=== PATIENT | female | born 1930 | race Caucasian/White ===

== ENCOUNTER 2017-01-22 11:46 | Inpatient (IN) | payer OTHER, MEDICARE ==
[~2017-01-22] VITALS: Ht 162.6 cm; Wt 52.8 kg
[~2017-01-22 11:46] MED LIST: ASPIRIN EC81 M1 PO; CALCIUM 600-VI1 EACH PO; CARDIZEM CD360 MG PO; COUMADIN 2.5 M2.5 MG PO; COUMADIN 5 MG TA5 MG PO; COUMADIN3 M1 PO; DIGOX0.125 MG PO; FUROSEMIDE20 MG PO; LASIX20 M1 PO; LASIX40 MG PO; LOPRESSOR100 MG PO; LOPRESSOR50 M1 PO; LOVASTATIN40 M1 PO; METOPROLOL SUC100 M1 PO; MULTIPLE VITAM1 EAC2 PO; NORVASC 5MG TAB5 MG PO; PREDNISONE10 MG PO; PRILOSEC 20MG C20 MG PO; PROAIR HFA0.09 MG/Ac INH; SYMBICORT 160/41 PUF INH; VITAMIN D31000 UNI2 PO
--- NOTE | 2017-01-22 12:07 | ED INFLUENZA/URI COMPLAINT ---
History of Present Illness General Chief Complaint: Upper Respiratory Sx/Fever Stated Complaint: URI/? FLU Source: patient, family, old records Exam Limitations: no limitations Vital Signs & Intake/Output Vital Signs & Intake/Output Vital Signs Date Time Temp Pulse Resp B/P Pulse O2 O2 Flow FiO2 Ox Delivery Rate 01/23 1725 92 Nasal 2.0L Cannula 01/23 1600 Nasal 2.0L Cannula 01/23 1545 98.6 75 20 128/62 91 Nasal 2.0L Cannula 01/23 1501 87 140/56 01/23 1212 76 118/64 01/23 1211 76 118/64 01/23 0845 95 Nasal 2.0L Cannula 01/23 0840 Nasal 2.0L Cannula 01/23 0839 98.6 60 20 110/56 94 Nasal 2.0L Cannula 01/23 0800 95 Nasal 2.0L Cannula 01/23 0624 76 18 120/62 01/23 0249 96 Nasal 2.0L Cannula 01/23 0000 96 Nasal 2.0L Cannula 01/22 2353 98.4 60 20 116/50 96 Nasal Cannula 01/220 84 140/80 01/22 2120 84 140/80 01/22 2034 99 Nasal 2.0L Cannula 01/22 2029 98.8 100 20 148/70 99 Nasal 2.0L Cannula ED Intake and Output 01/23 0000 01/22 1200 Intake Total 120 Output Total 900 Balance -780 Intake, Oral 120 Output, Urine 900 Patient 118 lb Weight Allergies Coded Allergies: levofloxacin (Severe, TONGUE SWELLING 01/13/16) Penicillins (UNKNOWN 01/13/16) Reconcile Medications Albuterol Sulfate (Proair Hfa) 90 MCG HFA.AER.AD 2 PUF INH Q4-6 PRN PRN SOB ( Reported) Allopurinol 100 MG TABLET 1 TAB PO DAILY GOUT (Reported) Aspirin (Ecotrin*) 81 MG TABLET.DR 1 TAB PO DAILY HEART HEALTH (Reported) Budesonide/Formoterol Fumarate (Symbicort 160-4.5 Mcg Inhaler) 160 MCG-4.5 MCG/ ACTUATION HFA.AER.AD 2 PUF INH BID COPD (Reported) Calcium Carbonate/Vitamin D3 (Calcium 600-Vit D3 800 Tab) 600 MG-800 TABLET 1 TAB PO BID SUPPLEMENT (Reported) Digoxin 125 MCG TABLET 1 TAB PO DAILY AFIB (Reported) Diltiazem HCl 120 MG TABLET 1 TAB PO TID HEART (Reported) Furosemide 40 MG TABLET 1 TAB PO DAILY WATER PILL (Reported) Lovastatin 40 MG TABLET 1 TAB PO DAILY CHOLESTEROL (Reported) with food Metoprolol Tartrate (Lopressor) 50 MG TABLET 1 TAB PO BID Heart health ( Reported) Multivitamin (Multiple Vitamins) 1 EACH TABLET 1 TAB PO DAILY SUPPLEMENT ( Reported) Potassium Chloride 10 MEQ TAB.ER.PRT 1 TAB PO DAILY SUPPLEMENT (Reported) Warfarin Sodium 3 MG TABLET 1 TAB PO 1700 BLOOD THINNER (Reported) Triage Note: PT C/O DIFFICULTY BREATHING X 4 DAYS. PT C/O PRODUCTIVE COUGH. PT C/O CP ON AND OFF TODAY. DR HICKS IS HER DRLanette 02 SATS 72% ON RA Triage Nurses Notes Reviewed? yes Onset: Abrupt Duration: week(s): (1), constant, getting worse Timing: recent history Severity: moderate, severe Severity Numbers: 9 Prior Episodes/Possible Cause: occassional episodes Modifying Factors: Worsens With: movement, rest. 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 Patient denies any chest pain today contrary to triage note. She reports a history of intermittent chest pain dating back for the past 1 year however none today. She is followed by it account manager Dr. Hicks who she states has been fluctuating her Lasix dose. She is currently on 40 mg once a day. She was going to the infusion center however stopped and she is not home O2 dependent. The patient states that last night she was unable to sleep because she could not sit back due to her difficulty breathing. No palpitations dizziness lightheadedness. The patient denies fever chills, she denies any change in her chronic leg swelling and is not worse than normal no difficulty with urination (PORSCHE LAW) Past History Travel History Traveled to [place] past 21 day No Medical History Any Pertinent Medical History? 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 Other Medical Hx: Arterial blockage and abdomen, patient unsure specifics R SIDE BREAST MASS WITH RESCECTION History of MRSA: No History of VRE: No History of CDIFF: No Surgical History Surgical History: hysterectomy, LUNG MASS WITH LOBECTOMY R SIDE pacemaker Psychosocial History Who do you live with Spouse Services at Home Home Health Aide What is your primary language Polish Tobacco Use: Quit >30 days ago ETOH Use: denies use Illicit Drug Use: denies illicit drug use Family History Family History, If Any: SISTER MOTHER Relation not specified for: *No pertinent family history FH: atrial fibrillation FH: hypertension Hx Contributory? No (PORSCHE LAW) Review of Systems Review of Systems Constitutional: Reports: see HPI. All Other Systems: Reviewed and Negative Comments Review of systems: See HPI, All other systems negative. Constitutional, no chills no fever, no malaise HEENT: No visual changes no sore throat no congestion, no ear pain Cardiovascular: No chest pain , no palpitation , orthopnea ankle swelling Skin, no jaundice no rashes, no change in skin Respiratory: dyspnea cough no sputum no hemoptysis GI: No nausea no vomiting, no diarrhea, : No dysuria Muscle skeletal: No joint pain, no back pain, no neck pain, Neurologic: No numbness no headache Psych: No stress Heme/endocrine: No bruising no bleeding Immunology: No lymphadenopathy (PORSCHE LAW) Physical Exam Physical Exam General Appearance: alert, cachetic Ears, Nose, Throat: normal ENT inspection, moist mucous membrane, hearing grossly normal Comments: HEENT: Normal EENT exam; PERRL, EOMI, no nystagmus. HEAD is atraumatic. moist mucous membranes. Neck: Supple, no lymphadenopathy, normal range of motion without pain or tenderness Back: Nontender, no CVA tenderness. Full range of motion Cardiovascular: Regular rate and rhythms no murmurs rubs or gallops Respiratory: Chest nontender.There were no bony deformities, no asymmetry. Moderate respiratory distress. Patient speaking in 3-4 word sentences, wheezing bilaterally rhonchorous to the right base Abdomen: Soft, nontender nondistended, no appreciable organomegaly. Normal bowel sounds. No rebound/guarding, No ascites. Extremity:1+ B/L LE edema, full range of motion of extremities, normal and equal pulses bilaterally, 5 out of 5 strength noted to bilateral upper and lower extremities Neuro: Alert oriented x3, motor sensory normalThere were no obvious focal neurologic abnormalities. Skin: No appreciable rash on exposed skin, skin is warm and dry. Psych: Mood and affect is normal, memory and judgment is normal. Core Measures Severe Sepsis Present: No Septic Shock Present: No (BREANN FLOWER,PORSCHE) Progress Differential Diagnosis: chf ACUTE mi PNEUMONIA BRONCHITIS n ABNORMALITY TO THE INJURY ( INFLUENZA) Plan of Care: Orders Procedure Date/time Status PROTHROMBIN TIME 01/24 600 Active BASIC ELECTROLYTES PLUS BUN&CR 01/24 600 Active THROAT CULTURE W/QUICK STREP 01/23 1447 Active RT: Evaluation 01/24 844 Active MAGNESIUM 01/23 600 Complete THERAPIST ORDERS 01/23 UNK Complete PT Evaluate & Treat 01/23 UNK Active Therapeutic Activities 01/23 UNK Complete PT EVAL LOW COMPLEX 20 MIN 01/23 UNK Complete Gait Training 01/23 UNK Complete Discontinue Telemetry/Monitor 01/23 UNK Active MISSING MEDICATION FORM 01/23 UNK Active Vital Signs 01/22 2034 Complete Teach/Educate 01/22 2034 Active Pain Treatment and Response 01/22 2034 Active Nutritional Intake, Monitor 01/22 2034 Active Isolation 01/22 2034 Active Intake & Output 01/22 2034 Complete Patient Care Conference 01/22 2034 Active Activity/Ambulation 01/22 2034 Complete Current Medications Sig/Elle Start time Last Medication Dose Stop Time Status Admin Ramelteon 8 MG QPM 01/23 2200 AC (Rozerem) Benzocaine/Menthol 1 DONNA Q2P PRN 01/23 1500 AC (Chloraseptic Lozenges) Acetaminophen 325 MG Q6P PRN 01/23 0745 AC (Tylenol) Albuterol Sulfate 2 PUF Q4-6 PRN PRN 01/22 1630 AC (Ventolin) Laboratory Tests 01/23/17 0628: Anion Gap 11, Estimated GFR 39 L, BUN/Creatinine Ratio 17.7, Magnesium 2.0, PT 39.4 H, INR 3.80 H, CBC w Diff NO MAN DIFF REQ, RBC 3.85 L, MCV 95.3, MCH 31.3 H, RDW 15.9 H, MPV 7.2 L, Gran % 90.5 H, Lymphocytes % 5.4 L, Monocytes % 4.1, Eosinophils % 0, Basophils % 0 L, Absolute Granulocytes 5.1, Absolute Lymphocytes 0.3 L, Absolute Monocytes 0.2, Absolute Eosinophils 0, Absolute Basophils 0, PUBS MCHC 32.8 L 01/23/17 0035: Troponin I 0.02 Labs ordered old records are patient medicated with DuoNeb Solu-Medrol Lasix IV OXYGEN saturations increased to 94-95% on 2 L On repeat evaluation patient reports symptoms have improved with breathing treatment Lasix discussed with her and her son at length all of her lab results x-ray findings discussed with him my concern given her oxygen saturation initially 72%. The patient was titrated off the oxygen which time her oxygen saturation was noted to be 82-83% at which time she was in agreement for admission, case was discussed with hospitalist Dr. HERNANDEZ WELL HER TUBE PUSHER DR HICKS WILL ADMIT- agrees with plan Case discussed with Dr. BYRNE (BREANN FLOWER,PORSCHE) Diagnostic Imaging: Viewed by Me: Radiology Read. Discussed w/RAD: Radiology Read. Radiology Impression: PATIENT: YESY DUBOIS PRESENT AGE : 86 PATIENT ACCOUNT NO: [id number] : [birth year] LOCATION: [facility] ORDERING PHYSICIAN: PORSCHE FLOWER SERVICE DATE: 01/22/17 EXAM TYPE: RAD - XRY- PORTABLE CHEST XRAY EXAMINATION: XR PORTABLE CHEST CLINICAL INFORMATION: Hypoxic , dyspnea. Assess for pneumonia. COMPARISON: Chest x-ray 12/30/2016. TECHNIQUE: Portable AP view of the chest was obtained. FINDINGS: The lung dyer are hyperexpanded bilaterally, similar compared to prior imaging. There has been interval increase in opacity at the right base with likely increase in the right pleural effusion. Underlying consolidation can't be excluded. The cardiac silhouette is normal in size. The aortic arch is calcified and unfolded. The central pulmonary vasculature is normal. There are no acute osseous findings; the postoperative changes in the right upper chest posteriorly are not well demonstrated likely due to position of the patient (kyphotic). Dual lead pacemaker from the left chest appears unchanged. IMPRESSION: 1. There has been interval increase in opacification at the right base, which may be consistent with increasing pleural effusion. An area of consolidation cannot be excluded. 2. Recommend upright frontal and lateral views of the chest for further assessment. DICTATED BY: JOSE EDUARDO GUADARRAMA MD DATE/TIME DICTATED:01/22/171300 SLAG WORKER:MATA DATE/TIME TRANSCRIBED:01/22/171300 CONFIDENTIAL, DO NOT COPY WITHOUT APPROPRIATE AUTHORIZATION. <Electronically signed in Other Vendor System> SIGNED BY: JOSE EDUARDO GUADARRAMA MD 01/22/17 1311 Initial ED EKG: AFIB AT 70, PVCS, NO ACUTE ST SEG CHANGES Prior EKG: unchanged (02/2016) Rhythm Strip: atrial fibrillation (PORSCHE LAW) Departure Departure Time of Disposition: 1338 Disposition: HOME OR SELF CARE Condition: Stable Clinical Impression Primary Impression: CHF (congestive heart failure) Secondary Impressions: Hypoxia, Pleural effusion Referrals: VAHID SILVERIO MD (PCP/Family) Departure Forms: Customer Survey General Discharge Information Admission Note Documentation of Exam: Documentation of any treatments & extenuating circumstances including Concerns Regarding Discharge (functional status, medication knowledge or non-compliance, living conditions, etc.) that warrant an admission rather than observation: IV DIURESIS, CARDIOLOGY EVAL, TREND LABS, PT HYPOXIC ON ROOM AIR, MAY REQUIRE HOME O2, PREMATURE DISCHARGE WOULD BE MEDICALLY HARMFUL (PORSCHE LAW) PA/HALL CLERK Co-Sign Statement Statement: ED Attending supervision documentation- X I saw and evaluated the patient. I have also reviewed all the pertinent lab results and diagnostic results. I agree with the findings and the plan of care as documented in the PA's/HALL CLERK's documentation. [] I have reviewed the ED Record and agree with the PA's/HALL CLERK's documentation. [] Additions or exceptions (if any) to the PAs/HALL CLERK's note and plan are summarized below: [] (CATY WATERS,EMILY)
[2017-01-22] MEDS ORDERED: DILTIAZEM HCL120 M3 PO (12:27)
[2017-01-22] MEDS ORDERED: POTASSIUM CHLO10 ME5 PO (12:28)
[2017-01-22] MEDS ORDERED: DIGOXIN125 MCG PO (12:28)
[2017-01-22] MEDS ORDERED: WARFARIN SODIUM3 M1 PO (12:29)
[2017-01-22] MEDS ORDERED: ALLOPURINOL100 M1 PO (12:30)
[2017-01-22] MEDS ORDERED: FUROSEMIDE40 M1 PO (12:30)
[2017-01-22] MEDS ORDERED: PROAIR HFA8.5 GM INH (12:35)
[2017-01-22] MEDS ORDERED: SYMBICORT 16010.2 GM INH (12:36)
[2017-01-22 12:51] LABS: ABSOLUTE BASOPHIL COUNT 0 /CUMM (0.0-0.2); ABSOLUTE EOSINOPHIL COUNT 0.1 /CUMM (0.0-0.7); ABSOLUTE GRANULOCYTE CT 8.2 /CUMM (1.4-6.5); ABSOLUTE LYMPH COUNT 0.4 /CUMM (1.2-3.4); ABSOLUTE MONOCYTE COUNT 0.7 /CUMM (0.10-0.60); BASOPHIL % 0.3 % (0.0-2.0); EOSINOPHIL % 0.8 % (0-5); HEMATOCRIT 37.4 % (37-47); MEAN CORPUSCULAR HGB 31.3 PG (27.0-31.0); MEAN CORPUSCULAR HGB CONC 32.9 G/DL (33.0-37.0); MEAN CORPUSCULAR VOLUME 95.2 FL (81.0-99.0); MEAN PLATELET VOLUME 6.9 FL (7.4-10.4); PLATELET COUNT 251 /CUMM (130-400); RBC DISTRIBUTION WIDTH 16.3 % (11.5-14.5); RED BLOOD CELL CT 3.93 /CUMM (4.20-5.40); WHITE BLOOD CELL COUNT 9.5 /CUMM (4.8-10.8)
[2017-01-22 13:05] LABS: GRANULOCYTE % 86.9 % (42.2-75.2)
[2017-01-22 13:07] LABS: PT 30.5 SEC (9.4-12.5)
--- NOTE | 2017-01-22 13:11 | RADIOLOGY REPORT ---
EXAMINATION: XR PORTABLE CHEST CLINICAL INFORMATION: Hypoxic, dyspnea. Assess for pneumonia. COMPARISON: Chest x-ray 12/30/2016. TECHNIQUE: Portable AP view of the chest was obtained. FINDINGS: The lung dyer are hyperexpanded bilaterally, similar compared to prior imaging. There has been interval increase in opacity at the right base with likely increase in the right pleural effusion. Underlying consolidation can't be excluded. The cardiac silhouette is normal in size. The aortic arch is calcified and unfolded. The central pulmonary vasculature is normal. There are no acute osseous findings; the postoperative changes in the right upper chest posteriorly are not well demonstrated likely due to position of the patient (kyphotic). Dual lead pacemaker from the left chest appears unchanged. IMPRESSION: 1. There has been interval increase in opacification at the right base, which may be consistent with increasing pleural effusion. An area of consolidation cannot be excluded. 2. Recommend upright frontal and lateral views of the chest for further assessment.
--- NOTE | 2017-01-22 14:01 | History & Physical ---
VILMA SORIANO MD 01/22/17 1401: General Information and HPI MD Statement: I have seen and personally examined YESY PRO and documented this H&P. The patient is a 86 year old F who presented with a patient stated chief complaint of shortness of breath. Source of Information: patient, family Exam Limitations: no limitations History of Present Illness: Ms. 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 Patient provided an extended history and reports her heart failure has been well controlled for the last year and she was even able to decrease frequency of her CHF clinic visits, however starting about 1 week ago she has had progressive dyspnea which is limiting her ambulation and ADLs. Associated symptoms include cough productive of clear-yellow sputum, malaise, 40 -pound unintentional weight loss over the last 1 year, mild lower extremity edema, intermittent dull pain present in the region inframammary fold that radiates to the back, recent initiation of Proair to improve her respiratory symptoms. Patient also endorses difficulty sleeping, though she denies paroxysmal nocturnal dyspnea and orthopnea. Patient denies fever, chills, chest pain, abdominal pain, nausea, vomiting, dysuria, constipation or gait dysfunction. Social history is negative for alcohol or illicit drug use but is significant for >40 year history of tobacco abuse. She does not use an assist device to ambulate, does not use oxygen at home, and lives at her house with her . She sees Dr. Dick as her developmental behavioral physician and Dr. Ponce as her cardiothoracic surgeon. Allergies/Medications Allergies: Coded Allergies: levofloxacin (Severe, TONGUE SWELLING 01/13/16) Penicillins (UNKNOWN 01/13/16) Home Med list Albuterol Sulfate (Proair Hfa) 90 MCG HFA.AER.AD 2 PUF INH Q4-6 PRN PRN SOB ( Reported) Allopurinol 100 MG TABLET 1 TAB PO DAILY GOUT (Reported) Aspirin (Ecotrin*) 81 MG TABLET.DR 1 TAB PO DAILY HEART HEALTH (Reported) Budesonide/Formoterol Fumarate (Symbicort 160-4.5 Mcg Inhaler) 160 MCG-4.5 MCG/ ACTUATION HFA.AER.AD 2 PUF INH BID COPD (Reported) Calcium Carbonate/Vitamin D3 (Calcium 600-Vit D3 800 Tab) 600 MG-800 TABLET 1 TAB PO BID SUPPLEMENT (Reported) Digoxin 125 MCG TABLET 1 TAB PO DAILY AFIB (Reported) Diltiazem HCl 120 MG TABLET 1 TAB PO TID HEART (Reported) Furosemide 40 MG TABLET 1 TAB PO DAILY WATER PILL (Reported) Lovastatin 40 MG TABLET 1 TAB PO DAILY CHOLESTEROL (Reported) with food Metoprolol Tartrate (Lopressor) 50 MG TABLET 1 TAB PO BID Heart health ( Reported) Multivitamin (Multiple Vitamins) 1 EACH TABLET 1 TAB PO DAILY SUPPLEMENT ( Reported) Potassium Chloride 10 MEQ TAB.ER.PRT 1 TAB PO DAILY SUPPLEMENT (Reported) Warfarin Sodium 3 MG TABLET 1 TAB PO 1700 BLOOD THINNER (Reported) Compliance With Home Meds: GOOD Past History Travel History Traveled to [place] past 21 day No Medical History Neurological: NONE EENT: NONE Cardiovascular: AFIB, CHF Respiratory: COPD Gastrointestinal: ?STOMACH ISSUE, [place] Hepatic: NONE Renal: NONE Musculoskeletal: NONE Psychiatric: NONE Endocrine: NONE Blood Disorders: NONE Cancer(s): bladder cancer, breast cancer, lung cancer HAND WELT BUTTER/Reproductive: BLADDER TUMOR Other Medical Hx: Arterial blockage and abdomen, patient unsure specifics R SIDE BREAST MASS WITH RESCECTION History of MRSA: No History of VRE: No History of CDIFF: No Surgical History Surgical History: hysterectomy, LUNG MASS WITH LOBECTOMY R SIDE pacemaker Past Family/Social History Family History Relations & Conditions if any SISTER MOTHER Relation not specified for: *No pertinent family history FH: atrial fibrillation FH: hypertension Psychosocial History Where do you live? Home Who Do You Live With? spouse Services at Home: Home Health Aide Primary Language: Korean Smoking Status: Former Smoker ETOH Use: denies use Illicit Drug Use: denies illicit drug use Living Will? yes Functional Ability ADLs Independent: dressing, eating, toileting, bathing. Ambulation: independent IADLs Independent: shopping, housework, finances, food prep. Employment History Employment Retired Review of Systems Review of Systems Constitutional: Reports: malaise, unexplained weight loss. Denies: chills, fever, weakness. EENTM: Denies: blurred vision, visual changes, hearing changes, nasal congestion, throat pain. Cardiovascular: Reports: peripheral edema. Denies: chest pain, palpitations, syncope. Respiratory: Reports: cough, short of breath, sputum production, wheezing (Intermittent). GI: Denies: abdominal pain, nausea, changes in stool, vomiting. Genitourinary: Denies: dysuria. Musculoskeletal: Denies: back pain, joint pain. Skin: Denies: change in skin color, rash. Neurological/Psychological: Denies: ataxia, confusion, headache, numbness, tremors. Hematologic/Endocrine: Denies: bruising, bleeding. Immunologic/Allergic: Denies: splenectomy. Exam & Diagnostic Data Last 24 Hrs of Vital Signs/I&O Vital Signs Date Time Temp Pulse Resp B/P Pulse O2 O2 Flow FiO2 Ox Delivery Rate 01/22 1334 97.0 60 26 161/70 83 Room Air 01/22 1240 97.0 70 20 179/69 20 01/22 1234 93 Nasal 4.0L Cannula 01/22 1207 97.8 67 24 175/93 72 Room Air Intake & Output 01/22 1600 01/22 0800 01/22 0000 Intake Total Output Total Balance Patient 118 lb Weight Physical Exam General Appearance Alert, Oriented X3, Cooperative, No Acute Distress Skin RLE chronic skin changes HEENT Atraumatic, PERRLA, EOMI, Mucous Membr. moist/pink Neck Supple, +2 Carotid Pulse wo Bruit, +JVD Lymphatic Cervical nl Cardiovascular Irregular Lungs Decreased air entry bilaterally without over wheezing or crackles. Patient uses 2-3 words and becomes short of breath. Abdomen Normal Bowel Sounds, Soft, No Tenderness, + Incisional abdominal hernia below umbilicus, reducible. Neurological Normal Speech, Strength at 5/5 X4 Ext, Normal Tone Extremities No Clubbing, No Cyanosis, 1-2+ bilateraly lower extremity edema Vascular Pulses Symmetrical Last 24 Hrs of Labs/Nikita: Laboratory Tests 01/22/17 1342: Urine Color YEL, Urine Clarity CLEAR, Urine pH 7.0, Ur Specific [place] 1.020, Urine Protein 100 H, Urine Ketones NEG, Urine Nitrite NEG, Urine Bilirubin NEG, Urine Urobilinogen 0.2, Ur Leukocyte Esterase NEG, Ur Microscopic SEDIMENT EXAMINED, Urine RBC RARE, Urine WBC RARE, Ur Epithelial Cells FEW, Urine Hemoglobin NEG, Urine Glucose NEG 01/22/17 1242: Anion Gap 12, Estimated GFR 42 L, BUN/Creatinine Ratio 15.8, Glucose 131 H, Calcium 9.5, Total Bilirubin 1.1, AST 31, ALT 37, Alkaline Phosphatase 82, Troponin I 0.01, Cho-P-Yufjboxpqax Pept 4580 H, Total Protein 7.7, Albumin 4.5, Globulin 3.2, Albumin/Globulin Ratio 1.4, PT 30.5 H, INR 2.94 H, CBC w Diff NO MAN DIFF REQ, RBC 3.93 L, MCV 95.2, MCH 31.3 H, RDW 16.3 H, MPV 6.9 L, Gran % 86.9 H, Lymphocytes % 4.2 L, Monocytes % 7.8, Eosinophils % 0.8, Basophils % 0.3, Absolute Granulocytes 8.2 H, Absolute Lymphocytes 0.4 L, Absolute Monocytes 0.7 H, Absolute Eosinophils 0.1, Absolute Basophils 0, PUBS MCHC 32.9 L Microbiology 01/22 124 NASOPHARYN: Influenza Virus A & B Rapid Smear - COMP 01/22 1245 BLOOD: Blood Culture - RECD 01/22 1242 BLOOD: Blood Culture - RECD Diagnostic Data EKG Results Ventricular paced rhythm, HR 72 bpm, no acute ST changes, similar from prior. CXR Results IMPRESSION: 1. There has been interval increase in opacification at the right base, which may be consistent with increasing pleural effusion. An area of consolidation cannot be excluded. 2. Recommend upright frontal and lateral views of the chest for further assessment. Assessment/Plan Assessment: Ms. 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 In the ED: Vital signs show T 97.0, HR 60, RR 26, BP 161/70 and O2 saturation of 72% on RA. Labs were significant for normal WBC of 9.5, stable H&H, Plt 251, Chem signfiicant for Na 135, Cl 91, HCO3 32, BUN/cre 19/1.2 (her baseline), Glu 131, trop 0.01, proBNP 4580 and INR 2.94. Dig level was WNL and UA showed no signs of infection. CXR showed interval increase in opacification at the right base, which may be consistent with increasing pleural effusion, however an area of consolidation cannot be excluded. EKG showed ventricular paced rhythm with HR 72 bpm. Patient is admitted to the telemetry floor and below is the management: 1. Acute hypoxic respiratory failure likely secondary to acute on chronic diastolic heart failure * Likel HFpEF exacerbation, however we will also rule out ACS and PE * Continuous tele monitoring for arrhythmias * Rule out ACS with troponin/EKG x 3 (first negative) * Cardio consuly with Dr. Dick appreciated, follow up recommendations * Continue 2L O2 via NC for now, titrate down as tolerated * We will continue 40 mg IV lasix daily * Repeat CXR PA/LAT tomorrowin to monitor for improvement of right pleural effusion and to better characterize right basal consolidation * Strict Is/Os/Daily weights * Echocardiogram pending, f/u results * D-Dimer negative and wells score low, no further need to puruse PE workup 2. Chronic COPD not on home O2 * Continue oxygen via nasal cannula for now * No evidence of wheezing or COPD exacerbation at this point * Continue Proair daily * TR nebs 3. Atrial fibrillation s/p PPM, HTN, HLD * Continue daily INR checks and warfarin dosed daily * Continue aspirin * Metoprolol 50 mg PO BID, cardizem 120 mg PO Q8 and digoxin 0.125 mg PO daily 4. Chronic renal dysfunction * Baseline cre 1.1-1.2, patient currently at baseline * Caution with overdiuresis * Monitor BEP daily 5. Gout * Continue allopurinol daily DNR/DNI CHF diet DVTP: Warfarin As Ranked By This Provider Problem List: 1. CHF (congestive heart failure) 2. Atrial fibrillation 3. Pleural effusion 4. Acute hypoxemic respiratory failure Core Measures/Miscellaneous Acute Coronary Syndrome ACS Diagnosis: No Cerebrovascular Accident CVA/TIA Diagnosis: No Congestive Heart Failure CHF Diagnosis: Yes Date of most recent Echo: 11/13/15 Last Known EF %: 65 Venous Thromboembolism VTE Risk Factors: Acute medical illness, Age > 40, CHF or Resp failure [facility] prophylaxis d/t: No contraindications No VTE Pharm Prophylaxis d/t: No contraindications VTE Diagnosis: No VTE Type: NONE VTE Confirmed by (Test): NONE Severe Sepsis Severe Sepsis Present: No Septic Shock Septic Shock Present: No Miscellaneous Documentation Attending Case Discussed With: Dr. Padilla Primary Care Physician: VAHID SILVERIO MD Patient sees these Specialists Dr. Dick - Research Associate Molecular Biology Level of Patient Care: Telemetry TYLER MASON 01/22/17 1420: Resident Review Statement Resident Statement: examined this patient, discussed with computer science intern, agreed with computer science intern, reviewed images Other Findings: This is an 86-year-old lady with past medical history significant for COPD not on home oxygen, tachybradycardia syndrome s/p pacemaker (11/17/2015), hypertension, dyslipidemia, diverticulitis, lung cancer status post right upper lobe resection, history of atrial fibrillation on warfarin, urothelial carcinoma s/p resection status post resection, breast mass status post resection, abdominal aortic aneurysm who presents to the hospital with worsening of dyspnea for the past 4 days. Please see above for more details. Vital signs on admission: Temperature 97.8, pulse rate 67, respiratory rate 24, blood pressure 175/93, oxygen saturation 72% on room air which improved to 93% with nasal cannula oxygen. Pertinent physical exam at the time of admission: NAD, AAO 3 HEENT: Moist mucous membrane. PERRLA, EOMI. Neck:JVD noted, no carotid bruit, no lymphadenopathy. CV: RRR, no murmur. Lungs: CTABL. Abdomen: Hernia noted, Soft,nondistended, nontender. Extremities : Bilateral lower extremity edema noted(per patient, this is improved compared to her baseline). Pulses are normal and symmetrical. Normal reflexes. Neurology: Benign and nonfocal. Pertinent lab data on admission: CBC unremarkable. Potassium 4.4, creatinine 1.2 (baseline 0.9 in April 2017), GFR 42(Baseline), proBNP 4580 (4210 in February 2016). UA positive for proteinuria (100). INR 2.94, d-dimer 597 (NL D-dimer based on her age <880). Chest x-ray on admission:interval increase in opacification at the right base, which may be consistent with increasing pleural effusion. An area of consolidation cannot be excluded. Last echo done 11/05/2015: Normal ejection fraction, mild concentric LVH, moderate MR, mild TR, mild pulmonary hypertension (RV systolic pressure 43). Problem list/plan: #Dyspnea: Acute hypoxic respiratory failure. Most likely secondary to acute on chronic heart failure. PE ruled out with d-dimer. * satellite project site monitor * Vital signs per protocol * Oxygen supplementation as needed * Rule out ACS with troponins and EKG * Echocardiogram * Cardiology consult * We'll start the patient on furosemide 40 mg IV daily * PA lateral chest x-ray tomorrow #Abnl CXR: * ? area of pleural effusion vs consolidation. * No clinical signs of pneumonia * Will check PA/LAT CXR #COPD not on home oxygen: * No clinical evidence of COPD exacerbation * Received IV steroids in the ED, no need for further steroid therapy at this point * TRC/nebs * Continue with METAL FABRICATING INSPECTOR Pro-air #Tachybradycardia syndrome s/p pacemaker, history of atrial fibrillation on warfarin, hypertension, dyslipidemia: * C/W METAL FABRICATING INSPECTOR dose of digoxin, metorprolol, diltiazem * on 3 mg warfarin as outpatient. * Check INR and dose warfarin accordingly. #CKD: * GFR/Cr close to baseline; UA + for Pruria * Monitor daily kidney fx while on IV diuretics * Avoid nephrotoxins #H/O Gout: * C/W METAL FABRICATING INSPECTOR dose of allupurinol #DVT PPX: * Pt on Warfarin w/therapeutic INR #Code status: * DNI/DNR #Pain MX: Pt pain free on admission; if develops pain, would reevaluate and order pain meds accordingly. LOVE PADILLA MD 01/23/17 1107: Attending MD Review Statement Attending Statement Attending MD Statement: examined this patient, discuss w/resident/PA/PANMAN, agreed w/resident/PA/PANMAN, reviewed EMR data (avail) Attending Assessment/Plan: 86F PMH COPD not on home oxygen, tachybradycardia syndrome s/p pacemaker (2015), hypertension, dyslipidemia, diverticulitis, lung cancer status post right upper lobe resection, history of atrial fibrillation on warfarin, urothelial carcinoma s/p resection status post resection, breast mass status post resection , abdominal aortic aneurysm admitted with acute hypoxemic respiratory failure, dyspnea on exertion, and mild LE edema in the setting of acute on chronic HFpEF. Plan - Continue on telemetry - Continue IV Lasix - I/O, daily weights - Continue home medications - Follow cardiology recommendations - DVT PPx
--- NOTE | 2017-01-22 14:54 | Admission Certification ---
Admission Certification Certification Statement - As attending physician, I certify that at the time of - admission, based on clinical presentation, severity of - symptoms, need for further diagnostic testing and - therapeutic interventions, and risk of adverse outcomes - without in-hospital treatment, in my clinical assessment, - this patient requires an acute hospital stay for a minimum - of two nights or longer. I have also considered psychsocial - factors such as support system, advanced age, financial - issues, cognitive issues, and failed out-patient treatments, - past re-admission history, safety of patient, and lack of - compliance as applicable. Specific rationale supporting this admission is: Acute on chronic CHF
--- NOTE | 2017-01-22 20:15 | Cons- Cardiology ---
General Information and HPI Consulting Request Date of Consult: 01/22/17 Requested By: LOVE PADILLA MD Reason for Consult: Shortness of breath. History of Present Illness: Mrs. 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, AAA, paroxysmal atrial fibrillation with tachycardia/bradycardia syndrome, ultimately requiring permanent pacemaker implantation (VVI) so that the rapid ventricular response rates could be adequately controlled, previous troponin I elevation secondary to demand ischemia, left ventricular hypertrophy and presumed diastolic dysfunction, moderate mitral regurgitation, mild pulmonary hypertension, mild tricuspid regurgitation and recurrent admissions for acute exacerbations of her COPD and diastolic heart failure who again presents with progressive shortness of breath, wheezing, cough productive of whitish sputum, weakness, decreased by mouth intake, etc. She also mentioned, in passing, and she has been experiencing discomfort in her lower rib/upper abdominal region. Allergies/Medications Allergies: Coded Allergies: levofloxacin (Severe, TONGUE SWELLING 01/13/16) Penicillins (UNKNOWN 01/13/16) Home Med List: Albuterol Sulfate (Proair Hfa) 90 MCG HFA.AER.AD 2 PUF INH Q4-6 PRN PRN SOB ( Reported) Allopurinol 100 MG TABLET 1 TAB PO DAILY GOUT (Reported) Aspirin (Ecotrin*) 81 MG TABLET.DR 1 TAB PO DAILY HEART HEALTH (Reported) Budesonide/Formoterol Fumarate (Symbicort 160-4.5 Mcg Inhaler) 160 MCG-4.5 MCG/ ACTUATION HFA.AER.AD 2 PUF INH BID COPD (Reported) Calcium Carbonate/Vitamin D3 (Calcium 600-Vit D3 800 Tab) 600 MG-800 TABLET 1 TAB PO BID SUPPLEMENT (Reported) Digoxin 125 MCG TABLET 1 TAB PO DAILY AFIB (Reported) Diltiazem HCl 120 MG TABLET 1 TAB PO TID HEART (Reported) Furosemide 40 MG TABLET 1 TAB PO DAILY WATER PILL (Reported) Lovastatin 40 MG TABLET 1 TAB PO DAILY CHOLESTEROL (Reported) with food Metoprolol Tartrate (Lopressor) 50 MG TABLET 1 TAB PO BID Heart health ( Reported) Multivitamin (Multiple Vitamins) 1 EACH TABLET 1 TAB PO DAILY SUPPLEMENT ( Reported) Potassium Chloride 10 MEQ TAB.ER.PRT 1 TAB PO DAILY SUPPLEMENT (Reported) Warfarin Sodium 3 MG TABLET 1 TAB PO 1700 BLOOD THINNER (Reported) Current Medications: Current Medications Sig/Elle Start time Last Medication Dose Route Stop Time Status Admin Albuterol Sulfate 2 PUF Q4-6 PRN PRN 01/22 1630 AC INH Albuterol Sulfate 3 ML ONCE ONE 01/22 1215 DC 01/22 INH 01/22 1216 1230 Allopurinol 100 MG DAILY 01/22 1515 AC 01/22 PO 1646 Aspirin Buffered 81 MG DAILY 01/23 1000 AC PO Atorvastatin Calcium 10 MG 1700 01/22 1700 AC 01/22 PO 1647 Digoxin 0.125 MG DAILY 01/23 1000 AC PO Digoxin 0.125 MG DAILY 01/22 1515 DC PO Diltiazem HCl 120 MG Q8 01/22 2200 AC PO Furosemide 40 MG DAILY 01/23 1000 AC IV Furosemide 40 MG ONCE ONE 01/22 1345 DC 01/22 IV PUSH 01/22 1346 1345 Furosemide 0 .STK-MED ONE 01/22 1345 DC IV Ipratropium [place] 2.5 ML ONCE ONE 01/22 1215 DC /08 INH 01/22 1216 1230 Methylprednisolone 0 .STK-MED ONE 01/22 1227 DC .ROUTE Methylprednisolone 125 MG ONCE ONE 01/22 1215 DC 01/22 IV 01/22 1216 1227 Metoprolol Tartrate 50 MG BID 01/22 2200 AC PO Potassium Chloride 10 MEQ DAILY 01/23 1000 AC PO Warfarin Sodium 3 MG COUMADIN 1700 ONE 01/22 1700 DC / PO 01/22 1701 1647 Review of Systems Review of Systems: A 14 point systemic review was obtained and was noncontributory, other than as above. Past History Travel History Traveled to [place] past 21 day No Medical History Neurological: NONE EENT: NONE Cardiovascular: AFIB, CHF, hypertension, hyperlipidemia, sick sinus syndrome s/p ppm Respiratory: COPD, pulmonary nodules, lung carcinoma status post resection Gastrointestinal: ?STOMACH ISSUE, [place] Hepatic: NONE Renal: NONE Musculoskeletal: NONE Psychiatric: NONE Endocrine: NONE Blood Disorders: NONE Cancer(s): bladder cancer, breast cancer, lung cancer [employer]/Reproductive: BLADDER TUMOR Other Medical Hx: Arterial blockage and abdomen, patient unsure specifics R SIDE BREAST MASS WITH RESCECTION Surgical History Surgical History: hysterectomy, LUNG MASS WITH LOBECTOMY R SIDE pacemaker Family History Relations & Conditions If Any: SISTER MOTHER Relation not specified for: *No pertinent family history FH: atrial fibrillation FH: hypertension Psychosocial History Where Do You Live? Home Who Do You Live With? spouse Services at Home: Home Health Aide Primary Language: Polish Smoking Status: Former Smoker ETOH Use: denies use Illicit Drug Use: denies illicit drug use Living Will? yes Functional Ability ADLs Independent: dressing, eating, toileting, bathing. Ambulation: independent IADLs Independent: shopping, housework, finances, food prep. Employment History Employment: Retired Exam & Diagnostic Data Vital Signs and I&O Vital Signs Date Time Temp Pulse Resp B/P Pulse O2 O2 Flow FiO2 Ox Delivery Rate 01/22 1934 97.4 78 20 144/67 98 Nasal 4.0L Cannula 01/22 1806 96.8 80 18 140/63 100 Nasal 2.0L Cannula 01/22 1525 61 01/22 1445 98.0 65 18 168/70 94 Nasal 2.0L Cannula 01/22 1334 97.0 60 26 161/70 83 Room Air 01/22 1240 97.0 70 20 179/69 20 01/22 1234 93 Nasal 4.0L Cannula 01/22 1207 97.8 67 24 175/93 72 Room Air Intake & Output 01/22 1600 01/22 0800 01/22 0000 01/21 1600 01/21 0800 01/21 0000 Intake Total Output Total 450 Balance -450 Output, Urine 450 Patient 118 lb Weight Physical Exam: Chronically ill-appearing, elderly female in mild respiratory distress with nasal oxygen in place. Vital signs: See above. HEENT: Normocephalic, atraumatic, EOMI, moist mucous membranes. Neck: No JVD, no bruits. Lungs: Decreased breath sounds occasional expiratory wheezing and rhonchi. Heart: S1, S2 with a soft (grade 1/6) systolic murmur. No gallop or rub appreciated. PMI fifth ICS at [facility]. Abdomen: Soft, nontender, positive bowel sounds. Extremities: Trace bilateral lower extremity edema. Labs/Nikita Results: Laboratory Tests 01/22 01/22 1830 1342 Chemistry Troponin I (< 0.11 ng/ml) 0.02 Urines Urine Color (YEL,AMB,STR) YEL Urine Clarity (CLEAR) CLEAR Urine pH (5.0 - 8.0) 7.0 Ur Specific [place] (1.001 - 1.035) 1.020 Urine Protein (NEG,<30 MG/DL) 100 H Urine Ketones (NEG) NEG Urine Nitrite (NEG) NEG Urine Bilirubin (NEG) NEG Urine Urobilinogen (0.1 - 1.0 EU/dl) 0.2 Ur Leukocyte Esterase (NEG) NEG Ur Microscopic SEDIMENT EXAMINED Urine RBC (0 - 5 /HPF) RARE Urine WBC (0 - 2 /HPF) RARE Ur Epithelial Cells (NONE,FEW) FEW Urine Hemoglobin (NEG) NEG Urine Glucose (N MG/DL) NEG 01/22 1242 Chemistry Sodium (137 - 145 mmol/L) 135 L Potassium (3.5 - 5.1 mmol/L) 4.4 Chloride (98 - 107 mmol/L) 91 L Carbon Dioxide (22 - 30 mmol/L) 32 H Anion Gap (5 - 16) 12 BUN (7 - 17 mg/dL) 19 H Creatinine (0.5 - 1.0 mg/dL) 1.2 H Estimated GFR (>60 ml/min) 42 L BUN/Creatinine Ratio (7 - 25 %) 15.8 Glucose (65 - 99 mg/dL) 131 H Calcium (8.4 - 10.2 mg/dL) 9.5 Total Bilirubin (0.2 - 1.3 mg/dL) 1.1 AST (14 - 36 U/L) 31 ALT (9 - 52 U/L) 37 Alkaline Phosphatase (<127 U/L) 82 Troponin I (< 0.11 ng/ml) 0.01 Rtq-O-Ixlecwgradb Pept (<125 pg/mL) 4580 H Total Protein (6.3 - 8.2 g/dL) 7.7 Albumin (3.5 - 5.0 g/dL) 4.5 Globulin (1.9 - 4.2 gm/dL) 3.2 Albumin/Globulin Ratio (1.1 - 2.2 %) 1.4 TSH &T3 &Free T4 Intrp (0.270 - 4.20 uIU/mL) 3.430 Coagulation PT (9.4 - 12.5 SEC) 30.5 H INR (0.90 - 1.19) 2.94 H D-Dimer (70 - 232 ng/ml) 597 H Hematology CBC w Diff NO MAN DIFF REQ WBC (4.8 - 10.8 /CUMM) 9.5 RBC (4.20 - 5.40 /CUMM) 3.93 L Hgb (12.0 - 16.0 G/DL) 12.3 Hct (37 - 47 %) 37.4 MCV (81.0 - 99.0 FL) 95.2 MCH (27.0 - 31.0 PG) 31.3 H RDW (11.5 - 14.5 %) 16.3 H Plt Count (130 - 400 /CUMM) 251 MPV (7.4 - 10.4 FL) 6.9 L Gran % (42.2 - 75.2 %) 86.9 H Lymphocytes % (20.5 - 51.1 %) 4.2 L Monocytes % (1.7 - 9.3 %) 7.8 Eosinophils % (0 - 5 %) 0.8 Basophils % (0.0 - 2.0 %) 0.3 Absolute Granulocytes (1.4 - 6.5 /CUMM) 8.2 H Absolute Lymphocytes (1.2 - 3.4 /CUMM) 0.4 L Absolute Monocytes (0.10 - 0.60 /CUMM) 0.7 H Absolute Eosinophils (0.0 - 0.7 /CUMM) 0.1 Absolute Basophils (0.0 - 0.2 /CUMM) 0 PUBS MCHC (33.0 - 37.0 G/DL) 32.9 L Toxicology Digoxin (0.8 - 2.0 ng/mL) 1.8 Diagnostic Data EKG Results (01/22/2017) properly functioning electronic pacemaker with underlying atrial fibrillation, low frontal lead voltage, ST-T wave abnormalities in diffuse leads consistent with ischemia. More ST-T wave abnormalities when compared to previous tracing performed earlier on 01/22/2017. CXR Results (01/22/2017): 1. There has been interval increase in opacification at the right base, which may be consistent with increasing pleural effusion. An area of consolidation cannot be excluded. 2. Recommend upright frontal and lateral views of the chest for further assessment. Other Results Echocardiogram (11/13/2015): Normal size left ventricle. Mild concentric left ventricular hypertrophy. Normal left ventricular ejection fraction visually estimated at > 65%. Normal right ventricular size and function. Mild to moderate right atrial dilatation. Moderate left atrial dilatation. Mild mitral stenosis. Moderate mitral regurgitation. No aortic valve stenosis or regurgitation. Mild tricuspid regurgitation. Mild pulmonary hypertension. No pulmonic regurgitation. Abdominal aortic aneurysm (3.78 X 3.42 cm). Dilated IVC. Assessment/Plan Assessment/Plan Mrs. 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 with her CXR revealing an interval increase in opacification at the right base, c/w a probable increasing pleural effusion, although an area of consolidation cannot be excluded. In the ED she was placed on oxygen with significant improvement in her O2 saturation, has already received IV furosemide 40 mg 1 (in addition to the by mouth furosemide 40 mg she takes on a daily basis), TRC/nebulizer treatment, steroids, etc. Recommendations: * Telemetry admission, follow-up troponins, follow-up electrocardiograms. * Strict inputs/outputs, daily weights, etc. * Repeat CXR in a.m. following a good diuresis. * Follow-up BUN/creatinine, potassium, and magnesium closely. * Check trough digoxin level. * Echocardiogram to reassess her left ventricular systolic function, degree of LVH, valvular abnormalities, pulmonary hypertension, etc. * Consider abdominal ultrasound vs CT abdomen/pelvis for her abdominal discomfort and known history of AAA. * DVT prophylaxis being addressed by anticoagulation (warfarin) for her chronic atrial fibrillation. Further recommendations will follow, Thank you. Consult Acknowledgment - Thank you for your consult request.
[2017-01-22 20:29] VITALS: BP 148/70
--- NOTE | 2017-01-22 20:46 | ECHOCARDIOGRAM REPORT ---
YESY DUBOIS Age: 86 : 1930 Gender: F Exam Date: 01/22/2017 16:20 Exam Location: ER Ht (in): 64 Wt (lb): 118 BSA: 1.55 BP: 168 / 70 Ordering Physician: ANDRESSA MASON, Referring Physician: Oziel Dick MD Technologist: Racquel Billy BRIA Room Number: [id number] Indications: SHORTNESS OF BREATH Rhythm: Atrial fibrillation; paced Technical Quality: Technically difficult study FINDINGS Left Ventricle Normal size left ventricle. Mild concentric left ventricular hypertrophy. No obvious regional wall motion abnormalities. Normal left ventricular ejection fraction visually estimated at >65%. Right Ventricle Normal right ventricular size and function. Catheter/pacemaker wire in the right ventricular cavity. Right Atrium Moderate right atrial dilatation. Catheter/pacemaker wire in the right atrial cavity. Left Atrium Moderate left atrial dilatation. Mitral Valve Mild mitral annular calcification. Mild subvalvular mitral calcification. Mitral valve thickened. Mild mitral stenosis. Moderate mitral regurgitation. Aortic Valve Diffuse mild thickening of the aortic valve cusps with mildly reduced excursion. No hemodynamically significant aortic stenosis. Trace aortic regurgitation. Tricuspid Valve Structurally normal tricuspid valve. Mild to moderate tricuspid regurgitation. Mild to moderate pulmonary hypertension. Right ventricular systolic pressure estimated to be elevated at 49 mmHg. Pulmonic Valve Pulmonic valve not well visualized, grossly normal. Mild pulmonic regurgitation. Pericardium No pericardial effusion. Great Vessels Normal size aortic root. Dilated inferior vena cava. CONCLUSIONS Normal size left ventricle. Mild concentric left ventricular hypertrophy. No obvious regional wall motion abnormalities. Normal left ventricular ejection fraction visually estimated at > 65%. Normal right ventricular size and function. Catheter/pacemaker wire in the right ventricular cavity. Moderate right atrial dilatation. Catheter/pacemaker wire in the right atrial cavity. Moderate left atrial dilatation. Mild mitral stenosis. Moderate mitral regurgitation. Trace aortic regurgitation. Mild to moderate tricuspid regurgitation. Mild to moderate pulmonary hypertension. Mild pulmonic regurgitation. Dilated inferior vena cava. Oziel Dick M.D. (Electronically Signed) Final Date: 22 January 2017 20:45 MEASUREMENTS (Male / Female) Normal Values 2D ECHO LV Diastolic Diameter PLAX 3.9 cm 4.2 - 5.9 / 3.9 - 5.3 cm LV Systolic Diameter PLAX 2.2 cm 2.1 - 4.0 cm LV Fractional Shortening PLAX 43.6 % 25 - 46 % LV Ejection Fraction 2D Teich 75.4 % IVS Diastolic Thickness 1.2 cm LVPW Diastolic Thickness 1.1 cm LV Relative Wall Thickness 0.6 RV Internal Dim ED PLAX 3.1 cm 1.9 - 3.8 cm LVOT Diameter 1.7 cm Aortic Root Diameter 2.7 cm LA Systolic Diameter LX 4.5 cm 3.0 - 4.0 / 2.7 - 3.8 cm LA Volume 62.0 cm 18 - 58 / 22 - 52 cm Ascending Aorta Diameter 2.5 cm DOPPLER AV Peak Velocity 167.0 cm/s AV Peak Gradient 11.2 mmHg AV Mean Velocity 109.0 cm/s AV Mean Gradient 6.0 mmHg AV Velocity Time Integral 33.2 cm LVOT Peak Velocity 105.0 cm/s LVOT Peak Gradient 4.4 mmHg LVOT Mean Velocity 75.1 cm/s LVOT Mean Gradient 3.0 mmHg LVOT Velocity Time Integral 22.8 cm LVOT Stroke Volume 51.8 cm AV Area Cont Eq vti 1.6 cm AV Area Cont Eq pk 1.4 cm MV Peak Velocity 186.0 cm/s MV Peak Gradient 13.8 mmHg MV Mean Velocity 81.4 cm/s MV Mean Gradient 4.0 mmHg Mitral E Point Velocity 134.0 cm/s MV PHT Velocity 197.0 cm/s MV Deceleration Smith 771.0 cm/s MV Pressure Half Time 76.7 ms MV Area PHT 2.9 cm MV Deceleration Time 120.0 ms TR Peak Velocity 332.0 cm/s TR Peak Gradient 44.1 mmHg Right Atrial Pressure 5.0 mmHg Pulmonary Artery Systolic Pressu 49.1 mmHg Right Ventricular Systolic Press 49.1 mmHg PV Peak Velocity 96.9 cm/s PV Peak Gradient 3.8 mmHg PV Mean Velocity 57.6 cm/s PV Mean Gradient 2.0 mmHg PV Velocity Time Integral 15.6 cm LV E' Lateral Velocity 12.4 cm/s Mitral E to LV E' Lateral Ratio 10.8 LV E' Septal Velocity 8.0 cm/s Mitral E to LV E' Septal Ratio 16.8
[2017-01-22 23:53] VITALS: BP 116/50
--- NOTE | 2017-01-23 06:53 | PN- Housestaff ---
See Addendum Subjective Follow-up For: Acute hypoxic respiratory failure Acute on chronic diastolic heart failure COPD Chronic renal dysfunction Atrial fibrillation Tele-Events Since Last Visit: Single/dual pacing Subjective: Patient seen and examined at bedside this AM. She is laying comfortably in bed but remains dyspneic on conversation and reports being tired after a short conversation with us. She denies dizziness, chest pain or palpitations but again she notes shortness of breath with cough. Patient is requesting physical therapy to work with her. She also endorses poor sleep which has been present for several weeks; melatonin has not helped this but she is willing to try rozerem. Review of Systems Constitutional: Reports: malaise, unexplained weight loss. Denies: chills, diaphoresis, fever. EENTM: Denies: visual changes, hearing changes, nasal congestion. Cardiovascular: Denies: chest pain, palpitations, syncope. Respiratory: Reports: cough, short of breath, sputum production (Occasional). Denies: hemoptysis, orthopnea, stridor, wheezing. Gastrointestinal: Reports: see HPI. Denies: abdominal pain, nausea, vomiting. Genitourinary: Denies: dysuria. Musculoskeletal: Denies: neck pain. Skin: Denies: lesions, rash. Neurological/Psychological: Denies: confusion, headache, tremors. Hematologic/Endocrine: Denies: bleeding. Objective Last 24 Hrs of Vital Signs/I&O Vital Signs Date Time Temp Pulse Resp B/P Pulse O2 O2 Flow FiO2 Ox Delivery Rate 01/23 0624 76 18 120/62 01/23 0249 96 Nasal 2.0L Cannula 01/23 0000 96 Nasal 2.0L Cannula 01/22 2353 98.4 60 20 116/50 96 Nasal Cannula 01/22 2120 84 140/80 01/220 84 140/80 01/224 99 Nasal 2.0L Cannula 01/22 2029 98.8 100 20 148/70 99 Nasal 2.0L Cannula 01/22 1934 97.4 78 20 144/67 98 Nasal 4.0L Cannula 01/22 1806 96.8 80 18 140/63 100 Nasal 2.0L Cannula 01/22 1525 61 08 1445 98.0 65 18 168/70 94 Nasal 2.0L Cannula 01/22 1334 97.0 60 26 161/70 83 Room Air 01/22 1240 97.0 70 20 179/69 20 01/22 1234 93 Nasal 4.0L Cannula 01/22 1207 97.8 67 24 175/93 72 Room Air Intake & Output 01/23 0800 01/23 0000 01/22 1600 Intake Total 480 120 Output Total 450 450 Balance 480 -330 -450 Intake, Oral 480 120 Output, Urine 450 450 Patient 112 lb 118 lb 118 lb Weight Physical Exam General Appearance: Alert, Oriented X3, Cooperative, No Acute Distress Other Physical Findings: Skin RLE chronic skin changes HEENT Atraumatic, PERRLA, EOMI, Mucous Membr. moist/pink Neck Supple, +2 Carotid Pulse wo Bruit, +JVD Lymphatic Cervical nl Cardiovascular Irregular Lungs Decreased air entry bilaterally without over wheezing or crackles. Patient uses 3-4 words and becomes short of breath. Abdomen Normal Bowel Sounds, Soft, No Tenderness, + Incisional abdominal hernia below umbilicus, reducible. Neurological Normal Speech, Strength at 5/5 X4 Ext, Normal Tone Extremities No Clubbing, No Cyanosis, 1-2+ bilateraly lower extremity edema Vascular Pulses Symmetrical Current Medications: Current Medications Sig/Elle Start time Last Medication Dose Route Stop Time Status Admin Acetaminophen 325 MG ONCE ONE 01/23 0130 DC 01/23 PO 01/23 0131 0141 Albuterol Sulfate 3 ML ONCE ONE 01/23 0245 DC 01/23 INH 01/23 0246 0237 Albuterol Sulfate 2 PUF Q4-6 PRN PRN 01/22 1630 AC INH Albuterol Sulfate 3 ML ONCE ONE 01/22 1215 DC 01/22 INH 01/22 1216 1230 Allopurinol 100 MG DAILY 01/22 1515 AC 01/22 PO 1646 Aspirin Buffered 81 MG DAILY 01/23 1000 AC PO Atorvastatin Calcium 10 MG 1700 01/22 1700 AC 01/22 PO 1647 Digoxin 0.125 MG DAILY 01/23 1000 AC PO Digoxin 0.125 MG DAILY 01/22 1515 DC PO Diltiazem HCl 120 MG Q8 01/22 2200 AC 01/23 PO 0624 Furosemide 40 MG DAILY 01/23 1000 AC IV Furosemide 40 MG ONCE ONE 01/22 1345 DC 01/22 IV PUSH 01/22 1346 1345 Furosemide 0 .STK-MED ONE 01/22 1345 DC IV Ipratropium [place] 2.5 ML ONCE ONE 01/22 1215 DC 01/22 INH 01/22 1216 1230 Methylprednisolone 0 .STK-MED ONE 01/22 1227 DC .ROUTE Methylprednisolone 125 MG ONCE ONE 01/22 1215 DC 01/22 IV 01/22 1216 1227 Metoprolol Tartrate 50 MG BID 01/220 AC 01/22 PO 2120 Potassium Chloride 10 MEQ DAILY 01/23 1000 AC PO Ramelteon 8 MG QPM 01/23 220 UNVr PO Warfarin Sodium 3 MG COUMADIN 1700 ONE 01/22 1700 DC 01/22 PO 01/22 1701 1647 Last 24 Hrs of Lab/Nikita Results Last 24 Hrs of Labs/Mics: Laboratory Tests 01/23/17 0628: Sodium Pending, Potassium Pending, Chloride Pending, Carbon Dioxide Pending, Anion Gap Pending, BUN Pending, Creatinine Pending, BUN/Creatinine Ratio Pending , Magnesium Pending, PT Pending, INR Pending, CBC w Diff Pending, WBC Pending, RBC Pending, Hgb Pending, Hct Pending, MCV Pending, MCH Pending, RDW Pending, Plt Count Pending, MPV Pending, PUBS MCHC Pending 01/23/17 0035: Troponin I 0.02 01/22/17 1830: Troponin I 0.02 01/22/17 1342: Urine Color YEL, Urine Clarity CLEAR, Urine pH 7.0, Ur Specific [place] 1.020, Urine Protein 100 H, Urine Ketones NEG, Urine Nitrite NEG, Urine Bilirubin NEG, Urine Urobilinogen 0.2, Ur Leukocyte Esterase NEG, Ur Microscopic SEDIMENT EXAMINED, Urine RBC RARE, Urine WBC RARE, Ur Epithelial Cells FEW, Urine Hemoglobin NEG, Urine Glucose NEG 01/22/17 1242: Anion Gap 12, Estimated GFR 42 L, BUN/Creatinine Ratio 15.8, Glucose 131 H, Calcium 9.5, Total Bilirubin 1.1, AST 31, ALT 37, Alkaline Phosphatase 82, Troponin I 0.01, Rnf-B-Osqgabalgrs Pept 4580 H, Total Protein 7.7, Albumin 4.5, Globulin 3.2, Albumin/Globulin Ratio 1.4, TSH &T3 &Free T4 Intrp 3.430, PT 30.5 H, INR 2.94 H, D-Dimer 597 H, CBC w Diff NO MAN DIFF REQ, RBC 3.93 L, MCV 95.2, MCH 31.3 H, RDW 16.3 H, MPV 6.9 L, Gran % 86.9 H, Lymphocytes % 4.2 L , Monocytes % 7.8, Eosinophils % 0.8, Basophils % 0.3, Absolute Granulocytes 8.2 H, Absolute Lymphocytes 0.4 L, Absolute Monocytes 0.7 H, Absolute Eosinophils 0.1, Absolute Basophils 0, PUBS MCHC 32.9 L, Digoxin 1.8 Microbiology 01/22 1245 NASOPHARYN: Influenza Virus A & B Rapid Smear - COMP 01/22 1245 BLOOD: Blood Culture - RECD 01/22 1242 BLOOD: Blood Culture - RECD Orders ECHO Findings: CONCLUSIONS Normal size left ventricle. Mild concentric left ventricular hypertrophy. No obvious regional wall motion abnormalities. Normal left ventricular ejection fraction visually estimated at > 65%. Normal right ventricular size and function. Catheter/pacemaker wire in the right ventricular cavity. Moderate right atrial dilatation. Catheter/pacemaker wire in the right atrial cavity. Moderate left atrial dilatation. Mild mitral stenosis. Moderate mitral regurgitation. Trace aortic regurgitation. Mild to moderate tricuspid regurgitation. Mild to moderate pulmonary hypertension. Mild pulmonic regurgitation. Dilated inferior vena cava. Radiology Findings: IMPRESSION: 1. There has been interval increase in opacification at the right base, which may be consistent with increasing pleural effusion. An area of consolidation cannot be excluded. 2. Recommend upright frontal and lateral views of the chest for further assessment. Assessment/Plan Assessment: Ms. 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 In the ED: Vital signs show T 97.0, HR 60, RR 26, BP 161/70 and O2 saturation of 72% on RA. Labs were significant for normal WBC of 9.5, stable H&H, Plt 251, Chem signfiicant for Na 135, Cl 91, HCO3 32, BUN/cre 19/1.2 (her baseline), Glu 131, trop 0.01, proBNP 4580 and INR 2.94. Dig level was WNL and UA showed no signs of infection. CXR showed interval increase in opacification at the right base, which may be consistent with increasing pleural effusion, however an area of consolidation cannot be excluded. EKG showed ventricular paced rhythm with HR 72 bpm. Patient is admitted to the telemetry floor and below is the management: 1. Acute hypoxic respiratory failure likely secondary to acute on chronic diastolic heart failure * Likely HFpEF exacerbation (ACS and PE ruled out with negative trop/EKG x 3 and negative DDimer with low Wells score) * Continuous tele monitoring for arrhythmias * Cardio consult with Dr. Dick appreciated, follow up recommendations * Continue 2L O2 via NC for now, titrate down as tolerated * We will continue 40 mg IV lasix daily * Repeat CXR PA/LAT today to monitor for improvement of right pleural effusion and to better characterize right basal consolidation * Strict Is/Os/Daily weights * Echocardiogram shwoed mild concentric LVH, EF>65%, moderate MR/TR/Pulmonary HTN * OOBTC, PT eval today 2. Chronic COPD not on home O2 * Continue oxygen via nasal cannula for now * No evidence of wheezing or COPD exacerbation at this point * Continue Proair daily * TRC nebs 3. Atrial fibrillation s/p PPM, HTN, HLD * Continue daily INR checks and with dosing of warfarin * Continue aspirin * Metoprolol 50 mg PO BID, cardizem 120 mg PO Q8 and digoxin 0.125 mg PO daily 4. Chronic renal dysfunction * Baseline cre 1.1-1.2, patient currently at baseline * Caution with overdiuresis * Monitor BEP daily 5. Gout * Continue allopurinol daily 6. Hx of AAA, current abdominal pain * Will order abdominal US for today to monitor AAA DNR/DNI CHF diet DVTP: Warfarin Problem List: 1. Pleural effusion 2. Atrial fibrillation 3. Leg edema 4. Dyspnea 5. Acute respiratory failure with hypoxia 6. CHF exacerbation 7. Pulmonary HTN 8. Control of atrial fibrillation with pacemaker Pain Ratin Pain Location: n/a Pain Goal: Remain pain free Pain Plan: Tylenol for mild pain. Tomorrow's Labs & Rationales: BEP (Monitor renal function and electrolytes in setting of aggressive diuresis), INR (to dose coumadin)
[2017-01-23 08:10] LABS: ABSOLUTE BASOPHIL COUNT 0 /CUMM (0.0-0.2); ABSOLUTE EOSINOPHIL COUNT 0 /CUMM (0.0-0.7); ABSOLUTE GRANULOCYTE CT 5.1 /CUMM (1.4-6.5); ABSOLUTE LYMPH COUNT 0.3 /CUMM (1.2-3.4); ABSOLUTE MONOCYTE COUNT 0.2 /CUMM (0.10-0.60); BASOPHIL % 0 % (0.0-2.0); EOSINOPHIL % 0 % (0-5); HEMATOCRIT 36.7 % (37-47); MEAN CORPUSCULAR HGB 31.3 PG (27.0-31.0); MEAN CORPUSCULAR HGB CONC 32.8 G/DL (33.0-37.0); MEAN CORPUSCULAR VOLUME 95.3 FL (81.0-99.0); MEAN PLATELET VOLUME 7.2 FL (7.4-10.4); PLATELET COUNT 244 /CUMM (130-400); RBC DISTRIBUTION WIDTH 15.9 % (11.5-14.5); RED BLOOD CELL CT 3.85 /CUMM (4.20-5.40); WHITE BLOOD CELL COUNT 5.6 /CUMM (4.8-10.8)
[2017-01-23 08:33] LABS: PT 39.4 SEC (9.4-12.5)
[2017-01-23 08:39] VITALS: BP 110/56
[2017-01-23 09:14] LABS: GRANULOCYTE % 90.5 % (42.2-75.2)
--- NOTE | 2017-01-23 10:40 | RADIOLOGY REPORT ---
EXAMINATION: XR CHEST CLINICAL INFORMATION: Dyspnea. Presumptive diagnosis of pulmonary edema. Pleural effusion. Question area of consolidation a portable chest x-ray. COMPARISON: Prior chest x-rays, most recent of which is dated 01/22/2017. TECHNIQUE: 2 views of the chest were obtained. FINDINGS: Right atrial and right ventricular pacer leads in place. Cardiomediastinal silhouette borderline enlarged. Calcification and tortuosity of the aorta is stable. Lungs bilaterally hyperinflated with diffuse thickening of the central airways and coarsening of the lung markings, consistent with obstructive lung disease. Small bilateral pleural effusions seen, not significantly changed compared to prior exams. No focal consolidation or pneumothorax is present. Diffuse osteopenia with dorsal kyphosis, dextroscoliosis, and multilevel mild degenerative changes in the spine again noted. IMPRESSION: 1. Small bilateral pleural effusions, unchanged from recent prior studies dating back to 12/30/2015 and smaller compared to 03/05/2016. 2. COPD. 3. No focal pneumonia.
--- NOTE | 2017-01-23 11:58 | ULTRASOUND REPORT ---
EXAMINATION: US RETROPERITONEAL LIMITED (AORTA) CLINICAL INFORMATION: Abdominal pain. Prior history of aneurysm. Post incisional hernia. Status post hysterectomy. Presumptive diagnosis of abdominal aortic aneurysm. COMPARISON: PET/CT scan dated 04/09/2016. TECHNIQUE: Grayscale, color Doppler and spectral Doppler evaluation of the abdominal aorta. FINDINGS: As seen on the PET CT scan, there is a mid abdominal aortic aneurysm, extending over a length of approximately 10 cm with maximal AP diameter of 3.5 cm. Moderate atherosclerotic calcifications of the aorta are noted. As seen previously, there is a focal constriction within the mid aneurysm sac, producing a hourglass appearance. No periaortic collection. The measurements of the aorta in maximum AP and transverse dimensions respectively are as follows: Proximal: 1.4 x 1.4 cm. Mid: 3.5 x 5.0 cm. Distal: 1.3 x 1.5 cm. The measurements of the common iliac arteries in maximum AP dimension are as follows: Right Common Iliac Artery: 0.7 cm. Left Common Iliac Artery: 0.6 cm. IMPRESSION: Fusiform mid abdominal aortic aneurysm is seen with a hourglass contour, unchanged in size and appearance compared to 04/09/2016. Moderate atherosclerotic calcifications are seen.
[2017-01-23 15:45] VITALS: BP 128/62
--- NOTE | 2017-01-23 18:39 | PN- Cardiology ---
Subjective Subjective: No complaints. Feels a little better today, however did again desaturate. Remains on oxygen. Properly functioning pacemaker with adequate control of the ventricular response rates to her underlying atrial fibrillation. Objective Vital Signs and I&Os Vital Signs Date Time Temp Pulse Resp B/P Pulse O2 O2 Flow FiO2 Ox Delivery Rate 01/23 1725 92 Nasal 2.0L Cannula 01/23 1600 Nasal 2.0L Cannula 01/23 1545 98.6 75 20 128/62 91 Nasal 2.0L Cannula 01/23 1501 87 140/56 01/23 1212 76 118/64 01/23 1211 76 118/64 01/23 0845 95 Nasal 2.0L Cannula 01/23 0840 Nasal 2.0L Cannula 01/23 0839 98.6 60 20 110/56 94 Nasal 2.0L Cannula 01/23 0800 95 Nasal 2.0L Cannula 01/23 0624 76 18 120/62 01/23 0249 96 Nasal 2.0L Cannula 01/23 0000 96 Nasal 2.0L Cannula 01/22 2353 98.4 60 20 116/50 96 Nasal Cannula 01/220 84 140/80 01/220 84 140/80 01/22 2034 99 Nasal 2.0L Cannula 01/22 2029 98.8 100 20 148/70 99 Nasal 2.0L Cannula 01/22 1934 97.4 78 20 144/67 98 Nasal 4.0L Cannula Intake & Output 01/23 1600 01/23 0800 01/23 0000 01/22 1600 01/22 0800 01/22 0000 Intake Total 620 480 120 Output Total 550 600 450 450 Balance 70 -120 -330 -450 Intake, IV 20 Intake, Oral 600 480 120 Output, Urine 550 600 450 450 Patient 112 lb 118 lb 118 lb Weight Physical Exam: Chronically ill-appearing, elderly female in mild respiratory distress with nasal oxygen in place. Vital signs: See above. HEENT: Normocephalic, atraumatic, EOMI, moist mucous membranes. Neck: No JVD, no bruits. Lungs: Decreased breath sounds occasional expiratory wheezing and rhonchi. Heart: S1, S2 with a soft (grade 1/6) systolic murmur. No gallop or rub appreciated. PMI fifth ICS at [facility]. Abdomen: Soft, nontender, positive bowel sounds. Extremities: Trace bilateral lower extremity edema. Current Medications: Current Medications Sig/Elle Start time Last Medication Dose Route Stop Time Status Admin Acetaminophen 325 MG Q6P PRN 01/23 0745 AC PO Acetaminophen 325 MG ONCE ONE 01/23 0130 DC 01/23 PO 01/23 0131 0141 Albuterol Sulfate 3 ML BID 01/23 1000 AC 01/23 INH 0843 Albuterol Sulfate 3 ML ONCE ONE 01/23 0245 DC 01/23 INH 01/23 0246 0237 Albuterol Sulfate 2 PUF Q4-6 PRN PRN 01/22 1630 AC INH Allopurinol 100 MG DAILY 01/22 1515 AC 01/23 PO 1212 Aspirin Buffered 81 MG DAILY 01/23 1000 AC 01/23 PO 1209 Atorvastatin Calcium 10 MG 1700 01/22 1700 AC 01/23 PO 1720 Benzocaine/Menthol 1 DONNA Q2P PRN 01/23 1500 AC PO Digoxin 0.125 MG DAILY 01/23 1000 AC 01/23 PO 1211 Digoxin 0.125 MG DAILY 01/22 1515 DC PO Diltiazem HCl 120 MG Q8 01/22 2200 AC 01/23 PO 1501 Furosemide 40 MG DAILY 01/23 1000 AC 01/23 IV 1206 Ipratropium [place] 2.5 ML BID 01/23 1000 AC 01/23 INH 0842 Metoprolol Tartrate 50 MG BID 01/22 2200 AC 01/23 PO 1212 Patient Medication 1 ED .STK-MED ONE 01/23 1349 DC Teaching ED 01/23 1350 Potassium Chloride 10 MEQ DAILY 01/23 1000 AC 01/23 PO 1212 Ramelteon 8 MG QPM 01/23 2200 AC PO Results Last 48 Hrs of Labs/Mics: Laboratory Tests 01/23/17 0628: Anion Gap 11, Estimated GFR 39 L, BUN/Creatinine Ratio 17.7, Magnesium 2.0, PT 39.4 H, INR 3.80 H, CBC w Diff NO MAN DIFF REQ, RBC 3.85 L, MCV 95.3, MCH 31.3 H, RDW 15.9 H, MPV 7.2 L, Gran % 90.5 H, Lymphocytes % 5.4 L, Monocytes % 4.1, Eosinophils % 0, Basophils % 0 L, Absolute Granulocytes 5.1, Absolute Lymphocytes 0.3 L, Absolute Monocytes 0.2, Absolute Eosinophils 0, Absolute Basophils 0, PUBS MCHC 32.8 L 01/23/17 0035: Troponin I 0.02 01/22/17 1830: Troponin I 0.02 01/22/17 1342: Urine Color YEL, Urine Clarity CLEAR, Urine pH 7.0, Ur Specific [place] 1.020, Urine Protein 100 H, Urine Ketones NEG, Urine Nitrite NEG, Urine Bilirubin NEG, Urine Urobilinogen 0.2, Ur Leukocyte Esterase NEG, Ur Microscopic SEDIMENT EXAMINED, Urine RBC RARE, Urine WBC RARE, Ur Epithelial Cells FEW, Urine Hemoglobin NEG, Urine Glucose NEG 01/22/17 1242: Anion Gap 12, Estimated GFR 42 L, BUN/Creatinine Ratio 15.8, Glucose 131 H, Calcium 9.5, Total Bilirubin 1.1, AST 31, ALT 37, Alkaline Phosphatase 82, Troponin I 0.01, Fye-B-Lomsztzradd Pept 4580 H, Total Protein 7.7, Albumin 4.5, Globulin 3.2, Albumin/Globulin Ratio 1.4, TSH &T3 &Free T4 Intrp 3.430, PT 30.5 H, INR 2.94 H, D-Dimer 597 H, CBC w Diff NO MAN DIFF REQ, RBC 3.93 L, MCV 95.2, MCH 31.3 H, RDW 16.3 H, MPV 6.9 L, Gran % 86.9 H, Lymphocytes % 4.2 L , Monocytes % 7.8, Eosinophils % 0.8, Basophils % 0.3, Absolute Granulocytes 8.2 H, Absolute Lymphocytes 0.4 L, Absolute Monocytes 0.7 H, Absolute Eosinophils 0.1, Absolute Basophils 0, PUBS MCHC 32.9 L, Digoxin 1.8 Microbiology 01/22 1245 NASOPHARYN: Influenza Virus A & B Rapid Smear - COMP Recent Imaging Studies: Abdominal ultrasound (01/23/2017): * Fusiform mid abdominal aortic aneurysm is seen with a hourglass contour, unchanged in size and appearance compared to 04/09/2016. * Moderate atherosclerotic calcifications are seen. CXR (01/23/2017): * Small bilateral pleural effusions, unchanged from recent prior studies dating back to 12/30/2015 and smaller compared to 03/05/2016. * COPD. * No focal pneumonia. Echocardiogram (01/22/2017): * Normal size left ventricle. * Mild concentric left ventricular hypertrophy. * No obvious regional wall motion abnormalities. * Normal left ventricular ejection fraction visually estimated at >65%. * Normal right ventricular size and function. Catheter/pacemaker wire in the right ventricular cavity. * Moderate right atrial dilatation. Catheter/pacemaker wire in the right atrial cavity. * Moderate left atrial dilatation. * Mild mitral stenosis. * Moderate mitral regurgitation. * Trace aortic regurgitation. * Mild to moderate tricuspid regurgitation. * Mild to moderate pulmonary hypertension. * Mild pulmonic regurgitation. * Dilated inferior vena cava. Assessment/Plan Assessment/Plan Mrs. 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 with her CXR revealing an interval increase in opacification at the right base, c/w a probable increasing pleural effusion, although an area of consolidation cannot be excluded. In the ED she was placed on oxygen with significant improvement in her O2 saturation, and received IV furosemide 40 mg 1 (in addition to the by mouth furosemide 40 mg she takes on a daily basis), TRC/nebulizer treatment, steroids, etc. She feels a little better today, but not appreciably so. She has had a relatively modest diuresis and also a bump in her BUN/creatinine, and bicarbonate. Would therefore cut back on her diuresis. Her rhythm has been paced with underlying atrial fibrillation and controlled ventricular response rates. Recommendations: * Discontinue telemetry. * Continue strict inputs/outputs, daily weights, etc. * Continue to follow-up BUN/creatinine, potassium, and magnesium closely. * Consider cutting back on her outpatient digoxin dosage given her relatively high trough digoxin level. * Echocardiogram to reassess her left ventricular systolic function, degree of LVH, valvular abnormalities, pulmonary hypertension, etc. * Consider abdominal ultrasound vs CT abdomen/pelvis for her abdominal discomfort and known history of AAA. * DVT prophylaxis being addressed by anticoagulation (warfarin) for her chronic atrial fibrillation. Further recommendations will follow, Thank you. Continue telemetry? No
[2017-01-23 23:44] VITALS: BP 124/68
--- NOTE | 2017-01-23 23:55 | Event Note ---
Event Note Event Note: 01/23/17 11:30PM: Patient was noticed to have increased respiratory distress by nursing staff. Patient reports persistent shortness of breath that has been slowly progressing this this afternoon. She states that she feels about the same as when she came in. She admits to being uncomfortable, and that she just wants to sleep. Vital Signs - Temp 98.1, HR 68, RR 22, 124/68, O2 90% on 2.0L via nasal cannula Physical Exam -General: frail/thin elderly woman in moderate respiratory distress -Neck: Supple, no JVD -HEENT: NCAT, PERRLA, EOMI, anicteric sclera, moist mucous membranes -CVS/Chest: S1, S2 w/o m/g/r; irregular rhythm, pacemaker in place -Resp: Diffuse wheezing, rhonchi and right lower lobe crackles, use of accessory respiratory muscles, severe kyphosis -GI: Soft, nontender, nondistended, bowel sounds present -Neuro: Awake and alert, tired appearing with a soft frail voice, CN II - XII grossly intact -Ext: normal pulses, no cyanosis/clubbing/edema Given patients clinical condition suggestive of an acute congestive heart failure treated with intravenous lasix it is possible patient is having worsening respiratory distress secondary to increased fluid retention, however her physical examination does not suggest any evidence of fluid overload. Records reviewed demonstrate that patient was having respiratory difficulty earlier today, however chest x-ray did no demonstrate any acute cardiopulmonary disease other than small pleural effusions. Clinically it appears patient is current experiencing a COPD exacerbation. Solumedrol 125mg IV was given and a stat PA/lateral chest x-ray is to be obtained. Discussed with resident and nocturist. 01/24/17 1:50AM: Patient was seen to be unresponsive by nursing staff. Patient was assessed and she was unsponsive to verbal stimuli or sternal rub. Stat ABG was obtained that demonstrated pH 7.01, PaCo2 165, PaO2 84, Sat 90%, HCO3 42, Temp 100.7. Patient was placed on BiPAP by respiratory therapy. Portable xray, CBC, BEP, Mg, Troponin, Lactic Acid, Blood/Urine Cultures were ordered. EKG demosntrated Atrial fibrillation with ST segment depression in V3 - V6 that was unchanged from preivous EKG dated 01/22/17. Lasix were discontinued and Ceftriaxone/ Azithromycin and Solumdrol 40mg IV Q8H was started and jean baptiste catheter was placed. Patient was transfered to the ICU for closer monitoring. Plaster Foreman Dr. Morris was made aware, she assessed the patient and agreed with the management plan. 01/24/17 2:30AM: Patients was called at the number listed in the chart, however the call was not answer and a voicemail box was not set up. Her son was contacted at the phone number listed on the chart and a voicemail requesting call back was left. ICU attending Dr. White was contacted and whom agreed with the management plan. 01/24/17 3:00AM: Chest x-ray retured to demonstrate mild central prominence. Patient was reassessed and she is now minimally responsive to verbal and tactile stimuli.
[2017-01-24 02:39] LABS: ABSOLUTE BASOPHIL COUNT 0 /CUMM (0.0-0.2); ABSOLUTE EOSINOPHIL COUNT 0 /CUMM (0.0-0.7); ABSOLUTE GRANULOCYTE CT 17.4 /CUMM (1.4-6.5); ABSOLUTE MONOCYTE COUNT 1.1 /CUMM (0.10-0.60); BASOPHIL % 0 % (0.0-2.0); EOSINOPHIL % 0 % (0-5); GRANULOCYTE % 89.4 % (42.2-75.2); HEMATOCRIT 38.8 % (37-47); MEAN CORPUSCULAR HGB 31.2 PG (27.0-31.0); MEAN CORPUSCULAR HGB CONC 32.1 G/DL (33.0-37.0); MEAN CORPUSCULAR VOLUME 97.2 FL (81.0-99.0); MEAN PLATELET VOLUME 6.9 FL (7.4-10.4); PLATELET COUNT 343 /CUMM (130-400); RBC DISTRIBUTION WIDTH 16.7 % (11.5-14.5); RED BLOOD CELL CT 3.99 /CUMM (4.20-5.40)
[2017-01-24 02:57] LABS: WHITE BLOOD CELL COUNT 19.4 /CUMM (4.8-10.8)
--- NOTE | 2017-01-24 03:01 | RADIOLOGY REPORT ---
EXAMINATION: XR PORTABLE CHEST CLINICAL INFORMATION: Shortness of breath, dyspnea, crackles, wheezing COMPARISON: 01/23/2017 TECHNIQUE: Portable AP view of the chest was obtained. FINDINGS: Left-sided pacemaker lead tips overlie the right atrium and right ventricle. Lung volumes are symmetric. The left costophrenic angle is not fully included on this exam; persistent small right pleural effusion is suspected. There is mild central interstitial prominence bilaterally without new consolidation. No definite pneumothorax. Cardiac size is at the upper limits of normal. Calcification is present at the aortic arch. No acute osseous findings are seen. IMPRESSION: Mild prominence of the central vasculature, may reflect developing congestion. Suspect persistent small pleural effusions.
[2017-01-24 04:00] VITALS: BP 98/60
[2017-01-24 05:39] LABS: PT 52.5 SEC (9.4-12.5)
--- NOTE | 2017-01-24 07:11 | Cons- CRCU ---
WILFRIDO WATERS,YAMINI 01/24/17 0710: General Information and HPI Consulting Request Date of Consult: 01/24/17 Requested By: Dr Marlee Graves Reason for Consult: Acute hypoxic hypercarbic resp failure Source of Information: old records Exam Limitations: unable to give history, clinical condition History of Present Illness: Ms. 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 Patient provided an extended history and reports her heart failure has been well controlled for the last year and she was even able to decrease frequency of her CHF clinic visits, however starting about 1 week ago she has had progressive dyspnea which is limiting her ambulation and ADLs. Associated symptoms include cough productive of clear-yellow sputum, malaise, 40 -pound unintentional weight loss over the last 1 year, mild lower extremity edema, intermittent dull pain present in the region inframammary fold that radiates to the back, recent initiation of Proair to improve her respiratory symptoms. Patient also endorses difficulty sleeping, though she denies paroxysmal nocturnal dyspnea and orthopnea. Patient denies fever, chills, chest pain, abdominal pain, nausea, vomiting, dysuria, constipation or gait dysfunction. Social history is negative for alcohol or illicit drug use but is significant for >40 year history of tobacco abuse. She does not use an assist device to ambulate, does not use oxygen at home, and lives at her house with her . She sees Dr. Dick as her engineering operator and Dr. Ponce as her cardiothoracic surgeon. 01/24/17: Last night, (while in the hospital), she was unresponsive to pain and was bradypneic and in resp failure with hypercarbia and was put on BiPAP, and transfered to ICU with the request for CRCU consult. History could not be obtained at the moment. Allergies/Medications Allergies: Coded Allergies: levofloxacin (Severe, TONGUE SWELLING 01/13/16) Penicillins (UNKNOWN 01/13/16) Home Med List: Albuterol Sulfate (Proair Hfa) 90 MCG HFA.AER.AD 2 PUF INH Q4-6 PRN PRN SOB ( Reported) Allopurinol 100 MG TABLET 1 TAB PO DAILY GOUT (Reported) Aspirin (Ecotrin*) 81 MG TABLET.DR 1 TAB PO DAILY HEART HEALTH (Reported) Budesonide/Formoterol Fumarate (Symbicort 160-4.5 Mcg Inhaler) 160 MCG-4.5 MCG/ ACTUATION HFA.AER.AD 2 PUF INH BID COPD (Reported) Calcium Carbonate/Vitamin D3 (Calcium 600-Vit D3 800 Tab) 600 MG-800 TABLET 1 TAB PO BID SUPPLEMENT (Reported) Digoxin 125 MCG TABLET 1 TAB PO DAILY AFIB (Reported) Diltiazem HCl 120 MG TABLET 1 TAB PO TID HEART (Reported) Furosemide 40 MG TABLET 1 TAB PO DAILY WATER PILL (Reported) Lovastatin 40 MG TABLET 1 TAB PO DAILY CHOLESTEROL (Reported) with food Metoprolol Tartrate (Lopressor) 50 MG TABLET 1 TAB PO BID Heart health ( Reported) Multivitamin (Multiple Vitamins) 1 EACH TABLET 1 TAB PO DAILY SUPPLEMENT ( Reported) Potassium Chloride 10 MEQ TAB.ER.PRT 1 TAB PO DAILY SUPPLEMENT (Reported) Warfarin Sodium 3 MG TABLET 1 TAB PO 1700 BLOOD THINNER (Reported) Review of Systems Review of Systems Constitutional: Reports: no symptoms. EENTM: Reports: no symptoms. Cardiovascular: Reports: no symptoms. Respiratory: Reports: see HPI. GI: Reports: no symptoms. Genitourinary: Reports: no symptoms. Musculoskeletal: Reports: no symptoms. Skin: Reports: no symptoms. Neurological/Psychological: Reports: no symptoms. Hematologic/Endocrine: Reports: no symptoms. 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 Home Who Do You Live With? spouse Services at Home: Home Health Aide Primary Language: Kazakh Smoking Status: Former Smoker ETOH Use: denies use Illicit Drug Use: denies illicit drug use Living Will? yes Functional Ability ADLs Independent: dressing, eating, toileting, bathing. Ambulation: independent IADLs Independent: shopping, housework, finances, food prep. Employment History Employment: Retired Exam & Diagnostic Data Last 24 Hrs of Vital Signs/I&O Vital Signs Date Time Temp Pulse Resp B/P Pulse O2 O2 Flow FiO2 Ox Delivery Rate 01/24 1556 80 97 01/24 1417 83 126/56 01/24 1416 83 126/56 01/24 1330 88 95 01/24 1200 98.9 84 20 120/60 98 BIPAP 45% 01/24 1200 98 BIPAP 45% 01/24 1058 98 BIPAP 45% 01/24 1010 71 98 01/24 0918 77 96 01/24 0800 98 BIPAP 50% 01/24 0800 98.0 68 28 126/54 98 BIPAP 50% 01/24 0553 99.9 66 28 108/57 01/24 0531 68 97 01/24 0400 92 BIPAP 50% 01/24 0400 99.9 76 28 98/60 92 BIPAP 50% 01/24 0252 106 99 01/24 0209 84 95 01/24 0000 93 Nasal 4.0L Cannula 01/23 2344 98.1 68 22 124/68 90 Nasal Cannula 01/23 2226 76 128/64 01/23 2225 76 128/64 01/23 1725 92 Nasal 2.0L Cannula Intake & Output 01/24 1600 01/24 0800 01/24 0000 Intake Total 350 277 240 Output Total 250 131 750 Balance 100 146 -510 Intake, IV 110 277 Intake, Oral 240 240 Number 0 0 Bowel Movements Output, Urine 250 131 750 Patient 53.637 kg Weight Physical Exam General Appearance: alert, awake, anxious, thin, using BiPAP Other Physical Findings: -General: thin elderly woman in moderate respiratory distress -Neck: Supple, no JVD -HEENT: NCAT, PERRLA, EOMI, anicteric sclera, dry mucous membranes -CVS/Chest: S1, S2 w/o m/g/r; irregular rhythm, pacemaker in place -Resp: Diffuse wheezing, rhonchi and right lower lobe dry crackles, use of accessory respiratory muscles, severe kyphosis -GI: Soft, nontender, nondistended, bowel sounds present -Neuro: Awake and alert, tired appearing with a soft frail voice, CN II - XII grossly intact -Ext: normal pulses, no cyanosis/clubbing/edema Last 48 Hrs of Labs/Nikita: Laboratory Tests 01/24/17 1150: pH 7.33 L, pCO2 71 *H, pO2 129 H, HCO3 36 H, ABG O2 Sat (Measured) 99.0, P-50 (Temp Corrected) N, Carboxyhemoglobin 0.8 L, O2 Concentration % 45%, Respiration Rate 20, O2 Delivery Method BIPAP, Vent Mode ST, Expiratory Pressure 6, Inspiratory Pressure 18, Phlebotomy Draw Site RIGHT RADIAL 01/24/17 0600: Sodium Cancelled, Potassium Cancelled, Chloride Cancelled, Carbon Dioxide Cancelled, Anion Gap Cancelled, BUN Cancelled, Creatinine Cancelled, BUN/ Creatinine Ratio Cancelled 01/24/17 0504: Lactic Acid Cancelled 01/24/17 0455: pH 7.24 *L, pCO2 88 *H, pO2 79 L, HCO3 37 H, ABG O2 Sat (Measured) 94.0 L, P- 50 (Temp Corrected) Y, Carboxyhemoglobin 0.1 L, O2 Concentration % 50%, Temperature 99.9, Respiration Rate 28, O2 Delivery Method BIPAP-FFM, Vent Mode ST, Expiratory Pressure 6, Inspiratory Pressure 22, Phlebotomy Draw Site RIGHT RADIAL 01/24/17 0450: PT 52.5 *H, INR 5.08 *H 01/24/17 0215: Anion Gap 11, Estimated GFR 33 L, BUN/Creatinine Ratio 21.3, Lactic Acid 1.3, Phosphorus 6.7 H, Magnesium 2.1, Total Bilirubin 0.7, Direct Bilirubin 0.5 H, AST 38 H, ALT 37, Alkaline Phosphatase 73, Troponin I 0.04, Total Protein 7.8, Albumin 4.4, CBC w Diff MAN DIFF ORDERED, RBC 3.99 L, MCV 97.2, MCH 31.2 H, RDW 16.7 H, MPV 6.9 L, Gran % 89.4 H, Lymphocytes % 5.1 L, Monocytes % 5.5, Eosinophils % 0, Basophils % 0 L, Absolute Granulocytes 17.4 H, Segmented Neutrophils 82 H, Absolute Lymphocytes 1.0 L, Lymphocytes 6 L, Monocytes 12 H, Absolute Monocytes 1.1 H, Absolute Eosinophils 0, Absolute Basophils 0, Platelet Estimate ADEQUATE, Polychromasia 1+, Hypochromic-Microcytic 1+, Poikilocytosis 1+, Basophilic Stippling 1+, Ovalocytes 1+, Elliptocytes FEW, PUBS MCHC 32.1 L, Fld Total RBCs Counted 100 01/24/17 0150: pH 7.03 *L, pCO2 165 *H, pO2 84, HCO3 42 H, ABG O2 Sat (Measured) 90.0 L, P-50 (Temp Corrected) Y, Carboxyhemoglobin 0.2 L, O2 Concentration % 4 LPM, Temperature 100.7 H, O2 Delivery Method N/C, Phlebotomy Draw Site RIGHT RADIAL 01/23/17 0628: Anion Gap 11, Estimated GFR 39 L, BUN/Creatinine Ratio 17.7, Magnesium 2.0, PT 39.4 H, INR 3.80 H, CBC w Diff NO MAN DIFF REQ, RBC 3.85 L, MCV 95.3, MCH 31.3 H, RDW 15.9 H, MPV 7.2 L, Gran % 90.5 H, Lymphocytes % 5.4 L, Monocytes % 4.1, Eosinophils % 0, Basophils % 0 L, Absolute Granulocytes 5.1, Absolute Lymphocytes 0.3 L, Absolute Monocytes 0.2, Absolute Eosinophils 0, Absolute Basophils 0, PUBS MCHC 32.8 L 01/23/17 0035: Troponin I 0.02 01/22/17 1830: Troponin I 0.02 Diagnostic Data CXR Results IMPRESSION: Mild prominence of the central vasculature, may reflect developing congestion. Suspect persistent small pleural effusions. 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 Issues being managed in the ICU: Respiratory #Acute hypoxic hypercarbic respiratory failure -Secondary to acute exacerbation of COPD -Continue BiPAP as needed, otherwise oxygen delivery by nasal cannula to maintain SPO2 more than 88% -ABG his slightly better but still shows respiratory acidosis with hypercarbia 71 -IV Solu-Medrol 40 mg every 8 hours -Azithromycin 500 mg IV for total 5 days as an anti-inflammatory -Continue TRC/nebs Circulatory -Already better on congestive heart failure -We'll continue her previous medications -Atrial fibrillation, rate under control 70-80s Infectious disease -Doesn't look like she has an infectious cause, but we will follow-up the culture reports -She is on azithromycin as an anti-inflammatory, helpful for acute exacerbation of COPD Hematologic -Supratherapeutic INR 5.08 -Hold Coumadin, repeat INR in the morning Metabolic -We'll repeat electrolytes as needed Alimentary -Nothing by mouth and she is on BiPAP, CHF diet when she can (after she passes a brief/bedside 3oz clear liquid swallow screen exam) Neurologic -No issues DVT prophylaxis: Coumadin, not today as she is supratherapeutic today Diet: CHF diet when she passes swallow screening CODE STATUS: DNR/DNI Consult Acknowledgment - Thank you for your consult request. ALCON MELENDEZ MD 01/24/17 0918: Assessment/Plan Other Findings/Comments: Alcon Almeida M.D. have examined this patient, reviewed available EMR data, personally reviewed images, discussed with resident/PA/CLEANING MATRON, discussed management plan with housestaff and nursing staff, discussed managment plan all of healthcare providers, discussed management plan with patient and/or family, agreed with resident/PA/CLEANING MATRON. The past history and parts of the chart have been autopopulated. Impression 86 year old woman - hypercarbic respiratory failure - a.fib/coumadin, supratherapeutic INR - tachybardy syndrome - pacemaker - hx lung ca Plan - bipap settings adjusted to pts comfort - abg in 1 hr - monitor respiratory symptoms - maintain spo2 >88% - hold coumadin - f/u cardiology - iv solumedrol 40mg iv q8 - zithromax 5 days - trc/nebs - dvt prophylaxis at all times TTS 45 min Consult Acknowledgment - Thank you for your consult request.
[2017-01-24 08:00] VITALS: BP 126/54
[2017-01-24 12:00] VITALS: BP 120/60
[2017-01-24 16:00] VITALS: BP 122/60
--- NOTE | 2017-01-24 18:19 | PN- Cardiology ---
Subjective Subjective: Events that occurred early this morning were reviewed. Patient transferred to the ICU for acute on chronic hypercapnic respiratory failure. Her monitor reveals a properly functioning electronic pacemaker with underlying atrial fibrillation. Objective Vital Signs and I&Os Vital Signs Date Time Temp Pulse Resp B/P Pulse O2 O2 Flow FiO2 Ox Delivery Rate 01/24 1600 93 BIPAP 45% 01/24 1600 98.9 72 20 122/60 93 BIPAP 45% 01/24 1556 80 97 03/ 1417 83 126/56 03/10 1416 83 126/56 03/10 1330 88 95 01/24 1200 98.9 84 20 120/60 98 BIPAP 45% 01/24 1200 98 BIPAP 45% 01/24 1058 98 BIPAP 45% 01/24 1010 71 98 / 0918 77 96 / 0800 98 BIPAP 50% 01/24 0800 98.0 68 28 126/54 98 BIPAP 50% 01/24 0553 99.9 66 28 108/57 / 0531 68 97 01/24 0400 92 BIPAP 50% 01/24 0400 99.9 76 28 98/60 92 BIPAP 50% 01/24 0252 106 99 /10 0209 84 95 03/ 0000 93 Nasal 4.0L Cannula 01/23 2344 98.1 68 22 124/68 90 Nasal Cannula 01/23 2226 76 128/64 01/23 2225 76 128/64 Intake & Output 01/24 1600 /10 0800 / 0000 01/23 1600 01/23 0800 01/23 0000 Intake Total 350 277 240 620 480 120 Output Total 250 131 750 550 600 450 Balance 100 146 -510 70 -120 -330 Intake, IV 110 277 20 Intake, Oral 240 240 600 480 120 Number 0 0 Bowel Movements Output, Urine 250 131 750 550 600 450 Patient 118 lb 112 lb 118 lb Weight Physical Exam: Chronically ill-appearing, elderly female in mild respiratory distress with BiPAP in place. Vital signs: See above. HEENT: Normocephalic, atraumatic, EOMI, moist mucous membranes. Neck: No JVD, no bruits. Lungs: Decreased breath sounds occasional expiratory wheezing and rhonchi. Heart: S1, S2 with a soft (grade 1/6) systolic murmur. No gallop or rub appreciated. PMI fifth ICS at MCL. Abdomen: Soft, nontender, positive bowel sounds. Extremities: Trace bilateral lower extremity edema. Current Medications: Current Medications Sig/Elle Start time Last Medication Dose Route Stop Time Status Admin Acetaminophen 325 MG Q6P PRN 01/23 0745 AC PO Albuterol Sulfate 3 ML BID 01/23 1000 AC 01/24 INH 1057 Albuterol Sulfate 2 PUF Q4-6 PRN PRN 01/22 1630 AC INH Allopurinol 100 MG DAILY 01/22 1515 AC 01/23 PO 1212 Aspirin Buffered 81 MG DAILY 01/23 1000 AC 01/24 PO 1417 Atorvastatin Calcium 10 MG 1700 01/22 1700 AC 01/24 PO 1602 Azithromycin 500 MG DAILY 01/25 1000 AC Dextrose/Water 250 ML IV 01/28 1059 Azithromycin 500 MG ONCE ONE 01/24 0230 DC 01/24 Dextrose/Water 250 ML IV 01/24 0329 0318 Benzocaine/Menthol 1 DONNA Q2P PRN 01/23 1500 AC 01/24 PO 1427 Ceftriaxone Sodium 1,000 MG ONCE ONE 01/24 0230 DC 01/24 IV 01/24 0231 0309 Dextrose/Sodium 1,000 ML Q13H 01/24 1245 DC 01/24 Chloride IV 1255 Digoxin 0.125 MG DAILY 01/23 1000 AC 01/24 PO 1417 Diltiazem HCl 120 MG Q8 01/22 2200 AC 01/24 PO 1416 Furosemide 40 MG DAILY 01/23 1000 DC 01/23 IV 1206 Ipratropium [place] 2.5 ML BID 01/23 1000 AC 01/24 INH 1057 Methylprednisolone 40 MG Q8 01/24 2200 DC IV Methylprednisolone 40 MG Q8 01/24 0600 AC 01/24 IV 1602 Methylprednisolone 125 MG ONCE ONE 01/24 0030 DC 01/24 IV 01/24 0031 0033 Methylprednisolone 40 MG ONCE ONE 01/24 0015 CAN IV 01/24 0016 Metoprolol Tartrate 50 MG BID 01/22 2200 AC 01/23 PO 2226 Nystatin 5 ML 4 TIMES/DAY 01/24 1424 AC 01/24 PO 1500 Patient Medication 1 UNIT 1000 01/25 1000 AC Teaching ED 01/25 1001 Phenol 2 SPRAY Q2P PRN 01/24 1415 AC EXT Potassium Chloride 10 MEQ DAILY 01/23 1000 AC 01/24 PO 1417 Ramelteon 8 MG QPM 01/23 2200 AC 01/23 PO 2226 Results Last 48 Hrs of Labs/Mics: Laboratory Tests 01/24/17 1150: pH 7.33 L, pCO2 71 *H, pO2 129 H, HCO3 36 H, ABG O2 Sat (Measured) 99.0, P-50 (Temp Corrected) N, Carboxyhemoglobin 0.8 L, O2 Concentration % 45%, Respiration Rate 20, O2 Delivery Method BIPAP, Vent Mode ST, Expiratory Pressure 6, Inspiratory Pressure 18, Phlebotomy Draw Site RIGHT RADIAL 01/24/17 0600: Sodium Cancelled, Potassium Cancelled, Chloride Cancelled, Carbon Dioxide Cancelled, Anion Gap Cancelled, BUN Cancelled, Creatinine Cancelled, BUN/ Creatinine Ratio Cancelled 01/24/17 0504: Lactic Acid Cancelled 01/24/17 0455: pH 7.24 *L, pCO2 88 *H, pO2 79 L, HCO3 37 H, ABG O2 Sat (Measured) 94.0 L, P- 50 (Temp Corrected) Y, Carboxyhemoglobin 0.1 L, O2 Concentration % 50%, Temperature 99.9, Respiration Rate 28, O2 Delivery Method BIPAP-FFM, Vent Mode ST, Expiratory Pressure 6, Inspiratory Pressure 22, Phlebotomy Draw Site RIGHT RADIAL 01/24/17 0450: PT 52.5 *H, INR 5.08 *H 01/24/17 0215: Anion Gap 11, Estimated GFR 33 L, BUN/Creatinine Ratio 21.3, Lactic Acid 1.3, Phosphorus 6.7 H, Magnesium 2.1, Total Bilirubin 0.7, Direct Bilirubin 0.5 H, AST 38 H, ALT 37, Alkaline Phosphatase 73, Troponin I 0.04, Total Protein 7.8, Albumin 4.4, CBC w Diff MAN DIFF ORDERED, RBC 3.99 L, MCV 97.2, MCH 31.2 H, RDW 16.7 H, MPV 6.9 L, Gran % 89.4 H, Lymphocytes % 5.1 L, Monocytes % 5.5, Eosinophils % 0, Basophils % 0 L, Absolute Granulocytes 17.4 H, Segmented Neutrophils 82 H, Absolute Lymphocytes 1.0 L, Lymphocytes 6 L, Monocytes 12 H, Absolute Monocytes 1.1 H, Absolute Eosinophils 0, Absolute Basophils 0, Platelet Estimate ADEQUATE, Polychromasia 1+, Hypochromic-Microcytic 1+, Poikilocytosis 1+, Basophilic Stippling 1+, Ovalocytes 1+, Elliptocytes FEW, PUBS MCHC 32.1 L, Fld Total RBCs Counted 100 01/24/17 0150: pH 7.03 *L, pCO2 165 *H, pO2 84, HCO3 42 H, ABG O2 Sat (Measured) 90.0 L, P-50 (Temp Corrected) Y, Carboxyhemoglobin 0.2 L, O2 Concentration % 4 LPM, Temperature 100.7 H, O2 Delivery Method N/C, Phlebotomy Draw Site RIGHT RADIAL 01/23/17 0628: Anion Gap 11, Estimated GFR 39 L, BUN/Creatinine Ratio 17.7, Magnesium 2.0, PT 39.4 H, INR 3.80 H, CBC w Diff NO MAN DIFF REQ, RBC 3.85 L, MCV 95.3, MCH 31.3 H, RDW 15.9 H, MPV 7.2 L, Gran % 90.5 H, Lymphocytes % 5.4 L, Monocytes % 4.1, Eosinophils % 0, Basophils % 0 L, Absolute Granulocytes 5.1, Absolute Lymphocytes 0.3 L, Absolute Monocytes 0.2, Absolute Eosinophils 0, Absolute Basophils 0, PUBS MCHC 32.8 L 01/23/17 0035: Troponin I 0.02 01/22/17 1830: Troponin I 0.02 Recent Imaging Studies: CXR (01/24/2017): * Mild prominence of the central vasculature, may reflect developing congestion. * Suspect persistent small pleural effusions. Assessment/Plan Assessment/Plan Mrs. 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 with her CXR revealing an interval increase in opacification at the right base, c/w a probable increasing pleural effusion, although an area of consolidation cannot be excluded. In the ED she was placed on oxygen with significant improvement in her O2 saturation, and received IV furosemide 40 mg 1 (in addition to the by mouth furosemide 40 mg she takes on a daily basis), TRC/nebulizer treatment, steroids, etc. She appeared to be somewhat improved yesterday afternoon, however, she developed acute on chronic hypercapnic respiratory failure and was transferred to the ICU and is now on BiPAP. She had a diuresis of over a liter with a bump in her BUN/creatinine, and bicarbonate. Her diuretics are presently on hold. Fluid follow-up a basic metabolic panel this evening. Her rhythm has been paced with underlying atrial fibrillation and controlled ventricular response rates. Recommendations: * Continue ICU admission. * Continue strict inputs/outputs, daily weights, etc. * Continue to follow-up BUN/creatinine, potassium, and magnesium closely. * Continue to follow-up on pulmonary/ICU recommendations. * DVT prophylaxis being addressed by anticoagulation (warfarin) for her chronic atrial fibrillation. Warfarin is on hold with supratherapeutic INR 5.08. Follow-up INR in a.m. * Note increased WBC and follow-up CBC in a.m. * Follow-up CXR in a.m. Continue telemetry? Yes
[2017-01-24 23:00] VITALS: BP 116/60
[2017-01-25 04:51] LABS: ABSOLUTE BASOPHIL COUNT 0 /CUMM (0.0-0.2); ABSOLUTE EOSINOPHIL COUNT 0 /CUMM (0.0-0.7); ABSOLUTE GRANULOCYTE CT 8.9 /CUMM (1.4-6.5); ABSOLUTE LYMPH COUNT 0.3 /CUMM (1.2-3.4); ABSOLUTE MONOCYTE COUNT 0.3 /CUMM (0.10-0.60); BASOPHIL % 0 % (0.0-2.0); EOSINOPHIL % 0 % (0-5); GRANULOCYTE % 93.7 % (42.2-75.2); MEAN CORPUSCULAR HGB 31.5 PG (27.0-31.0); MEAN CORPUSCULAR HGB CONC 32.7 G/DL (33.0-37.0); MEAN CORPUSCULAR VOLUME 96.5 FL (81.0-99.0); PLATELET COUNT 180 /CUMM (130-400); RBC DISTRIBUTION WIDTH 16.6 % (11.5-14.5); RED BLOOD CELL CT 3.25 /CUMM (4.20-5.40)
[2017-01-25 04:57] LABS: HEMATOCRIT 31.3 % (37-47)
[2017-01-25 05:06] LABS: PT 65.1 SEC (9.4-12.5)
[2017-01-25 05:12] LABS: WHITE BLOOD CELL COUNT 9.5 /CUMM (4.8-10.8)
[2017-01-25 07:00] VITALS: BP 107/52
--- NOTE | 2017-01-25 08:15 | PN- Resident CRCU ---
Subjective HPI/CRCU Issues: Patient denies for acute hypercarbic respiratory failure I followed up and examined the patient today. She was lying comfortably in the bed, on nasal cannula at 4 L/m, able to speak in full sentences although with a low voice, is not in any distress. Vitals have been stable overnight, no overnight issues. 24 Hour Events: She had required BiPAP ventilation on and off. Objective Vital Signs & I&O Last 8 Hrs of Vitals and I&O: Vital Signs Date Time Temp Pulse Resp B/P Pulse O2 O2 Flow FiO2 Ox Delivery Rate 01/25 1755 70 20 125/65 01/25 1630 59 96 01/25 1600 97 BIPAP 35% 01/25 1600 97.6 70 18 129/65 99 BIPAP 35% 01/25 1535 67 122/63 01/25 1340 73 98 01/25 1200 97 Nasal 3.0L Cannula 01/25 0935 71 128/55 01/25 0858 99 Nasal 4.0L Cannula 01/25 0800 99 Nasal 4.0L Cannula 01/25 0759 63 99 01/25 0700 98.5 60 18 107/52 94 BIPAP 30% 01/25 0540 64 96 01/25 0535 63 98 01/25 0513 98.5 71 19 118/59 01/25 0400 99 BIPAP 40% 01/25 0400 96 CPAP 5.0L 01/25 0337 98.3 01/25 0323 64 98 01/25 0040 62 95 01/25 0000 96 BIPAP 40% 01/24 2300 98.9 60 20 116/60 96 BIPAP 40% 01/24 2152 78 100 01/24 2126 77 131/51 01/24 2126 77 131/51 01/25 2000 100 Nasal 5.0L Cannula 01/24 183 99 Nasal 5.0L Cannula 01/24 1837 70 99 Intake & Output 01/25 1600 01/25 0800 01/25 0000 Intake Total 520 250 465 Output Total 275 245 300 Balance 245 5 165 Intake, IV 280 415 Intake, Oral 240 250 50 Number 0 0 Bowel Movements Output, Urine 275 245 300 Patient 56.699 kg 54.431 kg Weight Exam General Appearance: alert, awake, comfortable, thin Other Physical Findings: -General: thin elderly woman in no respiratory distress today, better than yesterday -Neck: Supple -HEENT: NCAT, PERRLA, EOMI, anicteric sclera, moist mucous membranes -CVS/Chest: S1, S2 w/o m/g/r; irregular rhythm, pacemaker in place -Resp: No wheezing, rhonchi and right lower lobe dry crackles, kyphosis present -GI: Soft, nontender, nondistended, bowel sounds present -Neuro: Awake and alert, tired appearing with a soft frail voice, CN II - XII grossly intact -Ext: normal pulses, no cyanosis/clubbing/edema [place]rows Site: urethral Date In: 01/24/17 Still Needed? Yes Nutrition Nutrition: P.O. diet Current Medications: Current Medications Sig/Elle Start time Last Medication Dose Route Stop Time Status Admin Acetaminophen 650 MG Q6P PRN 01/25 0930 AC 01/25 PO 0934 Acetaminophen 325 MG Q6P PRN 01/23 0745 DC 01/25 PO 0216 Albuterol Sulfate 3 ML BID 01/23 1000 AC 01/25 INH 0856 Albuterol Sulfate 2 PUF Q4-6 PRN PRN 01/22 1630 AC INH Allopurinol 100 MG 1700 01/25 1700 AC 01/25 PO 1756 Allopurinol 100 MG DAILY 01/22 1515 DC 01/23 PO 1212 Aspirin Buffered 81 MG DAILY 01/23 1000 AC 01/25 PO 0937 Atorvastatin Calcium 10 MG 1700 01/22 1700 AC 01/25 PO 1756 Azithromycin 500 MG DAILY 01/25 1000 AC 01/25 Dextrose/Water 250 ML IV 01/28 1059 0939 Benzocaine/Menthol 1 DONNA Q2P PRN 01/23 1500 AC 01/24 PO 1427 Digoxin 0.125 MG 1700 01/25 1700 AC 01/25 PO 1755 Digoxin 0.125 MG DAILY 01/23 1000 DC 01/24 PO 1417 Diltiazem HCl 120 MG Q8 01/22 2200 AC 01/25 PO 1535 Guaifenesin 600 MG Q12 01/24 2200 AC 01/25 PO 0935 Guaifenesin 10 ML Q4P PRN 01/24 2015 AC 01/24 PO 2137 Ipratropium [place] 2.5 ML BID 01/23 1000 AC 01/25 INH 0856 Methylprednisolone 40 MG Q8 01/24 0600 AC 01/25 IV 1535 Metoprolol Tartrate 50 MG BID 01/22 2200 AC 01/25 PO 0935 Nystatin 5 ML 4 TIMES/DAY 01/24 1424 AC 01/25 PO 1756 Patient Medication 1 UNIT 1000 01/25 1000 DC 01/25 Teaching ED 01/25 1001 0938 Phenol 2 SPRAY Q2P PRN 01/24 1415 AC 01/25 EXT 0933 Potassium Chloride 10 MEQ DAILY 01/23 1000 AC 01/25 PO 0937 Ramelteon 8 MG QPM 01/23 2200 AC 01/24 PO 2124 CXR Findings: IMPRESSION: 1. Suspect mild interstitial pulmonary edema, superimposed upon underlying chronic obstructive lung disease. Findings are similar to the previous exam from 01/24/2017. 2. Postoperative changes in the right hemithorax status post right upper lobectomy. 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 Issues being managed in the ICU: Respiratory #Acute hypoxic hypercarbic respiratory failure -Secondary to acute exacerbation of COPD -Continue BiPAP only as needed, otherwise oxygen delivery by nasal cannula to maintain SPO2 more than 88% -ABG slightly better but still shows respiratory acidosis with hypercarbia 77 -Continue IV Solu-Medrol 40 mg every 8 hours -Azithromycin 500 mg IV for total 5 days as an anti-inflammatory, today second dose received -Continue TRC/nebs Circulatory -Already better on congestive heart failure -We'll continue her previous medications -Atrial fibrillation, rate under control 70-80s Infectious disease -Doesn't look like she has an infectious cause, but we will follow-up the culture reports -She is on azithromycin as an anti-inflammatory, helpful for acute exacerbation of COPD Hematologic -Supratherapeutic INR 6.31 -Hold Coumadin, repeat INR in the morning Metabolic -We'll repeat electrolytes as needed Alimentary -Nothing by mouth while she is on BiPAP, CHF diet when she can (after she passes a brief/bedside 3oz clear liquid swallow screen exam) Neurologic -No issues DVT prophylaxis: Coumadin, not today as she is supratherapeutic today Diet: CHF diet when she can CODE STATUS: DNR/DNI Problem List: 1. COPD exacerbation 2. CHF exacerbation Pain Ratin Tomorrow's Labs & Rationales: ICU lab bundle, CBC, INR Plan DVT/Prophylaxis: mechanical, pharmacological
--- NOTE | 2017-01-25 10:00 | PN- CRCU ---
Subjective HPI/Critical Care Issues: The patient is awake and alert. She is currently off BiPAP. She feels fatigued but overall improved. She is less short of breath. The patient's ABG has significantly improved, noting her pH was 7.35, PCO2 67, PO2 117, and bicarbonate 36 on BiPAP. Cultures are negative to date. Objective Current Medications: Current Medications Sig/Elle Start time Last Medication Dose Route Stop Time Status Admin Acetaminophen 650 MG Q6P PRN 01/25 0930 AC 01/25 PO 0934 Acetaminophen 325 MG Q6P PRN 01/23 0745 DC 01/25 PO 0216 Albuterol Sulfate 3 ML BID 01/23 1000 AC 01/25 INH 0856 Albuterol Sulfate 2 PUF Q4-6 PRN PRN 01/22 1630 AC INH Allopurinol 100 MG DAILY 01/22 1515 AC 01/23 PO 1212 Aspirin Buffered 81 MG DAILY 01/23 1000 AC 01/25 PO 0937 Atorvastatin Calcium 10 MG 1700 01/22 1700 AC 01/24 PO 1602 Azithromycin 500 MG DAILY 01/25 1000 AC 01/25 Dextrose/Water 250 ML IV 01/28 1059 0939 Benzocaine/Menthol 1 DONNA Q2P PRN 01/23 1500 AC 01/24 PO 1427 Dextrose/Sodium 1,000 ML Q13H 01/24 1245 DC 01/24 Chloride IV 1255 Digoxin 0.125 MG 1700 01/25 1700 AC PO Digoxin 0.125 MG DAILY 01/23 1000 DC 01/24 PO 1417 Diltiazem HCl 120 MG Q8 01/22 2200 AC 01/25 PO 0513 Guaifenesin 600 MG Q12 01/24 2200 AC 01/25 PO 0935 Guaifenesin 10 ML Q4P PRN 01/24 2015 AC 01/24 PO 2137 Ipratropium [place] 2.5 ML BID 01/23 1000 AC 01/25 INH 0856 Methylprednisolone 40 MG Q8 01/24 0600 AC 01/25 IV 0513 Metoprolol Tartrate 50 MG BID 01/22 2200 AC 01/25 PO 0935 Nystatin 5 ML 4 TIMES/DAY 01/24 1424 AC 01/25 PO 0936 Patient Medication 1 UNIT 1000 01/25 1000 AC 01/25 Teaching ED 01/25 1001 0938 Phenol 2 SPRAY Q2P PRN 01/24 1415 AC 01/25 EXT 0933 Potassium Chloride 10 MEQ DAILY 01/23 1000 AC 01/25 PO 0937 Ramelteon 8 MG QPM 01/23 2200 AC 01/24 PO 2124 Vital Signs & I&O Last 24 Hrs of Vitals and I&O: Vital Signs Date Time Temp Pulse Resp B/P Pulse O2 O2 Flow FiO2 Ox Delivery Rate 01/25 0935 71 128/55 01/25 0858 99 Nasal 4.0L Cannula 01/25 0759 63 99 01/25 0700 98.5 60 18 107/52 94 BIPAP 30% 01/25 0540 64 96 01/25 0535 63 98 01/25 0513 98.5 71 19 118/59 01/25 0400 99 BIPAP 40% 01/25 0400 96 CPAP 5.0L 01/25 0337 98.3 01/25 0323 64 98 01/25 0040 62 95 01/25 0000 96 BIPAP 40% 01/24 2300 98.9 60 20 116/60 96 BIPAP 40% 01/24 2152 78 100 01/24 2126 77 131/51 01/24 2126 77 131/51 01/24 2000 100 Nasal 5.0L Cannula 01/24 1837 99 Nasal 5.0L Cannula 01/24 1837 70 99 01/24 1600 93 BIPAP 45% 01/24 1600 98.9 72 20 122/60 93 BIPAP 45% 01/24 1556 80 97 01/24 1417 83 126/56 01/24 1416 83 126/56 01/24 1330 88 95 01/24 1200 98.9 84 20 120/60 98 BIPAP 45% 01/24 1200 98 BIPAP 45% 01/24 1058 98 BIPAP 45% 01/24 1010 71 98 Intake & Output 01/25 1600 01/25 0800 01/25 0000 Intake Total 250 465 Output Total 245 300 Balance 5 165 Intake, IV 415 Intake, Oral 250 50 Number 0 Bowel Movements Output, Urine 245 300 Patient 120 lb Weight Exam General Appearance: elderly, frail and thin Head: atraumatic, normal appearance, active bleeding Neck: supple Respiratory: patient uses accessory muscles for respiration, breath sounds are severely diminished bilaterally, no asymmetry Cardiovascular: regular rate/rhythm Abdomen: normal bowel sounds, soft, non-tender Extremities: no edema Skin: warm/dry Results Last 24 Hrs of Lab Results: Laboratory Tests 01/25/17 0455: pH 7.35, pCO2 67 *H, pO2 117 H, HCO3 36 H, ABG O2 Sat (Measured) 97.0, P-50 ( Temp Corrected) Y, Carboxyhemoglobin 0.3 L, O2 Concentration % 40%, Temperature 98.5, Respiration Rate 20, O2 Delivery Method VISION-FFM, Vent Mode ST, Expiratory Pressure 6, Inspiratory Pressure 18, Phlebotomy Draw Site RIGHT RADIAL 01/25/17 0400: Anion Gap 8, Estimated GFR 39 L, Glucose 124 H, Calcium 8.5, Phosphorus 3.6, Magnesium 2.1, Total Bilirubin 0.5, AST 35, ALT 46, Albumin 3.4 L, PT 65.1 *H, INR 6.31 *H, CBC w Diff NO MAN DIFF REQ, RBC 3.25 L, MCV 96.5, MCH 31.5 H, RDW 16.6 H, MPV 7.0 L, Gran % 93.7 H, Lymphocytes % 3.2 L, Monocytes % 3.1, Eosinophils % 0, Basophils % 0 L, Absolute Granulocytes 8.9 H, Absolute Lymphocytes 0.3 L, Absolute Monocytes 0.3, Absolute Eosinophils 0, Absolute Basophils 0, PUBS MCHC 32.7 L 01/24/17 1150: pH 7.33 L, pCO2 71 *H, pO2 129 H, HCO3 36 H, ABG O2 Sat (Measured) 99.0, P-50 (Temp Corrected) N, Carboxyhemoglobin 0.8 L, O2 Concentration % 45%, Respiration Rate 20, O2 Delivery Method BIPAP, Vent Mode ST, Expiratory Pressure 6, Inspiratory Pressure 18, Phlebotomy Draw Site RIGHT RADIAL Impression/Plan Impression/Plan Impression/Plan: 1. Acute hypoxemic and hypercarbic respiratory failure secondary to acute exacerbation of COPD. 2. Diastolic congestive heart failure. 3. Atrial fibrillation and tachybradycardia syndrome status post pacemaker placement. 4. Supratherapeutic INR secondary to Coumadin. 4. Right upper lobectomy in 2008 for non-small cell lung cancer. 5. History of bladder cancer. Recommendations: * Continue to give breaks off of Bipap as tolerated. * Would however contine nocturnal Bipap. * Check ABG off BiPAP. * Maintain oxygen saturations greater than 80%. * Continue to hold Coumadin. * Monitor for bleeding in the setting of a supratherapeutic INR. * Continue IV Solu-Medrol 40 mg every 8 hours. * Complete 5 days of Zithromax. * Continue nebs/TRC. * Patient INR is elevated, no need for subcutaneous heparin. * Continue to monitor in the critical care unit. TTS 45 min
--- NOTE | 2017-01-25 10:27 | RADIOLOGY REPORT ---
EXAMINATION: XR PORTABLE CHEST CLINICAL INFORMATION: Patient is still on respiratory failure requiring BiPAP ventilation. Has history of CHF and COPD. COMPARISON: Several prior chest x-rays, most recent of which is dated 01/24/2017. TECHNIQUE: Portable AP erect view of the chest was obtained. FINDINGS: Right atrial and right ventricular pacer leads are in place. The cardiomediastinal silhouette is within normal limits in size. Calcification of the aortic arch is seen. There is slight elevation of the right hemidiaphragm with indistinctness of the CP angle and slight distortion of the right hilum, consistent with history of right upper lobectomy. Hyperlucency of the lungs is seen, consistent with history of COPD. Compared to baseline studies from 2012, increased reticular opacities are present in a perihilar distribution, extending into the left upper lobe and right lower lobe. Central vascular congestion is seen. Findings may be related to mild interstitial edema superimposed upon obstructive lung disease. Osteopenia is present. Moderate S-shaped thoracolumbar scoliosis is seen. IMPRESSION: 1. Suspect mild interstitial pulmonary edema, superimposed upon underlying chronic obstructive lung disease. Findings are similar to the previous exam from 01/24/2017. 2. Postoperative changes in the right hemithorax status post right upper lobectomy.
--- NOTE | 2017-01-25 15:35 | PN- Cardiology ---
Subjective Subjective: Patient's shortness of breath improving. Has some fatigue. Denies chest pain or palpitations. Objective Vital Signs and I&Os Vital Signs Date Time Temp Pulse Resp B/P Pulse O2 O2 Flow FiO2 Ox Delivery Rate 01/25 1340 73 98 01/25 1200 97 Nasal 3.0L Cannula 01/25 0935 71 128/55 01/25 0858 99 Nasal 4.0L Cannula 01/25 0800 99 Nasal 4.0L Cannula 01/25 0759 63 99 01/25 0700 98.5 60 18 107/52 94 BIPAP 30% 01/25 0540 64 96 01/25 0535 63 98 01/25 0513 98.5 71 19 118/59 01/25 0400 99 BIPAP 40% 01/25 0400 96 CPAP 5.0L 01/25 0337 98.3 01/25 0323 64 98 01/25 0040 62 95 01/25 0000 96 BIPAP 40% 01/24 2300 98.9 60 20 116/60 96 BIPAP 40% 01/24 2152 78 100 01/24 2126 77 131/51 01/246 77 131/51 01/24 2000 100 Nasal 5.0L Cannula 01/24 1837 99 Nasal 5.0L Cannula 01/24 1837 70 99 01/24 1600 93 BIPAP 45% 01/24 1600 98.9 72 20 122/60 93 BIPAP 45% 01/24 1556 80 97 Intake & Output 01/25 1600 01/25 0800 01/25 0000 01/24 1600 01/24 0800 01/24 0000 Intake Total 250 465 350 277 240 Output Total 245 300 250 131 750 Balance 5 165 100 146 -510 Intake, IV 415 110 277 Intake, Oral 250 50 240 240 Number 0 0 0 Bowel Movements Output, Urine 245 300 250 131 750 Patient 120 lb 120 lb 118 lb Weight Physical Exam: General: no apparent distress. On nasal cannula. Eyes: No obvious scleral icterus. HEENT: No jugular venous distention or abnormal jugular venous pulsations. Cardiovascular: Normal intensity S1/S2. Irregular. Respiratory: Decreased air entry bilaterally Abdomen: no guarding or rebound tenderness. Musculoskeletal: No clubbing or cyanosis noted, trace lower extremity edema Skin: Warm Neurologic: No gross focal deficits noted. Current Medications: Current Medications Sig/Elle Start time Last Medication Dose Route Stop Time Status Admin Acetaminophen 650 MG Q6P PRN 01/25 0930 AC 01/25 PO 0934 Acetaminophen 325 MG Q6P PRN 01/23 0745 DC 01/25 PO 0216 Albuterol Sulfate 3 ML BID 01/23 1000 AC 01/25 INH 0856 Albuterol Sulfate 2 PUF Q4-6 PRN PRN 01/22 1630 AC INH Allopurinol 100 MG 1700 01/25 1700 AC PO Allopurinol 100 MG DAILY 01/22 1515 DC 01/23 PO 1212 Aspirin Buffered 81 MG DAILY 01/23 1000 AC 01/25 PO 0937 Atorvastatin Calcium 10 MG 1700 01/22 1700 AC 01/24 PO 1602 Azithromycin 500 MG DAILY 01/25 1000 AC 01/25 Dextrose/Water 250 ML IV 01/28 1059 0939 Benzocaine/Menthol 1 DONNA Q2P PRN 01/23 1500 AC 01/24 PO 1427 Digoxin 0.125 MG 1700 01/25 1700 AC PO Digoxin 0.125 MG DAILY 01/23 1000 DC 01/24 PO 1417 Diltiazem HCl 120 MG Q8 01/22 2200 AC 01/25 PO 0513 Guaifenesin 600 MG Q12 01/24 2200 AC 01/25 PO 0935 Guaifenesin 10 ML Q4P PRN 01/24 2015 AC 01/24 PO 2137 Ipratropium [place] 2.5 ML BID 01/23 1000 AC 01/25 INH 0856 Methylprednisolone 40 MG Q8 01/24 0600 AC 01/25 IV 0513 Metoprolol Tartrate 50 MG BID 01/22 2200 AC 01/25 PO 0935 Nystatin 5 ML 4 TIMES/DAY 01/24 1424 AC 01/25 PO 0936 Patient Medication 1 UNIT 1000 01/25 1000 DC 01/25 Teaching ED 01/25 1001 0938 Phenol 2 SPRAY Q2P PRN 01/24 1415 AC 01/25 EXT 0933 Potassium Chloride 10 MEQ DAILY 01/23 1000 AC 01/25 PO 0937 Ramelteon 8 MG QPM 01/23 2200 AC 01/24 PO 2124 Results Last 48 Hrs of Labs/Mics: Laboratory Tests 01/25/17 1325: pH 7.29 *L, pCO2 77 *H, pO2 99, HCO3 37 H, ABG O2 Sat (Measured) 97.0, P-50 ( Temp Corrected) NO, Carboxyhemoglobin 0.2 L, O2 Concentration % 3L, Temperature 98.5, O2 Delivery Method NC, Phlebotomy Draw Site RIGHT RADIAL 01/25/17 0455: pH 7.35, pCO2 67 *H, pO2 117 H, HCO3 36 H, ABG O2 Sat (Measured) 97.0, P-50 ( Temp Corrected) Y, Carboxyhemoglobin 0.3 L, O2 Concentration % 40%, Temperature 98.5, Respiration Rate 20, O2 Delivery Method VISION-FFM, Vent Mode ST, Expiratory Pressure 6, Inspiratory Pressure 18, Phlebotomy Draw Site RIGHT RADIAL 01/25/17 0400: Anion Gap 8, Estimated GFR 39 L, Glucose 124 H, Calcium 8.5, Phosphorus 3.6, Magnesium 2.1, Total Bilirubin 0.5, AST 35, ALT 46, Albumin 3.4 L, PT 65.1 *H, INR 6.31 *H, CBC w Diff NO MAN DIFF REQ, RBC 3.25 L, MCV 96.5, MCH 31.5 H, RDW 16.6 H, MPV 7.0 L, Gran % 93.7 H, Lymphocytes % 3.2 L, Monocytes % 3.1, Eosinophils % 0, Basophils % 0 L, Absolute Granulocytes 8.9 H, Absolute Lymphocytes 0.3 L, Absolute Monocytes 0.3, Absolute Eosinophils 0, Absolute Basophils 0, PUBS MCHC 32.7 L 01/24/17 1150: pH 7.33 L, pCO2 71 *H, pO2 129 H, HCO3 36 H, ABG O2 Sat (Measured) 99.0, P-50 (Temp Corrected) N, Carboxyhemoglobin 0.8 L, O2 Concentration % 45%, Respiration Rate 20, O2 Delivery Method BIPAP, Vent Mode ST, Expiratory Pressure 6, Inspiratory Pressure 18, Phlebotomy Draw Site RIGHT RADIAL 01/24/17 0600: Sodium Cancelled, Potassium Cancelled, Chloride Cancelled, Carbon Dioxide Cancelled, Anion Gap Cancelled, BUN Cancelled, Creatinine Cancelled, BUN/ Creatinine Ratio Cancelled 01/24/17 0504: Lactic Acid Cancelled 01/24/17 0455: pH 7.24 *L, pCO2 88 *H, pO2 79 L, HCO3 37 H, ABG O2 Sat (Measured) 94.0 L, P- 50 (Temp Corrected) Y, Carboxyhemoglobin 0.1 L, O2 Concentration % 50%, Temperature 99.9, Respiration Rate 28, O2 Delivery Method BIPAP-FFM, Vent Mode ST, Expiratory Pressure 6, Inspiratory Pressure 22, Phlebotomy Draw Site RIGHT RADIAL 01/24/17 0450: PT 52.5 *H, INR 5.08 *H 01/24/17 0215: Anion Gap 11, Estimated GFR 33 L, BUN/Creatinine Ratio 21.3, Lactic Acid 1.3, Phosphorus 6.7 H, Magnesium 2.1, Total Bilirubin 0.7, Direct Bilirubin 0.5 H, AST 38 H, ALT 37, Alkaline Phosphatase 73, Troponin I 0.04, Total Protein 7.8, Albumin 4.4, CBC w Diff MAN DIFF ORDERED, RBC 3.99 L, MCV 97.2, MCH 31.2 H, RDW 16.7 H, MPV 6.9 L, Gran % 89.4 H, Lymphocytes % 5.1 L, Monocytes % 5.5, Eosinophils % 0, Basophils % 0 L, Absolute Granulocytes 17.4 H, Segmented Neutrophils 82 H, Absolute Lymphocytes 1.0 L, Lymphocytes 6 L, Monocytes 12 H, Absolute Monocytes 1.1 H, Absolute Eosinophils 0, Absolute Basophils 0, Platelet Estimate ADEQUATE, Polychromasia 1+, Hypochromic-Microcytic 1+, Poikilocytosis 1+, Basophilic Stippling 1+, Ovalocytes 1+, Elliptocytes FEW, PUBS MCHC 32.1 L, Fld Total RBCs Counted 100 01/24/17 0150: pH 7.03 *L, pCO2 165 *H, pO2 84, HCO3 42 H, ABG O2 Sat (Measured) 90.0 L, P-50 (Temp Corrected) Y, Carboxyhemoglobin 0.2 L, O2 Concentration % 4 LPM, Temperature 100.7 H, O2 Delivery Method N/C, Phlebotomy Draw Site RIGHT RADIAL Microbiology 01/25 320 UPPER RESP: Surveillance Culture - COMP 01/25 320 GI: Surveillance Culture - COMP Recent Imaging Studies: Telemetry tracings were personally reviewed show atrial fibrillation with intermittent ventricular pacing CXR 1. Suspect mild interstitial pulmonary edema, superimposed upon underlying chronic obstructive lung disease. Findings are similar to the previous exam from 01/24/2017. 2. Postoperative changes in the right hemithorax status post right upper lobectomy. Assessment/Plan Assessment/Plan 1. COPD exacerbation/respiratory insufficiency 2. Diastolic congestive heart failure 3. Atrial fibrillation on anticoagulation with that currently supratherapeutic INR 4. History of tachybradycardia syndrome with PPM in situ 5. History of lung cancer with prior lobectomy 6. Mild mitral stenosis 7. History of abdominal aortic aneurysm 8. Renal insufficiency Patient is currently comfortable on nasal cannula. Currently remains on hold due to supratherapeutic INR. Continue holding diuretics for now. Can likely plan to resume oral Lasix tomorrow. Continue the current AV ben blockers. She remains on IV steroids. Rasta Mccain MD [facility] Continue telemetry? Yes
[2017-01-25 16:00] VITALS: BP 129/65
[2017-01-25 23:00] VITALS: BP 132/59
[2017-01-26 06:29] LABS: ABSOLUTE BASOPHIL COUNT 0 /CUMM (0.0-0.2); ABSOLUTE EOSINOPHIL COUNT 0 /CUMM (0.0-0.7); ABSOLUTE GRANULOCYTE CT 8.9 /CUMM (1.4-6.5); ABSOLUTE LYMPH COUNT 0.4 /CUMM (1.2-3.4); ABSOLUTE MONOCYTE COUNT 0.3 /CUMM (0.10-0.60); BASOPHIL % 0 % (0.0-2.0); EOSINOPHIL % 0 % (0-5); MEAN CORPUSCULAR HGB CONC 32.4 G/DL (33.0-37.0); MEAN CORPUSCULAR VOLUME 95.5 FL (81.0-99.0); MEAN PLATELET VOLUME 7.2 FL (7.4-10.4); PLATELET COUNT 193 /CUMM (130-400); RBC DISTRIBUTION WIDTH 16.1 % (11.5-14.5); RED BLOOD CELL CT 3.35 /CUMM (4.20-5.40)
[2017-01-26 06:37] LABS: PT 59.2 SEC (9.4-12.5)
[2017-01-26 07:00] VITALS: BP 126/51
[2017-01-26 07:03] LABS: WHITE BLOOD CELL COUNT 9.7 /CUMM (4.8-10.8)
--- NOTE | 2017-01-26 08:16 | PN- Resident CRCU ---
Subjective HPI/CRCU Issues: No acute events overnight. Patient was seen and examined this morning. She continues to have shortness of breath. She reports that she had a hard time sleeping last night due to discomfort from the BiPAP mask. She denies chest pain or palpitations. She remains on 2-3 L NC. Objective Vital Signs & I&O Last 8 Hrs of Vitals and I&O: Vital Signs Date Time Temp Pulse Resp B/P Pulse O2 O2 Flow FiO2 Ox Delivery Rate 01/26 1741 65 110/60 01/26 1600 95 Nasal 3.0L Cannula 01/26 1600 68.0 68 18 110/56 100 Nasal 3.0L Cannula 01/26 1410 97 Nasal 2.0L Cannula 01/26 1404 75 120/80 01/26 1029 95 Nasal 2.0L Cannula 01/26 0946 69 114/55 01/26 0800 97 Nasal 3.0L Cannula 01/26 0700 60 18 126/51 96 Nasal 3.0L Cannula 01/26 0653 97.4 64 16 138/49 01/26 0444 97.7 01/26 0400 95 BIPAP 35% 01/26 0321 60 94 01/26 0306 97.3 01/26 0037 60 94 01/26 0000 96 BIPAP 35% 01/25 2300 97.6 74 20 132/59 97 BIPAP 35% 01/25 2243 71 96 01/25 2102 98.3 76 20 141/58 01/25 2102 98.3 76 16 141/58 01/25 2005 94 BIPAP 35% 01/25 2000 97 BIPAP 35% 01/25 1919 61 96 Intake & Output 01/26 1600 Intake Total 400 Output Total 350 Balance 50 Intake, IV 280 Intake, Oral 120 Output, Stool 0 Output, Urine 350 Exam General Appearance: alert, awake, cachetic Head: atraumatic, normal appearance Neck: supple Respiratory: decreased breath sounds, accessory muscle use Cardiovascular: irregularly irregular, normal S1 and S2 Gastrointestinal: soft, non-tender, positive bowel sounds Extremities: no edema Skin: warm/dry Current Medications: Current Medications Sig/Elle Start time Last Medication Dose Route Stop Time Status Admin Acetaminophen 650 MG .STK-MED ONE 01/26 0840 DC PO 01/26 0841 Acetaminophen 650 MG .STK-MED ONE 01/26 0202 DC PO 01/26 0203 Acetaminophen 650 MG .STK-MED ONE 01/26 0159 DC DC 01/26 0200 Acetaminophen 650 MG Q6P PRN 01/25 0930 AC 01/26 PO 0946 Albuterol Sulfate 3 ML BID 01/23 1000 AC 01/26 INH 1407 Albuterol Sulfate 2 PUF Q4-6 PRN PRN 01/22 1630 AC INH Allopurinol 100 MG 1700 01/25 1700 AC 01/26 PO 1741 Aspirin Buffered 81 MG DAILY 01/23 1000 DC 01/26 PO 0945 Atorvastatin Calcium 10 MG 1700 01/22 1700 AC 01/26 PO 1741 Azithromycin 500 MG DAILY 01/25 1000 AC 01/26 Dextrose/Water 250 ML IV 01/28 1059 0946 Benzocaine/Menthol 1 DONNA Q2P PRN 01/23 1500 AC 01/24 PO 1427 Digoxin 0.125 MG 1700 01/25 1700 AC 01/26 PO 1741 Diltiazem HCl 120 MG Q8 01/22 2200 AC 01/26 PO 1404 Guaifenesin 600 MG Q12 01/24 2200 AC 01/26 PO 0945 Guaifenesin 10 ML Q4P PRN 01/24 2015 AC 01/24 PO 2137 Ipratropium [place] 2.5 ML BID 01/23 1000 AC 01/26 INH 1407 Methylprednisolone 40 MG Q8 01/24 0600 AC 01/26 IV 1404 Metoprolol Tartrate 50 MG BID 01/22 2200 AC 01/26 PO 0946 Nystatin 5 ML 4 TIMES/DAY 01/24 1424 AC 01/26 PO 1741 Phenol 2 SPRAY Q2P PRN 01/24 1415 AC 01/26 EXT 1742 Potassium Chloride 10 MEQ DAILY 01/23 1000 AC 01/26 PO 0945 Ramelteon 8 MG QPM 01/23 2200 AC 01/25 PO 2101 Results Results: Laboratory Tests 01/26 0410 Chemistry Sodium (137 - 145 mmol/L) 132 L Potassium (3.5 - 5.1 mmol/L) 4.6 Chloride (98 - 107 mmol/L) 87 L Carbon Dioxide (22 - 30 mmol/L) 37 H Anion Gap (5 - 16) 7 BUN (7 - 17 mg/dL) 45 H Creatinine (0.5 - 1.0 mg/dL) 1.2 H Estimated GFR (>60 ml/min) 42 L Glucose (65 - 99 mg/dL) 133 H Calcium (8.4 - 10.2 mg/dL) 8.8 Phosphorus (2.5 - 4.5 mg/dL) 2.7 Magnesium (1.6 - 2.3 mg/dL) 2.2 Total Bilirubin (0.2 - 1.3 mg/dL) 0.5 AST (14 - 36 U/L) 32 ALT (9 - 52 U/L) 46 Albumin (3.5 - 5.0 g/dL) 3.4 L Coagulation PT (9.4 - 12.5 SEC) 59.2 *H INR (0.90 - 1.19) 5.74 *H Hematology CBC w Diff NO MAN DIFF REQ WBC (4.8 - 10.8 /CUMM) 9.7 RBC (4.20 - 5.40 /CUMM) 3.35 L Hgb (12.0 - 16.0 G/DL) 10.4 L Hct (37 - 47 %) 32.0 L MCV (81.0 - 99.0 FL) 95.5 MCH (27.0 - 31.0 PG) 31.0 RDW (11.5 - 14.5 %) 16.1 H Plt Count (130 - 400 /CUMM) 193 MPV (7.4 - 10.4 FL) 7.2 L Gran % (42.2 - 75.2 %) 92.0 H Lymphocytes % (20.5 - 51.1 %) 4.4 L Monocytes % (1.7 - 9.3 %) 3.6 Eosinophils % (0 - 5 %) 0 Basophils % (0.0 - 2.0 %) 0 L Absolute Granulocytes (1.4 - 6.5 /CUMM) 8.9 H Absolute Lymphocytes (1.2 - 3.4 /CUMM) 0.4 L Absolute Monocytes (0.10 - 0.60 /CUMM) 0.3 Absolute Eosinophils (0.0 - 0.7 /CUMM) 0 Absolute Basophils (0.0 - 0.2 /CUMM) 0 PUBS MCHC (33.0 - 37.0 G/DL) 32.4 L UCx (01/24/17): NGTD BCx (01/24/17): NGTD x2 CXR Findings: 1. Findings consistent with obstructive lung disease with stable postoperative changes in the right hemithorax. 2. Trace right-sided pleural effusion and associated subsegmental atelectasis in right lung base. 3. No pulmonary edema or focal pneumonia. 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 Problem List: 1. Acute respiratory failure with hypoxia and hypercapnia 2. Tachy-elton syndrome 3. Diastolic CHF, acute on chronic 4. Acute on chronic diastolic (congestive) heart failure 5. Supratherapeutic INR 6. [id number] kidney injury Pain Ratin Tomorrow's Labs & Rationales: CBC to monitor H/H in the setting of supratherapeutic INR BMP to monitor kidney function and lytes in the setting of PAULA on CKD Plan Respiratory: #Acute hypoxemic and hypercapnic respiratory failure: Secondary to COPD exacerbation. Still dyspneic. Oxygen requirement stable at 2-3 L. * Continue Solumedrol 40 mg IV Q8H. * TRC and nebs. * Provide supplemental oxygen as needed to keep SpO2 > 88%. * Continue nocturnal BiPAP. * Continue Mucinex 600 mg PO BID and Robitussin PO Q4H PRN for cough. * Continue 5-day course of azithromycin (01/24-01/28). * Downgrade to telemetry. Infectious Diseases: Afebrile and without leukocytosis. No signs or symptoms of infection. UCx and BCx negative. Cardiovascular: #Acute on chronic diastolic CHF: Remains euvolemic. CXR today with no pulmonary edema. * Cardiology following. Appreciate their recs. * Hold off on Lasix today given slight elevation in creatinine. * Monitor I/Os. Hematology: #Supratherapeutic INR: INR has slightly decreased to 5.74 today but remains elevated. H/H grossly stable. * Continue to hold warfarin. * Continue to monitor INR. * Monitor for bleeding. * Hold aspirin in the setting of supratherapeutic INR. #Tachy-elton syndrome with atrial fibrillation: S/p PPM placement. Heart rate well-controlled. * Continue digoxin 0.125 mg PO daily, metoprolol 50 mg PO BID and diltiazem 120 mg PO Q8H. Metabolic: #PAULA on CKD: Cr has been gradually improving, almost back to baseline at 1.2 today. * Continue to monitor lytes and kidney function. Alimentary: CHF Diet Neurological: No issues. DVT/Prophylaxis: mechanical, pharmacological Code Status: Do Not Resucitate/Intubat
--- NOTE | 2017-01-26 11:00 | PN- CRCU ---
Subjective HPI/Critical Care Issues: The patient is awake but appears slightly confused. She continues to have shortness of breath. She has had difficulty sleeping overnight. She feels worse when wearing BiPAP, and states the mask is uncomfortable. Her oxygen requirement is stable noting that her saturations are in in the mid 90s on 2 L nasal cannula. She remains afebrile. Objective Current Medications: Current Medications Sig/Elle Start time Last Medication Dose Route Stop Time Status Admin Acetaminophen 650 MG .STK-MED ONE 01/26 0202 DC PO 01/26 0203 Acetaminophen 650 MG .STK-MED ONE 01/26 0159 DC CO 01/26 0200 Acetaminophen 650 MG Q6P PRN 01/25 0930 AC 01/26 PO 0946 Albuterol Sulfate 3 ML BID 01/23 1000 AC 01/26 INH 1026 Albuterol Sulfate 2 PUF Q4-6 PRN PRN 01/22 1630 AC INH Allopurinol 100 MG 1700 01/25 1700 AC 01/25 PO 1756 Aspirin Buffered 81 MG DAILY 01/23 1000 AC 01/26 PO 0945 Atorvastatin Calcium 10 MG 1700 01/22 1700 AC 01/25 PO 1756 Azithromycin 500 MG DAILY 01/25 1000 AC 01/26 Dextrose/Water 250 ML IV 01/28 1059 0946 Benzocaine/Menthol 1 DONNA Q2P PRN 01/23 1500 AC 01/24 PO 1427 Digoxin 0.125 MG 1700 01/25 1700 AC 01/25 PO 1755 Diltiazem HCl 120 MG Q8 01/22 2200 AC 01/26 PO 0653 Guaifenesin 600 MG Q12 01/24 2200 AC 01/26 PO 0945 Guaifenesin 10 ML Q4P PRN 01/24 2015 AC 01/24 PO 2137 Ipratropium [place] 2.5 ML BID 01/23 1000 AC 01/26 INH 1026 Methylprednisolone 40 MG Q8 01/24 0600 AC 01/26 IV 0653 Metoprolol Tartrate 50 MG BID 01/220 AC 01/26 PO 0946 Nystatin 5 ML 4 TIMES/DAY 01/24 1424 AC 01/26 PO 0946 Phenol 2 SPRAY Q2P PRN 01/24 1415 AC 01/26 EXT 0946 Potassium Chloride 10 MEQ DAILY 01/23 1000 AC 01/26 PO 0945 Ramelteon 8 MG QPM 01/23 2200 AC 01/25 PO 2101 Vital Signs & I&O Last 24 Hrs of Vitals and I&O: Vital Signs Date Time Temp Pulse Resp B/P Pulse O2 O2 Flow FiO2 Ox Delivery Rate 01/26 1029 95 Nasal 2.0L Cannula 01/26 0946 69 114/55 01/26 0700 60 18 126/51 96 Nasal 3.0L Cannula 01/26 0653 97.4 64 16 138/49 01/26 0444 97.7 01/26 0400 95 BIPAP 35% 01/26 0321 60 94 01/26 0306 97.3 01/26 0037 60 94 01/26 0000 96 BIPAP 35% 01/25 2300 97.6 74 20 132/59 97 BIPAP 35% 01/25 2243 71 96 01/25 2102 98.3 76 20 141/58 01/25 2102 98.3 76 16 141/58 01/25 2005 94 BIPAP 35% 01/25 2000 97 BIPAP 35% 01/25 1919 61 96 01/25 1755 70 20 125/65 01/25 1630 59 96 01/25 1600 97 BIPAP 35% 01/25 1600 97.6 70 18 129/65 99 BIPAP 35% 01/25 1535 67 122/63 01/25 1340 73 98 01/25 1200 97 Nasal 3.0L Cannula Intake & Output 01/26 1600 01/26 0800 01/26 0000 Intake Total 400 420 Output Total 290 230 Balance 110 190 Intake, Oral 400 420 Output, Urine 290 230 Patient 121 lb Weight Exam General Appearance: elderly, frail and thin Head: atraumatic, normal appearance, active bleeding Neck: supple Respiratory: patient uses accessory muscles for respiration, breath sounds are severely diminished bilaterally, no asymmetry Cardiovascular: regular rate/rhythm Abdomen: normal bowel sounds, soft, non-tender Extremities: no edema Skin: warm/dry Results Last 24 Hrs of Lab Results: Laboratory Tests 01/26/17 0410: Anion Gap 7, Estimated GFR 42 L, Glucose 133 H, Calcium 8.8, Phosphorus 2.7, Magnesium 2.2, Total Bilirubin 0.5, AST 32, ALT 46, Albumin 3.4 L, PT 59.2 *H, INR 5.74 *H, CBC w Diff NO MAN DIFF REQ, RBC 3.35 L, MCV 95.5, MCH 31.0, RDW 16.1 H, MPV 7.2 L, Gran % 92.0 H, Lymphocytes % 4.4 L, Monocytes % 3.6, Eosinophils % 0, Basophils % 0 L, Absolute Granulocytes 8.9 H, Absolute Lymphocytes 0.4 L, Absolute Monocytes 0.3, Absolute Eosinophils 0, Absolute Basophils 0, PUBS MCHC 32.4 L 01/25/17 1325: pH 7.29 *L, pCO2 77 *H, pO2 99, HCO3 37 H, ABG O2 Sat (Measured) 97.0, P-50 ( Temp Corrected) NO, Carboxyhemoglobin 0.2 L, O2 Concentration % 3L, Temperature 98.5, O2 Delivery Method NC, Phlebotomy Draw Site RIGHT RADIAL Last 24 Hrs of Micro Results: Cultures are negative to date. Impression/Plan Impression/Plan Impression/Plan: 1. Acute hypoxemic and hypercarbic respiratory failure secondary to acute exacerbation of COPD. 2. Diastolic congestive heart failure. 3. Atrial fibrillation and tachybrady syndrome status post pacemaker placement. 4. Supratherapeutic INR secondary to Coumadin, trending down, no evidence of bleeding. 4. Right upper lobectomy in 2007 for non-small cell lung cancer. 5. History of bladder cancer. Recommendations: * Continue to give breaks off of Bipap as tolerated. * Contine nocturnal Bipap. * Maintain oxygen saturations greater than 80%. * Continue to hold Coumadin. * Monitor for bleeding in the setting of a supratherapeutic INR. * Continue IV Solu-Medrol 40 mg every 8 hours. * Complete 5 days of Zithromax. * Continue nebs/TRC. * DVT prophylaxis - INR is supratherapeutic. TTS 40 min
[2017-01-26 16:00] VITALS: BP 110/56
--- NOTE | 2017-01-26 16:30 | RADIOLOGY REPORT ---
EXAMINATION: XR PORTABLE CHEST CLINICAL INFORMATION: Acute hypoxemic and hypercapnic respiratory failure. Evaluate for interval changes. COPD exacerbation and diastolic CHF. COMPARISON: Multiple prior chest x-rays, most recent of which is dated 01/25/2017. TECHNIQUE: Portable AP semierect view of the chest was obtained. FINDINGS: Right atrial and right ventricular pacer leads are in place. The cardiomediastinal silhouette is within normal limits in size. Calcification and tortuosity of the aorta is again seen. Lungs are hyperinflated, consistent with patient's history of COPD with coarsening of bronchovascular lung markings and prominence of the bilateral raj again seen. Postsurgical changes are again noted in the right hilum from prior right upper lobectomy. On current exam, no definite superimposed pulmonary edema is seen. There is a trace right-sided pleural effusion and associated subsegmental atelectasis in the CP angle. No pneumothorax. S-shaped thoracolumbar scoliosis and diffuse osteopenia again noted. IMPRESSION: 1. Findings consistent with obstructive lung disease with stable postoperative changes in the right hemithorax. 2. Trace right-sided pleural effusion and associated subsegmental atelectasis in right lung base. 3. No pulmonary edema or focal pneumonia.
--- NOTE | 2017-01-26 18:29 | PN- Cardiology ---
Subjective Subjective: Patient sitting up in her chair with legs elevated this evening. Still with dyspnea which she feels is mild currently. No chest pain or palpitations. Objective Vital Signs and I&Os Vital Signs Date Time Temp Pulse Resp B/P Pulse O2 O2 Flow FiO2 Ox Delivery Rate 01/26 1741 65 110/60 01/26 1600 95 Nasal 3.0L Cannula 01/26 1600 68.0 68 18 110/56 100 Nasal 3.0L Cannula 01/26 1410 97 Nasal 2.0L Cannula 01/26 1404 75 120/80 01/26 1029 95 Nasal 2.0L Cannula 01/26 0946 69 114/55 01/26 0800 97 Nasal 3.0L Cannula 01/26 0700 60 18 126/51 96 Nasal 3.0L Cannula 01/26 0653 97.4 64 16 138/49 01/26 0444 97.7 01/26 0400 95 BIPAP 35% 01/26 0321 60 94 01/26 0306 97.3 01/26 0037 60 94 01/26 0000 96 BIPAP 35% 01/25 2300 97.6 74 20 132/59 97 BIPAP 35% 01/25 2243 71 96 01/25 210 98.3 76 20 141/58 01/25 2102 98.3 76 16 141/58 01/25 2005 94 BIPAP 35% 01/26 2000 97 BIPAP 35% 01/25 1919 61 96 Intake & Output 01/26 1600 01/26 0800 01/26 0000 01/25 1600 01/25 0800 01/25 0000 Intake Total 400 400 420 520 250 465 Output Total 350 290 230 275 245 300 Balance 50 110 190 245 5 165 Intake, IV 280 280 415 Intake, Oral 120 400 420 240 250 50 Number 0 0 Bowel Movements Output, Stool 0 Output, Urine 350 290 230 275 245 300 Patient 121 lb 125 lb 120 lb Weight Physical Exam: General: no apparent distress. On nasal cannula. Eyes: No obvious scleral icterus. HEENT: No jugular venous distention or abnormal jugular venous pulsations. Cardiovascular: Normal intensity S1/S2. Irregular. Respiratory: Bilateral wheezes with decreased air entry Abdomen: no guarding or rebound tenderness. Musculoskeletal: No clubbing or cyanosis noted, no edema Skin: Warm Neurologic: No gross focal deficits noted. Current Medications: Current Medications Sig/Elle Start time Last Medication Dose Route Stop Time Status Admin Acetaminophen 650 MG .STK-MED ONE 01/26 0840 DC PO 01/26 0841 Acetaminophen 650 MG .STK-MED ONE 01/26 0202 DC PO 01/26 0203 Acetaminophen 650 MG .STK-MED ONE 01/26 0159 DC SD 01/26 0200 Acetaminophen 650 MG Q6P PRN 01/25 0930 AC 01/26 PO 0946 Albuterol Sulfate 3 ML BID 01/23 1000 AC 01/26 INH 1407 Albuterol Sulfate 2 PUF Q4-6 PRN PRN 01/22 1630 AC INH Allopurinol 100 MG 1700 01/25 1700 AC 01/26 PO 1741 Aspirin Buffered 81 MG DAILY 01/23 1000 AC 01/26 PO 0945 Atorvastatin Calcium 10 MG 1700 01/22 1700 AC 01/26 PO 1741 Azithromycin 500 MG DAILY 01/25 1000 AC 01/26 Dextrose/Water 250 ML IV 01/28 1059 0946 Benzocaine/Menthol 1 DONNA Q2P PRN 01/23 1500 AC 01/24 PO 1427 Digoxin 0.125 MG 1700 01/25 1700 AC 01/26 PO 1741 Diltiazem HCl 120 MG Q8 01/22 2200 AC 01/26 PO 1404 Guaifenesin 600 MG Q12 01/24 2200 AC 01/26 PO 0945 Guaifenesin 10 ML Q4P PRN 01/24 2015 AC 01/24 PO 2137 Ipratropium [place] 2.5 ML BID 01/23 1000 AC 01/26 INH 1407 Methylprednisolone 40 MG Q8 01/24 0600 AC 01/26 IV 1404 Metoprolol Tartrate 50 MG BID 01/22 2200 AC 01/26 PO 0946 Nystatin 5 ML 4 TIMES/DAY 01/24 1424 AC 01/26 PO 1741 Phenol 2 SPRAY Q2P PRN 01/24 1415 AC 01/26 EXT 1742 Potassium Chloride 10 MEQ DAILY 01/23 1000 AC 01/26 PO 0945 Ramelteon 8 MG QPM 01/23 2200 AC 01/25 PO 2101 Results Last 48 Hrs of Labs/Mics: Laboratory Tests 01/26/17 0410: Anion Gap 7, Estimated GFR 42 L, Glucose 133 H, Calcium 8.8, Phosphorus 2.7, Magnesium 2.2, Total Bilirubin 0.5, AST 32, ALT 46, Albumin 3.4 L, PT 59.2 *H, INR 5.74 *H, CBC w Diff NO MAN DIFF REQ, RBC 3.35 L, MCV 95.5, MCH 31.0, RDW 16.1 H, MPV 7.2 L, Gran % 92.0 H, Lymphocytes % 4.4 L, Monocytes % 3.6, Eosinophils % 0, Basophils % 0 L, Absolute Granulocytes 8.9 H, Absolute Lymphocytes 0.4 L, Absolute Monocytes 0.3, Absolute Eosinophils 0, Absolute Basophils 0, PUBS MCHC 32.4 L 01/25/17 1325: pH 7.29 *L, pCO2 77 *H, pO2 99, HCO3 37 H, ABG O2 Sat (Measured) 97.0, P-50 ( Temp Corrected) NO, Carboxyhemoglobin 0.2 L, O2 Concentration % 3L, Temperature 98.5, O2 Delivery Method NC, Phlebotomy Draw Site RIGHT RADIAL 01/25/17 0455: pH 7.35, pCO2 67 *H, pO2 117 H, HCO3 36 H, ABG O2 Sat (Measured) 97.0, P-50 ( Temp Corrected) Y, Carboxyhemoglobin 0.3 L, O2 Concentration % 40%, Temperature 98.5, Respiration Rate 20, O2 Delivery Method VISION-FFM, Vent Mode ST, Expiratory Pressure 6, Inspiratory Pressure 18, Phlebotomy Draw Site RIGHT RADIAL 01/25/17 0400: Anion Gap 8, Estimated GFR 39 L, Glucose 124 H, Calcium 8.5, Phosphorus 3.6, Magnesium 2.1, Total Bilirubin 0.5, AST 35, ALT 46, Albumin 3.4 L, PT 65.1 *H, INR 6.31 *H, CBC w Diff NO MAN DIFF REQ, RBC 3.25 L, MCV 96.5, MCH 31.5 H, RDW 16.6 H, MPV 7.0 L, Gran % 93.7 H, Lymphocytes % 3.2 L, Monocytes % 3.1, Eosinophils % 0, Basophils % 0 L, Absolute Granulocytes 8.9 H, Absolute Lymphocytes 0.3 L, Absolute Monocytes 0.3, Absolute Eosinophils 0, Absolute Basophils 0, PUBS MCHC 32.7 L Recent Imaging Studies: Telemetry tracings were personally reviewed and show atrial fibrillation with intermittent ventricular pacing CXR: 1. Findings consistent with obstructive lung disease with stable postoperative changes in the right hemithorax. 2. Trace right-sided pleural effusion and associated subsegmental atelectasis in right lung base. 3. No pulmonary edema or focal pneumonia. Assessment/Plan Assessment/Plan 1. COPD exacerbation/respiratory insufficiency 2. Diastolic congestive heart failure 3. Atrial fibrillation on anticoagulation with currently supratherapeutic INR 4. History of tachybradycardia syndrome with PPM in situ 5. History of lung cancer with prior lobectomy 6. Mild mitral stenosis 7. History of abdominal aortic aneurysm 8. Renal insufficiency Patient appears comfortable on nasal cannula this evening. Hemoglobin remains grossly stable despite elevated INR, continue holding Coumadin. Creatinine appears close to baseline but as she remains euvolemic would hold off on Lasix today and reassess volume status tomorrow. She remains on IV steroids. Would hold her aspirin in the setting of supratherapeutic INR. Heart rate remains well controlled. Rasta Mccain MD [facility] Continue telemetry? Yes
[2017-01-27] VITALS: BP 120/70
[2017-01-27 04:36] LABS: ABSOLUTE BASOPHIL COUNT 0 /CUMM (0.0-0.2); ABSOLUTE EOSINOPHIL COUNT 0 /CUMM (0.0-0.7); ABSOLUTE LYMPH COUNT 0.4 /CUMM (1.2-3.4); ABSOLUTE MONOCYTE COUNT 0.2 /CUMM (0.10-0.60); BASOPHIL % 0 % (0.0-2.0); EOSINOPHIL % 0 % (0-5); GRANULOCYTE % 93.4 % (42.2-75.2); HEMATOCRIT 33.3 % (37-47); MEAN CORPUSCULAR HGB 30.7 PG (27.0-31.0); MEAN CORPUSCULAR HGB CONC 32.2 G/DL (33.0-37.0); MEAN CORPUSCULAR VOLUME 95.4 FL (81.0-99.0); MEAN PLATELET VOLUME 7.1 FL (7.4-10.4); PLATELET COUNT 191 /CUMM (130-400); RBC DISTRIBUTION WIDTH 16.3 % (11.5-14.5); RED BLOOD CELL CT 3.48 /CUMM (4.20-5.40); WHITE BLOOD CELL COUNT 8.5 /CUMM (4.8-10.8)
[2017-01-27 04:47] LABS: PT 44.6 SEC (9.4-12.5)
--- NOTE | 2017-01-27 07:32 | PN- Housestaff ---
Subjective Follow-up For: COPD exacerbation, improving CHF exacerbation, resolved Complaints: no complaints Subjective: Patient in ICU as a telemetry floor hold, for acute on chronic hypercarbic respiratory failure. I followed up and examined the patient today. She is resting comfortably in her bed, reclining, taking oxygen via nasal cannula at 2 L/m, which is her baseline. Her appetite is still poor, but does not have any complaints. She required BiPAP for 3 hours, and later on by choice, overnight. Review of Systems Constitutional: Reports: no symptoms. EENTM: Reports: no symptoms. Cardiovascular: Reports: no symptoms, see HPI. Respiratory: Reports: no symptoms, see HPI. Gastrointestinal: Reports: no symptoms. Genitourinary: Reports: no symptoms. Musculoskeletal: Reports: no symptoms. Skin: Reports: no symptoms. Neurological/Psychological: Reports: no symptoms. Hematologic/Endocrine: Reports: no symptoms. Objective Last 24 Hrs of Vital Signs/I&O Vital Signs Date Time Temp Pulse Resp B/P Pulse O2 O2 Flow FiO2 Ox Delivery Rate 01/27 1034 69 102/60 01/27 0848 94 Nasal 2.0L Cannula 01/27 0800 93 Nasal 2.0L Cannula 01/27 0800 97.1 64 18 102/50 96 Nasal 2.0L Cannula 01/27 0528 68 20 120/70 01/27 0421 64 97 01/27 0000 98 BIPAP 30% 01/27 0000 97.6 60 20 120/70 95 BIPAP 30% 01/26 2234 69 98 01/26 2211 97.1 75 18 130/50 01/26 2210 73 18 130/50 01/26 2019 93 Nasal 2.0L Cannula 01/26 2000 99 Nasal 2.0L Cannula 01/26 1741 65 110/60 01/26 1600 95 Nasal 3.0L Cannula 01/26 1600 68.0 68 18 110/56 100 Nasal 3.0L Cannula 01/26 1410 97 Nasal 2.0L Cannula 01/26 1404 75 120/80 Intake & Output 01/27 1600 01/27 0800 01/27 0000 Intake Total 100 200 Output Total 400 700 Balance -300 -500 Intake, Oral 100 200 Output, Urine 400 700 Patient 55.338 kg Weight Physical Exam General Appearance: Alert, Oriented X3, Cooperative, No Acute Distress, Taking O2 via NC at 2L/min Other Physical Findings: -General: thin elderly woman in no respiratory distress today, better than yesterday -Neck: Supple -HEENT: NCAT, PERRLA, EOMI, anicteric sclera, moist mucous membranes -CVS/Chest: S1, S2 w/o m/g/r; irregular rhythm, pacemaker in place -Resp: B/l wheezing, and b/l bibasilar dry crackles, kyphosis present -GI: Soft, nontender, nondistended, bowel sounds present -Neuro: Awake and alert, tired appearing with a soft frail voice, CN II - XII grossly intact -Ext: normal pulses, no cyanosis/clubbing/edema Current Medications: Current Medications Sig/Elle Start time Last Medication Dose Route Stop Time Status Admin Acetaminophen 650 MG Q6P PRN 01/25 0930 AC 01/26 PO 0946 Albuterol Sulfate 3 ML BID 01/23 1000 AC 01/27 INH 0848 Albuterol Sulfate 2 PUF Q4-6 PRN PRN 01/22 1630 AC INH Allopurinol 100 MG 1700 01/25 1700 AC 01/26 PO 1741 Aspirin Buffered 81 MG DAILY 01/23 1000 DC 01/26 PO 0945 Atorvastatin Calcium 10 MG 1700 01/22 1700 AC 01/26 PO 1741 Azithromycin 500 MG DAILY 01/25 1000 AC 01/27 Dextrose/Water 250 ML IV 01/28 1059 1042 Benzocaine/Menthol 1 DONNA Q2P PRN 01/23 1500 AC 01/24 PO 1427 Digoxin 0.125 MG 1700 01/25 1700 AC 01/26 PO 1741 Diltiazem HCl 120 MG .STK-MED ONE 01/26 1259 DC PO 01/26 1300 Diltiazem HCl 120 MG Q8 01/22 2200 AC 01/27 PO 0528 Guaifenesin 600 MG Q12 01/24 2200 AC 01/27 PO 1034 Guaifenesin 10 ML Q4P PRN 01/24 2015 AC 01/24 PO 2137 Ipratropium [place] 2.5 ML BID 01/23 1000 AC 01/27 INH 0847 Methylprednisolone 40 MG Q12 01/27 1000 AC 01/27 IV 1034 Methylprednisolone 40 MG Q8 01/24 0600 DC 01/27 IV 0527 Metoprolol Tartrate 50 MG BID 03/08 2200 AC 01/27 PO 1034 Nystatin 5 ML 4 TIMES/DAY 01/24 1424 AC 01/27 PO 1033 Phenol 2 SPRAY Q2P PRN 01/24 1415 AC 01/26 EXT 1742 Potassium Chloride 10 MEQ DAILY 01/23 1000 AC 01/27 PO 1034 Ramelteon 8 MG QPM 01/23 2200 AC 01/26 PO 2211 Last 24 Hrs of Lab/Nikita Results Last 24 Hrs of Labs/Mics: Laboratory Tests 01/27/17 1015: pH 7.42, pCO2 52 H, pO2 78 L, HCO3 34 H, ABG O2 Sat (Measured) 96.0, P-50 ( Temp Corrected) N, Carboxyhemoglobin 0.2 L, O2 Concentration % 2LPM, O2 Delivery Method NC, Phlebotomy Draw Site RIGHT RADIAL 01/27/17 0400: Anion Gap 6, Estimated GFR 47 L, BUN/Creatinine Ratio 35.5 H, PT 44.6 *H, INR 4.31 *H, CBC w Diff MAN DIFF ORDERED, RBC 3.48 L, MCV 95.4, MCH 30.7, RDW 16.3 H, MPV 7.1 L, Gran % 93.4 H, Lymphocytes % 4.3 L, Monocytes % 2.3, Eosinophils % 0, Basophils % 0 L, Absolute Granulocytes 8.0 H, Absolute Lymphocytes 0.4 L, Absolute Monocytes 0.2, Absolute Eosinophils 0, Absolute Basophils 0, Platelet Estimate ADEQUATE, Poikilocytosis 1+, Ovalocytes 1+, PUBS MCHC 32.2 L Lines/Diet/Fluids Catheters/Tubes: jean baptiste, placed on 01/24/17 Jean Baptiste Still Needed? 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 She was transferred to the ICU on 01/25/2017 early-morning because see was found unresponsive even to sternal rub, and in acute hypercarbic respiratory failure. She was then managed in the ICU, received oxygen therapy with BiPAP, and rest of the medications same as white in telemetry unit. Her condition is much better compared to what she was brought in the ICU, and was downgraded to telemetry service yesterday on 11/02. Currently, she is being managed in the ICU as telemetry for patient for the following issues: Respiratory #Acute hypoxic hypercarbic respiratory failure -Secondary to acute exacerbation of COPD -Continue BiPAP only as needed, otherwise oxygen delivery by nasal cannula to maintain SPO2 more than 88% -ABG shows pH of 7.42, hypercarbia of 52, hypoxia 78, bicarbonate 34 and oxygen saturation 96% -Change IV Solu-Medrol 40 mg to every 12 hours -Azithromycin 500 mg IV for total 5 days as an anti-inflammatory, today fourth dose received. 01/28/17 will be the fifth dose, then stop. -Continue TRC/nebs -Patient can be transferred to the telemetry floor for continuous oxygen monitoring, but does not necessarily require intensive care level right now. Her repeat ABG shows that she can be tried without nocturnal BiPAP tonight. Put her on BiPAP if however necessary. Circulatory #Congestive heart failure -getting better -We'll continue her previous medications, except lasix today -We will reconsider to restart Lasix tomorrow, as her creatinine is better already 1.1 #Atrial fibrillation, rate under control 70-80s -Continue digoxin, metoprolol, diltiazem Infectious disease -Doesn't look like she has an infectious cause, but we will follow-up the culture reports -She is on azithromycin as an anti-inflammatory, helpful for acute exacerbation of COPD Hematologic -Supratherapeutic INR 4.31 -Hold Coumadin, repeat INR in the morning Metabolic -We'll repeat electrolytes as needed Alimentary -CHF diet -Has very poor appetite, dietary is already on board -Getting additional aches, ice cream with every meals, but she has not been finishing completely -?might need marinol, if no contraindications Neurologic -No issues DVT prophylaxis: Coumadin, not today as she is supratherapeutic today Diet: CHF diet when she can CODE STATUS: DNR/DNI Problem List: 1. COPD exacerbation 2. CHF exacerbation 3. Control of atrial fibrillation with pacemaker 4. [id number] kidney injury Pain Ratin Pain Location: - Pain Goal: Pain 4 or less Pain Plan: prn Tomorrow's Labs & Rationales: CBC, BEP, Magnesium to follow on infective cause, and electrolyte repletion
[2017-01-27 08:00] VITALS: BP 102/50
--- NOTE | 2017-01-27 10:06 | PN- Pulmonary ---
Subjective HPI/Critical Care Issues: pt seen and examined bipap intermittently doing much better some wheezing no n/v/d/c Objective Current Medications: Current Medications Sig/Elle Start time Last Medication Dose Route Stop Time Status Admin Acetaminophen 650 MG Q6P PRN 01/25 0930 AC 01/26 PO 0946 Albuterol Sulfate 3 ML BID 01/23 1000 AC 01/27 INH 0848 Albuterol Sulfate 2 PUF Q4-6 PRN PRN 01/22 1630 AC INH Allopurinol 100 MG 1700 01/25 1700 AC 01/26 PO 1741 Aspirin Buffered 81 MG DAILY 01/23 1000 DC 01/26 PO 0945 Atorvastatin Calcium 10 MG 1700 01/22 1700 AC 01/26 PO 1741 Azithromycin 500 MG DAILY 01/25 1000 AC 01/26 Dextrose/Water 250 ML IV 01/28 1059 0946 Benzocaine/Menthol 1 DONNA Q2P PRN 01/23 1500 AC 01/24 PO 1427 Digoxin 0.125 MG 1700 01/25 1700 AC 01/26 PO 1741 Diltiazem HCl 120 MG .STK-MED ONE 01/26 1259 DC PO 01/26 1300 Diltiazem HCl 120 MG Q8 01/22 2200 AC 01/27 PO 0528 Guaifenesin 600 MG Q12 01/24 2200 AC 01/26 PO 2211 Guaifenesin 10 ML Q4P PRN 01/24 2015 AC 01/24 PO 2137 Ipratropium [place] 2.5 ML BID 01/23 1000 AC 01/27 INH 0847 Methylprednisolone 40 MG Q12 01/27 1000 AC IV Methylprednisolone 40 MG Q8 01/24 0600 DC 01/27 IV 0527 Metoprolol Tartrate 50 MG BID 01/22 2200 AC 01/26 PO 2211 Nystatin 5 ML 4 TIMES/DAY 01/24 1424 AC 01/26 PO 2211 Phenol 2 SPRAY Q2P PRN 01/24 1415 AC 01/26 EXT 1742 Potassium Chloride 10 MEQ DAILY 01/23 1000 AC 01/26 PO 0945 Ramelteon 8 MG QPM 01/23 2200 AC 01/26 PO 2211 Vital Signs & I&O Last 24 Hrs of Vitals and I&O: Vital Signs Date Time Temp Pulse Resp B/P Pulse O2 O2 Flow FiO2 Ox Delivery Rate 01/27 0848 94 Nasal 2.0L Cannula 01/27 0528 68 20 120/70 01/27 0421 64 97 01/27 0000 98 BIPAP 30% 01/27 0000 97.6 60 20 120/70 95 BIPAP 30% 01/26 2234 69 98 01/26 2211 97.1 75 18 130/50 01/26 2210 73 18 130/50 01/26 2019 93 Nasal 2.0L Cannula 01/27 2000 99 Nasal 2.0L Cannula 01/26 1741 65 110/60 01/26 1600 95 Nasal 3.0L Cannula 01/26 1600 68.0 68 18 110/56 100 Nasal 3.0L Cannula 01/26 1410 97 Nasal 2.0L Cannula 01/26 1404 75 120/80 01/26 1029 95 Nasal 2.0L Cannula Intake & Output 01/27 1600 01/27 0800 01/27 0000 Intake Total 100 200 Output Total 400 700 Balance -300 -500 Intake, Oral 100 200 Output, Urine 400 700 Patient 122 lb Weight Exam Other Physical Findings: gen awake and alert heent ncat cvs s1, s2 lungs rare rhonchi and wheezing abd soft bs+ ext without edema Results Last 24 Hrs of Lab Results: Laboratory Tests 01/27/17 0400: Anion Gap 6, Estimated GFR 47 L, BUN/Creatinine Ratio 35.5 H, PT 44.6 *H, INR 4.31 *H, CBC w Diff MAN DIFF ORDERED, RBC 3.48 L, MCV 95.4, MCH 30.7, RDW 16.3 H, MPV 7.1 L, Gran % 93.4 H, Lymphocytes % 4.3 L, Monocytes % 2.3, Eosinophils % 0, Basophils % 0 L, Absolute Granulocytes 8.0 H, Absolute Lymphocytes 0.4 L, Absolute Monocytes 0.2, Absolute Eosinophils 0, Absolute Basophils 0, Platelet Estimate ADEQUATE, Poikilocytosis 1+, Ovalocytes 1+, PUBS MCHC 32.2 L Impression/Plan Impression/Plan Impression/Plan: Impression 86 year old woman - hypercarbic respiratory failure - a.fib/coumadin, supratherapeutic INR - tachybardy syndrome - pacemaker - hx lung ca Plan - check abg - maintain spo2 >88% - f/u cardiology - iv solumedrol 40mg iv q12 - trc/nebs - dvt prophylaxis at all times tele hold
--- NOTE | 2017-01-27 17:27 | Transfer of Care Summary ---
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 She was transferred to the ICU on 01/25/2017 early-morning because see was found unresponsive even to sternal rub, and in acute hypercarbic respiratory failure. Rapid response was called, and she was then managed in the ICU, received oxygen therapy with BiPAP, and rest of the medications same as white in telemetry unit. Her condition is much better compared to what she was brought in the ICU, and was downgraded to telemetry service yesterday on 01/26/17. Currently, she is being managed in the ICU as telemetry for patient for the following issues: Respiratory #Acute hypoxic hypercarbic respiratory failure -Secondary to acute exacerbation of COPD -Continue BiPAP only as needed, otherwise oxygen delivery by nasal cannula to maintain SPO2 more than 88% -ABG done today shows pH of 7.42, hypercarbia of 52, hypoxia 78, bicarbonate 34 and oxygen saturation 96% -Change IV Solu-Medrol 40 mg to every 12 hours -Azithromycin 500 mg IV for total 5 days as an anti-inflammatory, today fourth dose received. 01/28/17 will be the fifth dose, then stop. -Continue TRC/nebs -Patient can be transferred to the telemetry floor for continuous oxygen monitoring, but does not necessarily require intensive care level right now. Her repeat ABG shows that she can be tried without nocturnal BiPAP tonight. Please put her on BiPAP if however necessary. Circulatory #Congestive heart failure -getting better -We'll continue her previous medications, except lasix today -We will reconsider to restart Lasix tomorrow, as her creatinine is better already 1.1 #Atrial fibrillation, rate under control 70-80s, has functional PPM -Continue digoxin, metoprolol, diltiazem Infectious disease -Doesn't look like she has an infectious cause, but we will follow-up the culture reports -She is on azithromycin as an anti-inflammatory, helpful for acute exacerbation of COPD Hematologic -Supratherapeutic INR 4.31 -Hold Coumadin, repeat INR in the morning, dose coumadin accordingly Metabolic -We'll repeat electrolytes as needed Alimentary -CHF diet -Has very poor appetite, dietary is already on board -Getting additional aches, ice cream with every meals, but she has not been finishing completely -?might need marinol, if no contraindications Neurologic -No issues DVT prophylaxis: Coumadin, not today as she is supratherapeutic today Diet: CHF diet when she can CODE STATUS: DNR/DNI Complications: Acute on chronic hypercarbic respiratory failure, secondary to acute exacerbation of COPD Significant Procedures: ADMISSION CXR: IMPRESSION: 1. There has been interval increase in opacification at the right base, which may be consistent with increasing pleural effusion. An area of consolidation cannot be excluded. 2. Recommend upright frontal and lateral views of the chest for further assessment. DICTATED BY: JOSE EDUARDO GUADARRAMA MD DATE/TIME DICTATED:01/22/171300 CLOTH COVERED HELMET PULLER:MATA DATE/TIME TRANSCRIBED:01/22/171300 LATEST CXR: IMPRESSION: 1. Findings consistent with obstructive lung disease with stable postoperative changes in the right hemithorax. 2. Trace right-sided pleural effusion and associated subsegmental atelectasis in right lung base. 3. No pulmonary edema or focal pneumonia. DICTATED BY: SAMINA HINSON MD DATE/TIME DICTATED:01/26/171622 CLOTH COVERED HELMET PULLER:ROMERO DATE/TIME TRANSCRIBED:01/26/171622 ECHOCARDIOGRAM: CONCLUSIONS Normal size left ventricle. Mild concentric left ventricular hypertrophy. No obvious regional wall motion abnormalities. Normal left ventricular ejection fraction visually estimated at > 65%. Normal right ventricular size and function. Catheter/pacemaker wire in the right ventricular cavity. Moderate right atrial dilatation. Catheter/pacemaker wire in the right atrial cavity. Moderate left atrial dilatation. Mild mitral stenosis. Moderate mitral regurgitation. Trace aortic regurgitation. Mild to moderate tricuspid regurgitation. Mild to moderate pulmonary hypertension. Mild pulmonic regurgitation. Dilated inferior vena cava. Oziel Dick M.D. (Electronically Signed) Final Date: 22 January 2017 20:45 AORTA USG: IMPRESSION: Fusiform mid abdominal aortic aneurysm is seen with a hourglass contour, unchanged in size and appearance compared to 04/09/2016. Moderate atherosclerotic calcifications are seen. DICTATED BY: SRAVAN WATERS,SAMINA Ramsey DATE/TIME DICTATED:01/23/171146 CLOTH COVERED HELMET PULLER:MATA DATE/TIME TRANSCRIBED:01/23/171146 Pertinent Lab Results: ADMISSION LABS: Laboratory Tests 01/22/17 1342: Urine Color YEL, Urine Clarity CLEAR, Urine pH 7.0, Ur Specific [place] 1.020, Urine Protein 100 H, Urine Ketones NEG, Urine Nitrite NEG, Urine Bilirubin NEG, Urine Urobilinogen 0.2, Ur Leukocyte Esterase NEG, Ur Microscopic SEDIMENT EXAMINED, Urine RBC RARE, Urine WBC RARE, Ur Epithelial Cells FEW, Urine Hemoglobin NEG, Urine Glucose NEG 01/22/17 1242: Anion Gap 12, Estimated GFR 42 L, BUN/Creatinine Ratio 15.8, Glucose 131 H, Calcium 9.5, Total Bilirubin 1.1, AST 31, ALT 37, Alkaline Phosphatase 82, Troponin I 0.01, Wrf-S-Dusdtxuptfd Pept 4580 H, Total Protein 7.7, Albumin 4.5, Globulin 3.2, Albumin/Globulin Ratio 1.4, PT 30.5 H, INR 2.94 H, CBC w Diff NO MAN DIFF REQ, RBC 3.93 L, MCV 95.2, MCH 31.3 H, RDW 16.3 H, MPV 6.9 L, Gran % 86.9 H, Lymphocytes % 4.2 L, Monocytes % 7.8, Eosinophils % 0.8, Basophils % 0.3, Absolute Granulocytes 8.2 H, Absolute Lymphocytes 0.4 L, Absolute Monocytes 0.7 H, Absolute Eosinophils 0.1, Absolute Basophils 0, PUBS MCHC 32.9 L Microbiology 01/22 124 NASOPHARYN: Influenza Virus A & B Rapid Smear - COMP 01/22 1245 BLOOD: Blood Culture - RECD 01/22 1242 BLOOD: Blood Culture - RECD Diagnostic Data EKG Results Ventricular paced rhythm, HR 72 bpm, no acute ST changes, similar from prior. LABS ON THE DAY OF TRANSFER TO ICU: 01/24/17 1150: pH 7.33 L, pCO2 71 *H, pO2 129 H, HCO3 36 H, ABG O2 Sat (Measured) 99.0, P-50 (Temp Corrected) N, Carboxyhemoglobin 0.8 L, O2 Concentration % 45%, Respiration Rate 20, O2 Delivery Method BIPAP, Vent Mode ST, Expiratory Pressure 6, Inspiratory Pressure 18, Phlebotomy Draw Site RIGHT RADIAL 01/24/17 0600: Sodium Cancelled, Potassium Cancelled, Chloride Cancelled, Carbon Dioxide Cancelled, Anion Gap Cancelled, BUN Cancelled, Creatinine Cancelled, BUN/ Creatinine Ratio Cancelled 01/24/17 0504: Lactic Acid Cancelled 01/24/17 0455: pH 7.24 *L, pCO2 88 *H, pO2 79 L, HCO3 37 H, ABG O2 Sat (Measured) 94.0 L, P- 50 (Temp Corrected) Y, Carboxyhemoglobin 0.1 L, O2 Concentration % 50%, Temperature 99.9, Respiration Rate 28, O2 Delivery Method BIPAP-FFM, Vent Mode ST, Expiratory Pressure 6, Inspiratory Pressure 22, Phlebotomy Draw Site RIGHT RADIAL 01/24/17 0450: PT 52.5 *H, INR 5.08 *H 01/24/17 0215: Anion Gap 11, Estimated GFR 33 L, BUN/Creatinine Ratio 21.3, Lactic Acid 1.3, Phosphorus 6.7 H, Magnesium 2.1, Total Bilirubin 0.7, Direct Bilirubin 0.5 H, AST 38 H, ALT 37, Alkaline Phosphatase 73, Troponin I 0.04, Total Protein 7.8, Albumin 4.4, CBC w Diff MAN DIFF ORDERED, RBC 3.99 L, MCV 97.2, MCH 31.2 H, RDW 16.7 H, MPV 6.9 L, Gran % 89.4 H, Lymphocytes % 5.1 L, Monocytes % 5.5, Eosinophils % 0, Basophils % 0 L, Absolute Granulocytes 17.4 H, Segmented Neutrophils 82 H, Absolute Lymphocytes 1.0 L, Lymphocytes 6 L, Monocytes 12 H, Absolute Monocytes 1.1 H, Absolute Eosinophils 0, Absolute Basophils 0, Platelet Estimate ADEQUATE, Polychromasia 1+, Hypochromic-Microcytic 1+, Poikilocytosis 1+, Basophilic Stippling 1+, Ovalocytes 1+, Elliptocytes FEW, PUBS MCHC 32.1 L, Fld Total RBCs Counted 100 01/24/17 0150: pH 7.03 *L, pCO2 165 *H, pO2 84, HCO3 42 H, ABG O2 Sat (Measured) 90.0 L, P-50 (Temp Corrected) Y, Carboxyhemoglobin 0.2 L, O2 Concentration % 4 LPM, Temperature 100.7 H, O2 Delivery Method N/C, Phlebotomy Draw Site RIGHT RADIAL 01/23/17 0628: Anion Gap 11, Estimated GFR 39 L, BUN/Creatinine Ratio 17.7, Magnesium 2.0, PT 39.4 H, INR 3.80 H, CBC w Diff NO MAN DIFF REQ, RBC 3.85 L, MCV 95.3, MCH 31.3 H, RDW 15.9 H, MPV 7.2 L, Gran % 90.5 H, Lymphocytes % 5.4 L, Monocytes % 4.1, Eosinophils % 0, Basophils % 0 L, Absolute Granulocytes 5.1, Absolute Lymphocytes 0.3 L, Absolute Monocytes 0.2, Absolute Eosinophils 0, Absolute Basophils 0, PUBS MCHC 32.8 L 01/23/17 0035: Troponin I 0.02 01/22/17 1830: Troponin I 0.02 LATEST LABS: Laboratory Tests 01/27 01/27 1015 0400 Blood Gas pH (7.35 - 7.45 PH) 7.42 pCO2 (35 - 45 TORR) 52 H pO2 (80 - 100 TORR) 78 L HCO3 (21 - 28 MEQ/L) 34 H ABG O2 Sat (Measured) (>96.0 %) 96.0 P-50 (Temp Corrected) N Carboxyhemoglobin (1.5 - 5.0 %) 0.2 L O2 Concentration % 2LPM O2 Delivery Method NC Chemistry Sodium (137 - 145 mmol/L) 135 L Potassium (3.5 - 5.1 mmol/L) 4.8 Chloride (98 - 107 mmol/L) 90 L Carbon Dioxide (22 - 30 mmol/L) 38 H Anion Gap (5 - 16) 6 BUN (7 - 17 mg/dL) 39 H Creatinine (0.5 - 1.0 mg/dL) 1.1 H Estimated GFR (>60 ml/min) 47 L BUN/Creatinine Ratio (7 - 25 %) 35.5 H Coagulation PT (9.4 - 12.5 SEC) 44.6 *H INR (0.90 - 1.19) 4.31 *H Hematology CBC w Diff MAN DIFF ORDERED WBC (4.8 - 10.8 /CUMM) 8.5 RBC (4.20 - 5.40 /CUMM) 3.48 L Hgb (12.0 - 16.0 G/DL) 10.7 L Hct (37 - 47 %) 33.3 L MCV (81.0 - 99.0 FL) 95.4 MCH (27.0 - 31.0 PG) 30.7 RDW (11.5 - 14.5 %) 16.3 H Plt Count (130 - 400 /CUMM) 191 MPV (7.4 - 10.4 FL) 7.1 L Gran % (42.2 - 75.2 %) 93.4 H Lymphocytes % (20.5 - 51.1 %) 4.3 L Monocytes % (1.7 - 9.3 %) 2.3 Eosinophils % (0 - 5 %) 0 Basophils % (0.0 - 2.0 %) 0 L Absolute Granulocytes (1.4 - 6.5 /CUMM) 8.0 H Absolute Lymphocytes (1.2 - 3.4 /CUMM) 0.4 L Absolute Monocytes (0.10 - 0.60 /CUMM) 0.2 Absolute Eosinophils (0.0 - 0.7 /CUMM) 0 Absolute Basophils (0.0 - 0.2 /CUMM) 0 Platelet Estimate (ADEQUATE) ADEQUATE Poikilocytosis 1+ Ovalocytes 1+ PUBS MCHC (33.0 - 37.0 G/DL) 32.2 L Miscellaneous Phlebotomy Draw Site RIGHT RADIAL Assessment/Plan: As mentioned above.
--- NOTE | 2017-01-27 18:24 | PN- Cardiology ---
Subjective Subjective: No specific complaints. Admits to chronic dyspnea, but thinks it may be a little less pronounced than previously. Had been on BiPAP earlier now on 2L nasal O2. Objective Vital Signs and I&Os Vital Signs Date Time Temp Pulse Resp B/P Pulse O2 O2 Flow FiO2 Ox Delivery Rate 01/27 1407 72 100/60 01/27 1034 69 102/60 01/27 0848 94 Nasal 2.0L Cannula 01/27 08 93 Nasal 2.0L Cannula 01/27 0800 97.1 64 18 102/50 96 Nasal 2.0L Cannula 01/27 0528 68 20 120/70 01/27 0421 64 97 01/27 0000 98 BIPAP 30% 01/27 0000 97.6 60 20 120/70 95 BIPAP 30% 01/26 2234 69 98 01/26 2211 97.1 75 18 130/50 01/26 2210 73 18 130/50 01/26 2019 93 Nasal 2.0L Cannula 01/27 2000 99 Nasal 2.0L Cannula Intake & Output 01/27 1600 01/27 0800 01/27 0000 01/26 1600 01/26 0800 01/26 0000 Intake Total 520 100 200 400 400 420 Output Total 500 400 700 350 290 230 Balance 20 -300 -500 50 110 190 Intake, IV 280 280 Intake, Oral 240 100 200 120 400 420 Output, Stool 0 0 Output, Urine 500 400 700 350 290 230 Patient 122 lb 121 lb Weight Physical Exam: Chronically ill appearing elderly female in no acute distress with nasal oxygen in place. Vital signs: See above. Lungs: Decreased breath sounds bilaterally with wheezing and rhonchi. Heart: S1, S2 with grade 1/6 systolic murmur. Extremities: No edema. Current Medications: Current Medications Sig/Elle Start time Last Medication Dose Route Stop Time Status Admin Acetaminophen 650 MG Q6P PRN 01/25 0930 AC 01/26 PO 0946 Albuterol Sulfate 3 ML BID 01/23 1000 AC 01/27 INH 0848 Albuterol Sulfate 2 PUF Q4-6 PRN PRN 01/22 1630 AC INH Allopurinol 100 MG 01/25 1700 AC 01/26 PO 1741 Aspirin Buffered 81 MG DAILY 01/23 1000 DC 01/26 PO 0945 Atorvastatin Calcium 10 MG 01/22 1700 AC 01/26 PO 1741 Azithromycin 500 MG DAILY 01/25 1000 AC 01/27 Dextrose/Water 250 ML IV 01/28 1059 1042 Benzocaine/Menthol 1 DONNA Q2P PRN 01/23 1500 AC 01/24 PO 1427 Digoxin 0.125 MG 1700 01/25 1700 AC 01/26 PO 1741 Diltiazem HCl 120 MG Q8 01/22 2200 AC 01/27 PO 1407 Guaifenesin 600 MG Q12 01/24 2200 AC 01/27 PO 1034 Guaifenesin 10 ML Q4P PRN 01/24 2015 AC 01/24 PO 2137 Ipratropium [place] 2.5 ML BID 01/23 1000 AC 01/27 INH 0847 Methylprednisolone 40 MG Q12 01/27 1000 AC 01/27 IV 1034 Methylprednisolone 40 MG Q8 01/24 0600 DC 01/27 IV 0527 Metoprolol Tartrate 50 MG BID 01/22 2200 AC 01/27 PO 1034 Nystatin 5 ML 4 TIMES/DAY 01/24 1424 AC 01/27 PO 1407 Phenol 2 SPRAY Q2P PRN 01/24 1415 AC 01/26 EXT 1742 Potassium Chloride 10 MEQ DAILY 01/23 1000 AC 01/27 PO 1034 Ramelteon 8 MG QPM 01/23 2200 AC 01/26 PO 2211 Results Last 48 Hrs of Labs/Mics: Laboratory Tests 01/27/17 1015: pH 7.42, pCO2 52 H, pO2 78 L, HCO3 34 H, ABG O2 Sat (Measured) 96.0, P-50 ( Temp Corrected) N, Carboxyhemoglobin 0.2 L, O2 Concentration % 2LPM, O2 Delivery Method NC, Phlebotomy Draw Site RIGHT RADIAL 01/27/17 0400: Anion Gap 6, Estimated GFR 47 L, BUN/Creatinine Ratio 35.5 H, PT 44.6 *H, INR 4.31 *H, CBC w Diff MAN DIFF ORDERED, RBC 3.48 L, MCV 95.4, MCH 30.7, RDW 16.3 H, MPV 7.1 L, Gran % 93.4 H, Lymphocytes % 4.3 L, Monocytes % 2.3, Eosinophils % 0, Basophils % 0 L, Absolute Granulocytes 8.0 H, Absolute Lymphocytes 0.4 L, Absolute Monocytes 0.2, Absolute Eosinophils 0, Absolute Basophils 0, Platelet Estimate ADEQUATE, Poikilocytosis 1+, Ovalocytes 1+, PUBS MCHC 32.2 L 01/26/17 0410: Anion Gap 7, Estimated GFR 42 L, Glucose 133 H, Calcium 8.8, Phosphorus 2.7, Magnesium 2.2, Total Bilirubin 0.5, AST 32, ALT 46, Albumin 3.4 L, PT 59.2 *H, INR 5.74 *H, CBC w Diff NO MAN DIFF REQ, RBC 3.35 L, MCV 95.5, MCH 31.0, RDW 16.1 H, MPV 7.2 L, Gran % 92.0 H, Lymphocytes % 4.4 L, Monocytes % 3.6, Eosinophils % 0, Basophils % 0 L, Absolute Granulocytes 8.9 H, Absolute Lymphocytes 0.4 L, Absolute Monocytes 0.3, Absolute Eosinophils 0, Absolute Basophils 0, PUBS MCHC 32.4 L Assessment/Plan Assessment/Plan Mrs. 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 with her CXR revealing an interval increase in opacification at the right base, c/w a probable increasing pleural effusion, although an area of consolidation cannot be excluded. In the ED she was placed on oxygen with significant improvement in her O2 saturation, and received IV furosemide 40 mg 1 (in addition to the by mouth furosemide 40 mg she takes on a daily basis), TRC/nebulizer treatment, steroids, etc. While on telemetry she developed acute on chronic hypercapnic respiratory failure and was transferred to the ICU and is now improved after TRC/BiPAP. Yesterday (01/27/2017), she had improved to the point where she was transferred out of the ICU to telemetry (Rm 178) and remains on 2 L nasal oxygen. She remains off diuretics and her BUN/creatinine have continued to improve, despite the fact she has been a negative fluid balance. Continue to hold diuretics for the short-term. The ventricular response to her atrial fibrillation is also controlled on the following: Digoxin 0.125 mg daily, metoprolol 50 mg twice daily, and diltiazem 120 mg every 8 hours. Follow-up digoxin trough level today (01/28/2017) and the high therapeutic range at 1.8 ng/ml. Note that INR continues to trend downward and today (01/28/2017) was 3.09.. Continue to hold warfarin anticoagulation. Follow-up INR. Recommendations: * Can discontinue telemetry. * Continue strict inputs/outputs and daily weights. * Continue to hold diuretics for the short-term. * Continue present cardiac regimen for rate control. * INR still supratherapeutic and therefore continue to hold warfarin and follow- up INR. * Follow-up on pulmonary recommendations. * DVT prophylaxis being addressed by anticoagulation (warfarin) for her chronic atrial fibrillation. Warfarin is on hold with mildly supratherapeutic. Follow- up INR in a.m. Continue telemetry? Yes
[2017-01-27 19:05] VITALS: BP 122/50
[2017-01-27 23:45] VITALS: BP 118/60
--- NOTE | 2017-01-28 05:53 | PN- Pulmonary ---
Subjective HPI/Critical Care Issues: pt seen and examined off bipap restless overall, but comfortable dyspnea at baseline no new events no cp no n/v/d/c Objective Current Medications: Current Medications Sig/Elle Start time Last Medication Dose Route Stop Time Status Admin Acetaminophen 650 MG Q6P PRN 01/25 0930 AC 01/26 PO 0946 Albuterol Sulfate 3 ML BID 01/23 1000 AC 01/27 INH 2034 Albuterol Sulfate 2 PUF Q4-6 PRN PRN 01/22 1630 AC INH Allopurinol 100 MG 1700 01/25 1700 AC 01/27 PO 1910 Atorvastatin Calcium 10 MG 1700 01/22 1700 AC 01/27 PO 1910 Azithromycin 500 MG DAILY 01/25 1000 AC 01/27 Dextrose/Water 250 ML IV 01/28 1059 1042 Benzocaine/Menthol 1 DONNA Q2P PRN 01/23 1500 AC 01/24 PO 1427 Digoxin 0.125 MG 1700 01/25 1700 AC 01/27 PO 1913 Diltiazem HCl 120 MG Q8 01/22 2200 AC 01/27 PO 2135 Docusate Sodium 100 MG DAILY 01/27 2148 AC 01/27 PO 2158 Guaifenesin 600 MG Q12 01/24 2200 AC 01/27 PO 2136 Guaifenesin 10 ML Q4P PRN 01/24 2015 AC 01/27 PO 2158 Ipratropium [place] 2.5 ML BID 01/23 1000 AC 01/27 INH 2034 Methylprednisolone 40 MG Q12 01/27 1000 AC 01/27 IV 2136 Methylprednisolone 40 MG Q8 01/24 0600 DC 01/27 IV 0527 Metoprolol Tartrate 50 MG BID 01/22 2200 AC 01/27 PO 2136 Nystatin 5 ML 4 TIMES/DAY 01/24 1424 AC 01/27 PO 2136 Phenol 2 SPRAY Q2P PRN 01/24 1415 AC 01/26 EXT 1742 Polyethylene Glycol 17 GM DAILY 01/27 214 AC 01/27 PO 2158 Potassium Chloride 10 MEQ DAILY 01/23 1000 AC 01/27 PO 1034 Ramelteon 8 MG QPM 01/23 2200 AC 01/27 PO 2135 Senna/Docusate Sodium 2 TAB DAILY 01/27 214 AC 01/27 PO 2158 Vital Signs & I&O Last 24 Hrs of Vitals and I&O: Vital Signs Date Time Temp Pulse Resp B/P Pulse O2 O2 Flow FiO2 Ox Delivery Rate 01/28 0026 60 91 01/28 0000 92 Nasal 2.0L Cannula 01/27 2345 98.9 70 18 118/60 92 Nasal 2.0L Cannula 01/27 2136 79 132/50 01/27 2135 84 132/50 01/27 2038 96 Nasal 2.0L Cannula 01/27 1913 64 120/54 01/27 1905 98.4 61 20 122/50 91 Nasal 2.0L Cannula 01/27 1600 92 Nasal 2.0L Cannula 01/27 1407 72 100/60 01/27 1034 69 102/60 01/27 0848 94 Nasal 2.0L Cannula 01/27 0800 93 Nasal 2.0L Cannula 01/27 0800 97.1 64 18 102/50 96 Nasal 2.0L Cannula Intake & Output 01/28 0800 01/28 0000 01/27 1600 Intake Total 370 520 Output Total 500 500 Balance -130 20 Intake, IV 20 280 Intake, Oral 350 240 Number 0 Bowel Movements Output, Stool 0 Output, Urine 500 500 Exam Other Physical Findings: gen awake and alert heent ncat cvs s1, s2 lungs rare rhonchi, improved wheezing abd soft bs+ ext without edema Results Last 24 Hrs of Lab Results: Laboratory Tests 01/27/17 1015: pH 7.42, pCO2 52 H, pO2 78 L, HCO3 34 H, ABG O2 Sat (Measured) 96.0, P-50 ( Temp Corrected) N, Carboxyhemoglobin 0.2 L, O2 Concentration % 2LPM, O2 Delivery Method NC, Phlebotomy Draw Site RIGHT RADIAL Impression/Plan Impression/Plan Impression/Plan: Impression 86 year old woman - hypercarbic respiratory failure - a.fib/coumadin, on coumadin - tachybardy syndrome - pacemaker - hx lung ca Plan - monitor off bipap (pt preference) - f/u cardiology recommendations - INR elevated, monitoring off coumadin - maintain spo2 >88% - f/u cardiology - dc iv solumedrol, begin prednisone taper 40mg po x 2 days, 30x2, 20x2, 10x2 then stop - trc/nebs - dvt prophylaxis at all times
--- NOTE | 2017-01-28 07:20 | PN- Housestaff ---
RONAK WATERS,YAJAIRA 01/28/17 0719: Subjective Follow-up For: Acute hypoxemic, hypercarbic respiratory failure Complaints: unable to sleep Tele-Events Since Last Visit: Atrial Defibrillation with heart rate of 64-81. No any overnight events Subjective: Patient is seen and examined at the bedside. She was complaining of not able to sleep overnight. Denies of any headache, dizziness, palpitation. Respiratory distress, wheezing, cough Review of Systems Constitutional: Reports: weakness. EENTM: Denies: no symptoms. Cardiovascular: Denies: chest pain, edema, orthopena, palpitations, peripheral edema, syncope. Respiratory: Reports: cough, short of breath. Denies: sputum production, wheezing. Gastrointestinal: Denies: abdominal pain, constipation, diarrhea. Genitourinary: Denies: dysuria, frequency. Musculoskeletal: Reports: back pain. Skin: Denies: no symptoms. Neurological/Psychological: Denies: no symptoms. Objective Last 24 Hrs of Vital Signs/I&O Vital Signs Date Time Temp Pulse Resp B/P Pulse O2 O2 Flow FiO2 Ox Delivery Rate 01/28 1435 85 140/58 01/28 0915 65 142/76 01/28 0800 96 Nasal 2.0L Cannula 01/28 0748 97.9 60 18 142/76 96 Nasal 2.0L Cannula 01/28 0626 84 120/70 01/28 0026 60 91 01/28 0000 92 Nasal 2.0L Cannula 01/27 2345 98.9 70 18 118/60 92 Nasal 2.0L Cannula 01/27 2136 79 132/50 01/27 2135 84 132/50 01/27 2038 96 Nasal 2.0L Cannula 01/27 1913 64 120/54 01/27 1905 98.4 61 20 122/50 91 Nasal 2.0L Cannula 01/27 1600 92 Nasal 2.0L Cannula Intake & Output 01/28 1600 01/28 0800 01/28 0000 Intake Total 830 200 370 Output Total 425 450 500 Balance 405 -250 -130 Intake, IV 250 20 Intake, Oral 580 200 350 Number 0 Bowel Movements Output, Urine 425 450 500 Patient 52.787 kg Weight Physical Exam General Appearance: Alert, Oriented X3, Cooperative, No Acute Distress Skin: No Rashes, No Breakdown HEENT: Atraumatic, PERRLA, EOMI Cardiovascular: irregular with murmur Lungs: bilateral decreased air entry, wheezing, bilateral basal crackles Abdomen: Soft, No Tenderness Neurological: Normal Speech Extremities: No Clubbing, No Cyanosis, No Edema Vascular: Normal Pulses, Pulses Symmetrical Current Medications: Current Medications Sig/Elle Start time Last Medication Dose Route Stop Time Status Admin Acetaminophen 650 MG Q6P PRN 01/25 0930 AC 01/26 PO 0946 Albuterol Sulfate 3 ML BID 01/23 1000 AC 01/28 INH 1021 Albuterol Sulfate 2 PUF Q4-6 PRN PRN 01/22 1630 AC INH Allopurinol 100 MG 1700 01/25 1700 AC 01/27 PO 1910 Atorvastatin Calcium 10 MG 1700 01/22 1700 AC 01/27 PO 1910 Azithromycin 500 MG DAILY 01/25 1000 DC 01/28 Dextrose/Water 250 ML IV 01/28 1059 0916 Benzocaine/Menthol 1 DONNA Q2P PRN 01/23 1500 AC 01/24 PO 1427 Digoxin 0.125 MG 1700 01/25 1700 AC 01/27 PO 1913 Diltiazem HCl 120 MG Q8 01/22 2200 AC 01/28 PO 1435 Docusate Sodium 100 MG DAILY 01/27 2148 AC 01/28 PO 0915 Guaifenesin 600 MG Q12 01/24 2200 AC 01/28 PO 0916 Guaifenesin 10 ML Q4P PRN 01/24 2015 AC 01/27 PO 2158 Ipratropium [place] 2.5 ML BID 01/23 1000 AC 01/28 INH 1021 Methylprednisolone 40 MG Q12 01/27 1000 DC 01/28 IV 0916 Metoprolol Tartrate 50 MG BID 01/22 2200 AC 01/28 PO 0915 Nystatin 5 ML 4 TIMES/DAY 01/24 1424 DC 01/28 PO 1436 Phenol 2 SPRAY Q2P PRN 01/24 1415 AC 01/26 EXT 1742 Polyethylene Glycol 17 GM DAILY 01/27 2148 AC 01/28 PO 0916 Potassium Chloride 10 MEQ DAILY 01/23 1000 AC 01/28 PO 0915 Prednisone 10 MG DAILY 02/03 1000 AC PO 02/04 1001 Prednisone 20 MG DAILY 02/01 1000 AC PO 02/02 1001 Prednisone 30 MG DAILY 01/30 1000 AC PO 01/31 1001 Prednisone 40 MG DAILY 01/28 1500 AC PO 03/15 1001 Prednisone 40 MG DAILY 01/28 1415 CAN PO 02/05 1414 Ramelteon 8 MG QPM 01/23 2200 AC 01/27 PO 2135 Senna/Docusate Sodium 2 TAB DAILY 01/27 2148 AC 01/28 PO 0916 Warfarin Sodium 1 MG COUMADIN 1700 ONE 01/28 1700 CAN PO 01/28 1701 Last 24 Hrs of Lab/Nikita Results Last 24 Hrs of Labs/Mics: Laboratory Tests 01/28/17 0721: Digoxin Cancelled 01/28/17 0721: Anion Gap 6, Estimated GFR 59 L, BUN/Creatinine Ratio 38.9 H, Magnesium 2.1, PT 32.1 H, INR 3.09 H, CBC w Diff NO MAN DIFF REQ, RBC 3.39 L, MCV 95.8, MCH 31.1 H, RDW 16.1 H, MPV 7.2 L, Gran % 93.8 H, Lymphocytes % 4.1 L, Monocytes % 2.1, Eosinophils % 0, Basophils % 0 L, Absolute Granulocytes 8.3 H , Absolute Lymphocytes 0.4 L, Absolute Monocytes 0.2, Absolute Eosinophils 0, Absolute Basophils 0, PUBS MCHC 32.5 L, Digoxin 1.8 Assessment/Plan Assessment: 86-year-old female with past medical history of COPD, requiring but not taking home oxygen, diastolic heart failure and mild pulmonary hypertension with ejection fraction more than 65% (10/2015), hypertension, hyperlipidemia, aortic aneurysm, atrial fibrillation 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 She was transferred to the ICU on 01/25/2017 because see was found unresponsive even to sternal rub, and in acute hypercarbic respiratory failure. She was then managed in the ICU, received oxygen therapy with BiPAP, she responded to it and was downgraded to telemetry service on 01/26/17. Vital signs -temperature 97.9, pulse 60, respiratory rate 18, blood pressure 142 /76, SPO2 96% on 2 liters nasal cannula. Intake/output-990/1400 Plan - Acute hypoxemic/hypercarbic respiratory failure probably secondary to COPD acute exacerbation We'll keep patient off BiPAP and as needed Oxygen inhalation to keep SPO2 more than 92% We will stop Solu-Medrol IV and start her on tapering doses of prednisone We'll stop azithromycin Continue TRC/nebs CHF - We'll continue Lasix as needed Atrial fibrillation, rate under control 70-80s We will continue digoxin, metoprolol, diltiazem We will withhold warfarin daily INR within therapeutic range of 2 - 2.5 Diet - heart healthy diet with fluid restriction DVT prophylaxis-ALP S CODE STATUS -DNR/DNI Problem List: 1. Acute on chronic diastolic (congestive) heart failure 2. Hvrhg-of-mviqxfh kidney injury 3. Tachy-elton syndrome 4. Acute respiratory failure with hypoxia and hypercapnia 5. Control of atrial fibrillation with pacemaker Pain Ratin Pain Location: none Pain Goal: Remain pain free Pain Plan: mild Tomorrow's Labs & Rationales: PT/INR DVT/Prophylaxis: mechanical, pharmacological LOVE PADILLA MD 01/29/17 1128: Attending MD Review Statement Attending Statement Attending MD Statement: examined this patient, discuss w/resident/PA/ENDODONTICS DENTIST, agreed w/resident/PA/ENDODONTICS DENTIST, reviewed EMR data (avail)
[2017-01-28 07:48] VITALS: BP 142/76
[2017-01-28 08:17] LABS: ABSOLUTE BASOPHIL COUNT 0 /CUMM (0.0-0.2); ABSOLUTE EOSINOPHIL COUNT 0 /CUMM (0.0-0.7); ABSOLUTE GRANULOCYTE CT 8.3 /CUMM (1.4-6.5); ABSOLUTE LYMPH COUNT 0.4 /CUMM (1.2-3.4); ABSOLUTE MONOCYTE COUNT 0.2 /CUMM (0.10-0.60); BASOPHIL % 0 % (0.0-2.0); EOSINOPHIL % 0 % (0-5); GRANULOCYTE % 93.8 % (42.2-75.2); HEMATOCRIT 32.5 % (37-47); MEAN CORPUSCULAR HGB 31.1 PG (27.0-31.0); MEAN CORPUSCULAR HGB CONC 32.5 G/DL (33.0-37.0); MEAN CORPUSCULAR VOLUME 95.8 FL (81.0-99.0); MEAN PLATELET VOLUME 7.2 FL (7.4-10.4); PLATELET COUNT 199 /CUMM (130-400); RBC DISTRIBUTION WIDTH 16.1 % (11.5-14.5); RED BLOOD CELL CT 3.39 /CUMM (4.20-5.40)
[2017-01-28 08:23] LABS: PT 32.1 SEC (9.4-12.5)
[2017-01-28 09:30] LABS: WHITE BLOOD CELL COUNT 8.9 /CUMM (4.8-10.8)
--- NOTE | 2017-01-28 12:07 | PN- Cardiology ---
Subjective Subjective: States she feels "tired", but overall thinks her breathing has improved. Presently on nasal oxygen at 2 L. On telemetry rates have been from 60-80 bpm with paced rhythm at slower rate with underlying atrial fibrillation Objective Vital Signs and I&Os Vital Signs Date Time Temp Pulse Resp B/P Pulse O2 O2 Flow FiO2 Ox Delivery Rate 01/28 0915 65 142/76 01/28 0800 96 Nasal 2.0L Cannula 01/28 0748 97.9 60 18 142/76 96 Nasal 2.0L Cannula 01/28 0626 84 120/70 01/28 0026 60 91 01/28 0000 92 Nasal 2.0L Cannula 01/27 2345 98.9 70 18 118/60 92 Nasal 2.0L Cannula 01/27 2136 79 132/50 01/27 2135 84 132/50 01/27 2038 96 Nasal 2.0L Cannula 01/27 1913 64 120/54 01/27 1905 98.4 61 20 122/50 91 Nasal 2.0L Cannula 01/27 1600 92 Nasal 2.0L Cannula 01/27 1407 72 100/60 Intake & Output 01/28 1600 01/28 0800 01/28 0000 01/27 1600 01/27 0800 01/27 0000 Intake Total 200 370 520 100 200 Output Total 450 500 500 400 700 Balance -250 -130 20 -300 -500 Intake, IV 20 280 Intake, Oral 200 350 240 100 200 Number 0 Bowel Movements Output, Stool 0 Output, Urine 450 500 500 400 700 Patient 116 lb 122 lb Weight Physical Exam: Chronically ill-appearing elderly female in no acute distress with nasal oxygen in place. Vital signs: See above. Lungs: Decreased breath sounds bilaterally, occasional rhonchi. Heart: S1, S2 with grade 1/6 systolic murmur. Extremities: Trace edema. Assessment/Plan Assessment/Plan Mrs. 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 with her CXR revealing an interval increase in opacification at the right base, c/w a probable increasing pleural effusion, although an area of consolidation cannot be excluded. In the ED she was placed on oxygen with significant improvement in her O2 saturation, and received IV furosemide 40 mg 1 (in addition to the by mouth furosemide 40 mg she takes on a daily basis), TRC/nebulizer treatment, steroids, etc. She appeared to be somewhat improved yesterday afternoon, however, she developed acute on chronic hypercapnic respiratory failure and was transferred to the ICU and is now on BiPAP. She had a diuresis of over a liter with a bump in her BUN/creatinine, and bicarbonate. Her diuretics are presently on hold. Fluid follow-up a basic metabolic panel this evening. Her rhythm has been paced with underlying atrial fibrillation and controlled ventricular response rates. Recommendations: * Continue ICU admission. * Continue strict inputs/outputs, daily weights, etc. * Continue to follow-up BUN/creatinine, potassium, and magnesium closely. * Continue to follow-up on pulmonary/ICU recommendations. * DVT prophylaxis being addressed by anticoagulation (warfarin) for her chronic atrial fibrillation. Warfarin is on hold with supratherapeutic INR 5.08. Follow-up INR in a.m. * Note increased WBC and follow-up CBC in a.m. * Follow-up CXR in a.m. Continue telemetry? Yes
[2017-01-28 15:55] VITALS: BP 108/62
[2017-01-28 23:00] VITALS: BP 144/68
--- NOTE | 2017-01-29 08:29 | PN- Housestaff ---
RONAK WATERS,YAJAIRA 01/29/17 0829: Subjective Follow-up For: Acute hypoxemic, hypercarbic respiratory failure Complaints: feeling lousy, otherwise feeling better in terms of breathing Tele-Events Since Last Visit: Atrial fibrillation, paced beats, heart rate between 60-73, QRS complex 0.08 to 0.14 Subjective: Patient seen and examined at the bedside. He was feeling much comfortable than before. She is on 2 liters of oxygen and saturating 97%. We discussed with the nursing staff to taper it down, with target of SPO2 more than 92%. Review of Systems Constitutional: Reports: weakness. Denies: no symptoms, see HPI, chills, diaphoresis, fever, malaise, unexplained weight loss. EENTM: Denies: no symptoms. Cardiovascular: Denies: chest pain, edema, orthopena, palpitations, peripheral edema. Respiratory: Reports: cough, short of breath. Denies: hemoptysis, orthopnea, sputum production. Gastrointestinal: Denies: no symptoms. Genitourinary: Denies: no symptoms. Musculoskeletal: Denies: no symptoms. Skin: Denies: no symptoms. Neurological/Psychological: Denies: no symptoms. Objective Last 24 Hrs of Vital Signs/I&O Vital Signs Date Time Temp Pulse Resp B/P Pulse O2 O2 Flow FiO2 Ox Delivery Rate 01/29 1537 97.9 90 18 13201/29 1522 97.9 90 18 132/62 94 Nasal 1.0L Cannula 01/29 1517 Nasal 1.0L Cannula 01/29 1444 18 94 Nasal 1.0L Cannula 01/29 1442 90 132/01/29 1212 Nasal 1.0L Cannula 01/29 1126 18 92 Nasal 1.0L Cannula 01/29 0933 73 128/01/29 0930 18 94 Nasal 2.0L Cannula Physical Exam General Appearance: Alert, Oriented X3, Cooperative Skin: No Rashes, No Breakdown Cardiovascular: irregularly irregular Lungs: bilateral basilar crackles With occasional wheezing Abdomen: Soft, No Tenderness Neurological: Normal Speech Extremities: No Clubbing, No Cyanosis, No Edema Vascular: Normal Pulses, Pulses Symmetrical Assessment/Plan Assessment: 86-year-old female with past medical history of COPD, requiring but not taking home oxygen, diastolic heart failure and mild pulmonary hypertension with ejection fraction more than 65% (10/2015), hypertension, hyperlipidemia, aortic aneurysm, atrial fibrillation 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 She was transferred to the ICU on 01/25/2017 because see was found unresponsive even to sternal rub, and in acute hypercarbic respiratory failure. She was then managed in the ICU, received oxygen therapy with BiPAP, she responded to it and was downgraded to telemetry service on 01/26/17. Vital signs -temperature 97.9, pulse 90, respiratory rate 18, blood pressure 132 /62, SPO2 94% on other cannula 1 liter Intake/output-1680/1275 Plan - Discharge today Acute hypoxemic/hypercarbic respiratory failure probably secondary to COPD acute exacerbation * Patient will go to rehabilitation center with 1 liter of oxygen with endocrine * Advised to keep SPO2 more than 92% * We'll continue patient on tapering doses of prednisone * Advised to follow up with electoral officer with in a week of discharge * Continue TRC/nebs CHF - * We'll continue Lasix as needed Atrial fibrillation, rate under control 70-80s * We will continue digoxin, metoprolol, diltiazem * We will added warfarin 3mg. * we will check PT/INR daily. Diet - heart healthy diet with fluid restriction DVT prophylaxis-ALP S CODE STATUS -DNR/DNI Problem List: 1. Acute on chronic diastolic (congestive) heart failure 2. Control of atrial fibrillation with pacemaker 3. Amead-rj-hurnwsu kidney injury Pain Ratin Pain Location: none Pain Goal: Remain pain free Pain Plan: mild Tomorrow's Labs & Rationales: none DVT/Prophylaxis: mechanical, pharmacological LOVE PADILLA MD 01/29/17 1128: Attending MD Review Statement Attending Statement Attending MD Statement: examined this patient, discuss w/resident/PA/MAJOR LEAGUE BASEBALL PLAYER, agreed w/resident/PA/MAJOR LEAGUE BASEBALL PLAYER, reviewed EMR data (avail) Attending Assessment/Plan: Patient doing very well off of BiPAP. She reports weakness but that her breathing has improved. Will continue Prednisone taper, BiPAP PRN, continue nebulizer treatments and home medications, follow pulmonary recommendations, DVT PPx. Patient is stable for discharge to [facility] with outpatient follow up.
[2017-01-29 08:30] VITALS: BP 136/60
[2017-01-29 08:30] LABS: PT 26.6 SEC (9.4-12.5)
--- NOTE | 2017-01-29 09:35 | RADIOLOGY REPORT ---
EXAMINATION: XR PORTABLE CHEST CLINICAL INFORMATION: 78-year-old female with COPD exacerbation. CHF. History of right upper lobectomy. Hypoxemic and hypercapnic acute respiratory failure, 2/2. COMPARISON: X-rays from 12/30/2016 through 01/26/2017. Chest x-ray of 12/18/2015 showed a right upper lobe nodule. TECHNIQUE: Portable AP portable semierect view of the chest was obtained. FINDINGS: Decreased in volume of the right hemithorax is related to the previous surgery for removal of a right upper lobe nodule. Overall, there is some hyperexpansion and increased reticular opacities thought to be chronic. Trace pleural effusions are seen bilaterally. A new area of airspace disease is located in the left lower lobe representing atelectasis and/or pneumonia. The left pectoral pacemaker wires are unchanged in position. The heart is enlarged. Significant scoliosis is present. IMPRESSION: 1. Enlarged heart. Trace pleural effusions. 2. New airspace disease in the left lower lobe consistent with atelectasis and/or pneumonia. 3. COPD with chronic interstitial markings.
--- NOTE | 2017-01-29 13:24 | PN- Cardiology ---
Subjective Subjective: Continues to gradually improve. No specific complaints. On telemetry remains in atrial fibrillation with appropriate pacemaker function. Objective Vital Signs and I&Os Vital Signs Date Time Temp Pulse Resp B/P Pulse O2 O2 Flow FiO2 Ox Delivery Rate 01/29 1212 Nasal 1.0L Cannula 01/29 1126 18 92 Nasal 1.0L Cannula 01/29 0933 73 128/62 01/29 0930 18 94 Nasal 2.0L Cannula 01/29 0844 96 Nasal 2.0L Cannula 01/29 0830 97.3 69 24 136/60 93 Nasal 2.0L Cannula 01/29 0800 97 Nasal 2.5L Cannula 01/29 0545 78 122/64 01/29 0000 Nasal 2.0L Cannula 01/28 2300 97.1 78 22 144/68 97 Nasal 2.0L Cannula 01/28 2121 78 144/68 01/28 2120 78 144/62 01/28 2005 98 Nasal 2.0L Cannula 01/28 1712 64 108/62 01/28 1600 97 Nasal 2.0L Cannula 01/28 1555 98.3 90 20 108/62 97 Nasal 2.0L Cannula 01/28 1435 85 140/58 Intake & Output 01/29 1600 01/29 0800 01/29 0000 01/28 1600 01/28 0800 01/28 0000 Intake Total 100 650 830 200 370 Output Total 350 400 425 450 500 Balance -250 250 405 -250 -130 Intake, IV 0 0 250 20 Intake, Oral 100 650 580 200 350 Number 0 0 0 Bowel Movements Output, Urine 350 400 425 450 500 Patient 116 lb Weight Physical Exam: Chronically ill-appearing elderly female in no acute distress with nasal oxygen in place. Vital signs: See above. Lungs: Decreased breath sounds bilaterally, occasional rhonchi. Heart: S1, S2 with grade 1/6 systolic murmur. Extremities: Trace edema. Current Medications: Current Medications Sig/Elle Start time Last Medication Dose Route Stop Time Status Admin Acetaminophen 650 MG Q6P PRN 01/25 0930 AC 01/26 PO 0946 Albuterol Sulfate 3 ML BID 01/23 1000 AC 01/29 INH 0822 Albuterol Sulfate 2 PUF Q4-6 PRN PRN 01/22 1630 AC INH Allopurinol 100 MG 1700 01/25 1700 AC 01/28 PO 1712 Atorvastatin Calcium 10 MG 17001/22 1700 AC 01/28 PO 1712 Benzocaine/Menthol 1 DONNA Q2P PRN 01/23 1500 AC 01/24 PO 1427 Digoxin 0.125 MG 1700 01/25 1700 AC 01/28 PO 1712 Diltiazem HCl 120 MG Q8 01/22 2200 AC 01/29 PO 0545 Diphenhydramine HCl 25 MG ONCE ONE 01/29 0130 DC 01/29 PO 01/29 0131 0142 Docusate Sodium 100 MG DAILY 01/27 2148 AC 01/29 PO 0932 Guaifenesin 600 MG Q12 01/24 2200 AC 01/29 PO 0934 Guaifenesin 10 ML Q4P PRN 01/24 2015 AC 01/27 PO 2158 Ipratropium Reading 2.5 ML BID 01/23 1000 AC 01/29 INH 0822 Methylprednisolone 40 MG Q12 01/27 1000 DC 01/28 IV 0916 Metoprolol Tartrate 50 MG BID 01/22 2200 AC 01/29 PO 0933 Nystatin 5 ML 4 TIMES/DAY 01/24 1424 DC 01/28 PO 1436 Phenol 2 SPRAY Q2P PRN 01/24 1415 AC 01/26 EXT 1742 Polyethylene Glycol 17 GM DAILY 01/27 2148 AC 01/29 PO 0933 Potassium Chloride 10 MEQ DAILY 01/23 1000 AC 01/29 PO 0932 Prednisone 10 MG DAILY 02/03 1000 AC PO 02/04 1001 Prednisone 20 MG DAILY 02/01 1000 AC PO 02/02 1001 Prednisone 30 MG DAILY 01/30 1000 AC PO 01/31 1001 Prednisone 40 MG DAILY 01/28 1500 DC 01/29 PO 01/29 1001 0933 Prednisone 40 MG DAILY 01/28 1415 CAN PO 02/05 1414 Ramelteon 8 MG QPM 01/23 2200 AC 01/28 PO 2121 Senna/Docusate Sodium 2 TAB DAILY 01/27 2148 AC 01/29 PO 0932 Warfarin Sodium 3 MG COUMADIN 1700 ONE 01/29 1700 AC PO 01/29 1701 Warfarin Sodium 1 MG COUMADIN 1700 ONE 01/28 1700 CAN PO 01/28 1701 Results Last 48 Hrs of Labs/Mics: Laboratory Tests 01/29/17 0700: PT 26.6 H, INR 2.56 H 01/28/17 0721: Digoxin Cancelled 01/28/17 0721: Anion Gap 6, Estimated GFR 59 L, BUN/Creatinine Ratio 38.9 H, Magnesium 2.1, PT 32.1 H, INR 3.09 H, CBC w Diff NO MAN DIFF REQ, RBC 3.39 L, MCV 95.8, MCH 31.1 H, RDW 16.1 H, MPV 7.2 L, Gran % 93.8 H, Lymphocytes % 4.1 L, Monocytes % 2.1, Eosinophils % 0, Basophils % 0 L, Absolute Granulocytes 8.3 H , Absolute Lymphocytes 0.4 L, Absolute Monocytes 0.2, Absolute Eosinophils 0, Absolute Basophils 0, PUBS MCHC 32.5 L, Digoxin 1.8 Recent Imaging Studies: CXR (01/29/2017): 1. Enlarged heart. Trace pleural effusions. 2. New airspace disease in the left lower lobe consistent with atelectasis and/ or pneumonia. 3. COPD with chronic interstitial markings. Assessment/Plan Assessment/Plan Mrs. 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 with her CXR revealing an interval increase in opacification at the right base, c/w a probable increasing pleural effusion, although an area of consolidation cannot be excluded. In the ED she was placed on oxygen with significant improvement in her O2 saturation, and received IV furosemide 40 mg 1 (in addition to the by mouth furosemide 40 mg she takes on a daily basis), TRC/nebulizer treatment, steroids, etc. While on telemetry she developed acute on chronic hypercapnic respiratory failure and was transferred to the ICU and is now improved after TRC/BiPAP. Yesterday (01/28/2017), she had continued to feel improved on telemetry (Rm 178) and is now on 1 L nasal oxygen. She remains off diuretics and her BUN/creatinine have continued to improve. Will likely need to restart diuretic therapy when she is an outpatient. Schedule outpatient follow-up at [facility]. The ventricular response to her atrial fibrillation is also controlled on the following: Digoxin 0.125 mg daily, metoprolol 50 mg twice daily, and diltiazem 120 mg every 8 hours. Follow-up digoxin trough level yesterday (01/28/2017) in the high therapeutic range at 1.8 ng/ml. Continue to follow-up on an outpatient basis. Note that INR continues to trend downward and today (01/29/2017) was therapeutic at 2.56. Can Restart warfarin anticoagulation. Follow-up INR. Recommendations: * Discontinue telemetry. * Continue strict inputs/outputs and daily weights. * Continue to hold diuretics for the short-term. * Continue present cardiac regimen for rate control. * INR therapeutic and therefore restart warfarin and follow-up INR. * Follow-up on pulmonary recommendations. * DVT prophylaxis being addressed by anticoagulation (warfarin) for her chronic atrial fibrillation. Continue telemetry? Yes
--- NOTE | 2017-01-29 13:39 | Patient Discharge Instructions ---
Discharge Instructions General Discharge Information You were seen/treated for: acute respiratory failure Special Instructions: Please follow up with your PCP with in a week of discharge. Please follow up with your health information specialist with in a week of discharge. Please follow up with your calibration laboratory technician with in a week of discharge. Diet Continue normal diet: No Recommended Diet: Heart Healthy Activity Full Activity/No Limits: No (as tolerated) Acute Coronary Syndrome Inclusion Criteria At DC or during hospital stay patient has or had the following: ACS DIAGNOSIS No Discharge Core Measures Meds if any: Prescribed or Continued at Discharge Meds if any: NOT Prescribed or Continued at Discharge Congestive Heart Failure Inclusion Criteria At DC or during hospital stay patient has or had the following: CHF DIAGNOSIS Yes Discharge Core Measures Meds if any: Prescribed or Continued at Discharge Meds if any: NOT Prescribed or Continued at Discharge Cerebrovascular accident Inclusion Criteria At DC or during hospital stay patient has or had the following: CVA/TIA Diagnosis No Discharge Core Measures Meds if any: Prescribed or Continued at Discharge Meds if any: NOT Prescribed or Continued at Discharge Venous thromboembolism Inclusion Criteria VTE Diagnosis No VTE Type NONE VTE Confirmed by (Test) NONE Discharge Core Measures - Per Current guidelines, there needs to be overlap - treatment for the first 5 days of Warfarin therapy. - If discharged on Warfarin prior to 5 days of - overlap therapy, the patient will need to be - assessed for post discharge needs including - *Post discharge parental anticoagulation - *Warfarin and/or parental anticoagulation education - *Follow up date to check INR post discharge At least 5 days overlap therapy as Inpatient No Meds if any: Prescribed or Continued at Discharge Note: Overlap Therapy is Warfarin and Anticoagulant Meds if any: NOT Prescribed or Continued at Discharge
--- NOTE | 2017-01-29 13:39 | Discharge Summary ---
Visit Information Visit Dates Admission Date: 01/22/17 Discharge Date: 01/29/17 Hospital Course Course Attending Physician: Dr. 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 She was transferred to the ICU on 01/25/2017 early-morning because see was found unresponsive even to sternal rub, and in acute hypercarbic respiratory failure. Rapid response was called, and she was then managed in the ICU, received oxygen therapy with BiPAP, and rest of the medications same as white in telemetry unit. Her condition is much better compared to what she was brought in the ICU, and was downgraded to telemetry service yesterday on 01/26/17. She was managed in the ICU as telemetry for patient for the following issues: Respiratory #Acute hypoxic hypercarbic respiratory failure * Secondary to acute exacerbation of COPD * BiPAP was used as needed, otherwise oxygen delivery by nasal cannula to maintain SPO2 more than 88% * ABG done showed pH of 7.42, hypercarbia of 52, hypoxia 78, bicarbonate 34 and oxygen saturation 96% * She was placed on IV Solu-Medrol which has been transitioned to PO prednisone - see [facility] for d/c taper. * completed Azithromycin 500 mg IV for total 5 days as an anti-inflammatory * Continue TRC/nebs Circulatory #Congestive heart failure * Resolved * Continue her previous medications including lasix, metoprolol and diltiazem * CHF diet #Atrial fibrillation * Rate under control 70-80s, has functional PPM * Continue digoxin, metoprolol, diltiazem Hematologic * Had a supratherapeutic INR on admission 4.31 * Coumadin was held and repeat INR was w/in therapeutic range * Continue warfarin at the current dose with INR check at rehab/outpt and dose to be adjusted if needed DVT prophylaxis: Coumadin Diet: CHF diet CODE STATUS: DNR/DNI Allergies: Coded Allergies: levofloxacin (Severe, TONGUE SWELLING 01/13/16) Penicillins (UNKNOWN 01/13/16) Significant Procedures: ADMISSION CXR: IMPRESSION: 1. There has been interval increase in opacification at the right base, which may be consistent with increasing pleural effusion. An area of consolidation cannot be excluded. 2. Recommend upright frontal and lateral views of the chest for further assessment. DICTATED BY: JOSE EDUARDO GUADARRAMA MD DATE/TIME DICTATED:01/22/171300 LABOR CUSTODIAN:ROMERO DATE/TIME TRANSCRIBED:01/22/171300 LATEST CXR: IMPRESSION: 1. Enlarged heart. Trace pleural effusions. 2. New airspace disease in the left lower lobe consistent with atelectasis and/ or pneumonia. 3. COPD with chronic interstitial markings. DICTATED BY: KEHINDE CASTRO MD DATE/TIME DICTATED:01/29/17848 LABOR CUSTODIAN:ROMERO DATE/TIME TRANSCRIBED:01/29/17848 ECHOCARDIOGRAM: CONCLUSIONS Normal size left ventricle. Mild concentric left ventricular hypertrophy. No obvious regional wall motion abnormalities. Normal left ventricular ejection fraction visually estimated at > 65%. Normal right ventricular size and function. Catheter/pacemaker wire in the right ventricular cavity. Moderate right atrial dilatation. Catheter/pacemaker wire in the right atrial cavity. Moderate left atrial dilatation. Mild mitral stenosis. Moderate mitral regurgitation. Trace aortic regurgitation. Mild to moderate tricuspid regurgitation. Mild to moderate pulmonary hypertension. Mild pulmonic regurgitation. Dilated inferior vena cava. Beverley Dick M.D. (Electronically Signed) Final Date: 22 January 2017 20:45 AORTA USG: IMPRESSION: Fusiform mid abdominal aortic aneurysm is seen with a hourglass contour, unchanged in size and appearance compared to 04/09/2016. Moderate atherosclerotic calcifications are seen. DICTATED BY: SAMINA HINSON MD DATE/TIME DICTATED:01/23/171146 LABOR CUSTODIAN:MATA DATE/TIME TRANSCRIBED:01/23/171146 Disposition Summary Disposition Principal Diagnosis: CHF exacerbation COPD with respiratory failure Atrial fibrillation Additional Diagnosis: none Discharge Disposition: SNF Discharge Instructions General Discharge Information Code Status: Do Not Resucitate/Intubat Patient's Diet: CHF diet Patient's Activity: As tolerated Follow-Up Instructions/Appts: Please follow up with your PCP with in a week of discharge. Please follow up with your biscuitware brusher with in a week of discharge. Please follow up with your senior cognos developer with in a week of discharge. Medications at Discharge Discharge Medications: Continue taking these medications: Lovastatin (Lovastatin) 40 MG TABLET 1 Tablet ORAL DAILY Instructions: with food Aspirin (Ecotrin*) 81 MG TABLET.DR 1 Tablet ORAL DAILY Calcium Carbonate/Vitamin D3 (Calcium 600-Vit D3 800 Tab) 600 MG-800 TABLET 1 Tablet ORAL TWICE DAILY Multivitamin (Multiple Vitamins) 1 EACH TABLET 1 Tablet ORAL DAILY Metoprolol Tartrate (Lopressor) 50 MG TABLET 1 Tablet ORAL TWICE DAILY Days = 30 Comments: Last Taken: 03/08/16 Time: 900 Diltiazem HCl (Diltiazem HCl) 120 MG TABLET 1 Tablet ORAL THREE TIMES DAILY Qty = 255 Digoxin (Digoxin) 125 MCG TABLET 1 Tablet ORAL DAILY Potassium Chloride (Potassium Chloride) 10 MEQ TAB.ER.PRT 1 Tablet ORAL DAILY Qty = 90 Warfarin Sodium (Warfarin Sodium) 3 MG TABLET 1 Tablet ORAL 5 PM Qty = 90 Furosemide (Furosemide) 40 MG TABLET 1 Tablet ORAL DAILY Allopurinol (Allopurinol) 100 MG TABLET 1 Tablet ORAL DAILY Qty = 30 Albuterol Sulfate (Proair Hfa) 90 MCG HFA.AER.AD 2 Puff Inhale through mouth EVERY 4-6 HOURS NEEDED as needed for SOB Budesonide/Formoterol Fumarate (Symbicort 160-4.5 Mcg Inhaler) 160 MCG-4.5 MCG/ ACTUATION HFA.AER.AD 2 Puff Inhale through mouth TWICE DAILY Start taking the following new medications: Prednisone (Prednisone) 10 MG TABLET 1 Tablet ORAL See Instructions Qty = 10 No Refills Instructions: 40MG OD PO 01/30/2017 30MG 0D PO 01/31/2017 - 02/01/2017 20MG OD PO 02/02/2017 - 02/03/2017 10MG OD PO 02/04/2017 - 02/05/2017 THEN STOP Copies To: KURT WATERS,BEVERLEY Morton; JEAN CLAUDE WATERS,VAHID; NORA WATERS,VIKAS
--- NOTE | 2017-01-29 13:41 | PN- Pulmonary ---
Subjective HPI/Critical Care Issues: pt seen and examined doing well off bipap lethargic open minded for rehab no n/v/d/c Objective Current Medications: Current Medications Sig/Elle Start time Last Medication Dose Route Stop Time Status Admin Acetaminophen 650 MG Q6P PRN 01/25 0930 AC 01/26 PO 0946 Albuterol Sulfate 3 ML BID 01/23 1000 AC 01/29 INH 0822 Albuterol Sulfate 2 PUF Q4-6 PRN PRN 01/22 1630 AC INH Allopurinol 100 MG 1700 01/25 1700 AC 01/28 PO 1712 Atorvastatin Calcium 10 MG 1700 01/22 1700 AC 01/28 PO 1712 Benzocaine/Menthol 1 DONNA Q2P PRN 01/23 1500 AC 01/24 PO 1427 Digoxin 0.125 MG 1700 01/25 1700 AC 01/28 PO 1712 Diltiazem HCl 120 MG Q8 01/22 2200 AC 01/29 PO 0545 Diphenhydramine HCl 25 MG ONCE ONE 01/29 0130 DC 01/29 PO 01/29 0131 0142 Docusate Sodium 100 MG DAILY 01/27 2148 AC 01/29 PO 0932 Guaifenesin 600 MG Q12 01/24 2200 AC 01/29 PO 0934 Guaifenesin 10 ML Q4P PRN 01/24 2015 AC 01/27 PO 2158 Ipratropium [place] 2.5 ML BID 01/23 1000 AC 01/29 INH 0822 Methylprednisolone 40 MG Q12 01/27 1000 DC 01/28 IV 0916 Metoprolol Tartrate 50 MG BID 01/22 2200 AC 01/29 PO 0933 Nystatin 5 ML 4 TIMES/DAY 01/24 1424 DC 01/28 PO 1436 Phenol 2 SPRAY Q2P PRN 01/24 1415 AC 01/26 EXT 1742 Polyethylene Glycol 17 GM DAILY 01/27 2148 AC 01/29 PO 0933 Potassium Chloride 10 MEQ DAILY 01/23 1000 AC 01/29 PO 0932 Prednisone 10 MG DAILY 02/03 1000 AC PO 02/04 1001 Prednisone 20 MG DAILY 02/01 1000 AC PO 02/02 1001 Prednisone 30 MG DAILY 01/30 1000 AC PO 01/31 1001 Prednisone 40 MG DAILY 01/28 1500 DC 01/29 PO 01/29 1001 0933 Prednisone 40 MG DAILY 01/28 1415 CAN PO 02/05 1414 Ramelteon 8 MG QPM 01/23 2200 AC 01/28 PO 2121 Senna/Docusate Sodium 2 TAB DAILY 01/27 2148 AC 01/29 PO 0932 Warfarin Sodium 3 MG COUMADIN 1700 ONE 01/29 1700 AC PO 01/29 1701 Warfarin Sodium 1 MG COUMADIN 1700 ONE 01/28 1700 CAN PO 01/28 1701 Vital Signs & I&O Last 24 Hrs of Vitals and I&O: Vital Signs Date Time Temp Pulse Resp B/P Pulse O2 O2 Flow FiO2 Ox Delivery Rate 01/29 1212 Nasal 1.0L Cannula 01/29 1126 18 92 Nasal 1.0L Cannula 01/29 0933 73 128/62 01/29 0930 18 94 Nasal 2.0L Cannula 01/29 0844 96 Nasal 2.0L Cannula 01/29 0830 97.3 69 24 136/60 93 Nasal 2.0L Cannula 01/29 0800 97 Nasal 2.5L Cannula 01/29 0545 78 122/64 01/29 0000 Nasal 2.0L Cannula 01/28 2300 97.1 78 22 144/68 97 Nasal 2.0L Cannula 01/28 2121 78 144/68 01/28 2120 78 144/62 01/28 2005 98 Nasal 2.0L Cannula 01/28 1712 64 108/62 01/28 1600 97 Nasal 2.0L Cannula 01/28 1555 98.3 90 20 108/62 97 Nasal 2.0L Cannula 01/28 1435 85 140/58 Intake & Output 01/29 1600 01/29 0800 01/29 0000 Intake Total 100 650 Output Total 350 400 Balance -250 250 Intake, IV 0 0 Intake, Oral 100 650 Number 0 0 Bowel Movements Output, Urine 350 400 Exam Other Physical Findings: gen awake and alert heent ncat cvs s1, s2 lungs rare rhonchi, improved wheezing abd soft bs+ ext without edema Results Last 24 Hrs of Lab Results: Laboratory Tests 01/29/17 0700: PT 26.6 H, INR 2.56 H Impression/Plan Impression/Plan Impression/Plan: Impression 86 year old woman - hypercarbic respiratory failure - a.fib/coumadin, on coumadin - tachybardy syndrome - pacemaker - hx lung ca Plan - f/u cardiology recommendations - maintain spo2 >88% - f/u cardiology - prednisone taper 40mg po x 2 days, 30x2, 20x2, 10x2 then stop - trc/nebs - dvt prophylaxis at all times okay for dc from pulmonary perspective to rehab
[2017-01-29] MEDS ORDERED: PREDNISONE10 M2 PO (13:48)
[2017-01-29 15:22] VITALS: BP 132/62
[2017-01-29 15:37] VITALS: BP 132/62
== END 2017-01-29 17:31 | DRG 291 ==
LOC: ENRESERVDT → ENRESERVTM → ERH 11:46 → ERHI 13:37 → 1NO 13:37 → CRI 01-24 02:55 → 1NO 01-27 18:05
PROVIDERS: Dermatology; Internal Medicine; Internal Medicine Interventional Cardiology; Physician Assistant Medical; Student in an Organized Health Care Education/Training Program; ADMIT Internal Medicine
DX: I13.0 Hypertensive heart and chronic kidney disease with heart failure and stage 1 through stage 4 chronic kidney disease, or unspecified chronic kidney disease (principal); I50.33 Acute on chronic diastolic (congestive) heart failure; J96.01 Acute respiratory failure with hypoxia; J96.02 Acute respiratory failure with hypercapnia; J44.1 Chronic obstructive pulmonary disease with (acute) exacerbation; I27.2 Other secondary pulmonary hypertension; I48.91 Unspecified atrial fibrillation; Z79.01 Long term (current) use of anticoagulants; N18.9 Chronic kidney disease, unspecified; E78.5 Hyperlipidemia, unspecified; I71.9 Aortic aneurysm of unspecified site, without rupture; Z85.118 Personal history of other malignant neoplasm of bronchus and lung; Z85.51 Personal history of malignant neoplasm of bladder; Z87.891 Personal history of nicotine dependence; M10.9 Gout, unspecified; Z95.0 Presence of cardiac pacemaker
CPT/HCPCS: 1NP; 1NSP; CCU; 36415; 76770; 81001; 82436; 87040; 87086; 87804; 87804-59; 93005; 93010; 93306; 96374; 96375; 97116-GO; 97161-GP; 97164-GP; 97530-GO; J0456; J0696; J1940; J2920; J2930; J3490; J7042; J7060; J7512

== ENCOUNTER 2017-04-06 17:26 | Inpatient (IN) | payer OTHER, MEDICARE ==
[~2017-04-06] VITALS: Ht 160 cm; Wt 50.6 kg
[~2017-04-06 17:26] MED LIST changes: +ALLOPURINOL100 M1 PO; +DIGOXIN125 MCG PO; +DILTIAZEM HCL120 M3 PO; +FUROSEMIDE40 M1 PO; +POTASSIUM CHLO10 ME5 PO; +PREDNISONE10 M2 PO; +PROAIR HFA8.5 GM INH; +SYMBICORT 16010.2 GM INH; +WARFARIN SODIUM3 M1 PO
--- NOTE | 2017-04-06 17:44 | NUR ---
PT TO ED FOR C/C OF INCREASED WEAKNESS AND SOB. PT NOT NORMALLY ON OXYGEN BUT HAS BEEN USING HER 'S OXYGEN (2L) AND ARRIVES WITH AN O2 SAT OF 88-89 EVEN AFTER TITRATING UP TO 3-4 L NC. PT DOES HAVE CHF AND COPD. PT'S LEGS SWOLLEN AND PT LOOKS TO HAVE INCREASED WORK OF BREATHING. PT ON LASIX BUT HAS NOT BEEN VOIDING USUAL. PT TAKEN TO ROOM 7.
--- NOTE | 2017-04-06 18:05 | NUR ---
PT BLOOD SENT TO THE LAB BLUE,SST,LAV
--- NOTE | 2017-04-06 18:10 | NUR ---
JAE FLOWER TO BEDSIDE TO EVAL
--- NOTE | 2017-04-06 18:13 | NUR ---
PT BLOOD SENT TO THE LAB SST,BLUE,LAV
[2017-04-06 18:31] LABS: ABSOLUTE BASOPHIL COUNT 0 /CUMM (0.0-0.2); ABSOLUTE EOSINOPHIL COUNT 0 /CUMM (0.0-0.7); ABSOLUTE GRANULOCYTE CT 9.6 /CUMM (1.4-6.5); ABSOLUTE LYMPH COUNT 0.4 /CUMM (1.2-3.4); ABSOLUTE MONOCYTE COUNT 0.7 /CUMM (0.10-0.60); BASOPHIL % 0.1 % (0.0-2.0); EOSINOPHIL % 0 % (0-5); GRANULOCYTE % 89.5 % (42.2-75.2); MEAN CORPUSCULAR HGB 31.3 PG (27.0-31.0); MEAN CORPUSCULAR HGB CONC 32.4 G/DL (33.0-37.0); MEAN CORPUSCULAR VOLUME 96.6 FL (81.0-99.0); MEAN PLATELET VOLUME 7.1 FL (7.4-10.4); PLATELET COUNT 359 /CUMM (130-400); RBC DISTRIBUTION WIDTH 16.5 % (11.5-14.5); RED BLOOD CELL CT 3.72 /CUMM (4.20-5.40)
--- NOTE | 2017-04-06 18:34 | NUR ---
MARKELL AT BEDSIDE FOR TX, PT CURRENTLY REFUSING BIPAP. PT AGREED TO NEB TX, CHECKING AN ABG AND THEN RE EVALUATING IF BIPAP WOULD BE OK WITH HER
[2017-04-06 18:46] LABS: WHITE BLOOD CELL COUNT 10.8 /CUMM (4.8-10.8)
[2017-04-06 18:54] LABS: PT 46.5 SEC (9.4-12.5)
--- NOTE | 2017-04-06 18:54 | NUR ---
MARKELL RT AT BEDSIDE TO PLACE PT ON BIPAP, PT AGREEABLE.
--- NOTE | 2017-04-06 19:03 | ED DYSPNEA/ASTHMA COMPLAINT ---
History of Present Illness General Chief Complaint: Dyspnea (COPD, CHF, Other) Stated Complaint: SOB, WEAKNESS Source: patient, family, old records Exam Limitations: no limitations Vital Signs & Intake/Output Vital Signs & Intake/Output Vital Signs Date Time Temp Pulse Resp B/P B/P Pulse O2 O2 Flow FiO2 Mean Ox Delivery Rate 04/07 1845 94 Nasal 3.0L Cannula 04/07 1605 98.4 72 22 108/54 94 Nasal 3.0L Cannula 04/07 1600 94 Nasal 3.0L Cannula 04/07 1403 68 118/50 04/07 1400 98.3 68 22 118/50 95 Nasal 3.0L Cannula 04/07 1037 Nasal 3.0L Cannula 04/07 0930 64 146/60 04/07 0850 98.2 68 22 160/70 99 BIPAP 40% 04/07 0833 95 Nasal 3.0L Cannula 04/07 0800 BIPAP 40% 04/07 0621 69 128/64 04/07 0550 65 96 04/07 0007 60 98 04/06 2330 96 BIPAP 40% 04/06 2253 97.6 61 22 136/64 86 Venti Mask 10L 04/06 2224 59 92 04/06 2211 96.8 60 28 141/71 91 BIPAP 40% ED Intake and Output 04/07 0000 04/06 1200 Intake Total Output Total 65 Balance -65 Output, Urine 65 Patient 110 lb Weight Weight Reported by Patient Measurement Method Allergies Coded Allergies: levofloxacin (Severe, TONGUE SWELLING 01/13/16) Penicillins (UNKNOWN 01/13/16) Triage Note: PT TO ED FOR C/C OF INCREASED WEAKNESS AND SOB. PT NOT NORMALLY ON OXYGEN BUT HAS BEEN USING HER 'S OXYGEN (2L) AND ARRIVES WITH AN O2 SAT OF 88-89 EVEN AFTER TITRATING UP TO 3-4 L NC. PT DOES HAVE CHF AND COPD. PT'S LEGS SWOLLEN AND PT LOOKS TO HAVE INCREASED WORK OF BREATHING. Triage Nurses Notes Reviewed? yes Onset: Abrupt Duration: day(s): (10), constant, continues in ED Timing: recent history Severity: moderate, severe HPI: 86-year-old female comes into emergency room with complaints of increased shortness of breath since been going on for the past 10 days. Patient's passed recently in the had the today. She has a history of congestive heart failure as well as a history of COPD. She denies any fever or cough or congestion. No body aches or chills. Symptoms are getting progressively worse. Daughter reports increased swelling to legs bilaterally. She normally goes to the CHF clinic. (JAE PERSON) Reconcile Medications Albuterol Sulfate (Proair Hfa) 90 MCG HFA.AER.AD 2 PUF INH Q4-6 PRN PRN SOB ( Reported) GIVEN 01/29/17 @ 0822 Allopurinol 100 MG TABLET 1 TAB PO DAILY GOUT (Reported) Aspirin (Ecotrin*) 81 MG TABLET.DR 1 TAB PO DAILY HEART HEALTH (Reported) Budesonide/Formoterol Fumarate (Symbicort 160-4.5 Mcg Inhaler) 160 MCG-4.5 MCG/ ACTUATION HFA.AER.AD 2 PUF INH BID COPD (Reported) Digoxin 125 MCG TABLET 1 TAB PO DAILY AFIB (Reported) Diltiazem HCl 120 MG TABLET 1 TAB PO TID HEART (Reported) Furosemide 40 MG TABLET 1 TAB PO DAILY WATER PILL (Reported) Lovastatin 40 MG TABLET 1 TAB PO DAILY CHOLESTEROL (Reported) with food Metoprolol Tartrate (Lopressor) 50 MG TABLET 1 TAB PO BID Heart health ( Reported) Potassium Chloride 10 MEQ TAB.ER.PRT 1 TAB PO DAILY SUPPLEMENT (Reported) Tramadol HCl 50 MG TABLET 1 TAB PO BID PRN PAIN (Reported) Warfarin Sodium (Coumadin) 2.5 MG TABLET 1 TAB PO DAILY BLOOD THINNER ( Reported) (DEJAN WATERS,COLTEN Taylor) Past History Travel History Traveled to [place] past 21 day No Medical History Any Pertinent Medical History? see below for history Neurological: NONE EENT: NONE Cardiovascular: AFIB, CHF, hypertension, hyperlipidemia, sick sinus syndrome s/p ppm Respiratory: COPD, pulmonary nodules lung carcinoma status post resection Gastrointestinal: ?STOMACH ISSUE, [place] Hepatic: NONE Renal: NONE Musculoskeletal: NONE Psychiatric: NONE Endocrine: NONE Blood Disorders: NONE Cancer(s): bladder cancer, breast cancer, lung cancer RISK ENGINEER/Reproductive: BLADDER TUMOR Other Medical Hx: Arterial blockage and abdomen, patient unsure specifics R SIDE BREAST MASS WITH RESCECTION History of MRSA: No History of VRE: No History of CDIFF: No Influenza Vaccine: 07/18/16 Surgical History Surgical History: hysterectomy, LUNG MASS WITH LOBECTOMY R SIDE pacemaker Psychosocial History Who do you live with Spouse Services at Home Home Health Aide What is your primary language Uzbek Tobacco Use: Quit >30 days ago Daily Tobacco Use Amount/Type: => 5 Cigarettes daily ETOH Use: denies use Illicit Drug Use: denies illicit drug use Family History Family History, If Any: SISTER MOTHER Relation not specified for: *No pertinent family history FH: atrial fibrillation FH: hypertension Hx Contributory? No (JAE PERSON) Review of Systems Review of Systems Constitutional: Reports: no symptoms. EENTM: Reports: no symptoms. Respiratory: Reports: see HPI. Cardiovascular: Reports: see HPI. GI: Reports: no symptoms. Genitourinary: Reports: no symptoms. Musculoskeletal: Reports: no symptoms. Skin: Reports: no symptoms. Neurological/Psychological: Reports: no symptoms. Hematologic/Endocrine: Reports: no symptoms. Immunologic/Allergic: Reports: no symptoms. All Other Systems: Reviewed and Negative (JAE PERSON) Physical Exam Physical Exam General Appearance: alert, moderate distress, thin Head: atraumatic Eyes: Bilateral: normal appearance. Ears, Nose, Throat: normal ENT inspection, hearing grossly normal Neck: normal inspection Respiratory: respiratory distress (moderate) Cardiovascular: irregular Gastrointestinal: soft, non-tender Extremities: pedal edema (2+) Neurologic/Psych: awake, alert, oriented x 3 Skin: intact Core Measures ACS in differential dx? No Severe Sepsis Present: No Septic Shock Present: No (JAE PERSON) Progress Differential Diagnosis: asthma, AMI, bronchitis, costochondritis, CHF, COPD, musculoskeletal pain, pericarditis, pulmonary embolism, pneumonia, pneumothorax, rib fracture, unstable angina Plan of Care: Orders Procedure Date/time Status DIGOXIN 04/08 06 Active CBC WITHOUT DIFFERENTIAL 04/08 06 Active BASIC ELECTROLYTES PLUS BUN&CR 04/08 06 Active Heart Healthy Diet 04/07 B Active Skin/Pressure Ulcer Assess (Sk 04/07 1323 Active Wound Care/Dressing 04/07 1322 Active Burrows, Insertion/Removal/Asses 04/07 1055 Active Change service to 04/07 1004 Active RT: Evaluation 04/07 0813 Active LOWER RESPIRATORY CULTURE 04/07 0800 Active PHOSPHORUS 04/07 0630 Complete MAGNESIUM 04/07 0630 Complete TROPONIN LEVEL 04/07 06 Complete PROTHROMBIN TIME 04/07 06 Complete DIGOXIN 04/07 06 Complete CBC WITHOUT DIFFERENTIAL 04/07 0600 Complete BASIC ELECTROLYTES PLUS BUN&CR 04/07 0600 Complete TROPONIN LEVEL 04/07 0000 Complete BASIC ELECTROLYTES PLUS BUN&CR 04/07 0000 Complete EKG 04/07 0000 Active TRC EVALUATION (GEN) 04/07 UNK Complete THERAPIST ORDERS 04/07 UNK Complete PT Evaluate & Treat 04/07 UNK Active PT EVAL LOW COMPLEX 20 MIN 04/07 UNK Complete Lab Add-on Test 04/07 UNK Active Nursing Misc 04/07 UNK Active EKG 04/07 UNK Active ECHOCARDIOGRAM 04/07 UNK Active Vital Signs 04/06 225 Active Teach/Educate 04/06 2251 Active Pain Treatment and Response 04/06 2251 Active Nutritional Intake, Monitor 04/06 2251 Active Isolation 04/06 2251 Active Intake & Output 04/06 2251 Active Patient Care Conference 04/06 2251 Active Activity/Ambulation 04/06 2251 Active PROTHROMBIN TIME 04/06 224 Complete Lab Add-on Test 04/06 2237 Active Pathway - chart 04/06 2236 Active Patient Data 04/06 2236 Active Code Status 04/06 2236 Active Add-on Test (ER Only) 04/06 2156 Active URINALYSIS 04/06 2155 Complete Saline Lock 04/06 2119 Active Misc Message 04/06 2119 Active ED Holding Orders 04/06 2119 Active Admit to inpatient 04/06 2119 Active Vital Signs 04/06 2119 Active Code Status 04/06 2119 Complete BIPAP 04/06 2110 Complete Patient Data 04/06 2032 Active BIPAP 04/06 2030 Complete ARTERIAL BLOOD GAS (GEN) 04/06 2030 Complete Add-on Test (ER Only) 04/06 2027 Active Add-on Test (ER Only) 04/06 2016 Active BIPAP 04/06 1945 Complete Intake & Output 04/06 1912 Complete BIPAP 04/06 1900 Complete THYROID STIMULATING HORMONE 04/06 1811 Complete PHOSPHORUS 04/06 1811 Complete MAGNESIUM 04/06 1811 Complete FREE T4 04/06 1811 Complete DIGOXIN 04/06 1811 Complete OXYGEN SETUP CHG 04/06 UNK Complete OXYGEN 04/06 UNK Complete OXYGEN TRANSPORT 04/06 UNK Complete CONTIN. POS. AIRWAY PRESS. CHG 04/06 UNK Complete PULSE OXIMETRY (GEN) 04/06 UNK Complete Saline Lock 04/06 UNK Active Pathway - chart 04/06 UNK Active House Staff 04/06 UNK Active ACS Core Measures 04/06 UNK Active Weight 04/06 UNK Active VTE Mechanical Prophylaxis 04/06 UNK Active Telemetry/Plaster Molder 04/06 UNK Active Intake & Output 04/06 UNK Active Burrows, Insertion/Removal/Asses 04/06 UNK Complete PHYSICIAN CONSULT 04/06 UNK Active Current Medications Sig/Elle Start time Last Medication Dose Stop Time Status Admin Azithromycin 500 MG 04/07 AC (Zithromax) Sodium Chloride 250 ML (Normal Saline 0.9%) Ceftriaxone Sodium 1,000 MG 04/07 AC (Rocephin) Atorvastatin Calcium 10 MG 1700 04/07 1700 AC 04/07 (Lipitor) 1614 Albuterol Sulfate 3 ML BID 04/07 1000 AC 04/07 (Proventil) 1845 Allopurinol 100 MG DAILY 04/07 1000 AC 04/07 (Zyloprim) 1022 Aspirin Buffered 81 MG DAILY 04/07 1000 AC 04/07 (Ecotrin) 1021 Prednisone 40 MG DAILY 04/07 1000 AC 04/07 1021 Diltiazem HCl 120 MG Q8 04/07 0600 AC 04/07 (Cardizem) 1403 Sodium Chloride 1,000 ML Q20H 04/07 0115 AC 04/07 (Normal Saline 0.9%) 04/07 2114 0203 Acetaminophen 650 MG Q6P PRN 04/06 221 AC (Tylenol) Oxycodone/ 1 TAB Q6P PRN 04/06 2215 AC Acetaminophen (Percocet) Laboratory Tests 04/07/17 0630: Anion Gap 14, Estimated GFR 24 L, BUN/Creatinine Ratio 22.5, Phosphorus 5.6 H, Magnesium 2.1, Troponin I 0.05, PT 41.3 H, INR 3.99 H, CBC w Diff MAN DIFF ORDERED, RBC 3.29 L, MCV 96.2, MCH 31.6 H, RDW 16.0 H, MPV 7.4, Gran % 92.9 H, Lymphocytes % 6.2 L, Monocytes % 0.7 L, Eosinophils % 0.1, Basophils % 0.1, Absolute Granulocytes 4.7, Absolute Lymphocytes 0.3 L, Absolute Monocytes 0 L, Absolute Eosinophils 0, Absolute Basophils 0, Platelet Estimate VERIFIED BY SMEAR, Polychromasia 1+, Poikilocytosis 1+, Basophilic Stippling 1+, Anisocytosis 1+, Ovalocytes 1+, Stomatocytes 1+, PUBS MCHC 32.8 L, Digoxin 2.2 H 04/07/17 0515: Urinalysis LIGHT H, Urine Color YEL, Urine Clarity CLEAR, Urine pH 6.0, Ur Specific Dewitt 1.015, Urine Protein TRACE H, Urine Ketones NEG, Urine Nitrite NEG, Urine Bilirubin NEG, Urine Urobilinogen 0.2, Ur Leukocyte Esterase NEG, Ur Microscopic SEDIMENT EXAMINED, Urine RBC 3-5, Urine WBC 1-3 H, Ur Epithelial Cells RARE, Urine Bacteria FEW H, Hyaline Casts 1-3 H, Urine Hemoglobin MOD H , Urine Glucose NEG 04/07/17 0015: Anion Gap 16, Estimated GFR 22 L, BUN/Creatinine Ratio 22.4, Troponin I 0.05, PT 48.0 *H, INR 4.64 *H 04/06/172054: pH 7.38, pCO2 47 H, pO2 52 L, HCO3 28, ABG O2 Sat (Measured) 87.0 L, P-50 ( Temp Corrected) Y, Carboxyhemoglobin 1.1 L, O2 Concentration % 35%, Temperature 96.0 L, Respiration Rate 28, O2 Delivery Method BIPAP, Vent Mode ST, Expiratory Pressure 6, Inspiratory Pressure 14, Phlebotomy Draw Site LEFT BRACHIAL Microbiology 04/07 0800 LOWER RESP: Respiratory Culture - COLB 04/07 0800 LOWER RESP: Gram Stain - COLB 04/06 2027 BLOOD: Blood Culture - RES 04/06 2027 BLOOD: Blood Culture - RES Diagnostic Imaging: Viewed by Me: Radiology Read. Discussed w/RAD: Radiology Read. Radiology Impression: EXAM TYPE: RAD - XRY-PORTABLE CHEST XRAY EXAMINATION: CHEST 1 VIEW CLINICAL INFORMATION: Shortness of breath. COMPARISON: 01/29/2017. TECHNIQUE: An AP view of the chest is provided. FINDINGS: The cardiac silhouette is enlarged, but stable. Pacer leads are in unchanged position. There is a retrocardiac infiltrate along with airspace disease within the right lung extending to the right lower lung zone. There is a small right pleural effusion. There is a small left pleural effusion. The osseous structures are stable. IMPRESSION: Stable cardiomegaly. Multifocal airspace disease concerning for pneumonia. Small pleural effusions. DICTATED BY: LUDWIN CRAIG MD DATE/TIME DICTATED:04/06/171946 CRIME VICTIM SPECIALIST:MATA DATE/TIME TRANSCRIBED:1946 Initial ED EKG: rate (60), pacemaker rhythm (JAE PERSON) Departure Departure Disposition: STILL A PATIENT Condition: Stable Clinical Impression Primary Impression: Pneumonia Secondary Impressions: COPD (chronic obstructive pulmonary disease), Respiratory failure Referrals: VAHID SILVERIO MD (PCP/Family) Departure Forms: Customer Survey General Discharge Information Admission Note Spoke With: ALYCE FINNEGAN MD Documentation of Exam: Documentation of any treatments & extenuating circumstances including Concerns Regarding Discharge (functional status, medication knowledge or non-compliance, living conditions, etc.) that warrant an admission rather than observation: Patient will require supplemental oxygen. BiPAP. IV steroids. IV antibiotics. Pulmonary consult. Serial labs. High risk. Patient is a DNR/DNI. (JAE PERSON) PA/SENIOR VALIDATION ENGINEER Co-Sign Statement Statement: ED Attending supervision documentation- [X] I saw and evaluated the patient. I have also reviewed all the pertinent lab results and diagnostic results. I agree with the findings and the plan of care as documented in the PA's/SENIOR VALIDATION ENGINEER's documentation. [X] I have reviewed the ED Record and agree with the PA's/SENIOR VALIDATION ENGINEER's documentation. [] Additions or exceptions (if any) to the PAs/SENIOR VALIDATION ENGINEER's note and plan are summarized below: [Patient isn't hypercarbic respiratory failure. Patient is DNR/DNI. Patient does not want the BiPAP. I have had a long discussion with the patient and she is willing to try the BiPAP. Patient given IV steroids, IV antibiotics, IV diuresis.] (DEJAN WATERS,COLTEN Taylor) Critical Care Note Critical Care Note Critical Care Time: non-applicable (JAE PERSON)
--- NOTE | 2017-04-06 19:19 | NUR ---
ASSUMED CARE OF PT PER RN FERNANDO, PT RESTING IN RM ON BIPAP, BEDSIDE XRAY. WILL CONTINUE TO MONITOR
[2017-04-06] MEDS ORDERED: COUMADIN2.5 M1 PO (19:26)
[2017-04-06] MEDS ORDERED: TRAMADOL HCL50 M1 PO (19:28)
--- NOTE | 2017-04-06 19:50 | NUR ---
RT MARKELL CALLED BY THIS RN FOR PTS O2 SAT 88%, PTS 02 SAT ON BIPAP CHANGED FROM 35% TO 40% BY RT MARKELL. CHING Cardozo AT BEDSIDE FOR POC
--- NOTE | 2017-04-06 19:52 | RADIOLOGY REPORT ---
EXAMINATION: CHEST 1 VIEW CLINICAL INFORMATION: Shortness of breath. COMPARISON: 01/29/2017. TECHNIQUE: An AP view of the chest is provided. FINDINGS: The cardiac silhouette is enlarged, but stable. Pacer leads are in unchanged position. There is a retrocardiac infiltrate along with airspace disease within the right lung extending to the right lower lung zone. There is a small right pleural effusion. There is a small left pleural effusion. The osseous structures are stable. IMPRESSION: Stable cardiomegaly. Multifocal airspace disease concerning for pneumonia. Small pleural effusions.
--- NOTE | 2017-04-06 20:21 | NUR ---
RAFAEL SWANSON IN FOR BLOOD CULTURES, THIS RN TRIED TWICE AND WAS UNABLE TO COMPLETED BLOOD CULTURES.
--- NOTE | 2017-04-06 20:34 | NUR ---
BLOOD CULTURES COMPLETED BY THIS RN AND RAFAEL SWANSON.
--- NOTE | 2017-04-06 20:46 | NUR ---
PT MEDICATED WITH 1G ROCEPHIN IV PER EMAR.
--- NOTE | 2017-04-06 21:00 | NUR ---
PT MEDICATED WITH 500MG ZITHRO INFUSING AT 250ML/HR. RT MARKELL IN RM FOR PTS SECOND ABG. PTS BIPAP RESP SET TO 35%02, EPAP 6, 1PAP 14 AND RATE 28.
--- NOTE | 2017-04-06 21:07 | History & Physical ---
AGUSTIN WATERS,[facility] 04/06/17 1900: General Information and HPI MD Statement: I have seen and personally examined YESY DUBOIS and documented this H&P. The patient is a 86 year old F who presented with a patient stated chief complaint of [shortness of breath]. Source of Information: patient, family, daughter is at bedside and provided most of the history Exam Limitations: physical impairment, on bipap and appears lethargic History of Present Illness: Patient is a 86 year-old lady with PMH of Afib on coumadin, COPD not on home O2, CHF, HTN, HLD, tachybrady syndrome s/p pacemaker, 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 Per her daughter at bedside the patient has been experiencing increased lower extremity edema and work of breathing since about 10 days ago. Patient very recently has lost her (on Friday04/04/17), and today was his . Patient has been under stress, grieving, not eating and drinking well and therefore not having much urine. Denies any coughing or sputum production, denies fever or chills, denies chest pain or palpitation or dizziness. Denies sick contacts. Per her daughter she has recently been taking more of moroccan food. Of note, patient has baseline COPD and does not normally take O2 (former heavy smoker), she also has CHF and follows up with Dr. Guillen. She is also going to the wellness clinic twice weekly and was given an extra dose of IV lasix 60 mg on Friday this week due to increased SOB and leg edema. She has been using her 's home O2 for symptom relief. Patient also developed anterior right mid- rivas skin ulcer since about the time of the increase in swelling and is seeing Dr. Silverio, PCP, for that. Allergies/Medications Allergies: Coded Allergies: levofloxacin (Severe, TONGUE SWELLING 01/13/16) Penicillins (UNKNOWN 01/13/16) Home Med list Albuterol Sulfate (Proair Hfa) 90 MCG HFA.AER.AD 2 PUF INH Q4-6 PRN PRN SOB ( Reported) GIVEN 01/29/17 @ 0822 Allopurinol 100 MG TABLET 1 TAB PO DAILY GOUT (Reported) Aspirin (Ecotrin*) 81 MG TABLET.DR 1 TAB PO DAILY HEART HEALTH (Reported) Budesonide/Formoterol Fumarate (Symbicort 160-4.5 Mcg Inhaler) 160 MCG-4.5 MCG/ ACTUATION HFA.AER.AD 2 PUF INH BID COPD (Reported) Digoxin 125 MCG TABLET 1 TAB PO DAILY AFIB (Reported) Diltiazem HCl 120 MG TABLET 1 TAB PO TID HEART (Reported) Furosemide 40 MG TABLET 1 TAB PO DAILY WATER PILL (Reported) Lovastatin 40 MG TABLET 1 TAB PO DAILY CHOLESTEROL (Reported) with food Metoprolol Tartrate (Lopressor) 50 MG TABLET 1 TAB PO BID Heart health ( Reported) Potassium Chloride 10 MEQ TAB.ER.PRT 1 TAB PO DAILY SUPPLEMENT (Reported) Tramadol HCl 50 MG TABLET 1 TAB PO BID PRN PAIN (Reported) Warfarin Sodium (Coumadin) 2.5 MG TABLET 1 TAB PO DAILY BLOOD THINNER ( Reported) Compliance With Home Meds: GOOD Past History Travel History Traveled to [place] past 21 day No Medical History Neurological: NONE EENT: NONE Cardiovascular: AFIB, CHF, hypertension, hyperlipidemia, sick sinus syndrome s/p ppm Respiratory: COPD, pulmonary nodules lung carcinoma status post resection Hepatic: NONE Renal: NONE Musculoskeletal: NONE Psychiatric: NONE Endocrine: NONE Blood Disorders: NONE Cancer(s): bladder cancer, breast cancer, lung cancer 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 spouse Services at Home: Home Health Aide Primary Language: Mongolian ETOH Use: denies use Illicit Drug Use: denies illicit drug use Living Will? yes Functional Ability ADLs Independent: dressing, eating, toileting, bathing. Ambulation: independent IADLs Independent: shopping, housework, finances, food prep. Review of Systems Review of Systems Constitutional: Reports: malaise, weakness. Denies: chills, fever. EENTM: Reports: blurred vision (macular degeneration). Cardiovascular: Reports: edema, peripheral edema. Denies: chest pain, palpitations, syncope. Respiratory: Reports: short of breath. Denies: cough, hemoptysis, sputum production. GI: Denies: abdominal pain, changes in stool. Genitourinary: Denies: no symptoms (decreased amount of urine). Musculoskeletal: Reports: see HPI. Skin: Reports: lesions (right anterior rivas). Neurological/Psychological: Reports: anxiety. Denies: numbness, weakness. Hematologic/Endocrine: Reports: no symptoms. Immunologic/Allergic: Reports: no symptoms. Exam & Diagnostic Data Last 24 Hrs of Vital Signs/I&O Vital Signs Date Time Temp Pulse Resp B/P B/P Pulse O2 O2 Flow FiO2 Mean Ox Delivery Rate 04/07 0007 60 98 04/06 2330 96 BIPAP 40% 04/06 2253 97.6 61 22 136/64 86 Venti Mask 10L 04/06 2224 59 92 04/06 2211 96.8 60 28 141/71 91 BIPAP 40% 04/06 1912 60 92 04/06 1905 93 BIPAP 35% 04/06 1845 96.0 59 24 155/70 92 Aerosol 8L Mask 04/06 1835 92 Nasal 4.0L Cannula 04/06 1806 99 Nasal 4.0L Cannula 04/06 1746 24 88 Nasal 2.0L Cannula Intake & Output 04/07 0800 04/07 0000 04/06 1600 Intake Total Output Total 65 Balance -65 Output, Urine 65 Patient 49.895 kg Weight Weight Reported by Patient Measurement Method Physical Exam General Appearance Alert, Oriented X3, Cooperative, Mild Distress Skin 2x4 cm stage 1 skin ulcer on the anterior mid-rivas on the right side. 4x6 cm bruising on the right lower and lateral chest wall., there is a subcutaneous pacemaker device placed at the left upper chest, skin on top is non-tender and non-erythematous Skin Temp/Moisture Exam: Warm/Dry Sepsis Skin Exam (color): Normal for Ethnicity HEENT Atraumatic, PERRLA, Mucous Membr. moist/pink Neck Supple Cardiovascular Normal S1, Normal S2, No Murmurs, irregular Lungs decreased breath sounds bilaterally with fine basilar crackles and end expiratory wheezing on the right lower lung Abdomen Soft, No Tenderness Neurological Normal Speech, Strength at 5/5 X4 Ext, Normal Tone, Cranial Nerves 3-12 NL Extremities Normal Pulses, 3+ pitting edema on both lower extremity from knee below Vascular Pulses Symmetrical Last 24 Hrs of Labs/Nikita: Laboratory Tests 04/07/17 0015: Anion Gap 16, Estimated GFR 22 L, BUN/Creatinine Ratio 22.4, Troponin I 0.05, PT 48.0 *H, INR 4.64 *H 04/06/172054: pH 7.38, pCO2 47 H, pO2 52 L, HCO3 28, ABG O2 Sat (Measured) 87.0 L, P-50 ( Temp Corrected) Y, Carboxyhemoglobin 1.1 L, O2 Concentration % 35%, Temperature 96.0 L, Respiration Rate 28, O2 Delivery Method BIPAP, Vent Mode ST, Expiratory Pressure 6, Inspiratory Pressure 14, Phlebotomy Draw Site LEFT BRACHIAL 04/06/17 1830: pH 7.30 *L, pCO2 57 H, pO2 62 L, HCO3 28, ABG O2 Sat (Measured) 90.0 L, P-50 (Temp Corrected) Y, Carboxyhemoglobin 0.8 L, O2 Concentration % 4L, Temperature 96.0 L, O2 Delivery Method NC, Phlebotomy Draw Site RIGHT RADIAL 04/06/17 1811: Anion Gap 15, Estimated GFR 21 L, BUN/Creatinine Ratio 19.1, Glucose 150 H, Calcium 9.4, Phosphorus 6.9 H, Magnesium 2.4 H, Total Bilirubin 1.2, AST 36, ALT 44, Alkaline Phosphatase 81, Troponin I 0.06, Wjb-Z-Knrejkdanet Pept 18021 H, Total Protein 7.8, Albumin 4.5, Globulin 3.3, Albumin/Globulin Ratio 1.4, TSH 6.020 H, Free T4 1.86, PT 46.5 *H, INR 4.49 *H, CBC w Diff MAN DIFF ORDERED, RBC 3.72 L, MCV 96.6, MCH 31.3 H, RDW 16.5 H, MPV 7.1 L, Gran % 89.5 H, Lymphocytes % 4.1 L, Monocytes % 6.3, Eosinophils % 0, Basophils % 0.1, Absolute Granulocytes 9.6 H, Segmented Neutrophils 80 H, Band Neutrophils 4, Absolute Lymphocytes 0.4 L, Lymphocytes 7 L, Monocytes 8, Absolute Monocytes 0.7 H, Absolute Eosinophils 0, Basophils 1, Absolute Basophils 0, Platelet Estimate ADEQUATE, Polychromasia 1+, Hypochromic-Microcytic 1+, Poikilocytosis 1 +, Anisocytosis 1+, Macrocytic Cells 1+, Ovalocytes 1+, PUBS MCHC 32.4 L, Digoxin 2.9 *H Microbiology 04/06 2027 BLOOD: Blood Culture - RECD 04/06 2027 BLOOD: Blood Culture - RECD 04/06 1915 URINE ROUT: Urine Culture - RECD Diagnostic Data EKG Results ventricular paced complexes, rate of 60, MS interval of 128, QTc of 484 ( increased from latest EK). CXR Results SERVICE DATE: 04/06/17 EXAM TYPE: RAD - XRY-PORTABLE CHEST XRAY EXAMINATION: CHEST 1 VIEW CLINICAL INFORMATION: Shortness of breath. COMPARISON: 01/29/2017. TECHNIQUE: An AP view of the chest is provided. FINDINGS: The cardiac silhouette is enlarged, but stable. Pacer leads are in unchanged position. There is a retrocardiac infiltrate along with airspace disease within the right lung extending to the right lower lung zone. There is a small right pleural effusion. There is a small left pleural effusion. The osseous structures are stable. IMPRESSION: Stable cardiomegaly. Multifocal airspace disease concerning for pneumonia. Small pleural effusions. DICTATED BY: LUDWIN CRAIG MD DATE/TIME DICTATED:04/06/171946 ANATOMY AND PHYSIOLOGY INSTRUCTOR:MATA DATE/TIME TRANSCRIBED:04/06/171946 Assessment/Plan Assessment: Patient is a 86 year-old lady with PMH of Afib on coumadin, COPD not on home O2, CHF, HTN, HLD, tachybrady syndrome s/p pacemaker, 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 Patient is admitted to telemetry with possible CHF exacerbation and pneumonia. Problem list and plan: 1. Acute hypoxic/hypercarbic respiratory failure 2. Possible CHF exacerbation 3. Possible pneumonia 4. PAULA on CKD 5. elevated digoxin level 6. hyperkalemia, hyper phosphatemia, hypermagnesemia 7. LE edema with right lower leg skin ulcer Acute hypoxic/hypercarbic respiratory failure Most likely due to CHF exacerbation and possible pneumonia. Also less likely: CPOD exacerbation. SO2 88-89% on arrival. ABG: chronic compensated respiratory acidosis. CXR: Multifocal airspace disease concerning for pneumonia. Small pleural effusions. Afebrile with no leukocytosis. LE edema, bibasilar crackles, elevated proBNP. Patient received IV [id number] mg one time. * continuous pulse oxymetry * O2 supplementation as needed * Lasix on hold as it can worsen Dig toxicity (in the setting of dehydration and kidney failure) * Ceftriaxone and Azithromycin * Prednisone taper * Sent blood culture and sputum culture, will follow * [facility] PAULA on CKD BUN/Cr: 42/2.2, etiologies: pre-renal due to dehydration secondary to poor oral intake, less likely renal (such as ATN) or post-renal (however the patient denies hesitancy/urgency and does not have history of kidney stone). * Will send urine analysis for casts, FeNa, urine Cr and urine osmolality * Started on IV normal saline at 75 cc/hour, if kidney function improves, confirms the presence of pre-renal azotemia * Repeat BEP in am * If creatinine does not improve consider nephro consult Elevated serum digoxin level of 2.9 -Last digoxin taken on 04/05/17 5 pm -most likely etiology of elevated Dig level: renal failure -Except for generalized weakness, patient has no other clinical findings of Digoxin toxicity including anorexia, nausea, vomiting, and abdominal pain, confusion, delirium. However dig toxicity can be asymptomatic, especially in the setting of chronic kidney disease can be insidious. In addition, arrhythmias caused by dig toxicity can not be rule out in this patient as she has a pacemaker. -Of note, EKG shows T wave inversion in lead II and V2, but negative for other findings of dig toxicity including decreased QT interval, scooped ST segments, ST depressions. * Held off on digoxin-antibody * Repeat EKG in am * Will repeat Digoxin level in am * Digoxin on hold Atrial fibrillation, HTN, HLD On Coumadin, rate controlled by Diltiazem. * Will continue PO diltiazem 120 mg Q8 * INR supratherapeutic, will repeat INR and dose coumadin to keep in therapeutic range of 2-3 * Continue aspirin and statin Hyperkalemia, hyperphosphatemia, hypermagnesemia Most likely due to chronic kidney failure; also digoxin toxicity can cause hyperkalemia. * Continue IV hydration * Repeat BEP in am Lower Extremity skin ulcer stage 1 skin ulcer covered with Xeroform and Kerlix * Consider wound consult in am Gout * held allopurinol due to PAULA Macular degeneration * continue Karlos 128 1 drop on both eyes every 6h Pain: tylenol for mild pain and percocet for severe pain Heart Healthy diet DNR/DNI As Ranked By This Provider Problem List: 1. Respiratory failure 2. COPD (chronic obstructive pulmonary disease) 3. Pneumonia 4. Jpzwa-jf-iwlttdc kidney injury 5. Acute on chronic diastolic (congestive) heart failure 6. Tachy-elton syndrome Core Measures/Miscellaneous Acute Coronary Syndrome ACS Diagnosis: No Cerebrovascular Accident CVA/TIA Diagnosis: No Congestive Heart Failure CHF Diagnosis: Yes Date of most recent Echo: 01/22/17 Last Known EF %: 65 Venous Thromboembolism VTE Risk Factors: Acute medical illness, Age > 40 No [facility] VTE prophylaxis d/t: VTE low risk, No contraindications No VTE Pharm Prophylaxis d/t: VTE low risk, No contraindications VTE Diagnosis: No VTE Type: NONE VTE Confirmed by (Test): NONE Severe Sepsis Severe Sepsis Present: No Septic Shock Septic Shock Present: No Miscellaneous Documentation Attending Case Discussed With: ALYCE FINNEGAN MD Primary Care Physician: VAHID SILVERIO MD Patient sees these Specialists Dr. Mayelin White, Dr. Ledbetter Level of Patient Care: Telemetry SEYMOUR LAINEZ 04/06/17 2114: Resident Review Statement Resident Statement: examined this patient, discussed with internal review and audit compliance, agreed with internal review and audit compliance Other Findings: This is a 86-year-old female with past medical history of atrial fibrillation on anticoagulation with Coumadin, COPD not on home oxygen, hypertension, hyperlipidemia, previous tachycardia bradycardia syndrome status post pacemaker, previous lung cancer status post right upper lobectomy in 2008 (non-small cell lung carcinoma), aortic aneurysm, recent vascular procedure (in ? 2016 for chronic bilateral lymphedema) was brought in by her daughter to the emergency department after having worsening shortness of breath since 2 days prior to admission. Apparently the patient was doing all right when 10 days prior to admission she had worsening lower extremity edema, her shortness of breath was gradually worsening him a she was feeling more weaker and lethargic, and the work of breathing really worsened since 2 days prior to admission and she was short of breath in all positions, was not getting out of bed much and had worsening lethargy and weakness.due ot worsening SOB, she tried using her 's oxygen thought she is not on home oxygen. She recently lost her who was admitted at [place] (was made hospice) on 04/04/2017, and they had his today. she denied any chest pain, palpitations, pnd,nausea, vomiting ,diarrhea, vision changes,trouble urinating ,cough,cold,sputum or sick contact. Vitals on Presentation : tmax 96.0, pulse 59 to 60 on presentation, RR : 18, B/ P - 155/70,88% on 2 L nasal cannula on arrival, 92% on 8 liters, then she was put on BIPAP and o2 sats improved to 93% PE : A/O x 3, moderate distress. HEENT :atraumatic, normocephalic, PEERLA CVS : irregularly irregular. RS : AEBE, mild basal crackles,very mild wheezing. PA : soft, nontender, BS + Extremities : BL LE : 2 to 3 + edema, ulceration on the right rivas with mild serous discharge. ABG , PH 7.30, pco2 57, po2 62, bicarb3 28 - respiratory acidosis with partial compensation,calculating compensation for respiratory acidosis, bicarbonate needs to be 31, therefore this seems to worsening acute respiratory acidosis with compensation as bicarb in blood [place] 31[place] [address] PT 46.5 , INR 4.49 Blood cx X 2 sent, urine Cx sent. Na - 134, potassium 5.3, bun/creatinine : 42/2.2 ( baseline 0.9 ot 1.3), glucose 150,magnesium- 2.4, phosphorus 6.9, ca - 9.4 INR supratherapeutic at 4.49. digoxin level elevated at 2.9 TSH mildly elevated at 6.020, free t4 1.86. CXR : stable cardiomegaly, no evidence of congestion, multifocal airspace disease concerning for pneumonia. Problem list alongwith assessment and plan. # 1 Acute hypoxic and hypercapnic respiratory failure, possible community- acquired pneumonia, worsening COPD versus CHF exacerbation. Repeat ABG improved from previous ABG improved, PCO2 level coming down, continue BiPAP overnight, taper oxygen as tolerated by keeping oxygen saturation greater than 92%. * Shortness of breath seems to be multifactorial with some element of CHF, with elevated proBNP, however no significant congestion on the chest x-ray, possible evidence of pneumonia, she has underlying COPD, and therefore both of them could be contributing to worsening shortness of breath with added recent stressors of recent 's on 04/04/17 and burial today,worsening eating pattern in last week with high salt food consumption (Slovenian food, sprinkling salt). * Continue to follow blood cultures and urine cultures. * Continue to follow sputum cultures. * CURB 65 score of 2, 3 % estimated 30 day mortality, inpatient Mx, Ct IV ax with Zithromax and and ceftriaxone. * Monitor vitals, continue monitor intake and output. Problem #2 Elevated digoxin levels * Denied any symptoms like nausea vomiting diarrhea or vision changes. * She took her usual dose of digoxin. * She does have renal insufficiency and worsening PAULA on CKD which could be the cause of elevated digoxin levels. * The patient has elevated proBNP, received Lasix, however clinically the patient does not seem to be in CHF neither does the chest x-ray show any evidence of congestion, therefore we will gently hydrate the patient at 50 mL per hour for 1 bag only, no need for Digibind at this point, plan discussed with Dr. Guillen. * We'll continue to monitor the potassium level as the patient was slightly hypercalcemic. * We'll hold digoxin for now. * patient meets 2/3 criteria with elevated potassium and end organ damage with kidney failure,third criteria arrythmia and ekg changes hard to discern with paced rhythm, EKG did show TWI in lead 2 and v2, no other changes noted. * repeat dig levels in am, if still high consider digibind, discussed with dr guillen,as per him holding off on digibind. * cardio consult in am #3 Hyperkalemia. * Possibly secondary to worsening PAULA on CKD. * TWI in lead 1,V2 nonspecific * Continue to monitor, continue IV hydration. * We will hold off on repeating now, check with a.m. labs #4 PAULA with CKD * Noted that the patient has elevated proBNP, there is a question of patient being in CHF, however with the worsening a digitalis toxicity we are considering gentle hydration. * Continue to monitor BUN and creatinine. * Continue to follow UA. * Patient reports that her urine output has also decreased recently, elevated phosphorus and potassium also possible 2/2 to PAULA. * If worsening PAULA, consider nephrology consult. #5 History of hypertension, hyperlipidemia. * Lipitor 10 mg daily for morning. * Continue aspirin 81 mg daily. #6 History of COPD. * Continue TRC nebulization. * Patient received one time of 125 mg IV Solu-Medrol. * Patient was not clinically wheezing. * However with her underlying COPD, we will continue Solu-Medrol 40 every 12. * Continue azithromycin for its anti-inflammatory effect. * Continue to keep the oxygen saturations around 92%. #7 History of atrial fibrillation. * Continue diltiazem 125 mg every 8. * His INR is supretherapeutic, therefore will hold the Coumadin for today. * Continue to monitor INR and dose Coumadin. #8 Gout * Ct allopurinol DNR/DNI NPO for now while on bipap. Mild, mod, severe PP DVTpx : supratherapeutic INR, coumadin SIVAN WATERS, [facility] 04/06/17 5980: Attending MD Review Statement Attending Statement Attending MD Statement: examined this patient, discuss w/resident/PA/VIDEO GAME PROGRAMMER, agreed w/resident/PA/VIDEO GAME PROGRAMMER, discussed with family Attending Assessment/Plan: 86 yo F with h/o chronic Afib on coumadin, tachybrady syndrome s/p PPM, diastolic heart failure, COPD, CKD stage 3B, HTN, RUL poorly differentiated adenocarcinoma s/p lobectomy (2008), noninvasive papillary urothelial cancer s/p TURBT (2013), is here with 10-day h/o worsening dyspnea, weakness, anorexia and lower extremity edema. She reports compliance with lasix and [facility] (Mon-Fri). Her lasix dose was recently increased from 40 BID to 60 BID. However, patient has not made much urine. Stress++ - who was admitted at [place] for over 2 weeks, then became hospice, his was today. She was previousely on home oxygen but was tapered off. Today, she tried using her 's oxygen to help relieve her dyspnea but her O2 sats were 88-89% on 2-3 L. Denies cough, phlegm, nausea, vomiting, abdominal pain or new vision changes. Vitals: afebrile, tachypneic, BP 136/64, sats 91% on Bipap FiO2 40%. Exam: elderly cachectic lady in moderate respiratory distress, lethargic, able to speak a few words, mucous membranes are dry. Chest bibasilar crackles+, reduced air entry, right basilar rhonchi, no appreciable wheeze. Extremities: b/l 2+ pitting edema with a healing ulcer to right leg anterior rivas. Labs: INR 4.49, K 5.3, bicarb 31, BUN 42, creat 2.2 (baseline 1.3 1.5), trop 0.06, proBNP 10433, digoxin level 2.9. CXR: stable cardiomegaly, multifocal airspace disease concerning for pneumonia, small pleural effusions. AB.30/57/62/28 --> 7.38/ 47/52/28. Echo (January 2017): EF > 65%. EKG: Paced. 1. Acute hypoxemic and acute on chronic hypercarbic respiratory failure in the setting of community acquired pneumonia offsetting COPD exacerbation. Given patient has LE edema and an elevated proBNP, IV lasix 60 mg was given in the ER for presumed acute on chronic CHF. On our evaluation, patient does not seem to be in florid CHF, CXR does not suggest pulmonary edema, she does have LE edema but dry mucous membranes. Tele admit, daily weights, strict I/O's, will monitor diuresis overnight, no further lasix. Continue Bipap, repeat ABG shows improvement. No need for repeat ABG unless clinical status changes. Serial EKG and troponin, echo, Cardio consult (Dr. Guillen). Panculture, IV ceftriaxone and azithro, IV solumedrol 125 mg given in ER, will do a rapid prednisone taper. Pulm consult in AM. 2. Acute on CKD stage 3B with elevated digoxin levels and hyperkalemia. Last dose of digoxin was on April 05 at 5 pm. EKG is paced.This was discussed with Dr. Guillen, who thinks the PAULA could be due to overdiuresis causing elevated dig levels, hence he suggested gentle hydration overnight. Hold digoxin, lasix, allopurinol. We will recheck renal functions, digoxin levels in AM. No indication for digibind. If renal functions do not improve, consider urinalysis, urine lytes, renal ultrasound and nephro consult. DVT ppx supratherapeutic INR on coumadin. Hold coumadin, recheck INR in AM. DNR/ I.
--- NOTE | 2017-04-06 21:15 | NUR ---
CRITICAL TEST RESULTS [id number] YESY DUBOIS F TESTS AND RESULTS: DIGOXIN LEVEL 2.9 Results received and read back by: ELENA NORWOOD Results received date and time: 04/06/172114 The following provider was notified of the results, and read the results back: HOUSE STAFF Notified date and time: 04/06/17 at 2111
--- NOTE | 2017-04-06 21:17 | NUR ---
HOUSE STAFF IN FOR EVAL
--- NOTE | 2017-04-06 22:02 | NUR ---
PT ASIGNED TO ROOM 180-1
--- NOTE | 2017-04-06 22:20 | Admission Certification ---
Admission Certification Certification Statement - As attending physician, I certify that at the time of - admission, based on clinical presentation, severity of - symptoms, need for further diagnostic testing and - therapeutic interventions, and risk of adverse outcomes - without in-hospital treatment, in my clinical assessment, - this patient requires an acute hospital stay for a minimum - of two nights or longer. I have also considered psychsocial - factors such as support system, advanced age, financial - issues, cognitive issues, and failed out-patient treatments, - past re-admission history, safety of patient, and lack of - compliance as applicable. Specific rationale supporting this admission is: Acute on chronic hypercarbic and acute hypoxemic respiratory failure, community acquired pneumonia, COPD exacerbation. Acute on CKD with elevated digoxin levels.
[2017-04-06 22:53] VITALS: BP 136/64
--- NOTE | 2017-04-07 07:29 | PN- Housestaff ---
See Addendum Subjective Follow-up For: 1. Acute hypoxic/hypercarbic respiratory failure 2. Possible CHF exacerbation 3. Possible pneumonia 4. PAULA on CKD 5. elevated digoxin level 6. hyperkalemia, hyper phosphatemia, hypermagnesemia 7. LE edema with right lower leg skin ulcer Tele-Events Since Last Visit: Normal sinus rhythm, some pacing around 12 AM, heart rate 60-68. No overnight events. Subjective: Afebrile, hemodynamically stable, saturating well on 3 L of oxygen. No overnight events reported. Patient denies any current active complaints. Review of Systems Constitutional: Reports: no symptoms. Objective Last 24 Hrs of Vital Signs/I&O Vital Signs Date Time Temp Pulse Resp B/P B/P Pulse O2 O2 Flow FiO2 Mean Ox Delivery Rate 04/07 1037 Nasal 3.0L Cannula 04/07 0930 64 146/60 04/07 0850 98.2 68 22 160/70 99 BIPAP 40% 04/07 0833 95 Nasal 3.0L Cannula 04/07 0800 BIPAP 40% 04/07 0621 69 128/64 04/07 0550 65 96 04/07 0007 60 98 04/06 2330 96 BIPAP 40% 04/06 2253 97.6 61 22 136/64 86 Venti Mask 10L 04/06 2224 59 92 04/06 2211 96.8 60 28 141/71 91 BIPAP 40% 04/06 1912 60 92 04/06 1905 93 BIPAP 35% 04/06 1845 96.0 59 24 155/70 92 Aerosol 8L Mask 04/06 1835 92 Nasal 4.0L Cannula 04/06 1806 99 Nasal 4.0L Cannula 04/06 1746 24 88 Nasal 2.0L Cannula Intake & Output 04/07 1600 04/07 0800 04/07 0000 Intake Total 200 Output Total 475 65 Balance -275 -65 Intake, Oral 200 Output, Urine 475 65 Patient 49.895 kg Weight Weight Reported by Patient Measurement Method Physical Exam General Appearance: Alert, Oriented X3, Cooperative, No Acute Distress HEENT: Atraumatic, PERRLA, EOMI, dry MM Neck: No JVD Cardiovascular: Normal S1, Normal S2, No Murmurs, irregular Lungs: diminished air entry , mild crackles over lung base b/l, scattered wheezing , bruising over the right lower chest anteriorly Abdomen: Normal Bowel Sounds, Soft, No Tenderness Neurological: Normal Speech Extremities: +2 LE edema, skin ulcer over the rivas on the right leg Current Medications: Current Medications Sig/Elle Start time Last Medication Dose Route Stop Time Status Admin Acetaminophen 650 MG Q6P PRN 04/06 2215 AC PO Albuterol Sulfate 3 ML BID 04/07 1000 AC 04/07 INH 0808 Albuterol Sulfate 3 ML ONCE ONE 04/06 1830 DC 04/06 INH 04/06 183 1835 Allopurinol 100 MG DAILY 04/07 1000 AC 04/07 PO 1022 Aspirin Buffered 81 MG DAILY 04/07 1000 AC 04/07 PO 1021 Atorvastatin Calcium 10 MG 1700 04/07 1700 AC PO Azithromycin 500 MG 2100 04/07 2100 AC Sodium Chloride 250 ML IV Azithromycin 500 MG ONCE ONE 04/06 2000 DC 04/06 Sodium Chloride 250 ML IV 04/06 Ceftriaxone Sodium 1,000 MG 04/07 AC IV Ceftriaxone Sodium 0 .STK-MED ONE 04/06 2029 DC .ROUTE Ceftriaxone Sodium 1,000 MG ONCE ONE 04/06 2000 DC 04/06 IV 04/06 2001 204 Diltiazem HCl 120 MG Q8 04/07 0600 AC 04/07 PO 0621 Furosemide 60 MG ONCE ONE 04/06 1830 DC 04/06 IV 04/06 183 1855 Furosemide 0 .STK-MED ONE 04/06 1826 DC IV Ipratropium [place] 2.5 ML ONCE ONE 04/06 1830 DC 04/06 INH 04/06 183 1835 Lorazepam 0.5 MG ONE ONE 04/06 2300 DC 04/06 PO 04/06 2301 2326 Methylprednisolone 125 MG ONCE ONE 04/06 1830 DC 04/06 IV 04/06 183 1834 Methylprednisolone 0 .STK-MED ONE 04/06 1824 DC .ROUTE Oxycodone/ 1 TAB Q6P PRN 04/06 2215 AC Acetaminophen PO Prednisone 40 MG DAILY 04/07 1000 AC 04/07 PO 1021 Sodium Chloride 1,000 ML Q20H 04/07 0115 AC 04/07 IV 04/07 2114 0203 Last 24 Hrs of Lab/Nikita Results Last 24 Hrs of Labs/Mics: Laboratory Tests 04/07/17 0630: Anion Gap 14, Estimated GFR 24 L, BUN/Creatinine Ratio 22.5, Phosphorus 5.6 H, Magnesium 2.1, Troponin I 0.05, PT 41.3 H, INR 3.99 H, CBC w Diff MAN DIFF ORDERED, RBC 3.29 L, MCV 96.2, MCH 31.6 H, RDW 16.0 H, MPV 7.4, Gran % 92.9 H, Lymphocytes % 6.2 L, Monocytes % 0.7 L, Eosinophils % 0.1, Basophils % 0.1, Absolute Granulocytes 4.7, Absolute Lymphocytes 0.3 L, Absolute Monocytes 0 L, Absolute Eosinophils 0, Absolute Basophils 0, Platelet Estimate VERIFIED BY SMEAR, Polychromasia 1+, Poikilocytosis 1+, Basophilic Stippling 1+, Anisocytosis 1+, Ovalocytes 1+, Stomatocytes 1+, PUBS MCHC 32.8 L, Digoxin 2.2 H 04/07/17 0515: Urinalysis LIGHT H, Urine Color YEL, Urine Clarity CLEAR, Urine pH 6.0, Ur Specific [place] 1.015, Urine Protein TRACE H, Urine Ketones NEG, Urine Nitrite NEG, Urine Bilirubin NEG, Urine Urobilinogen 0.2, Ur Leukocyte Esterase NEG, Ur Microscopic SEDIMENT EXAMINED, Urine RBC 3-5, Urine WBC 1-3 H, Ur Epithelial Cells RARE, Urine Bacteria FEW H, Hyaline Casts 1-3 H, Urine Hemoglobin MOD H , Urine Glucose NEG 04/07/17 0015: Anion Gap 16, Estimated GFR 22 L, BUN/Creatinine Ratio 22.4, Troponin I 0.05, PT 48.0 *H, INR 4.64 *H 04/06/172054: pH 7.38, pCO2 47 H, pO2 52 L, HCO3 28, ABG O2 Sat (Measured) 87.0 L, P-50 ( Temp Corrected) Y, Carboxyhemoglobin 1.1 L, O2 Concentration % 35%, Temperature 96.0 L, Respiration Rate 28, O2 Delivery Method BIPAP, Vent Mode ST, Expiratory Pressure 6, Inspiratory Pressure 14, Phlebotomy Draw Site LEFT BRACHIAL 04/06/171829: pH 7.30 *L, pCO2 57 H, pO2 62 L, HCO3 28, ABG O2 Sat (Measured) 90.0 L, P-50 (Temp Corrected) Y, Carboxyhemoglobin 0.8 L, O2 Concentration % 4L, Temperature 96.0 L, O2 Delivery Method NC, Phlebotomy Draw Site RIGHT RADIAL 04/06/17 1811: Anion Gap 15, Estimated GFR 21 L, BUN/Creatinine Ratio 19.1, Glucose 150 H, Calcium 9.4, Phosphorus 6.9 H, Magnesium 2.4 H, Total Bilirubin 1.2, AST 36, ALT 44, Alkaline Phosphatase 81, Troponin I 0.06, Dyl-L-Htxtjsccdbp Pept 71836 H, Total Protein 7.8, Albumin 4.5, Globulin 3.3, Albumin/Globulin Ratio 1.4, TSH 6.020 H, Free T4 1.86, PT 46.5 *H, INR 4.49 *H, CBC w Diff MAN DIFF ORDERED, RBC 3.72 L, MCV 96.6, MCH 31.3 H, RDW 16.5 H, MPV 7.1 L, Gran % 89.5 H, Lymphocytes % 4.1 L, Monocytes % 6.3, Eosinophils % 0, Basophils % 0.1, Absolute Granulocytes 9.6 H, Segmented Neutrophils 80 H, Band Neutrophils 4, Absolute Lymphocytes 0.4 L, Lymphocytes 7 L, Monocytes 8, Absolute Monocytes 0.7 H, Absolute Eosinophils 0, Basophils 1, Absolute Basophils 0, Platelet Estimate ADEQUATE, Polychromasia 1+, Hypochromic-Microcytic 1+, Poikilocytosis 1 +, Anisocytosis 1+, Macrocytic Cells 1+, Ovalocytes 1+, PUBS MCHC 32.4 L, Digoxin 2.9 *H Microbiology 04/07 0800 LOWER RESP: Respiratory Culture - COLB 04/07 0800 LOWER RESP: Gram Stain - COLB 04/06 2027 BLOOD: Blood Culture - RECD 04/06 2027 BLOOD: Blood Culture - RECD 04/06 1915 URINE ROUT: Urine Culture - RES Assessment/Plan Assessment: Patient is a 86 year-old lady with PMH of Afib on coumadin, COPD not on home O2, CHF, HTN, HLD, tachybrady syndrome s/p pacemaker, 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 Patient is admitted to telemetry with possible CHF exacerbation and pneumonia. Problem list and plan: 1. Acute hypoxic/hypercarbic respiratory failure 2. Possible CHF exacerbation 3. Possible pneumonia 4. PAULA on CKD 5. elevated digoxin level 6. hyperkalemia, hyper phosphatemia, hypermagnesemia 7. LE edema with right lower leg skin ulcer #Acute hypoxic/hypercarbic respiratory failure Most likely due to CHF exacerbation given LE edema, bibasilar crackles, elevated proBNP and Small pleural effusions on CXray . Also possible pneumonia given CXR: Multifocal airspace disease concerning for pneumonia, but she is afebrile with no leukocytosis. SO2 88-89% on arrival. ABG: chronic compensated respiratory acidosis. Patient recieved IV [id number] mg IV one time on ED. * continuous pulse oxymetry * O2 supplementation as needed * Lasix on hold as it can worsene Dig toxicity (volume depletion and kidney failure) * Continue Ceftriaxone and Azithromycin * Prednisone taper, she is now on 40 mg * Follow-up blood culture and sputum culture. * TRC/Nebs #PAULA on CKD BUN/Cr: 42/2.2, etiologies: pre-renal due to dehydration secondary to poor oral intake, less likely renal. Creatinine improved today to 2 * Continue IV normal saline at 50 cc/hour. * Repeat BEP in am #Elevated serum digoxin level of 2.9 Last digoxin taken on 04/05/17 5 pm. Most likely etiology of elevated Dig level: renal failure. Except for generalized weakness, patient has no other clinical findings of Digoxin toxicity. Arrhythmias caused by dig toxicity can not be rule out in this patient as she has a pacemaker. Digoxin level this a.m. is 2.2 down from 2.9 with normal level being less than 2 * Continue holding digoxin * Will repeat Digoxin level in am #Atrial fibrillation, HTN, HLD On Coumadin and Diltiazem. * Will continue PO diltiazem 120 mg Q8 * INR supratherapeutic, will repeat INR and dose coumadin to keep in therapeutic range of 2-3 * Continue aspirin and statin #Hyperkalemia, hyperphosphatemia, hypermagnesemia Most likely due to PAULA on top of CKD. This morning potassium is 4.4 magnesium is 2.1 and phosphorus is 5.6. * Continue IV hydration * Repeat BEP in am #Lower Extremity skin ulcer stage 1 skin ulcer covered with Xeroform and Kerlix * wound consult #Gout * held allopurinol due to PAULA #Macular degeneration * continue Karlos 128 1 drop on both eyes every 6h DVT prophylaxis with Coumadin(on hold because she supratherapeutic INR) Pain: tylenol for mild pain and percocet for severe pain Heart healthy diet DNR/DNI Problem List: 1. [id number] kidney injury 2. Respiratory failure 3. Pneumonia 4. Diastolic CHF, acute on chronic Pain Ratin Pain Location: NA Pain Goal: Remain pain free Pain Plan: See A&P Tomorrow's Labs & Rationales: See A&P
[2017-04-07 08:32] LABS: ABSOLUTE BASOPHIL COUNT 0 /CUMM (0.0-0.2); ABSOLUTE EOSINOPHIL COUNT 0 /CUMM (0.0-0.7); ABSOLUTE GRANULOCYTE CT 4.7 /CUMM (1.4-6.5); ABSOLUTE LYMPH COUNT 0.3 /CUMM (1.2-3.4); ABSOLUTE MONOCYTE COUNT 0 /CUMM (0.10-0.60); BASOPHIL % 0.1 % (0.0-2.0); EOSINOPHIL % 0.1 % (0-5); GRANULOCYTE % 92.9 % (42.2-75.2); HEMATOCRIT 31.6 % (37-47); MEAN CORPUSCULAR HGB 31.6 PG (27.0-31.0); MEAN CORPUSCULAR HGB CONC 32.8 G/DL (33.0-37.0); MEAN CORPUSCULAR VOLUME 96.2 FL (81.0-99.0); MEAN PLATELET VOLUME 7.4 FL (7.4-10.4); PLATELET COUNT 251 /CUMM (130-400); RED BLOOD CELL CT 3.29 /CUMM (4.20-5.40)
[2017-04-07 08:50] VITALS: BP 160/70
[2017-04-07 08:57] LABS: PT 41.3 SEC (9.4-12.5)
[2017-04-07 09:01] LABS: WHITE BLOOD CELL COUNT 5.1 /CUMM (4.8-10.8)
[2017-04-07 09:30] VITALS: BP 146/60
[2017-04-07 14:00] VITALS: BP 118/50
--- NOTE | 2017-04-07 15:10 | Cons- Cardiology ---
General Information and HPI Consulting Request Date of Consult: 04/07/17 Requested By: LUDWIN CHAND MD Reason for Consult: Worsening biventricular heart failure. History of Present Illness: Mrs. 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, AAA, paroxysmal atrial fibrillation with tachycardia/bradycardia syndrome, ultimately requiring permanent pacemaker implantation (VVI) so that the rapid ventricular response rates could be adequately controlled, previous troponin I elevation secondary to demand ischemia, left ventricular hypertrophy and presumed diastolic dysfunction, moderate mitral regurgitation, mild pulmonary hypertension, mild tricuspid regurgitation and recurrent admissions for acute exacerbations of her COPD and diastolic heart failure who again presents with progressive shortness of breath, weakness, decreased by mouth intake, and worsening bilateral lower extremity edema, despite being seen twice weekly at [facility] where she receives IV furosemide 60 mg 1 in addition to the by mouth furosemide 60 mg she receives twice daily. She denies any recent cough with or without sputum production, fever, chills, etc., as well as, chest discomfort, palpitations, etc. Her last echocardiogram was performed on 01/22/2017 and revealed: A normal size left ventricle with mild concentric left ventricular hypertrophy, no obvious regional wall motion abnormalities, and normal systolic function with an estimated ejection fraction of greater than 65%, normal right ventricular size and function, moderate atrial dilatation, pacemaker wire in right heart, and a mildly dilated inferior vena cava. The Doppler portion of the study revealed evidence of mild mitral stenosis, as well as, moderate mitral, trace aortic, [id number] tricuspid, and mild pulmonic regurgitation, and mild to moderate pulmonary hypertension. Allergies/Medications Allergies: Coded Allergies: levofloxacin (Severe, TONGUE SWELLING 01/13/16) Penicillins (UNKNOWN 01/13/16) Home Med List: Albuterol Sulfate (Proair Hfa) 90 MCG HFA.AER.AD 2 PUF INH Q4-6 PRN PRN SOB ( Reported) GIVEN 01/29/17 @ 0822 Allopurinol 100 MG TABLET 1 TAB PO DAILY GOUT (Reported) Aspirin (Ecotrin*) 81 MG TABLET.DR 1 TAB PO DAILY HEART HEALTH (Reported) Budesonide/Formoterol Fumarate (Symbicort 160-4.5 Mcg Inhaler) 160 MCG-4.5 MCG/ ACTUATION HFA.AER.AD 2 PUF INH BID COPD (Reported) Digoxin 125 MCG TABLET 1 TAB PO DAILY AFIB (Reported) Diltiazem HCl 120 MG TABLET 1 TAB PO TID HEART (Reported) Furosemide 40 MG TABLET 1 TAB PO DAILY WATER PILL (Reported) Lovastatin 40 MG TABLET 1 TAB PO DAILY CHOLESTEROL (Reported) with food Metoprolol Tartrate (Lopressor) 50 MG TABLET 1 TAB PO BID Heart health ( Reported) Potassium Chloride 10 MEQ TAB.ER.PRT 1 TAB PO DAILY SUPPLEMENT (Reported) Tramadol HCl 50 MG TABLET 1 TAB PO BID PRN PAIN (Reported) Warfarin Sodium (Coumadin) 2.5 MG TABLET 1 TAB PO DAILY BLOOD THINNER ( Reported) Past History Travel History Traveled to [place] past 21 day No Medical History Blood Transfusion Hx: No Neurological: NONE EENT: NONE Cardiovascular: AFIB, CHF, hypertension, hyperlipidemia, sick sinus syndrome s/p ppm Respiratory: COPD, pulmonary nodules lung carcinoma status post resection Hepatic: NONE Renal: NONE Musculoskeletal: NONE Psychiatric: NONE Endocrine: NONE Blood Disorders: NONE Cancer(s): bladder cancer, breast cancer, lung cancer 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 spouse Services at Home: Home Health Aide Primary Language: Com[place] Smoking Status: Former Smoker ETOH Use: denies use Illicit Drug Use: denies illicit drug use Living Will? yes Functional Ability ADLs Independent: dressing, eating, toileting, bathing. Ambulation: independent IADLs Independent: shopping, housework, finances, food prep. Exam & Diagnostic Data Vital Signs and I&O Vital Signs Date Time Temp Pulse Resp B/P B/P Pulse O2 O2 Flow FiO2 Mean Ox Delivery Rate 04/07 1403 68 118/50 04/07 1400 98.3 68 118/50 95 Nasal 3.0L Cannula 04/07 1037 Nasal 3.0L Cannula 04/07 0930 64 146/60 04/07 0850 98.2 160/70 99 BIPAP 40% 04/07 0833 95 Nasal 3.0L Cannula 04/07 0800 BIPAP 40% 04/07 0621 69 128/64 04/07 0550 65 96 04/07 0007 60 98 04/06 2330 96 BIPAP 40% 04/06 2253 97.6 61 22 136/64 86 Venti Mask 10L 04/06 2224 59 92 04/06 2211 96.8 60 28 141/71 91 BIPAP 40% 04/06 1912 60 92 04/06 1905 93 BIPAP 35% 04/06 1845 96.0 59 24 155/70 92 Aerosol 8L Mask 04/06 1835 92 Nasal 4.0L Cannula 04/06 1806 99 Nasal 4.0L Cannula 04/06 1746 24 88 Nasal 2.0L Cannula Intake & Output 04/07 1600 04/07 0800 04/07 0000 04/06 1600 04/06 0800 04/06 0000 Intake Total 880 200 Output Total 700 475 65 Balance 180 -275 -65 Intake, IV 400 Intake, Oral 480 200 Output, Urine 700 475 65 Patient 110 lb Weight Weight Reported by Patient Measurement Method Physical Exam: Chronically ill-appearing elderly female in no acute distress with nasal oxygen in place. Vital signs: See above. HEENT: Normocephalic, atraumatic, EOMI, sclerae dry mucous membranes. Neck: No JVD, no bruits. Lungs: Decreased breath sounds bilaterally, occasional rhonchi. Heart: S1, S2 with grade 1/6 systolic murmur. Abdomen: Soft, nontender, positive bowel sounds. Extremities: Trace edema. Labs/Nikita Results: Laboratory Tests 04/07 630 Chemistry Sodium (137 - 145 mmol/L) 135 L Potassium (3.5 - 5.1 mmol/L) 4.4 Chloride (98 - 107 mmol/L) 89 L Carbon Dioxide (22 - 30 mmol/L) 33 H Anion Gap (5 - 16) 14 BUN (7 - 17 mg/dL) 45 H Creatinine (0.5 - 1.0 mg/dL) 2.0 H Estimated GFR (>60 ml/min) 24 L BUN/Creatinine Ratio (7 - 25 %) 22.5 Phosphorus (2.5 - 4.5 mg/dL) 5.6 H Magnesium (1.6 - 2.3 mg/dL) 2.1 Troponin I (< 0.11 ng/ml) 0.05 Coagulation PT (9.4 - 12.5 SEC) 41.3 H INR (0.90 - 1.19) 3.99 H Hematology CBC w Diff MAN DIFF ORDERED WBC (4.8 - 10.8 /CUMM) 5.1 RBC (4.20 - 5.40 /CUMM) 3.29 L Hgb (12.0 - 16.0 G/DL) 10.4 L Hct (37 - 47 %) 31.6 L MCV (81.0 - 99.0 FL) 96.2 MCH (27.0 - 31.0 PG) 31.6 H RDW (11.5 - 14.5 %) 16.0 H Plt Count (130 - 400 /CUMM) 251 MPV (7.4 - 10.4 FL) 7.4 Gran % (42.2 - 75.2 %) 92.9 H Lymphocytes % (20.5 - 51.1 %) 6.2 L Monocytes % (1.7 - 9.3 %) 0.7 L Eosinophils % (0 - 5 %) 0.1 Basophils % (0.0 - 2.0 %) 0.1 Absolute Granulocytes (1.4 - 6.5 /CUMM) 4.7 Absolute Lymphocytes (1.2 - 3.4 /CUMM) 0.3 L Absolute Monocytes (0.10 - 0.60 /CUMM) 0 L Absolute Eosinophils (0.0 - 0.7 /CUMM) 0 Absolute Basophils (0.0 - 0.2 /CUMM) 0 Platelet Estimate (ADEQUATE) VERIFIED BY SMEAR Polychromasia 1+ Poikilocytosis 1+ Basophilic Stippling 1+ Anisocytosis 1+ Ovalocytes 1+ Stomatocytes 1+ PUBS MCHC (33.0 - 37.0 G/DL) 32.8 L Toxicology Digoxin (0.8 - 2.0 ng/mL) 2.2 H 04/07 04/07 0515 0015 Chemistry Sodium (137 - 145 mmol/L) 134 L Potassium (3.5 - 5.1 mmol/L) 5.1 Chloride (98 - 107 mmol/L) 90 L Carbon Dioxide (22 - 30 mmol/L) 28 Anion Gap (5 - 16) 16 BUN (7 - 17 mg/dL) 47 H Creatinine (0.5 - 1.0 mg/dL) 2.1 H Estimated GFR (>60 ml/min) 22 L BUN/Creatinine Ratio (7 - 25 %) 22.4 Troponin I (< 0.11 ng/ml) 0.05 Coagulation PT (9.4 - 12.5 SEC) 48.0 *H INR (0.90 - 1.19) 4.64 *H Urines Urinalysis LIGHT H Urine Color (YEL,AMB,STR) YEL Urine Clarity (CLEAR) CLEAR Urine pH (5.0 - 8.0) 6.0 Ur Specific [place] (1.001 - 1.035) 1.015 Urine Protein (NEG,<30 MG/DL) TRACE H Urine Ketones (NEG) NEG Urine Nitrite (NEG) NEG Urine Bilirubin (NEG) NEG Urine Urobilinogen (0.1 - 1.0 EU/dl) 0.2 Ur Leukocyte Esterase (NEG) NEG Ur Microscopic SEDIMENT EXAMINED Urine RBC (0 - 5 /HPF) 3-5 Urine WBC (0 - 2 /HPF) 1-3 H Ur Epithelial Cells (NONE,FEW) RARE Urine Bacteria (NEG/NONE) FEW H Hyaline Casts (0/LPF) 1-3 H Urine Hemoglobin (NEG) MOD H Urine Glucose (N MG/DL) NEG 04/06 Blood Gas pH (7.35 - 7.45 PH) 7.38 7.30 *L pCO2 (35 - 45 TORR) 47 H 57 H pO2 (80 - 100 TORR) 52 L 62 L HCO3 (21 - 28 MEQ/L) 28 28 ABG O2 Sat (Measured) (>96.0 %) 87.0 L 90.0 L P-50 (Temp Corrected) Y Y Carboxyhemoglobin (1.5 - 5.0 %) 1.1 L 0.8 L O2 Concentration % 35% 4L Temperature (97.0 - 100.0 FARH) 96.0 L 96.0 L Respiration Rate (BPM) 28 O2 Delivery Method BIPAP NC Vent Mode ST Expiratory Pressure (CM H2O P) 6 Inspiratory Pressure (CM H2O P) 14 Miscellaneous Phlebotomy Draw Site LEFT BRACHIAL RIGHT RADIAL 04/06 1811 Chemistry Sodium (137 - 145 mmol/L) 134 L Potassium (3.5 - 5.1 mmol/L) 5.3 H Chloride (98 - 107 mmol/L) 88 L Carbon Dioxide (22 - 30 mmol/L) 31 H Anion Gap (5 - 16) 15 BUN (7 - 17 mg/dL) 42 H Creatinine (0.5 - 1.0 mg/dL) 2.2 H Estimated GFR (>60 ml/min) 21 L BUN/Creatinine Ratio (7 - 25 %) 19.1 Glucose (65 - 99 mg/dL) 150 H Calcium (8.4 - 10.2 mg/dL) 9.4 Phosphorus (2.5 - 4.5 mg/dL) 6.9 H Magnesium (1.6 - 2.3 mg/dL) 2.4 H Total Bilirubin (0.2 - 1.3 mg/dL) 1.2 AST (14 - 36 U/L) 36 ALT (9 - 52 U/L) 44 Alkaline Phosphatase (<127 U/L) 81 Troponin I (< 0.11 ng/ml) 0.06 Lpk-F-Endhpxalvcl Pept (<125 pg/mL) 39369 H Total Protein (6.3 - 8.2 g/dL) 7.8 Albumin (3.5 - 5.0 g/dL) 4.5 Globulin (1.9 - 4.2 gm/dL) 3.3 Albumin/Globulin Ratio (1.1 - 2.2 %) 1.4 TSH (0.270 - 4.200 uIU/mL) 6.020 H Free T4 (0.85 - 1.93 ng/dL) 1.86 Coagulation PT (9.4 - 12.5 SEC) 46.5 *H INR (0.90 - 1.19) 4.49 *H Hematology CBC w Diff MAN DIFF ORDERED WBC (4.8 - 10.8 /CUMM) 10.8 RBC (4.20 - 5.40 /CUMM) 3.72 L Hgb (12.0 - 16.0 G/DL) 11.6 L Hct (37 - 47 %) 36.0 L MCV (81.0 - 99.0 FL) 96.6 MCH (27.0 - 31.0 PG) 31.3 H RDW (11.5 - 14.5 %) 16.5 H Plt Count (130 - 400 /CUMM) 359 MPV (7.4 - 10.4 FL) 7.1 L Gran % (42.2 - 75.2 %) 89.5 H Lymphocytes % (20.5 - 51.1 %) 4.1 L Monocytes % (1.7 - 9.3 %) 6.3 Eosinophils % (0 - 5 %) 0 Basophils % (0.0 - 2.0 %) 0.1 Absolute Granulocytes (1.4 - 6.5 /CUMM) 9.6 H Segmented Neutrophils (42.2 - 75.2 %) 80 H Band Neutrophils (0.0 - 5.0 %) 4 Absolute Lymphocytes (1.2 - 3.4 /CUMM) 0.4 L Lymphocytes (20.5 - 51.1 %) 7 L Monocytes (1.7 - 9.3 %) 8 Absolute Monocytes (0.10 - 0.60 /CUMM) 0.7 H Absolute Eosinophils (0.0 - 0.7 /CUMM) 0 Basophils (0.0 - 2.0 %) 1 Absolute Basophils (0.0 - 0.2 /CUMM) 0 Platelet Estimate (ADEQUATE) ADEQUATE Polychromasia 1+ Hypochromic-Microcytic 1+ Poikilocytosis 1+ Anisocytosis 1+ Macrocytic Cells 1+ Ovalocytes 1+ PUBS MCHC (33.0 - 37.0 G/DL) 32.4 L Toxicology Digoxin (0.8 - 2.0 ng/mL) 2.9 *H Diagnostic Data EKG Results (04/07/2017): Sinus rhythm first degree AV block, low frontal lead voltage, and non-diagnostic ST-T wave abnormalities in diffuse leads. Slightly faster rate when compared to previous tracing performed earlier today that revealed proper pacemaker function. CXR Results (04/06/2017): Stable cardiomegaly. Multifocal airspace disease concerning for pneumonia. Small pleural effusions. 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 Recommendations: * Telemetry admission, follow-up troponins, follow-up electrocardiograms. * IV furosemide 60 mg twice daily and reassess the need for further IV diuresis in the morning. * Strict inputs/outputs and daily weights. * Follow-up BUN/creatinine, potassium, magnesium, closely. * Continue the rest of her cardiac regimen. * She is due for a pacemaker interrogation and [employer] will be contacted. * Her last echocardiogram was performed and January of this year, so this does not need to be repeated at this time. * DVT prophylaxis. Consult Acknowledgment - Thank you for your consult request.
[2017-04-07 16:05] VITALS: BP 108/54
--- NOTE | 2017-04-07 20:58 | Cons- Pulmonary ---
General Information and HPI Consulting Request Date of Consult: 04/07/17 Requested By: Med team History of Present Illness: Mrs. 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, AAA, paroxysmal atrial fibrillation with tachycardia/bradycardia syndrome, ultimately requiring permanent pacemaker implantation (VVI) so that the rapid ventricular response rates could be adequately controlled, previous troponin I elevation secondary to demand ischemia, left ventricular hypertrophy and presumed diastolic dysfunction, moderate mitral regurgitation, mild pulmonary hypertension, mild tricuspid regurgitation and recurrent admissions for acute exacerbations of her COPD and diastolic heart failure who again presents with progressive shortness of breath, weakness, decreased by mouth intake, and worsening bilateral lower extremity edema, despite being seen twice weekly at [facility] where she receives IV furosemide 60 mg 1 in addition to the by mouth furosemide 60 mg she receives twice daily. She denies any recent cough with or without sputum production, fever, chills, etc., as well as, chest discomfort, palpitations, etc. Her last echocardiogram was performed on 01/22/2017 and revealed: A normal size left ventricle with mild concentric left ventricular hypertrophy, no obvious regional wall motion abnormalities, and normal systolic function with an estimated ejection fraction of greater than 65%, normal right ventricular size and function, moderate atrial dilatation, pacemaker wire in right heart, and a mildly dilated inferior vena cava. The Doppler portion of the study revealed evidence of mild mitral stenosis, as well as, moderate mitral, trace aortic, [id number] tricuspid, and mild pulmonic regurgitation, and mild to moderate pulmonary hypertension. Since she came in she has been having significant cough and subsequently was investigated with a CT scan of the chest which showed cardiomegaly multifocal airspace disease with small bilateral pleural effusion hence this consult. She has had the PET CT scan done every year for evaluation of right lower lobe nodule which had showed no FDG activity. There was no other additional metastatic lesions noted she also did have bilateral pleural effusion with aortic aneurysm as well. Since she came in she has been receiving Lasix and she has had adequate urine output. She also has been put on antibiotics since admission. No fever no chills was noted since admission however patient has had the been on prednisone. Since she came in she also was noted to have acute hypercarbic respiratory failure and shortness of breath. She was treated with BiPAP overnight. She felt much better since then. Then she wishes not to go back on the BiPAP. She does use oxygen at times. She also has a nebulizer machine. She uses occasionally. She has not been smoking for many years now. Allergies/Medications Allergies: Coded Allergies: levofloxacin (Severe, TONGUE SWELLING 01/13/16) Penicillins (UNKNOWN 01/13/16) Home Med List: Albuterol Sulfate (Proair Hfa) 90 MCG HFA.AER.AD 2 PUF INH Q4-6 PRN PRN SOB ( Reported) GIVEN 01/29/17 @ 0822 Allopurinol 100 MG TABLET 1 TAB PO DAILY GOUT (Reported) Aspirin (Ecotrin*) 81 MG TABLET.DR 1 TAB PO DAILY HEART HEALTH (Reported) Budesonide/Formoterol Fumarate (Symbicort 160-4.5 Mcg Inhaler) 160 MCG-4.5 MCG/ ACTUATION HFA.AER.AD 2 PUF INH BID COPD (Reported) Digoxin 125 MCG TABLET 1 TAB PO DAILY AFIB (Reported) Diltiazem HCl 120 MG TABLET 1 TAB PO TID HEART (Reported) Furosemide 40 MG TABLET 1 TAB PO DAILY WATER PILL (Reported) Lovastatin 40 MG TABLET 1 TAB PO DAILY CHOLESTEROL (Reported) with food Metoprolol Tartrate (Lopressor) 50 MG TABLET 1 TAB PO BID Heart health ( Reported) Potassium Chloride 10 MEQ TAB.ER.PRT 1 TAB PO DAILY SUPPLEMENT (Reported) Tramadol HCl 50 MG TABLET 1 TAB PO BID PRN PAIN (Reported) Warfarin Sodium (Coumadin) 2.5 MG TABLET 1 TAB PO DAILY BLOOD THINNER ( Reported) Review of Systems Review of Systems Constitutional: Reports: see HPI. 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 spouse Services at Home: Home Health Aide Primary Language: Croatian Smoking Status: Former Smoker ETOH Use: denies use Illicit Drug Use: denies illicit drug use Living Will? yes Functional Ability ADLs Independent: dressing, eating, toileting, bathing. Ambulation: independent IADLs Independent: shopping, housework, finances, food prep. Exam & Diagnostic Data Last 24 Hrs of Vital Signs/I&O Vital Signs Date Time Temp Pulse Resp B/P B/P Pulse O2 O2 Flow FiO2 Mean Ox Delivery Rate 04/07 1845 94 Nasal 3.0L Cannula 04/07 1605 98.4 72 22 108/54 94 Nasal 3.0L Cannula 04/07 1600 94 Nasal 3.0L Cannula 04/07 1403 68 118/50 04/07 1400 98.3 68 22 118/50 95 Nasal 3.0L Cannula 04/07 1037 Nasal 3.0L Cannula 04/07 0930 64 146/60 04/07 0850 98.2 68 22 160/70 99 BIPAP 40% 04/07 0833 95 Nasal 3.0L Cannula 04/07 0800 BIPAP 40% 04/07 0621 69 128/64 04/07 0550 65 96 04/07 0007 60 98 04/06 2330 96 BIPAP 40% 04/06 2253 97.6 61 22 136/64 86 Venti Mask 10L 04/06 2224 59 92 04/06 2211 96.8 60 28 141/71 91 BIPAP 40% Intake & Output 04/07 1600 04/07 0800 04/07 0000 Intake Total 880 200 Output Total 700 475 65 Balance 180 -275 -65 Intake, IV 400 Intake, Oral 480 200 Output, Urine 700 475 65 Patient 110 lb Weight Weight Reported by Patient Measurement Method Last 48 Hrs of Labs/Nikita: Laboratory Tests 04/07/17 0630: Anion Gap 14, Estimated GFR 24 L, BUN/Creatinine Ratio 22.5, Phosphorus 5.6 H, Magnesium 2.1, Troponin I 0.05, PT 41.3 H, INR 3.99 H, CBC w Diff MAN DIFF ORDERED, RBC 3.29 L, MCV 96.2, MCH 31.6 H, RDW 16.0 H, MPV 7.4, Gran % 92.9 H, Lymphocytes % 6.2 L, Monocytes % 0.7 L, Eosinophils % 0.1, Basophils % 0.1, Absolute Granulocytes 4.7, Absolute Lymphocytes 0.3 L, Absolute Monocytes 0 L, Absolute Eosinophils 0, Absolute Basophils 0, Platelet Estimate VERIFIED BY SMEAR, Polychromasia 1+, Poikilocytosis 1+, Basophilic Stippling 1+, Anisocytosis 1+, Ovalocytes 1+, Stomatocytes 1+, PUBS MCHC 32.8 L, Digoxin 2.2 H 04/07/17 0515: Urinalysis LIGHT H, Urine Color YEL, Urine Clarity CLEAR, Urine pH 6.0, Ur Specific [place] 1.015, Urine Protein TRACE H, Urine Ketones NEG, Urine Nitrite NEG, Urine Bilirubin NEG, Urine Urobilinogen 0.2, Ur Leukocyte Esterase NEG, Ur Microscopic SEDIMENT EXAMINED, Urine RBC 3-5, Urine WBC 1-3 H, Ur Epithelial Cells RARE, Urine Bacteria FEW H, Hyaline Casts 1-3 H, Urine Hemoglobin MOD H , Urine Glucose NEG 04/07/17 0015: Anion Gap 16, Estimated GFR 22 L, BUN/Creatinine Ratio 22.4, Troponin I 0.05, PT 48.0 *H, INR 4.64 *H 04/06/172054: pH 7.38, pCO2 47 H, pO2 52 L, HCO3 28, ABG O2 Sat (Measured) 87.0 L, P-50 ( Temp Corrected) Y, Carboxyhemoglobin 1.1 L, O2 Concentration % 35%, Temperature 96.0 L, Respiration Rate 28, O2 Delivery Method BIPAP, Vent Mode ST, Expiratory Pressure 6, Inspiratory Pressure 14, Phlebotomy Draw Site LEFT BRACHIAL 04/06/17 183: pH 7.30 *L, pCO2 57 H, pO2 62 L, HCO3 28, ABG O2 Sat (Measured) 90.0 L, P-50 (Temp Corrected) Y, Carboxyhemoglobin 0.8 L, O2 Concentration % 4L, Temperature 96.0 L, O2 Delivery Method NC, Phlebotomy Draw Site RIGHT RADIAL 04/06/17 1811: Anion Gap 15, Estimated GFR 21 L, BUN/Creatinine Ratio 19.1, Glucose 150 H, Calcium 9.4, Phosphorus 6.9 H, Magnesium 2.4 H, Total Bilirubin 1.2, AST 36, ALT 44, Alkaline Phosphatase 81, Troponin I 0.06, Ccp-N-Txhpffgcoqy Pept 83131 H, Total Protein 7.8, Albumin 4.5, Globulin 3.3, Albumin/Globulin Ratio 1.4, TSH 6.020 H, Free T4 1.86, PT 46.5 *H, INR 4.49 *H, CBC w Diff MAN DIFF ORDERED, RBC 3.72 L, MCV 96.6, MCH 31.3 H, RDW 16.5 H, MPV 7.1 L, Gran % 89.5 H, Lymphocytes % 4.1 L, Monocytes % 6.3, Eosinophils % 0, Basophils % 0.1, Absolute Granulocytes 9.6 H, Segmented Neutrophils 80 H, Band Neutrophils 4, Absolute Lymphocytes 0.4 L, Lymphocytes 7 L, Monocytes 8, Absolute Monocytes 0.7 H, Absolute Eosinophils 0, Basophils 1, Absolute Basophils 0, Platelet Estimate ADEQUATE, Polychromasia 1+, Hypochromic-Microcytic 1+, Poikilocytosis 1 +, Anisocytosis 1+, Macrocytic Cells 1+, Ovalocytes 1+, PUBS MCHC 32.4 L, Digoxin 2.9 *H Assessment/Plan Impression/Plan: Physical Exam: Chronically ill-appearing elderly female in no acute distress with nasal oxygen in place. Vital signs: See above. HEENT: Normocephalic, atraumatic, EOMI, sclerae dry mucous membranes. Neck: No JVD, no bruits. Lungs: Decreased breath sounds bilaterally, occasional rhonchi. Heart: S1, S2 with grade 1/6 systolic murmur. Abdomen: Soft, nontender, positive bowel sounds. Extremities: Trace edema SIGNIFICANT DATA chest x-ray reviewed which showed multifocal airspace disease small effusions Previous ultrasound of the aorta showed aortic aneurysm which is 3.5 cm Previous PET scan reviewed ABGs reviewed which showed the that her PCO2 is more than 57 upon admission was 7.30 pH which improved subsequently as noted in the computer her INR was elevated at 3.99 her creatinine is elevated at 2. She does have mild chronic kidney disease which seems to have worsened since admission bicarbonate was elevated at 33 white count 5.1 down from 10 since admission 89% granulocytes hemoglobin has been relatively low IMPRESSION This is an 86-year-old lady with history of a significant COPD, hypertension, hyperlipidemia, diabetes, gout, former tobacco use, previous pulmonary nodules being followed by PET scan with last CT and PET did not reveal any evidence of recurrence of malignancy, previous right upper lobectomy in 2007 for non-small cell lung cancer for poorly differentiated adenocarcinoma, abdominal aortic aneurysm, paroxysmal atrial fibrillation with tachybradycardia syndrome, significant pulmonary hypertension, recurrent admissions to COPD exacerbation and diastolic heart failure however again comes in with increasing shortness of breath. Her issues include * Acute hypercarbic and hypoxemic respiratory failure most likely related to fluid overload with acute diastolic heart failure * She does have significant COPD with mild COPD exacerbation * No clinical evidence suggestive of significant bacterial pneumonitis even though the chest x-ray suggestive of that. She probably does have significant emphysema and she may have atypical pulmonary edema pattern * Aortic aneurysm which needs to be followed * Proximal atrial fibrillation with tachybradycardia syndrome on appropriate anticoagulation * Worsening overall performance status * Osteoporosis * Kyphoscoliosis with obstructive restrictive lung disease * Bilateral pleural effusion related to heart failure * Acute on chronic kidney disease with acute renal failure due to low flow state RECOMMENDATION Continue aggressive diuresis Continue antibiotics for today and didn't change her to by mouth Ceftin tomorrow Reduce prednisone to 30 mg and wean off in 6 days Jqroa-[id number] nebulizer therapy Start Spiriva 1 puff daily Hold off on further BiPAP if patient has improved Watch renal function Check urine electrolytes ABG only if patient deteriorates Cardiology evaluation noted continue to follow the recommendations Prognosis guarded Consult Acknowledgment - Thank you for your consult request.
[2017-04-08 00:31] VITALS: BP 120/56
[2017-04-08 08:06] VITALS: BP 116/56
--- NOTE | 2017-04-08 08:43 | PN- Housestaff ---
See Addendum Subjective Follow-up For: 1. Acute hypoxic/hypercarbic respiratory failure 2. Possible CHF exacerbation 3. Possible pneumonia 4. PAULA on CKD 5. elevated digoxin level 6. hyperkalemia, hyper phosphatemia, hypermagnesemia 7. LE edema with right lower leg skin ulcer Tele-Events Since Last Visit: Normal sinus rhythm, heart rate 58-75, no overnight events. Oxygen pulse oximetry was on the 90s overnight Subjective: Afebrile since admission and hemodynamically stable. Patient saturating lower 90s on 3 L of oxygen. No overnight event reported. Patient has no current active complaints. Review of Systems Constitutional: Reports: no symptoms. Objective Last 24 Hrs of Vital Signs/I&O Vital Signs Date Time Temp Pulse Resp B/P B/P Pulse O2 O2 Flow FiO2 Mean Ox Delivery Rate 04/08 0806 98.2 70 20 116/56 93 Nasal 3.0L Cannula 04/08 0800 93 Nasal 3.0L Cannula 04/08 0547 64 128/62 04/08 0303 59 96 04/08 0031 98.0 60 20 120/56 96 Nasal 3.0L Cannula 04/08 0000 Nasal 3.0L Cannula 04/07 2128 74 116/46 04/07 2128 95 Nasal 3.0L Cannula 04/07 1845 94 Nasal 3.0L Cannula 04/07 1605 98.4 72 22 108/54 94 Nasal 3.0L Cannula 04/07 1600 93 Nasal 3.0L Cannula 04/07 1600 94 Nasal 3.0L Cannula 04/07 1403 68 118/50 04/07 1400 98.3 68 22 118/50 95 Nasal 3.0L Cannula 04/07 1037 Nasal 3.0L Cannula Intake & Output 04/08 1600 04/08 0800 04/08 0000 Intake Total 200 1080 Output Total 450 350 Balance -250 730 Intake, IV 600 Intake, Oral 200 480 Output, Urine 450 350 Patient 53.694 kg Weight Weight Chair scale Measurement Method Physical Exam General Appearance: Alert, Oriented X3, Cooperative, No Acute Distress HEENT: Atraumatic, PERRLA, EOMI, Mucous Membr. moist/pink Cardiovascular: Regular Rate, Normal S1, Normal S2, No Murmurs Lungs: diminished air entry over lung bases bilaterally Abdomen: Soft, No Tenderness Neurological: Normal Speech Extremities: No Clubbing, No Cyanosis, No Edema Current Medications: Current Medications Sig/Elle Start time Last Medication Dose Route Stop Time Status Admin Acetaminophen 650 MG Q6P PRN 04/06 2215 AC PO Albuterol Sulfate 3 ML BID 04/07 1000 AC 04/07 INH 1845 Allopurinol 100 MG DAILY 04/07 1000 AC 04/08 PO 0933 Aspirin Buffered 81 MG DAILY 04/07 1000 AC 04/08 PO 0932 Atorvastatin Calcium 10 MG 1700 04/07 1700 AC 04/07 PO 1614 Azithromycin 500 MG 2100 04/07 2100 AC 04/07 Sodium Chloride 250 ML IV 212 Ceftriaxone Sodium 1,000 MG 2100 04/07 2100 AC 04/07 IV 2126 Diltiazem HCl 120 MG Q8 04/07 0600 AC 04/08 PO 0547 Furosemide 60 MG ONCE ONE 04/07 1615 DC 04/07 IV 04/07 161 1614 Furosemide 80 MG .STK-MED ONE 04/07 1606 DC IV 04/07 1607 Furosemide 60 MG BID 04/07 1554 DC IV Oxycodone/ 1 TAB Q6P PRN 04/06 2215 AC Acetaminophen PO Prednisone 10 MG DAILY 04/12 1000 AC PO 04/13 1001 Prednisone 20 MG DAILY 04/10 1000 AC PO 04/11 1001 Prednisone 30 MG DAILY 04/08 1000 AC 04/08 PO 04/09 1001 0932 Prednisone 40 MG DAILY 04/07 1000 DC 04/07 PO 1021 Ramelteon 8 MG ONCE ONE 04/08 0445 DC 04/08 PO 04/08 0446 0450 Sodium Chloride 1,000 ML Q20H 04/07 0115 DC 04/07 IV 04/07 2114 0203 Tiotropium Marcus 1 PUF DAILY 04/08 1000 AC 04/08 INH 0933 Last 24 Hrs of Lab/Nikita Results Last 24 Hrs of Labs/Mics: Laboratory Tests 04/08/17 0649: Anion Gap 11, Estimated GFR 27 L, BUN/Creatinine Ratio 25.0, CBC w Diff Pending , WBC Pending, RBC Pending, Hgb Pending, Hct Pending, MCV Pending, MCH Pending, RDW Pending, Plt Count Pending, MPV Pending, PUBS MCHC Pending, Digoxin 1.8 Assessment/Plan Assessment: Patient is a 86 year-old lady with PMH of Afib on coumadin, COPD not on home O2, CHF, HTN, HLD, tachybrady syndrome s/p pacemaker, 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 Patient is admitted to telemetry with possible CHF exacerbation and pneumonia. #Acute hypoxic/hypercarbic respiratory failure Most likely due to CHF exacerbation given LE edema, bibasilar crackles, elevated proBNP and Small pleural effusions on CXray . Also possible pneumonia given CXR: Multifocal airspace disease concerning for pneumonia, but she is afebrile with no leukocytosis. SO2 88-89% on arrival. ABG: chronic compensated respiratory acidosis. Patient recieved IV [id number] mg IV one time on ED. * continuous pulse oxymetry * O2 supplementation as needed * We will continue diuresis * Switch IV antibiotic to Cefuroxime 250 BID * We will reduce prednisone to 30 mg and finish tapering in 6 days * We will start Spiriva 1 puff daily * Follow-up blood culture and sputum culture. * TRC/Nebs #PAULA on CKD BUN/Cr: 42/2.2 most likely secondary to CHF. Creatinine improved today to 1.8 * Check renal function daily #Elevated serum digoxin level at admission (2.9) Last digoxin taken on 04/05/17 5 pm. Most likely etiology of elevated Dig level: renal failure. Except for generalized weakness, patient has no other clinical findings of Digoxin toxicity. Arrhythmias caused by dig toxicity can not be rule out in this patient as she has a pacemaker. Digoxin level this a.m. is 1.8 down from 2.9 with normal level being less than 2 * We will most likely start digoxin later today after confirming with parole supervisor #Atrial fibrillation, HTN, HLD On Coumadin and Diltiazem. Coumadin is in hold because of supratherapeutic INR. INR today is 3.92. * Will continue PO diltiazem 120 mg Q8 * INR supratherapeutic, will repeat INR and dose coumadin to keep in therapeutic range of 2-3 * Continue aspirin and statin #Hyperkalemia, hyperphosphatemia, hypermagnesemia Most likely due to PAULA on top of CKD. This morning potassium is 4. Yesterday magnesium was 2.1 and phosphorus is 5.6. * Repeat BEP in am #Lower Extremity skin ulcer stage 1 skin ulcer covered with Xeroform and Kerlix * wound consult #Gout * held allopurinol due to PAULA #Macular degeneration * continue Karlos 128 1 drop on both eyes every 6h #Aortic aneurysm * We will instruct patient to address this as an outpatient DVT prophylaxis with Coumadin(on hold because she supratherapeutic INR) Pain: tylenol for mild pain and percocet for severe pain Heart healthy diet DNR/DNI Problem List: 1. Respiratory failure Pain Ratin Pain Location: Na Pain Goal: Remain pain free Pain Plan: See A&P Tomorrow's Labs & Rationales: BEP and INR
[2017-04-08 09:04] LABS: ABSOLUTE BASOPHIL COUNT 0 /CUMM (0.0-0.2); ABSOLUTE EOSINOPHIL COUNT 0 /CUMM (0.0-0.7); ABSOLUTE GRANULOCYTE CT 7.3 /CUMM (1.4-6.5); ABSOLUTE LYMPH COUNT 0.3 /CUMM (1.2-3.4); ABSOLUTE MONOCYTE COUNT 0.3 /CUMM (0.10-0.60); BASOPHIL % 0.1 % (0.0-2.0); EOSINOPHIL % 0 % (0-5); GRANULOCYTE % 91.5 % (42.2-75.2); HEMATOCRIT 27.6 % (37-47); MEAN CORPUSCULAR HGB 31.2 PG (27.0-31.0); MEAN CORPUSCULAR HGB CONC 32.5 G/DL (33.0-37.0); MEAN CORPUSCULAR VOLUME 95.8 FL (81.0-99.0); MEAN PLATELET VOLUME 7.3 FL (7.4-10.4); PLATELET COUNT 237 /CUMM (130-400); RBC DISTRIBUTION WIDTH 15.6 % (11.5-14.5); RED BLOOD CELL CT 2.89 /CUMM (4.20-5.40)
--- NOTE | 2017-04-08 10:53 | ECHOCARDIOGRAM REPORT ---
YESY DUBOIS Age: 86 : 1930 Gender: F Exam Date: 04/07/2017 19:43 Exam Location: [address] Ht (in): 63 Wt (lb): 109 BSA: 1.48 BP: 108 / 54 Ordering Physician: SEYMOUR LAINEZ MD Referring Physician: Oziel Dick MD Technologist: Racquel Billy [facility] Room Number: 180-01 Indications: HEART FAILURE Rhythm: Atrial fibrillation; pacemaker Technical Quality: Fair FINDINGS Left Ventricle Normal size left ventricle. Mild concentric left ventricular hypertrophy. Normal left ventricular wall motion. Normal left ventricular ejection fraction visually estimated at > 65%. Right Ventricle Normal right ventricular size and function. Catheter/pacemaker wire in the right ventricular cavity. Right Atrium Moderate right atrial dilatation. Catheter/pacemaker wire in the right atrial cavity. Left Atrium Moderate left atrial dilatation. Mitral Valve Moderate mitral annular calcification. Mild subvalvular mitral calcification. Mitral valve thickened. Moderate mitral regurgitation. Aortic Valve Trileaflet aortic valve. Diffuse mild thickening of the aortic valve cusps with mildly reduced excursion. Very mild aortic stenosis. No aortic regurgitation. Tricuspid Valve Structurally normal tricuspid valve. Moderate tricuspid regurgitation. Moderate pulmonary hypertension. Right ventricular systolic pressure estimated to be elevated at 49 mmHg. Pulmonic Valve Pulmonic valve not well visualized, grossly normal. Mild pulmonic regurgitation. Pericardium No pericardial effusion. Left pleural effusion. Great Vessels Normal size aortic root. Upper normal size inferior vena cava. CONCLUSIONS Normal size left ventricle. Mild concentric left ventricular hypertrophy. Normal left ventricular wall motion. Normal left ventricular ejection fraction visually estimated at > 65%. Normal right ventricular size and function. Moderate right atrial dilatation. Catheter/pacemaker wire in the right atrial/ventricular cavities. Moderate left atrial dilatation. Moderate mitral regurgitation. Very mild aortic stenosis. Moderate tricuspid regurgitation. Moderate pulmonary hypertension. Mild pulmonic regurgitation. Left pleural effusion. Oziel Dick M.D. (Electronically Signed) Final Date: 08 Apr 2017 10:52 MEASUREMENTS (Male / Female) Normal Values 2D ECHO LV Diastolic Diameter PLAX 3.4 cm 4.2 - 5.9 / 3.9 - 5.3 cm LV Systolic Diameter PLAX 2.1 cm 2.1 - 4.0 cm LV Fractional Shortening PLAX 38.2 % 25 - 46 % LV Ejection Fraction 2D Teich 69.6 % IVS Diastolic Thickness 1.1 cm LVPW Diastolic Thickness 1.0 cm LV Relative Wall Thickness 0.6 RV Internal Dim ED PLAX 3.0 cm 1.9 - 3.8 cm LVOT Diameter 1.8 cm Aortic Root Diameter 2.7 cm LA Systolic Diameter LX 4.3 cm 3.0 - 4.0 / 2.7 - 3.8 cm LA Volume 64.0 cm 18 - 58 / 22 - 52 cm Ascending Aorta Diameter 2.8 cm DOPPLER AV Peak Velocity 210.0 cm/s AV Peak Gradient 17.6 mmHg AV Mean Velocity 132.0 cm/s AV Mean Gradient 8.0 mmHg AV Velocity Time Integral 43.0 cm LVOT Peak Velocity 131.0 cm/s LVOT Peak Gradient 6.9 mmHg LVOT Mean Velocity 92.0 cm/s LVOT Mean Gradient 4.0 mmHg LVOT Velocity Time Integral 29.0 cm LVOT Stroke Volume 73.8 cm AV Area Cont Eq vti 1.7 cm AV Area Cont Eq pk 1.6 cm MV Peak Velocity 158.0 cm/s MV Peak Gradient 10.0 mmHg MV Mean Velocity 63.1 cm/s MV Mean Gradient 2.0 mmHg Mitral E Point Velocity 151.0 cm/s MV PHT Velocity 160.0 cm/s MV Deceleration [place] 744.0 cm/s MV Pressure Half Time 64.5 ms MV Area PHT 3.4 cm MV Deceleration Time 151.0 ms TR Peak Velocity 333.0 cm/s TR Peak Gradient 44.4 mmHg Right Atrial Pressure 5.0 mmHg Pulmonary Artery Systolic Pressu 49.4 mmHg Right Ventricular Systolic Press 49.4 mmHg PV Peak Velocity 116.0 cm/s PV Peak Gradient 5.4 mmHg PV Mean Velocity 78.4 cm/s PV Mean Gradient 3.0 mmHg PV Velocity Time Integral 26.3 cm LV E' Lateral Velocity 11.3 cm/s Mitral E to LV E' Lateral Ratio 13.4 LV E' Septal Velocity 5.7 cm/s Mitral E to LV E' Septal Ratio 26.7
[2017-04-08 11:01] LABS: PT 40.6 SEC (9.4-12.5)
--- NOTE | 2017-04-08 13:49 | Discharge Summary ---
Visit Information Visit Dates Admission Date: 04/06/17 Discharge Date: 04/11/2017 Hospital Course Course Attending Physician: LUDWIN CHAND MD Primary Care Physician: VAHID SILVERIO MD Consulting Request: Consulting Specialty: Pulmonary Disease Consulting Physician: DR HENDERSON Reason for Consult: ACUTE HYPERCARBIC AND HYPOXEMIC RESPIRATORY FAILURE Hospital Course: Patient is 86-year-old female with past medical history significant for chronic atrial fibrillation on Coumadin, tachybradycardia syndrome status post pacemaker placement, diastolic heart failure, COPD, security stage IIIB, hypertension, 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 Patient is following up with congestive heart failure clinic and received Lasix infusion twice a week. She had been under a lot of stress recently and lost her recently and had his general the day of admission. Vitals on admission were temperature normal, tachypnea, blood pressure 136/64 and she was saturating 91% on BiPAP with FiO2 40%. Labs at admission were INR 4.49, K 5.3, bicarb 31, BUN 42, creat 2.2 (baseline 1.3 1.5), trop 0.06, proBNP 31610, digoxin level 2.9. CXR: stable cardiomegaly, multifocal airspace disease concerning for pneumonia, small pleural effusions. AB.30/57/62/28 -- > 7.38/47/52/28. Echo (January 2017): EF > 65%. EKG: Paced. The patient was admitted to telemetry floor following problems were addressed 1. Acute hypercarbic, hypoxemic respiratory failure most likely due to CHF exacerbation Patient was started on aggressive diuresis therapy with 60 mg IV Lasix twice a day and she was responding fairly well. Patient was kept on negative fluid balance. Strict ins and outs were monitored. Cardiology was on board. We will discharge patient on 60 mg by mouth Lasix twice a day and patient was instructed to follow-up with Dr. Dick in 1 week of discharge. 2. history of significant COPD with COPD exacerbation/questionable pneumonia/ bronchitis Patient was started on IV Solu-Medrol which was later on changed to prednisone taper. She received ceftriaxone and azithromycin as initially which was changed to oral Ceftin and she will complete a course of 7 days. Oxygen saturation was More than 90% with supplemental oxygen. Patient might need oxygen on discharge. 3. History of atrial fibrillation on anticoagulation with elevated INR on admission Her INR was supratherapeutic on admission which was nicely came down and patient was getting Coumadin when her INR became therapeutic. As her heart rate has been acceptable, would maintain off digoxin and metoprolol for now. These may need to be restarted on an outpatient basis as she becomes more active. Would continue on the diltiazem 120 mg 3 times daily with possible switch to diltiazem CD 360 mg daily on outpatient basis. Continue on warfarin anticoagulation for her chronic atrial fibrillation with a goal INR of 2.5 and a range of 2.0-3.0. Close INR monitoring will be necessary (vide infra).INR needs to be checked at least 1-2 times a week. On day of discharge her INR was subtherapeutic to 1.66 and was given 3 mg of Coumadin but patient will take 2.5 mg of warfarin daily as outpatient and was instructed to repeat INR on 04/15/2017 and will follow up with PCP/ logistician for further advice regarding dosing 4. Worsening performance status/deconditioning PT was on board and patient will be discharged to short-term rehabilitation. 5. Acute on chronic kidney disease Initially her creatinine function went up which during the course of treatment came to her baseline and nephrotoxic medications including allopurinol was held but was continued on discharge 6. Elevated digoxin level Her dig level was toxic on admission and the held her digoxin and as per logistician recommendation patient does not need to restart digoxin anymore. 7. Electrolyte imbalance Daily basic electrolyte panel were checked and patient was repleted accordingly. 8. Aortic aneurysm Patient was instructed to follow-up at aortic aneurysm as outpatient. 9. History of gout Her allopurinol was held due to PAULA but we will resume on discharge 10. History of hyperlipidemia Her home medications were continued 11. elevated TSH Patient was instructed to f/u with PCP as out patient to recheck TSH and free t4 Complications: NONE Allergies: Coded Allergies: levofloxacin (Severe, TONGUE SWELLING 01/13/16) Penicillins (UNKNOWN 01/13/16) Significant Procedures: SHERLYYESY Age: 86 : 1930 Gender: F Exam Date: 04/07/2017 19:43 Exam Location: [address] [facility] Ht (in): 63 Wt (lb): 109 BSA: 1.48 BP: 108 / 54 Ordering Physician: SEYMOUR LAINEZ MD Referring Physician: Beverley Dick MD Technologist: Racquel Billy [facility] Room Number: 180-01 Indications: HEART FAILURE Rhythm: Atrial fibrillation; pacemaker Technical Quality: Fair FINDINGS Left Ventricle Normal size left ventricle. Mild concentric left ventricular hypertrophy. Normal left ventricular wall motion. Normal left ventricular ejection fraction visually estimated at > 65%. Right Ventricle Normal right ventricular size and function. Catheter/pacemaker wire in the right ventricular cavity. Right Atrium Moderate right atrial dilatation. Catheter/pacemaker wire in the right atrial cavity. Left Atrium Moderate left atrial dilatation. Mitral Valve Moderate mitral annular calcification. Mild subvalvular mitral calcification. Mitral valve thickened. Moderate mitral regurgitation. Aortic Valve Trileaflet aortic valve. Diffuse mild thickening of the aortic valve cusps with mildly reduced excursion. Very mild aortic stenosis. No aortic regurgitation. Tricuspid Valve Structurally normal tricuspid valve. Moderate tricuspid regurgitation. Moderate pulmonary hypertension. Right ventricular systolic pressure estimated to be elevated at 49 mmHg. Pulmonic Valve Pulmonic valve not well visualized, grossly normal. Mild pulmonic regurgitation. Pericardium No pericardial effusion. Left pleural effusion. Great Vessels Normal size aortic root. Upper normal size inferior vena cava. CONCLUSIONS Normal size left ventricle. Mild concentric left ventricular hypertrophy. Normal left ventricular wall motion. Normal left ventricular ejection fraction visually estimated at > 65%. Normal right ventricular size and function. Moderate right atrial dilatation. Catheter/pacemaker wire in the right atrial/ventricular cavities. Moderate left atrial dilatation. Moderate mitral regurgitation. Very mild aortic stenosis. Moderate tricuspid regurgitation. Moderate pulmonary hypertension. Mild pulmonic regurgitation. Left pleural effusion. Beverley Dick M.D. (Electronically Signed) Final Date: 08 Apr 2017 10:52 MEASUREMENTS (Male / Female) Normal Values 2D ECHO LV Diastolic Diameter PLAX 3.4 cm 4.2 - 5.9 / 3.9 - 5.3 cm LV Systolic Diameter PLAX 2.1 cm 2.1 - 4.0 cm LV Fractional Shortening PLAX 38.2 % 25 - 46 % LV Ejection Fraction 2D Teich 69.6 % IVS Diastolic Thickness 1.1 cm LVPW Diastolic Thickness 1.0 cm LV Relative Wall Thickness 0.6 RV Internal Dim ED PLAX 3.0 cm 1.9 - 3.8 cm LVOT Diameter 1.8 cm Aortic Root Diameter 2.7 cm LA Systolic Diameter LX 4.3 cm 3.0 - 4.0 / 2.7 - 3.8 cm LA Volume 64.0 cm 18 - 58 / 22 - 52 cm Ascending Aorta Diameter 2.8 cm DOPPLER AV Peak Velocity 210.0 cm/s AV Peak Gradient 17.6 mmHg AV Mean Velocity 132.0 cm/s AV Mean Gradient 8.0 mmHg AV Velocity Time Integral 43.0 cm LVOT Peak Velocity 131.0 cm/s LVOT Peak Gradient 6.9 mmHg LVOT Mean Velocity 92.0 cm/s LVOT Mean Gradient 4.0 mmHg LVOT Velocity Time Integral 29.0 cm LVOT Stroke Volume 73.8 cm AV Area Cont Eq vti 1.7 cm AV Area Cont Eq pk 1.6 cm MV Peak Velocity 158.0 cm/s MV Peak Gradient 10.0 mmHg MV Mean Velocity 63.1 cm/s MV Mean Gradient 2.0 mmHg Mitral E Point Velocity 151.0 cm/s MV PHT Velocity 160.0 cm/s MV Deceleration [place] 744.0 cm/s MV Pressure Half Time 64.5 ms MV Area PHT 3.4 cm MV Deceleration Time 151.0 ms TR Peak Velocity 333.0 cm/s TR Peak Gradient 44.4 mmHg Right Atrial Pressure 5.0 mmHg Pulmonary Artery Systolic Pressu 49.4 mmHg Right Ventricular Systolic Press 49.4 mmHg PV Peak Velocity 116.0 cm/s PV Peak Gradient 5.4 mmHg PV Mean Velocity 78.4 cm/s PV Mean Gradient 3.0 mmHg PV Velocity Time Integral 26.3 cm LV E' Lateral Velocity 11.3 cm/s Mitral E to LV E' Lateral Ratio 13.4 LV E' Septal Velocity 5.7 cm/s Mitral E to LV E' Septal Ratio 26.7 DICTATED BY: KURT WATERS,BEVERLEY Morton DATE/TIME DICTATED:04/08/171051 BED LASTER:MATA DATE/TIME TRANSCRIBED:04/08/171051 CONFIDENTIAL, DO NOT COPY WITHOUT APPROPRIATE AUTHORIZATION. Pertinent Lab Results: PATIENT: YESY DUBOIS PRESENT AGE: 86 PATIENT ACCOUNT NO: [id number] : [birth year] LOCATION: 1[facility] ORDERING PHYSICIAN: TIBURCIO BRENNER MD SERVICE DATE: 04/09/17 EXAM TYPE: RAD - XRY-CHEST XRAY, PA AND LATERAL EXAMINATION: XR CHEST CLINICAL INFORMATION: Congestive heart failure. Question pneumonia. COMPARISON: Several priors including recent examination of 04/06/17. TECHNIQUE: 2 views of the chest were obtained. FINDINGS: The left subclavian dual lead pacemaker remains in stable position. There is persistent bibasilar opacity with small to moderate pleural effusions which are similar in size to the prior examination of 04/06/17. There is associated airspace consolidation consistent with atelectasis and/or pneumonia. There is vascular redistribution without overt pulmonary edema. Heart size is mildly enlarged but unchanged. IMPRESSION: Stable appearance of bibasilar opacity with small to moderate bilateral pleural effusions. DICTATED BY: DAMEON DOUGHERTY MD DATE/TIME DICTATED:04/09/17937 BED LASTER:MATA DATE/TIME TRANSCRIBED:04/09/17937 Disposition Summary Disposition Principal Diagnosis: Acute hypercarbic and hypoxemic respiratory failure Additional Diagnosis: Proximal atrial fibrillation Discharge Disposition: SNF Discharge Instructions General Discharge Information Code Status: Do Not Resucitate/Intubat Patient's Diet: HEART HEALTHY DIET Patient's Activity: ROLERATED WITH ASSISTANCE Follow-Up Instructions/Appts: Please follow-up with your primary care physician in one week of discharge Please follow-up with your logistician in 1 week of discharge Check INR on 04/15/2017 and keep INR between 2 and 3 Please take medications as prescribed as he make changes in your discharge medications please follow-up with your primary care physician for thyroid function test as outpatient Medications at Discharge Discharge Medications: Stop taking the following medications: Metoprolol Tartrate (Lopressor) 50 MG TABLET ORAL TWICE DAILY Days = 30 Digoxin (Digoxin) 125 MCG TABLET ORAL DAILY Furosemide (Furosemide) 40 MG TABLET ORAL DAILY Continue taking these medications: Lovastatin (Lovastatin) 40 MG TABLET 1 Tablet ORAL DAILY Instructions: with food Comments: GIVEN ATORVASTATIN 04/10/17 @ 1750 Aspirin (Ecotrin*) 81 MG TABLET.DR 1 Tablet ORAL DAILY Comments: GIVEN 04/11/17 @ 1050 Diltiazem HCl (Diltiazem HCl) 120 MG TABLET 1 Tablet ORAL THREE TIMES DAILY Qty = 255 Comments: GIVEN 04/11/17 @ 1345 Potassium Chloride (Potassium Chloride) 10 MEQ TAB.ER.PRT 1 Tablet ORAL DAILY Qty = 90 Comments: GIVEN 04/11/17 @ 1345 Allopurinol (Allopurinol) 100 MG TABLET 1 Tablet ORAL DAILY Qty = 30 Comments: GIVEN 04/11/17 @ 1050 Albuterol Sulfate (Proair Hfa) 90 MCG HFA.AER.AD 2 Puff Inhale through mouth EVERY 4-6 HOURS NEEDED as needed for SOB Comments: GIVEN 04/11/17 @ 1030 Budesonide/Formoterol Fumarate (Symbicort 160-4.5 Mcg Inhaler) 160 MCG-4.5 MCG/ ACTUATION HFA.AER.AD 2 Puff Inhale through mouth TWICE DAILY Comments: NOT GIVEN Warfarin Sodium (Coumadin) 2.5 MG TABLET 1 Tablet ORAL DAILY Qty = 90 Comments: GIVEN 3 MG ON 04/11/17 @ 1345 Tramadol HCl (Tramadol HCl) 50 MG TABLET 1 Tablet ORAL TWICE DAILY as needed for PAIN Qty = 30 Comments: NOT GIVEN Start taking the following new medications: Tiotropium [place] (Spiriva) 18 MCG CAP.W.DEV 1 Puff Inhale through mouth DAILY Days = 30 No Refills Cefuroxime Axetil (Cefuroxime) 250 MG TABLET 250 Milligram ORAL DAILY Days = 2 No Refills Prednisone (Prednisone) 10 MG TABLET 10 Milligram ORAL DAILY Days = 4 No Refills Instructions: 1 ntab for 2 days then 0.5 tab for 2 days then stop Furosemide (Lasix) 20 MG TABLET 60 Milligram ORAL TWICE DAILY Days = 30 No Refills Comments: GIVEN 04/11/17 @ 134 Copies To: JEAN CLAUDE WATERS,VAHID Attending MD Review Statement Documenting Attending: LUDWIN CHAND MD Other Findings: The patient was seen and discussed with house staff. Agree with the plan of care upon discharge. OK to go to [facility] ([place] today.
[2017-04-08 14:42] VITALS: BP 106/68
[2017-04-08 15:40] VITALS: BP 118/60
--- NOTE | 2017-04-08 16:41 | NUR ---
WOUND CARE: requested by nursing to evlauate pt for skin alteration present on admission to right rivas - pt reports having had wound to rivas over 2 months due to "closing the car door on it" - pt also reports reoccuring edema to ble - right rivas healed to closure - skin intact - recommend cont with leg elevation and light compression as tolerated for edema control
--- NOTE | 2017-04-08 16:44 | PN- Pulmonary ---
Subjective HPI/Critical Care Issues: Little better Has lost weight Ongoing diuresis Did not use BiPAP last night Feels much improved Objective Current Medications: Current Medications Sig/Elle Start time Last Medication Dose Route Stop Time Status Admin Acetaminophen 650 MG Q6P PRN 04/06 2215 AC PO Albuterol Sulfate 3 ML BID 04/07 1000 AC 04/08 INH 1310 Allopurinol 100 MG DAILY 04/07 1000 AC 04/08 PO 0933 Aspirin Buffered 81 MG DAILY 04/07 1000 AC 04/08 PO 0932 Atorvastatin Calcium 10 MG 1700 04/07 1700 AC 04/08 PO 1611 Azithromycin 500 MG 2100 04/07 2100 DC 04/07 Sodium Chloride 250 ML IV 212 Ceftriaxone Sodium 1,000 MG 2100 04/07 2100 DC 04/07 IV 2126 Cefuroxime Sodium 250 MG 1300 04/08 1300 DC 04/08 PO 04/08 1301 1437 Diltiazem HCl 120 MG Q8 04/07 0600 AC 04/08 PO 1437 Furosemide 60 MG 7:30 AM, & 4:30 PM 04/08 1630 AC 04/08 IV 1610 Oxycodone/ 1 TAB Q6P PRN 04/06 221 AC Acetaminophen PO Patient Medication 1 ED .STK-MED ONE 04/08 1410 DC Teaching ED 04/08 1411 Prednisone 10 MG DAILY 04/12 1000 AC PO 04/13 1001 Prednisone 20 MG DAILY 04/10 1000 AC PO 04/11 1001 Prednisone 30 MG DAILY 04/08 1000 AC 04/08 PO 04/09 1001 0932 Prednisone 40 MG DAILY 04/07 1000 DC 04/07 PO 1021 Ramelteon 8 MG ONCE ONE 04/08 0445 DC 04/08 PO 04/08 0446 0450 Sodium Chloride 1,000 ML Q20H 04/07 0115 DC 04/07 IV 04/07 2114 0203 Tiotropium [place] 1 PUF DAILY 04/08 1000 AC 04/08 INH 0933 Vital Signs & I&O Last 24 Hrs of Vitals and I&O: Vital Signs Date Time Temp Pulse Resp B/P B/P Pulse O2 O2 Flow FiO2 Mean Ox Delivery Rate 04/08 1540 98.0 69 14 118/60 97 Nasal 3.0L Cannula 04/08 1442 78 106/68 04/08 1437 78 106/68 04/08 1311 97 Nasal 3.0L Cannula 04/08 0806 98.2 70 20 116/56 93 Nasal 3.0L Cannula 04/08 0800 93 Nasal 3.0L Cannula 04/08 0547 64 128/62 04/08 0303 59 96 04/08 0031 98.0 60 20 120/56 96 Nasal 3.0L Cannula 04/08 0000 Nasal 3.0L Cannula 04/078 74 116/46 04/07 2128 95 Nasal 3.0L Cannula 04/07 1845 94 Nasal 3.0L Cannula Intake & Output 04/08 1600 04/08 0800 04/08 0000 Intake Total 789 576 4991 Output Total 450 450 350 Balance 150 -250 730 Intake, IV 600 Intake, Oral 600 200 480 Number 1 Bowel Movements Output, Urine 450 450 350 Patient 118 lb 118 lb Weight Weight Chair scale Measurement Method Impression/Plan Impression/Plan Impression/Plan: Physical Exam: Chronically ill-appearing elderly female in no acute distress with nasal oxygen in place. Vital signs: See above. HEENT: Normocephalic, atraumatic, EOMI, sclerae dry mucous membranes. Neck: No JVD, no bruits. Lungs: Decreased breath sounds bilaterally, occasional rhonchi. Heart: S1, S2 with grade 1/6 systolic murmur. Abdomen: Soft, nontender, positive bowel sounds. Extremities: Trace edema SIGNIFICANT DATA chest x-ray reviewed which showed multifocal airspace disease small effusions Previous ultrasound of the aorta showed aortic aneurysm which is 3.5 cm Previous PET scan reviewed ABGs reviewed which showed the that her PCO2 is more than 57 upon admission was 7.30 pH which improved subsequently as noted in the computer her INR was elevated at 3.99 her creatinine is elevated at 2. She does have mild chronic kidney disease which seems to have worsened since admission bicarbonate was elevated at 33 white count 5.1 down from 10 since admission 89% granulocytes hemoglobin has been relatively low IMPRESSION This is an 86-year-old lady with history of a significant COPD, hypertension, hyperlipidemia, diabetes, gout, former tobacco use, previous pulmonary nodules being followed by PET scan with last CT and PET did not reveal any evidence of recurrence of malignancy, previous right upper lobectomy in 2007 for non-small cell lung cancer for poorly differentiated adenocarcinoma, abdominal aortic aneurysm, paroxysmal atrial fibrillation with tachybradycardia syndrome, significant pulmonary hypertension, recurrent admissions to COPD exacerbation and diastolic heart failure however again comes in with increasing shortness of breath. Her issues include * Resolving Acute hypercarbic and hypoxemic respiratory failure most likely related to fluid overload with acute diastolic heart failure * She does have significant COPD with mild COPD exacerbation * No clinical evidence suggestive of significant bacterial pneumonitis even though the chest x-ray suggestive of that. She probably does have significant emphysema and she may have atypical pulmonary edema pattern * Aortic aneurysm which needs to be followed * Proximal atrial fibrillation with tachybradycardia syndrome on appropriate anticoagulation * Worsening overall performance status * Osteoporosis * Kyphoscoliosis with obstructive restrictive lung disease * Bilateral pleural effusion related to heart failure * Acute on chronic kidney disease with acute renal failure due to low flow state RECOMMENDATION Continue aggressive diuresis with IV lasix daily po ceftin Reduce prednisone to 30 mg and wean off in 6 days [id number] nebulizer therapy Spiriva 1 puff daily Hold off on further BiPAP if patient has improved Watch renal function ABG only if patient deteriorates Cardiology evaluation noted continue to follow the recommendations Prognosis guarded
--- NOTE | 2017-04-08 18:57 | PN- Cardiology ---
Subjective Subjective: Thinks she may be feeling a little better today. Objective Vital Signs and I&Os Vital Signs Date Time Temp Pulse Resp B/P B/P Pulse O2 O2 Flow FiO2 Mean Ox Delivery Rate 04/08 1540 98.0 69 14 118/60 97 Nasal 3.0L Cannula 04/08 1442 78 106/68 04/08 1437 78 106/68 04/08 1311 97 Nasal 3.0L Cannula 04/08 0806 98.2 70 20 116/56 93 Nasal 3.0L Cannula 04/08 0800 93 Nasal 3.0L Cannula 04/08 0547 64 128/62 04/08 0303 59 96 04/08 0031 98.0 60 20 120/56 96 Nasal 3.0L Cannula 04/08 0000 Nasal 3.0L Cannula 04/07 212 74 116/46 04/07 2128 95 Nasal 3.0L Cannula Intake & Output 04/08 1600 04/08 0800 04/08 0000 04/07 1600 04/07 0800 04/07 0000 Intake Total 790 267 5136 880 200 Output Total 450 450 350 700 475 65 Balance 150 -250 730 180 -275 -65 Intake, IV 600 400 Intake, Oral 600 200 480 480 200 Number 1 Bowel Movements Output, Urine 450 450 350 700 475 65 Patient 118 lb 118 lb 110 lb Weight Weight Chair scale Reported by Patient Measurement Method Physical Exam: Chronically ill-appearing elderly female in no acute distress with nasal oxygen in place. Vital signs: See above. HEENT: Normocephalic, atraumatic, EOMI, sclerae dry mucous membranes. Neck: No JVD, no bruits. Lungs: Decreased breath sounds bilaterally, occasional rhonchi. Heart: S1, S2 with grade 1/6 systolic murmur. Abdomen: Soft, nontender, positive bowel sounds. Extremities: Trace edema. Current Medications: Current Medications Sig/Elle Start time Last Medication Dose Route Stop Time Status Admin Acetaminophen 650 MG Q6P PRN 04/06 2215 AC PO Albuterol Sulfate 3 ML BID 04/07 1000 AC 04/08 INH 1310 Allopurinol 100 MG DAILY 04/07 1000 AC 04/08 PO 0933 Aspirin Buffered 81 MG DAILY 04/07 1000 AC 04/08 PO 0932 Atorvastatin Calcium 10 MG 1700 04/07 1700 AC 04/08 PO 1611 Azithromycin 500 MG 2100 05/22 2100 DC 04/07 Sodium Chloride 250 ML IV 2125 Ceftriaxone Sodium 1,000 MG 2100 04/07 2100 DC 04/07 IV 212 Cefuroxime Sodium 250 MG 1300 04/08 1300 DC 04/08 PO 04/08 1301 1437 Diltiazem HCl 120 MG Q8 04/07 0600 AC 04/08 PO 1437 Furosemide 60 MG 7:30 AM, & 4:30 PM 04/08 1630 AC 04/08 IV 1610 Oxycodone/ 1 TAB Q6P PRN 04/06 2215 AC Acetaminophen PO Patient Medication 1 ED .STK-MED ONE 04/08 1410 [place] Teaching ED 04/08 1411 Prednisone 10 MG DAILY 04/12 1000 AC PO 04/13 1001 Prednisone 20 MG DAILY 04/10 1000 AC PO 04/11 1001 Prednisone 30 MG DAILY 04/08 1000 AC 04/08 PO 04/09 1001 0932 Prednisone 40 MG DAILY 04/07 1000 DC 04/07 PO 1021 Ramelteon 8 MG ONCE ONE 04/08 1730 DC PO 04/08 1731 Ramelteon 8 MG ONCE ONE 04/08 0445 DC 04/08 PO 04/08 0446 0450 Sodium Chloride 1,000 ML Q20H 04/07 0115 DC 04/07 IV 04/07 2114 0203 Tiotropium [place] 1 PUF DAILY 04/08 1000 AC 04/08 INH 0933 Results Last 48 Hrs of Labs/Mics: Laboratory Tests 04/08/17 1345: Ur Random Creatinine 50.2, Ur Random Sodium 8 L, Ur Random Potassium 31.1, Fraction Sodium Excret 0.2 04/08/17 1005: PT 40.6 H, INR 3.92 H 04/08/17 0649: Anion Gap 11, Estimated GFR 27 L, BUN/Creatinine Ratio 25.0, CBC w Diff NO MAN DIFF REQ, RBC 2.89 L, MCV 95.8, MCH 31.2 H, RDW 15.6 H, MPV 7.3 L, Gran % 91.5 H, Lymphocytes % 4.2 L, Monocytes % 4.2, Eosinophils % 0, Basophils % 0.1 , Absolute Granulocytes 7.3 H, Absolute Lymphocytes 0.3 L, Absolute Monocytes 0.3, Absolute Eosinophils 0, Absolute Basophils 0, PUBS MCHC 32.5 L, Digoxin 1.8 04/07/17 0630: Anion Gap 14, Estimated GFR 24 L, BUN/Creatinine Ratio 22.5, Phosphorus 5.6 H, Magnesium 2.1, Troponin I 0.05, PT 41.3 H, INR 3.99 H, CBC w Diff MAN DIFF ORDERED, RBC 3.29 L, MCV 96.2, MCH 31.6 H, RDW 16.0 H, MPV 7.4, Gran % 92.9 H, Lymphocytes % 6.2 L, Monocytes % 0.7 L, Eosinophils % 0.1, Basophils % 0.1, Absolute Granulocytes 4.7, Absolute Lymphocytes 0.3 L, Absolute Monocytes 0 L, Absolute Eosinophils 0, Absolute Basophils 0, Platelet Estimate VERIFIED BY SMEAR, Polychromasia 1+, Poikilocytosis 1+, Basophilic Stippling 1+, Anisocytosis 1+, Ovalocytes 1+, Stomatocytes 1+, PUBS MCHC 32.8 L, Digoxin 2.2 H 04/07/17 0515: Urinalysis LIGHT H, Urine Color YEL, Urine Clarity CLEAR, Urine pH 6.0, Ur Specific [place] 1.015, Urine Protein TRACE H, Urine Ketones NEG, Urine Nitrite NEG, Urine Bilirubin NEG, Urine Urobilinogen 0.2, Ur Leukocyte Esterase NEG, Ur Microscopic SEDIMENT EXAMINED, Urine RBC 3-5, Urine WBC 1-3 H, Ur Epithelial Cells RARE, Urine Bacteria FEW H, Hyaline Casts 1-3 H, Urine Hemoglobin MOD H , Urine Glucose NEG 04/07/17 0015: Anion Gap 16, Estimated GFR 22 L, BUN/Creatinine Ratio 22.4, Troponin I 0.05, PT 48.0 *H, INR 4.64 *H 04/06/172054: pH 7.38, pCO2 47 H, pO2 52 L, HCO3 28, ABG O2 Sat (Measured) 87.0 L, P-50 ( Temp Corrected) Y, Carboxyhemoglobin 1.1 L, O2 Concentration % 35%, Temperature 96.0 L, Respiration Rate 28, O2 Delivery Method BIPAP, Vent Mode ST, Expiratory Pressure 6, Inspiratory Pressure 14, Phlebotomy Draw Site LEFT BRACHIAL Microbiology 04/06 1915 URINE ROUT: Urine Culture - COMP Recent Imaging Studies: Echocardiogram (04/07/2017): Normal size left ventricle. Mild concentric left ventricular hypertrophy. Normal left ventricular wall motion. Normal left ventricular ejection fraction visually estimated at > 65%. Normal right ventricular size and function. Moderate right atrial dilatation. Catheter/pacemaker wire in the right atrial/ventricular cavities. Moderate left atrial dilatation. Moderate mitral regurgitation. Very mild aortic stenosis. Moderate tricuspid regurgitation. Moderate pulmonary hypertension. Mild pulmonic regurgitation. Left pleural effusion. 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 Appears to still be volume overloaded and it is unclear if her inputs/outputs are accurate. She also does not appear to be on any diuretic. Recommendations: * Need daily weights and strict inputs and outputs. * Restart IV diuresis. * Repeat CXR following diuresis in the a.m. * DVT prophylaxis. Continue telemetry? Yes
--- NOTE | 2017-04-08 22:56 | Event Note ---
Event Note Event Note: Pt refused her pulse ox. She states she is unable to sleep comfortably. Will d.c temporarily but monitor closely. Her last saturations have been between 94-97.
[2017-04-08 23:00] VITALS: BP 102/62
[2017-04-09 08:02] VITALS: BP 138/50
[2017-04-09 08:14] LABS: PT 25.1 SEC (9.4-12.5)
--- NOTE | 2017-04-09 09:29 | PN- Housestaff ---
See Addendum Subjective Follow-up For: 1. Acute hypoxic/hypercarbic respiratory failure 2. Possible CHF exacerbation 3. Possible pneumonia 4. PAULA on CKD 5. elevated digoxin level 6. hyperkalemia, hyper phosphatemia, hypermagnesemia 7. LE edema with right lower leg skin ulcer Tele-Events Since Last Visit: Instruction, heart rate 63-71, with no overnight events. Subjective: Afebrile, hemodynamically stable, saturating well on 3 L of oxygen. No overnight events reported. Patient denies any current active complaints except that she couldn't sleep yesterday because the roommate accompany snore loudly Review of Systems Constitutional: Reports: no symptoms. Objective Last 24 Hrs of Vital Signs/I&O Vital Signs Date Time Temp Pulse Resp B/P B/P Pulse O2 O2 Flow FiO2 Mean Ox Delivery Rate 04/09 1108 95 Nasal 3.0L Cannula 04/09 0802 97.3 66 18 138/50 91 Nasal 3.0L Cannula 04/09 0800 Nasal 3.0L Cannula 04/09 0756 69 128/68 04/09 0000 Nasal 3.0L Cannula 04/08 2300 97.1 89 16 102/62 95 Nasal 3.0L Cannula 04/08 2113 84 102/62 04/08 1912 94 Nasal 3.0L Cannula 04/08 1540 98.0 69 14 118/60 97 Nasal 3.0L Cannula 04/08 1442 78 106/68 04/08 1437 78 106/68 04/08 1311 97 Nasal 3.0L Cannula Intake & Output 04/09 1600 04/09 0800 04/09 0000 Intake Total 150 516 Output Total 750 850 Balance -600 -334 Intake, IV 0 16 Intake, Oral 150 500 Number 0 Bowel Movements Output, Urine 750 850 Physical Exam General Appearance: Alert, Oriented X3, Cooperative, No Acute Distress, sleepy HEENT: Atraumatic, PERRLA, EOMI, Mucous Membr. moist/pink Cardiovascular: Regular Rate, Normal S1, Normal S2, systolic murmur Lungs: decrease air entry over lung base b/l Abdomen: Normal Bowel Sounds, Soft, No Tenderness Neurological: Normal Speech Extremities: No Clubbing, No Cyanosis, trace edema Current Medications: Current Medications Sig/Elle Start time Last Medication Dose Route Stop Time Status Admin Acetaminophen 650 MG Q6P PRN 04/06 2215 AC PO Albuterol Sulfate 3 ML BID 04/07 1000 AC 04/09 INH 1058 Allopurinol 100 MG DAILY 04/07 1000 AC 04/09 PO 0940 Aspirin Buffered 81 MG DAILY 04/07 1000 AC 04/09 PO 0939 Atorvastatin Calcium 10 MG 1700 04/07 1700 AC 04/08 PO 1611 Azithromycin 500 MG 2100 04/07 2100 DC 04/07 Sodium Chloride 250 ML IV 212 Ceftriaxone Sodium 1,000 MG 04/07 2100 DC 04/07 IV 2126 Cefuroxime Sodium 250 MG DAILY 04/09 1005 AC 04/09 PO 04/12 1001 1116 Cefuroxime Sodium 250 MG 1300 04/08 1300 DC 04/08 PO 04/08 1301 1437 Diltiazem HCl 120 MG Q8 04/07 0600 AC 04/09 PO 0756 Furosemide 60 MG 7:30 AM, & 4:30 PM 04/08 1630 AC 04/09 IV 0757 Oxycodone/ 1 TAB Q6P PRN 04/06 2215 AC Acetaminophen PO Patient Medication 1 ED .STK-MED ONE 04/08 1410 [place] Teaching ED 04/08 1411 Prednisone 10 MG DAILY 04/12 1000 AC PO 04/13 1001 Prednisone 20 MG DAILY 04/10 1000 AC PO 04/11 1001 Prednisone 30 MG DAILY 04/08 1000 DC 04/09 PO 04/09 1001 0940 Ramelteon 8 MG ONCE ONE 04/08 1730 DC 04/08 PO 04/08 1731 2113 Tiotropium [place] 1 PUF DAILY 04/08 1000 AC 04/09 INH 0940 Warfarin Sodium 1 MG COUMADIN 1700 ONE 04/09 1700 AC PO 04/09 1701 Last 24 Hrs of Lab/Nikita Results Last 24 Hrs of Labs/Mics: Laboratory Tests 04/09/17 0642: Anion Gap 8, Estimated GFR 39 L, BUN/Creatinine Ratio 34.6 H, PT 25.1 H, INR 2.41 H 04/08/17 1345: Ur Random Creatinine 50.2, Ur Random Sodium 8 L, Ur Random Potassium 31.1, Fraction Sodium Excret 0.2 Assessment/Plan Assessment: Patient is a 86 year-old lady with PMH of Afib on coumadin, COPD not on home O2, CHF, HTN, HLD, tachybrady syndrome s/p pacemaker, 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 #Acute hypoxic/hypercarbic respiratory failure Most likely due to CHF exacerbation given LE edema, bibasilar crackles, elevated proBNP and Small pleural effusions on CXray . Also possible pneumonia given CXR: Multifocal airspace disease concerning for pneumonia, but she is afebrile with no leukocytosis. SO2 88-89% on arrival. ABG: chronic compensated respiratory acidosis. Patient recieved IV [id number] mg IV one time on ED. * continuous pulse oxymetry * O2 supplementation as needed * We will continue diuresis with 60 mg IV furosemide twice a day * Continue Cefuroxime 250 daily to finish a total of 7 days * Continue prednisone as 30 mg today, 20 mg for 2 days then 10 mg for 2 days. * Continue Spiriva 1 puff daily * Follow-up blood culture and sputum culture. * TRC/Nebs #PAULA on CKD BUN/Cr: 42/2.2 most likely secondary to CHF. Creatinine improved today to 1.3 * Check renal function daily #Elevated serum digoxin level at admission (2.9) Last digoxin taken on 04/05/17 5 pm. Most likely etiology of elevated Dig level: renal failure. Except for generalized weakness, patient has no other clinical findings of Digoxin toxicity. Arrhythmias caused by dig toxicity can not be rule out in this patient as she has a pacemaker. Digoxin level yesterday was 1.8 down from 2.9 upon admission. * We will discuss with cardiology the need for digoxin. #Atrial fibrillation, HTN, HLD On Coumadin and Diltiazem. Coumadin is in hold because of supratherapeutic INR. INR today is 2.4 * Will contnue PO diltiazem 120 mg Q8 * Continue aspirin and statin * We will does 1 mg of Coumadin today * Check INR daily and dose Coumadin as necessary #Hyperkalemia, hyperphosphatemia, hypermagnesemia Most likely due to PAULA on top of CKD. This morning potassium is 3.7. Patient has a nonaggressive Lasix * We will give 60 mEq of potassium by mouth * Repeat BEP in am #Lower Extremity skin ulcer stage 1 skin ulcer * covered with Xeroform and Kerlix #Gout * held allopurinol due to PAULA #Macular degeneration * continue Karlos 128 1 drop on both eyes every 6h #Aortic aneurysm * We will instruct patient to address this as an outpatient DVT prophylaxis with Coumadin Pain: tylenol for mild pain and percocet for severe pain Heart healthy diet DNR/DNI Problem List: 1. Pneumonia 2. Acute on chronic diastolic (congestive) heart failure Pain Ratin Pain Location: na Pain Goal: Remain pain free Pain Plan: See A&P Tomorrow's Labs & Rationales: CBC to follow drop on Hb BEP to follow up K specially she is on aggressive Lasix INR to dose Coumadin Consulting Request: Consulting Specialty: Pulmonary Disease Consulting Physician: DR HENDERSON Reason for Consult: ACUTE HYPERCARBIC AND HYPOXEMIC RESPIRATORY FAILURE
--- NOTE | 2017-04-09 09:37 | PN- Pulmonary ---
Subjective HPI/Critical Care Issues: IMproving IV diuresis ongoing GOing for cxr today Objective Current Medications: Current Medications Sig/Elle Start time Last Medication Dose Route Stop Time Status Admin Acetaminophen 650 MG Q6P PRN 04/06 2215 AC PO Albuterol Sulfate 3 ML BID 04/07 1000 AC 04/08 INH 1909 Allopurinol 100 MG DAILY 04/07 1000 AC 04/08 PO 0933 Aspirin Buffered 81 MG DAILY 04/07 1000 AC 04/08 PO 0932 Atorvastatin Calcium 10 MG 1700 04/07 1700 AC 04/08 PO 1611 Azithromycin 500 MG 2100 04/07 2100 DC 04/07 Sodium Chloride 250 ML IV 212 Ceftriaxone Sodium 1,000 MG 2100 04/07 2100 DC 04/07 IV 212 Cefuroxime Sodium 250 MG 1300 04/08 1300 DC 04/08 PO 04/08 1301 1437 Diltiazem HCl 120 MG Q8 04/07 0600 AC 04/09 PO 0756 Furosemide 60 MG 7:30 AM, & 4:30 PM 04/08 1630 AC 04/09 IV 0757 Oxycodone/ 1 TAB Q6P PRN 04/06 221 AC Acetaminophen PO Patient Medication 1 ED .STK-MED ONE 04/08 1410 [place] Teaching ED 04/08 1411 Prednisone 10 MG DAILY 04/12 1000 AC PO 04/13 1001 Prednisone 20 MG DAILY 04/10 1000 AC PO 04/11 1001 Prednisone 30 MG DAILY 04/08 1000 AC 04/08 PO 04/09 1001 0932 Ramelteon 8 MG ONCE ONE 04/08 1730 DC 04/08 PO 04/08 1731 2113 Tiotropium [place] 1 PUF DAILY 04/08 1000 AC 04/08 INH 0933 Warfarin Sodium 1 MG COUMADIN 1700 ONE 04/09 1700 UNVr PO 04/09 1701 Vital Signs & I&O Last 24 Hrs of Vitals and I&O: Vital Signs Date Time Temp Pulse Resp B/P B/P Pulse O2 O2 Flow FiO2 Mean Ox Delivery Rate 04/09 0802 97.3 66 18 138/50 91 Nasal 3.0L Cannula 04/09 0756 69 128/68 04/09 0000 Nasal 3.0L Cannula 04/08 2300 97.1 89 16 102/62 95 Nasal 3.0L Cannula 04/08 2113 84 102/62 04/08 1912 94 Nasal 3.0L Cannula 04/08 1540 98.0 69 14 118/60 97 Nasal 3.0L Cannula 04/08 1442 78 106/68 04/08 1437 78 106/68 04/08 1311 97 Nasal 3.0L Cannula Intake & Output 04/09 1600 04/09 0800 04/09 0000 Intake Total 150 516 Output Total 750 850 Balance -600 -334 Intake, IV 0 16 Intake, Oral 150 500 Number 0 Bowel Movements Output, Urine 750 850 Laboratory Tests 04/09 04/08 04/08 0642 1345 1005 Chemistry Sodium (137 - 145 mmol/L) 136 L Potassium (3.5 - 5.1 mmol/L) 3.7 Chloride (98 - 107 mmol/L) 93 L Carbon Dioxide (22 - 30 mmol/L) 35 H Anion Gap (5 - 16) 8 BUN (7 - 17 mg/dL) 45 H Creatinine (0.5 - 1.0 mg/dL) 1.3 H Estimated GFR (>60 ml/min) 39 L BUN/Creatinine Ratio (7 - 25 %) 34.6 H Coagulation PT (9.4 - 12.5 SEC) 25.1 H 40.6 H INR (0.90 - 1.19) 2.41 H 3.92 H Urines Ur Random Creatinine (mg/dL) 50.2 Ur Random Sodium (30 - 90 mmol/L) 8 L Ur Random Potassium (mmol/L) 31.1 Fraction Sodium Excret (<1% %) 0.2 04/08 0649 Chemistry Sodium (137 - 145 mmol/L) 135 L Potassium (3.5 - 5.1 mmol/L) 4.0 Chloride (98 - 107 mmol/L) 92 L Carbon Dioxide (22 - 30 mmol/L) 32 H Anion Gap (5 - 16) 11 BUN (7 - 17 mg/dL) 45 H Creatinine (0.5 - 1.0 mg/dL) 1.8 H Estimated GFR (>60 ml/min) 27 L BUN/Creatinine Ratio (7 - 25 %) 25.0 Hematology CBC w Diff NO MAN DIFF REQ WBC (4.8 - 10.8 /CUMM) 8.0 RBC (4.20 - 5.40 /CUMM) 2.89 L Hgb (12.0 - 16.0 G/DL) 9.0 L Hct (37 - 47 %) 27.6 L MCV (81.0 - 99.0 FL) 95.8 MCH (27.0 - 31.0 PG) 31.2 H RDW (11.5 - 14.5 %) 15.6 H Plt Count (130 - 400 /CUMM) 237 MPV (7.4 - 10.4 FL) 7.3 L Gran % (42.2 - 75.2 %) 91.5 H Lymphocytes % (20.5 - 51.1 %) 4.2 L Monocytes % (1.7 - 9.3 %) 4.2 Eosinophils % (0 - 5 %) 0 Basophils % (0.0 - 2.0 %) 0.1 Absolute Granulocytes (1.4 - 6.5 /CUMM) 7.3 H Absolute Lymphocytes (1.2 - 3.4 /CUMM) 0.3 L Absolute Monocytes (0.10 - 0.60 /CUMM) 0.3 Absolute Eosinophils (0.0 - 0.7 /CUMM) 0 Absolute Basophils (0.0 - 0.2 /CUMM) 0 PUBS MCHC (33.0 - 37.0 G/DL) 32.5 L Toxicology Digoxin (0.8 - 2.0 ng/mL) 1.8 Microbiology Date/Time Procedure - Status Source Growth 04/07 08 Respiratory Culture - CAN LOWER RESP Cancelled: SPECIMEN NOT RECEIVED IN LABORATORY 04/07 800 Gram Stain - CAN LOWER RESP Cancelled: SPECIMEN NOT RECEIVED IN LABORATORY 04/06 2027 Blood Culture - RES BLOOD 04/06 2027 Blood Culture - RES BLOOD 04/06 1915 Urine Culture - COMP URINE ROUT Impression/Plan Impression/Plan Impression/Plan: Physical Exam: Chronically ill-appearing elderly female in no acute distress with nasal oxygen in place. Vital signs: See above. HEENT: Normocephalic, atraumatic, EOMI, sclerae dry mucous membranes. Neck: No JVD, no bruits. Lungs: Decreased breath sounds bilaterally, occasional rhonchi. Heart: S1, S2 with grade 1/6 systolic murmur. Abdomen: Soft, nontender, positive bowel sounds. 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 Her issues include * Resolving Acute hypercarbic and hypoxemic respiratory failure most likely related to fluid overload with acute diastolic heart failure * She does have significant COPD with mild COPD exacerbation * No clinical evidence suggestive of significant bacterial pneumonitis even though the chest x-ray suggestive of that. She probably does have significant emphysema and with atypical pulmonary edema pattern * Aortic aneurysm which needs to be followed * Proximal atrial fibrillation with tachybradycardia syndrome on appropriate anticoagulation * Worsening overall performance status * Osteoporosis * Kyphoscoliosis with obstructive restrictive lung disease * Bilateral pleural effusion related to heart failure, improving now clinically * Improving Acute on chronic kidney disease with acute renal failure due to low flow state RECOMMENDATION Continue aggressive diuresis with IV lasix daily po ceftin finish 7 days total of abx Reduce prednisone to 30 mg and wean off in 6 days [id number] nebulizer therapy Spiriva 1 puff daily Hold off on further BiPAP if patient has improved Watch renal function Cardiology evaluation noted continue to follow the recommendations
--- NOTE | 2017-04-09 09:44 | RADIOLOGY REPORT ---
EXAMINATION: XR CHEST CLINICAL INFORMATION: Congestive heart failure. Question pneumonia. COMPARISON: Several priors including recent examination of 04/06/17. TECHNIQUE: 2 views of the chest were obtained. FINDINGS: The left subclavian dual lead pacemaker remains in stable position. There is persistent bibasilar opacity with small to moderate pleural effusions which are similar in size to the prior examination of 04/06/17. There is associated airspace consolidation consistent with atelectasis and/or pneumonia. There is vascular redistribution without overt pulmonary edema. Heart size is mildly enlarged but unchanged. IMPRESSION: Stable appearance of bibasilar opacity with small to moderate bilateral pleural effusions.
[2017-04-09 15:14] VITALS: BP 138/50
[2017-04-09 22:00] VITALS: BP 148/70
--- NOTE | 2017-04-10 07:51 | PN- Housestaff ---
See Addendum Subjective Follow-up For: 1. Acute hypoxic/hypercarbic respiratory failure 2. Possible CHF exacerbation 3. Possible pneumonia 4. PAULA on CKD 5. elevated digoxin level 6. hyperkalemia, hyper phosphatemia, hypermagnesemia 7. LE edema with right lower leg skin ulcer Tele-Events Since Last Visit: Atrial fibrillation, single pacing, heartrate in 60s, no overnight events. Subjective: Patient reported improvement on her dyspnea. She is afebrile, hemodynamically stable, and saturating upper 90s on 2 L of oxygen. Patient denies any current active complaints. Review of Systems Constitutional: Reports: no symptoms. Objective Last 24 Hrs of Vital Signs/I&O Vital Signs Date Time Temp Pulse Resp B/P B/P Pulse O2 O2 Flow FiO2 Mean Ox Delivery Rate 04/10 1032 95 Nasal 2.0L Cannula 04/10 0817 98.3 62 20 130/62 97 Nasal 2.0L Cannula 04/10 0600 77 130/60 04/10 0000 97 Nasal 2.0L Cannula 04/09 2200 98.5 66 20 148/70 97 Nasal 2.0L Cannula 04/09 2105 66 148/70 04/09 2005 97 Nasal 3.0L Cannula 04/09 1552 Nasal 3.0L Cannula 04/09 1536 97.8 18 98 Nasal 3.0L Cannula 04/09 1514 97 138/50 04/09 1504 98 138/50 Intake & Output 04/10 1600 04/10 0800 04/10 0000 Intake Total 150 336 Output Total 550 1250 Balance -400 -914 Intake, IV 16 Intake, Oral 150 320 Output, Urine 550 1250 Patient 53.581 kg Weight Weight Chair scale Measurement Method Physical Exam General Appearance: Alert, Oriented X3, Cooperative, No Acute Distress HEENT: Atraumatic, PERRLA, EOMI, Mucous Membr. moist/pink Cardiovascular: Regular Rate, Normal S1, Normal S2, No Murmurs Lungs: diminished airentry over lung base b/l with mild crakels on the left side Abdomen: Soft, No Tenderness Extremities: No Clubbing, No Cyanosis, No Edema Current Medications: Current Medications Sig/Elle Start time Last Medication Dose Route Stop Time Status Admin Acetaminophen 650 MG .STK-MED ONE 04/09 2231 DC PO 04/09 2232 Acetaminophen 650 MG Q6P PRN 04/06 2215 AC 04/09 PO 2231 Albuterol Sulfate 3 ML BID 04/07 1000 AC 04/10 INH 1029 Allopurinol 100 MG DAILY 04/07 1000 AC 04/10 PO 0938 Aspirin Buffered 81 MG DAILY 04/07 1000 AC 04/10 PO 0938 Atorvastatin Calcium 10 MG 1700 04/07 1700 AC 04/09 PO 1712 Cefuroxime Sodium 250 MG DAILY 04/09 1005 AC 04/10 PO 04/12 1001 0939 Diltiazem HCl 120 MG Q8 04/07 0600 AC 04/10 PO 0600 Furosemide 60 MG 7:30 AM, & 4:30 PM 04/08 1630 AC 04/10 IV 0635 Oxycodone/ 1 TAB Q6P PRN 04/06 221 AC Acetaminophen PO Prednisone 10 MG DAILY 04/12 1000 AC PO 04/13 1001 Prednisone 20 MG DAILY 04/10 1000 AC 04/10 PO 04/11 1001 0938 Sodium Chloride 1 GTT Q6H 04/09 1600 AC 04/10 OPH 0938 Tiotropium [place] 1 PUF DAILY 04/08 1000 AC 04/10 INH 0939 Warfarin Sodium 1 MG COUMADIN 1700 ONE 04/09 1700 DC 04/09 PO 04/09 1701 1712 Last 24 Hrs of Lab/Nikita Results Last 24 Hrs of Labs/Mics: Laboratory Tests 04/10/17 0600: Anion Gap 9, Estimated GFR 39 L, BUN/Creatinine Ratio 36.2 H, PT 19.8 H, INR 1.90 H, CBC w Diff NO MAN DIFF REQ, RBC 3.00 L, MCV 95.0, MCH 30.9, RDW 15.7 H, MPV 7.4, Gran % 85.4 H, Lymphocytes % 7.8 L, Monocytes % 6.4, Eosinophils % 0.2, Basophils % 0.2, Absolute Granulocytes 7.3 H, Absolute Lymphocytes 0.7 L, Absolute Monocytes 0.6, Absolute Eosinophils 0, Absolute Basophils 0, PUBS MCHC 32.6 L Assessment/Plan Assessment: Patient is a 86 year-old lady with PMH of Afib on coumadin, COPD not on home O2, CHF, HTN, HLD, tachybrady syndrome s/p pacemaker, 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 #Acute hypoxic/hypercarbic respiratory failure Most likely due to CHF exacerbation given LE edema, bibasilar crackles, elevated proBNP and Small pleural effusions on CXray . Also possible pneumonia given CXR: Multifocal airspace disease concerning for pneumonia, but she is afebrile with no leukocytosis. SO2 88-89% on arrival. ABG: chronic compensated respiratory acidosis. Patient recieved IV [id number] mg IV one time on ED. * continuous pulse oxymetry * O2 supplementation as needed * We will continue diuresis with 60 mg IV furosemide twice a day * Continue Cefuroxime 250 daily to finish a total of 7 days * Continue prednisone as 20 mg for 2 days then 10 mg for 2 days. * Continue Spiriva 1 puff daily * TRC/Nebs #PAULA on CKD BUN/Cr: 42/2.2 most likely secondary to CHF. Creatinine improved today to 1.3 * Check renal function daily #Elevated serum digoxin level at admission (2.9) Last digoxin taken on 04/05/17 5 pm. Most likely etiology of elevated Dig level: renal failure. Except for generalized weakness, patient has no other clinical findings of Digoxin toxicity. * We will ask cardiology to comment on the need for digoxin. #Atrial fibrillation, HTN, HLD On Coumadin and Diltiazem. Coumadin was on hold because of supratherapeutic INR. INR today is 1.9 * Will contnue PO diltiazem 120 mg Q8 * Continue aspirin and statin * We will does 2.5 of Coumadin today * Check INR daily and dose Coumadin as necessary #Admission she had Hyperkalemia, hyperphosphatemia, hypermagnesemia Most likely due to PAULA on top of CKD. This morning potassium is 4.7. Patient is on ggressive Lasix. * Repeat BEP tomorrow looking for hypokalemia #Lower Extremity skin ulcer stage 1 skin ulcer * covered with Xeroform and Kerlix #Gout * Restart allopurinol #Macular degeneration * continue Karlos 128 1 drop on both eyes every 6h #Aortic aneurysm * We will instruct patient to address this as an outpatient DVT prophylaxis with Coumadin Pain: tylenol for mild pain and percocet for severe pain Heart healthy diet DNR/DNI Problem List: 1. Respiratory failure Pain Ratin Pain Location: na Pain Goal: Remain pain free Pain Plan: See A&P Tomorrow's Labs & Rationales: CBC to follow H&H bep to follow RFT INR Consulting Request: Consulting Specialty: Pulmonary Disease Consulting Physician: DR HENDERSON Reason for Consult: ACUTE HYPERCARBIC AND HYPOXEMIC RESPIRATORY FAILURE
[2017-04-10 08:17] VITALS: BP 130/62
[2017-04-10 08:18] LABS: PT 19.8 SEC (9.4-12.5)
[2017-04-10 08:58] LABS: ABSOLUTE BASOPHIL COUNT 0 /CUMM (0.0-0.2); ABSOLUTE EOSINOPHIL COUNT 0 /CUMM (0.0-0.7); ABSOLUTE GRANULOCYTE CT 7.3 /CUMM (1.4-6.5); ABSOLUTE LYMPH COUNT 0.7 /CUMM (1.2-3.4); ABSOLUTE MONOCYTE COUNT 0.6 /CUMM (0.10-0.60); BASOPHIL % 0.2 % (0.0-2.0); EOSINOPHIL % 0.2 % (0-5); GRANULOCYTE % 85.4 % (42.2-75.2); HEMATOCRIT 28.5 % (37-47); MEAN CORPUSCULAR HGB 30.9 PG (27.0-31.0); MEAN CORPUSCULAR HGB CONC 32.6 G/DL (33.0-37.0); MEAN PLATELET VOLUME 7.4 FL (7.4-10.4); PLATELET COUNT 227 /CUMM (130-400); RBC DISTRIBUTION WIDTH 15.7 % (11.5-14.5)
[2017-04-10 10:07] LABS: WHITE BLOOD CELL COUNT 8.6 /CUMM (4.8-10.8)
--- NOTE | 2017-04-10 10:52 | PN- Pulmonary ---
Subjective HPI/Critical Care Issues: Doing a little better improving Occ cough Objective Current Medications: Current Medications Sig/Elle Start time Last Medication Dose Route Stop Time Status Admin Acetaminophen 650 MG .STK-MED ONE 04/09 2231 DC PO 04/09 223 Acetaminophen 650 MG Q6P PRN 04/06 2215 AC 04/09 PO 2231 Albuterol Sulfate 3 ML BID 04/07 1000 AC 04/10 INH 1029 Allopurinol 100 MG DAILY 04/07 1000 AC 04/10 PO 0938 Aspirin Buffered 81 MG DAILY 04/07 1000 AC 04/10 PO 0938 Atorvastatin Calcium 10 MG 1700 04/07 1700 AC 04/09 PO 1712 Cefuroxime Sodium 250 MG DAILY 04/09 1005 AC 04/10 PO 04/12 1001 0939 Diltiazem HCl 120 MG Q8 04/07 0600 AC 04/10 PO 0600 Furosemide 60 MG 7:30 AM, & 4:30 PM 04/08 1630 AC 04/10 IV 0635 Oxycodone/ 1 TAB Q6P PRN 04/06 2215 AC Acetaminophen PO Potassium Chloride 60 MEQ ONCE ONE 04/09 1130 DC 04/09 PO 04/09 1131 1201 Prednisone 10 MG DAILY 04/12 1000 AC PO 04/13 1001 Prednisone 20 MG DAILY 04/10 1000 AC 04/10 PO 04/11 1001 0938 Sodium Chloride 1 GTT Q6H 04/09 1600 AC 04/10 OPH 0938 Tiotropium [place] 1 PUF DAILY 04/08 1000 AC 04/10 INH 0939 Warfarin Sodium 1 MG COUMADIN 1700 ONE 04/09 1700 DC 04/09 PO 04/09 1701 1712 Vital Signs & I&O Last 24 Hrs of Vitals and I&O: Vital Signs Date Time Temp Pulse Resp B/P B/P Pulse O2 O2 Flow FiO2 Mean Ox Delivery Rate 04/10 1032 95 Nasal 2.0L Cannula 04/10 0817 98.3 62 20 130/62 97 Nasal 2.0L Cannula 04/10 0600 77 130/60 04/10 0000 97 Nasal 2.0L Cannula 04/09 2200 98.5 66 20 148/70 97 Nasal 2.0L Cannula 04/09 2105 66 148/70 04/09 2005 97 Nasal 3.0L Cannula 04/09 1552 Nasal 3.0L Cannula 04/09 1536 97.8 18 98 Nasal 3.0L Cannula 04/09 1514 97 138/50 04/09 1504 98 138/50 04/09 1108 95 Nasal 3.0L Cannula Intake & Output 04/10 1600 04/10 0800 04/10 0000 Intake Total 150 336 Output Total 550 1250 Balance -400 -914 Intake, IV 16 Intake, Oral 150 320 Output, Urine 550 1250 Patient 118 lb Weight Weight Chair scale Measurement Method Laboratory Tests 04/10 04/09 04/08 0600 0642 1345 Chemistry Sodium (137 - 145 mmol/L) 137 136 L Potassium (3.5 - 5.1 mmol/L) 4.6 3.7 Chloride (98 - 107 mmol/L) 94 L 93 L Carbon Dioxide (22 - 30 mmol/L) 34 H 35 H Anion Gap (5 - 16) 9 8 BUN (7 - 17 mg/dL) 47 H 45 H Creatinine (0.5 - 1.0 mg/dL) 1.3 H 1.3 H Estimated GFR (>60 ml/min) 39 L 39 L BUN/Creatinine Ratio (7 - 25 %) 36.2 H 34.6 H Coagulation PT (9.4 - 12.5 SEC) 19.8 H 25.1 H INR (0.90 - 1.19) 1.90 H 2.41 H Hematology CBC w Diff NO MAN DIFF REQ WBC (4.8 - 10.8 /CUMM) 8.6 RBC (4.20 - 5.40 /CUMM) 3.00 L Hgb (12.0 - 16.0 G/DL) 9.3 L Hct (37 - 47 %) 28.5 L MCV (81.0 - 99.0 FL) 95.0 MCH (27.0 - 31.0 PG) 30.9 RDW (11.5 - 14.5 %) 15.7 H Plt Count (130 - 400 /CUMM) 227 MPV (7.4 - 10.4 FL) 7.4 Gran % (42.2 - 75.2 %) 85.4 H Lymphocytes % (20.5 - 51.1 %) 7.8 L Monocytes % (1.7 - 9.3 %) 6.4 Eosinophils % (0 - 5 %) 0.2 Basophils % (0.0 - 2.0 %) 0.2 Absolute Granulocytes (1.4 - 6.5 /CUMM) 7.3 H Absolute Lymphocytes (1.2 - 3.4 /CUMM) 0.7 L Absolute Monocytes (0.10 - 0.60 /CUMM) 0.6 Absolute Eosinophils (0.0 - 0.7 /CUMM) 0 Absolute Basophils (0.0 - 0.2 /CUMM) 0 PUBS MCHC (33.0 - 37.0 G/DL) 32.6 L Urines Ur Random Creatinine (mg/dL) 50.2 Ur Random Sodium (30 - 90 mmol/L) 8 L Ur Random Potassium (mmol/L) 31.1 Fraction Sodium Excret (<1% %) 0.2 Impression/Plan Impression/Plan Impression/Plan: Physical Exam: Chronically ill-appearing elderly female in no acute distress with nasal oxygen in place. Vital signs: See above. HEENT: Normocephalic, atraumatic, EOMI, sclerae dry mucous membranes. Neck: No JVD, no bruits. Lungs: Decreased breath sounds bilaterally, occasional rhonchi. Heart: S1, S2 with grade 1/6 systolic murmur. Abdomen: Soft, nontender, positive bowel sounds. 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 Her issues include * Resolved Acute hypercarbic and hypoxemic respiratory failure most likely related to fluid overload with acute diastolic heart failure * COPD with mild COPD exacerbation * No clinical evidence suggestive of significant bacterial pneumonitis even though the chest x-ray suggestive of that. She probably does have significant emphysema and with atypical pulmonary edema pattern * Aortic aneurysm which needs to be followed * Proximal atrial fibrillation with tachybradycardia syndrome on appropriate anticoagulation * Worsening overall performance status * Osteoporosis * Kyphoscoliosis with obstructive restrictive lung disease * Bilateral pleural effusion related to heart failure, improving now clinically * Improving Acute on chronic kidney disease with acute renal failure due to low flow state RECOMMENDATION Continue diuresis with IV lasix daily po ceftin finish 7 days total of abx Reduce prednisone to 20 mg and wean off in 5 days [id number] nebulizer therapy Spiriva 1 puff daily Watch renal function Ok to dc soon to snf or home depending on pt eval
[2017-04-10 15:30] VITALS: BP 122/64
--- NOTE | 2017-04-10 16:41 | PN- Cardiology ---
Subjective Subjective: Feels improved today. Oxygen decreased to 1 L nasal cannula. Objective Vital Signs and I&Os Vital Signs Date Time Temp Pulse Resp B/P B/P Pulse O2 O2 Flow FiO2 Mean Ox Delivery Rate 04/10 1413 92 150/58 04/10 1032 95 Nasal 2.0L Cannula 04/10 0817 98.3 62 20 130/62 97 Nasal 2.0L Cannula 04/10 0600 77 130/60 04/10 0000 97 Nasal 2.0L Cannula 04/09 2200 98.5 66 20 148/70 97 Nasal 2.0L Cannula 04/09 2105 66 148/70 04/09 2005 97 Nasal 3.0L Cannula Intake & Output 04/10 0804/10 0000 04/09 0000 Intake Total 540 150 336 681 150 516 Output Total 932 022 3176 1250 750 850 Balance -260 -400 -914 -569 -600 -334 Intake, IV 16 16 0 16 Intake, Oral 540 150 320 665 150 500 Number 0 Bowel Movements Output, Urine 462 122 5276 1250 750 850 Patient 118 lb Weight Weight Chair scale Measurement Method Physical Exam: Chronically ill-appearing elderly female in no acute distress with nasal oxygen in place. Vital signs: See above. HEENT: Normocephalic, atraumatic, EOMI, sclerae dry mucous membranes. Neck: No JVD, no bruits. Lungs: Decreased breath sounds bilaterally, occasional rhonchi. Heart: S1, S2 with grade 1/6 systolic murmur. Abdomen: Soft, nontender, positive bowel sounds. Extremities: Trace edema. Current Medications: Current Medications Sig/Elle Start time Last Medication Dose Route Stop Time Status Admin Acetaminophen 650 MG .STK-MED ONE 04/09 223 DC PO 04/09 223 Acetaminophen 650 MG Q6P PRN 04/06 2215 AC 04/09 PO 223 Albuterol Sulfate 3 ML BID 04/07 1000 AC 04/10 INH 1029 Allopurinol 100 MG DAILY 04/07 1000 AC 04/10 PO 0938 Aspirin Buffered 81 MG DAILY 04/07 1000 AC 04/10 PO 0938 Atorvastatin Calcium 10 MG 1700 04/07 1700 AC 04/09 PO 1712 Cefuroxime Sodium 250 MG DAILY 04/09 1005 AC 04/10 PO 05/27 1001 0939 Diltiazem HCl 120 MG Q8 04/07 0600 AC 04/10 PO 1413 Furosemide 60 MG 7:30 AM, & 4:30 PM 04/08 1630 AC 04/10 IV 0635 Oxycodone/ 1 TAB Q6P PRN 04/06 2215 AC Acetaminophen PO Patient Medication 1 ED .STK-MED ONE 04/10 1358 DC Teaching ED 04/10 1359 Prednisone 10 MG DAILY 04/12 1000 AC PO 04/13 1001 Prednisone 20 MG DAILY 04/10 1000 AC 04/10 PO 04/11 1001 0938 Sodium Chloride 1 GTT Q6H 04/09 1600 AC 04/10 OPH 0938 Tiotropium [place] 1 PUF DAILY 04/08 1000 AC 04/10 INH 0939 Warfarin Sodium 2.5 MG COUMADIN 1700 ONE 04/10 1700 AC PO 04/10 1701 Warfarin Sodium 1 MG COUMADIN 1700 ONE 04/09 1700 DC 04/09 PO 04/09 1701 1712 Results Last 48 Hrs of Labs/Mics: Laboratory Tests 04/10/17 0600: Anion Gap 9, Estimated GFR 39 L, BUN/Creatinine Ratio 36.2 H, PT 19.8 H, INR 1.90 H, CBC w Diff NO MAN DIFF REQ, RBC 3.00 L, MCV 95.0, MCH 30.9, RDW 15.7 H, MPV 7.4, Gran % 85.4 H, Lymphocytes % 7.8 L, Monocytes % 6.4, Eosinophils % 0.2, Basophils % 0.2, Absolute Granulocytes 7.3 H, Absolute Lymphocytes 0.7 L, Absolute Monocytes 0.6, Absolute Eosinophils 0, Absolute Basophils 0, PUBS MCHC 32.6 L 04/09/17 0642: Anion Gap 8, Estimated GFR 39 L, BUN/Creatinine Ratio 34.6 H, PT 25.1 H, INR 2.41 H Assessment/Plan Assessment/Plan 86-year-old white female with hx HTN, HLD, DM, gout, fmr tob use, COPD, pul nodules, s/p RU lobectomy 05/10/2008 for 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 Had a good diuresis over the past 24 hours and is feeling improved with no change in her creatinine and slight bump in her BUN. Recommendations: * Need daily weights and strict inputs and outputs. * Repeat CXR in the a.m. * DVT prophylaxis. Continue telemetry? Yes
[2017-04-11 00:01] VITALS: BP 122/52
--- NOTE | 2017-04-11 07:15 | PN- Housestaff ---
See Addendum Subjective Follow-up For: 1. Acute hypoxic/hypercarbic respiratory failure most likely 2/2 to CHF exacerbation 3. Possible pneumonia 4. PAULA on CKD 5. elevated digoxin level 6. hyperkalemia, hyper phosphatemia, hypermagnesemia 7. LE edema with right lower leg skin ulcer Tele-Events Since Last Visit: Atrial fibrillation, single patient, 60s-90s, no overnight events Subjective: Afebrile, hemodynamically stable, and saturating well on 1 L of oxygen. No acute overnight events reported. Patient denies any current active complaints. Review of Systems Constitutional: Reports: no symptoms. Objective Last 24 Hrs of Vital Signs/I&O Vital Signs Date Time Temp Pulse Resp B/P B/P Pulse O2 O2 Flow FiO2 Mean Ox Delivery Rate 04/11 0824 98.1 68 18 132/58 96 Nasal 1.0L Cannula 04/11 0600 94 140/70 04/11 0001 98.7 64 18 122/52 94 Nasal Cannula 04/11 0000 Nasal 1.0L Cannula 04/10 2151 83 138/68 04/10 1830 95 Nasal 1.0L Cannula 04/10 1600 95 Nasal 1.0L Cannula 04/10 1530 98.0 79 16 122/64 95 Room Air 04/10 1413 92 150/58 04/10 1032 95 Nasal 2.0L Cannula Intake & Output 04/11 1600 04/11 0800 04/11 0000 Intake Total 100 240 Output Total 700 300 Balance -600 -60 Intake, Oral 100 240 Output, Urine 700 300 Patient 50.576 kg Weight Weight Chair scale Measurement Method Physical Exam General Appearance: Alert, Oriented X3, Cooperative, No Acute Distress HEENT: Atraumatic, PERRLA, EOMI, Mucous Membr. moist/pink Cardiovascular: Normal S1, Normal S2, No Murmurs, irregular Lungs: diminished air-entry over lung base b/l , mild wheezing over the left lung Abdomen: Soft, No Tenderness Neurological: Normal Speech Extremities: No Clubbing, No Cyanosis, No Edema Current Medications: Current Medications Sig/Elle Start time Last Medication Dose Route Stop Time Status Admin Acetaminophen 650 MG .STK-MED ONE 04/10 2215 DC PO 04/10 2216 Acetaminophen 650 MG Q6P PRN 04/06 221 AC 04/10 PO 2213 Albuterol Sulfate 3 ML BID 04/07 1000 AC 04/10 INH 1830 Allopurinol 100 MG DAILY 04/07 1000 AC 04/10 PO 0938 Aspirin Buffered 81 MG DAILY 04/07 1000 AC 04/10 PO 0938 Atorvastatin Calcium 10 MG 1700 04/07 1700 AC 04/10 PO 1749 Cefuroxime Sodium 250 MG DAILY 04/09 1005 AC 04/10 PO 04/12 1001 0939 Diltiazem HCl 120 MG Q8 04/07 0600 AC 04/11 PO 0600 Furosemide 60 MG 7:30 AM, & 4:30 PM 04/08 1630 AC 04/10 IV 1747 Oxycodone/ 1 TAB Q6P PRN 04/06 2215 AC Acetaminophen PO Patient Medication 1 ED .STK-MED ONE 04/10 1358 DC Teaching ED 04/10 1359 Prednisone 10 MG DAILY 04/12 1000 AC PO 04/13 1001 Prednisone 20 MG DAILY 04/10 1000 AC 04/10 PO 04/11 1001 0938 Sodium Chloride 1 GTT Q6H 04/09 1600 AC 04/11 OPH 0400 Tiotropium [place] 1 PUF DAILY 04/08 1000 AC 04/10 INH 0939 Warfarin Sodium 2.5 MG COUMADIN 1700 ONE 04/10 1700 DC 04/10 PO 04/10 1701 1750 Last 24 Hrs of Lab/Nikita Results Last 24 Hrs of Labs/Mics: Laboratory Tests 04/11/17 0630: Anion Gap 9, Estimated GFR 39 L, BUN/Creatinine Ratio 33.1 H, PT 17.3 H, INR 1.66 H, CBC w Diff NO MAN DIFF REQ, RBC 3.42 L, MCV 95.9, MCH 31.4 H, RDW 16.1 H, MPV 7.1 L, Gran % 80.2 H, Lymphocytes % 12.4 L, Monocytes % 6.3, Eosinophils % 1.0, Basophils % 0.1, Absolute Granulocytes 8.1 H, Absolute Lymphocytes 1.3, Absolute Monocytes 0.6, Absolute Eosinophils 0.1, Absolute Basophils 0, PUBS MCHC 32.8 L Assessment/Plan Assessment: Patient is a 86 year-old lady with PMH of Afib on coumadin, COPD not on home O2, CHF, HTN, HLD, tachybrady syndrome s/p pacemaker, lung cancer s/p right upper lobe in 2007 (poorly differentiated adenocarcinoma), bladder cancer, aortic aneurysm, who is brought in to the ED by her daughter because of worsening of shortness of breath, malaise, poor oral intake and leg swelling. #Acute hypoxic/hypercarbic respiratory failure Most likely due to CHF exacerbation given LE edema, bibasilar crackles, elevated proBNP and Small pleural effusions on CXray . Also possible pneumonia given CXR: Multifocal airspace disease concerning for pneumonia, but she is afebrile with no leukocytosis. SO2 88-89% on arrival. ABG: chronic compensated respiratory acidosis. Patient recieved IV [id number] mg IV one time on ED. patient is receiving furosemide 40 mg by mouth at home. * O2 supplementation as needed, this am she is on 1 L NC * We will continue diuresis, we will discuss with cardiology the need to increase home furosemide dose. * Continue Cefuroxime 250 daily to finish a total of 7 days (#day 6) * Continue prednisone as 20 mg for 2 days then 10 mg for 2 days. * Continue Spiriva 1 puff daily * TRC/Nebs #PAULA on CKD BUN/Cr: 42/2.2 most likely secondary to CHF. Creatinine improved today to 1.3 * Check renal function daily #Elevated serum digoxin level at admission (2.9) Last digoxin taken on 04/05/17 5 pm. Most likely etiology of elevated Dig level: renal failure. Except for generalized weakness, patient has no other clinical findings of Digoxin toxicity. * We will ask cardiology to comment on the need for digoxin. #Atrial fibrillation, HTN, HLD On Coumadin and Diltiazem. Coumadin was held on admission because of supratherapeutic INR. INR today is 1.66. According to the Patient she was started on allopurinol around 3 months ago. The interaction between allopurinol and warfarin can explain the supratherapeutic INR no was observed in this admission and the previous admissio 2 months ago. * Will contnue PO diltiazem 120 mg Q8 * Continue aspirin and statin * We will does 2.5 of Coumadin today * Check INR daily and dose Coumadin as necessary * We will instruct patient to follow with PCP, recheck INR regularly while on allopurinol and warfarin, address the need for allopurinol with PCP, and educate patient about alarm symptom that may indicate elevated INR. #Admission she had Hyperkalemia, hyperphosphatemia, hypermagnesemia Most likely due to PAULA on top of CKD. This morning potassium is 3.8. Patient is on ggressive Lasix. * We'll give 40 mEq of potassium orally * Repeat BEP tomorrow looking for hypokalemia #Lower Extremity skin ulcer stage 1 skin ulcer * covered with Xeroform and Kerlix #Gout * Continue allopurinol * We'll instruct patient to address the need for allopurinol with PCP as outpt #Macular degeneration * continue Karlos 128 1 drop on both eyes every 6h #Aortic aneurysm * We will instruct patient to address this as an outpatient DVT prophylaxis with Coumadin Pain: tylenol for mild pain and percocet for severe pain Heart healthy diet DNR/DNI Problem List: 1. Acute respiratory failure with hypoxia and hypercapnia Pain Ratin Pain Location: na Pain Goal: Remain pain free Pain Plan: See A&P Tomorrow's Labs & Rationales: INR Consulting Request: Consulting Specialty: Pulmonary Disease Consulting Physician: DR HENDERSON Reason for Consult: ACUTE HYPERCARBIC AND HYPOXEMIC RESPIRATORY FAILURE
[2017-04-11 08:02] LABS: ABSOLUTE BASOPHIL COUNT 0 /CUMM (0.0-0.2); ABSOLUTE EOSINOPHIL COUNT 0.1 /CUMM (0.0-0.7); ABSOLUTE GRANULOCYTE CT 8.1 /CUMM (1.4-6.5); ABSOLUTE LYMPH COUNT 1.3 /CUMM (1.2-3.4); ABSOLUTE MONOCYTE COUNT 0.6 /CUMM (0.10-0.60); BASOPHIL % 0.1 % (0.0-2.0); GRANULOCYTE % 80.2 % (42.2-75.2); HEMATOCRIT 32.8 % (37-47); MEAN CORPUSCULAR HGB 31.4 PG (27.0-31.0); MEAN CORPUSCULAR HGB CONC 32.8 G/DL (33.0-37.0); MEAN CORPUSCULAR VOLUME 95.9 FL (81.0-99.0); MEAN PLATELET VOLUME 7.1 FL (7.4-10.4); PLATELET COUNT 270 /CUMM (130-400); RBC DISTRIBUTION WIDTH 16.1 % (11.5-14.5); RED BLOOD CELL CT 3.42 /CUMM (4.20-5.40); WHITE BLOOD CELL COUNT 10.1 /CUMM (4.8-10.8)
[2017-04-11 08:22] LABS: PT 17.3 SEC (9.4-12.5)
[2017-04-11 08:24] VITALS: BP 132/58
--- NOTE | 2017-04-11 10:34 | PN- Cardiology ---
Subjective Subjective: No complaints and has agreed to short-term rehabilitation at [facility]. On telemetry rhythm is atrial fibrillation with a ventricular response rate varying between 60-90 bpm. Objective Vital Signs and I&Os Vital Signs Date Time Temp Pulse Resp B/P B/P Pulse O2 O2 Flow FiO2 Mean Ox Delivery Rate 04/11 1040 99 Nasal 1.0L Cannula 04/11 1018 Nasal 3.0L Cannula 04/11 0824 98.1 68 18 132/58 96 Nasal 1.0L Cannula 04/11 0600 94 140/70 04/11 0001 98.7 64 18 122/52 94 Nasal Cannula 04/11 0000 Nasal 1.0L Cannula 04/10 2151 83 138/68 04/10 1830 95 Nasal 1.0L Cannula 04/10 1600 95 Nasal 1.0L Cannula 04/10 1530 98.0 79 16 122/64 95 Room Air 04/10 1413 92 150/58 Intake & Output 04/11 1600 04/11 0800 04/11 0000 04/10 1600 04/10 0800 04/10 0000 Intake Total 100 240 540 150 336 Output Total 700 300 825 916 6855 Balance -600 -60 -260 -400 -914 Intake, IV 16 Intake, Oral 100 240 540 150 320 Output, Urine 700 [phone] 0160 Patient 112 lb 118 lb Weight Weight Chair scale Chair scale Measurement Method Physical Exam: Chronically ill-appearing elderly female in no acute distress with nasal oxygen in place. Vital signs: See above. HEENT: Normocephalic, atraumatic, EOMI, sclerae dry mucous membranes. Neck: No JVD, no bruits. Lungs: Decreased breath sounds bilaterally. Heart: S1, S2 with grade 1/6 systolic murmur. Abdomen: Soft, nontender, positive bowel sounds. Extremities: Trace edema. Current Medications: Current Medications Sig/Elle Start time Last Medication Dose Route Stop Time Status Admin Acetaminophen 650 MG .STK-MED ONE 04/10 2215 DC PO 04/10 2216 Acetaminophen 650 MG Q6P PRN 04/06 2215 AC 04/10 PO 2213 Albuterol Sulfate 3 ML BID 04/07 1000 04/11 INH 1031 Allopurinol 100 MG DAILY 04/07 1000 04/11 PO 1050 Aspirin Buffered 81 MG DAILY 04/07 1000 AC 04/11 PO 1050 Atorvastatin Calcium 10 MG 1700 04/07 1700 AC 04/10 PO 1749 Cefuroxime Sodium 250 MG DAILY 04/09 1005 AC 04/11 PO 04/12 1001 1050 Diltiazem HCl 120 MG Q8 04/07 0600 AC 04/11 PO 0600 Furosemide 60 MG 7:30 AM, & 4:30 PM 04/08 1630 AC 04/10 IV 1747 Oxycodone/ 1 TAB Q6P PRN 04/06 2215 AC Acetaminophen PO Patient Medication 1 ED .STK-MED ONE 04/10 1358 DC Teaching ED 04/10 1359 Potassium Chloride 40 MEQ ONCE ONE 04/11 1130 DC PO 04/11 1131 Prednisone 10 MG DAILY 04/12 1000 AC PO 04/13 1001 Prednisone 20 MG DAILY 04/10 1000 DC 04/11 PO 04/11 1001 1050 Sodium Chloride 1 GTT Q6H 04/09 1600 AC 04/11 OPH 1049 Tiotropium [place] 1 PUF DAILY 04/08 1000 AC 04/11 INH 1050 Warfarin Sodium 2.5 MG COUMADIN 1700 ONE 04/11 1700 AC PO 04/11 1701 Warfarin Sodium 2.5 MG COUMADIN 1700 ONE 04/10 1700 DC 04/10 PO 04/10 1701 1750 Assessment/Plan Assessment/Plan 86-year-old white female with hx HTN, HLD, DM, gout, fmr tob use, COPD, pul nodules, s/p RU lobectomy 05/10/2008 for 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 Diuresing well with a slight decrease in her BUN to 43 and no change in her creatinine at 1.3. Today's potassium was 3.8 mEq per liter and needs to be repleted. She has not had a follow-up magnesium which should be checked prior to discharge. Note increased TSH which needs follow-up. Recommendations: * Consider repeat CXR in the a.m. to follow-up on suspected bilateral pleural effusions. * As her heart rate has been acceptable, would maintain off digoxin and metoprolol for now. These may need to be restarted on an outpatient basis as she becomes more active. Would continue on the diltiazem 120 mg 3 times daily with possible switch to diltiazem CD 360 mg daily on outpatient basis. * Continue on warfarin anticoagulation for her chronic atrial fibrillation with a goal INR of 2.5 and a range of 2.0-3.0. Close INR monitoring will be necessary (vide infra). * Remain cognizant of the interactions of allopurinol with warfarin which can increase the INR, as well as, the interaction of loop diuretics with allopurinol which can increase the allopurinol concentration. * Remain cognizant of the interactions of cephalosporins and vitamin K antagonists which can lead to an increase in the anticoagulant effects of the vitamin K antagonists. * DVT prophylaxis being addressed by warfarin anticoagulation for her atrial fibrillation. Continue telemetry? Yes
--- NOTE | 2017-04-11 10:37 | PN- Pulmonary ---
Subjective HPI/Critical Care Issues: IMproving on one litre oxygen Objective Current Medications: Current Medications Sig/Elle Start time Last Medication Dose Route Stop Time Status Admin Acetaminophen 650 MG .STK-MED ONE 04/10 2215 DC PO 04/10 2216 Acetaminophen 650 MG Q6P PRN 04/06 2215 AC 04/10 PO 2214 Albuterol Sulfate 3 ML BID 04/07 1000 AC 04/11 INH 1031 Allopurinol 100 MG DAILY 04/07 1000 AC 04/10 PO 0938 Aspirin Buffered 81 MG DAILY 04/07 1000 AC 04/10 PO 0938 Atorvastatin Calcium 10 MG 1700 04/07 1700 AC 04/10 PO 1749 Cefuroxime Sodium 250 MG DAILY 04/09 1005 AC 04/10 PO 04/12 1001 0939 Diltiazem HCl 120 MG Q8 04/07 0600 AC 04/11 PO 0600 Furosemide 60 MG 7:30 AM, & 4:30 PM 04/08 1630 AC 04/10 IV 1747 Oxycodone/ 1 TAB Q6P PRN 04/06 2215 AC Acetaminophen PO Patient Medication 1 ED .STK-MED ONE 04/10 1358 DC Teaching ED 04/10 1359 Prednisone 10 MG DAILY 04/12 1000 AC PO 04/13 1001 Prednisone 20 MG DAILY 04/10 1000 DC 04/10 PO 04/11 1001 0938 Sodium Chloride 1 GTT Q6H 04/09 1600 AC 04/11 OPH 0400 Tiotropium [place] 1 PUF DAILY 04/08 1000 AC 04/10 INH 0939 Warfarin Sodium 2.5 MG COUMADIN 1700 ONE 04/10 1700 DC 04/10 PO 04/10 1701 1750 Vital Signs & I&O Last 24 Hrs of Vitals and I&O: Vital Signs Date Time Temp Pulse Resp B/P B/P Pulse O2 O2 Flow FiO2 Mean Ox Delivery Rate 04/11 1018 Nasal 3.0L Cannula 04/11 0824 98.1 68 18 132/58 96 Nasal 1.0L Cannula 04/11 0600 94 140/70 04/11 0001 98.7 64 18 122/52 94 Nasal Cannula 04/11 0000 Nasal 1.0L Cannula 04/10 2151 83 138/68 04/10 1830 95 Nasal 1.0L Cannula 04/10 1600 95 Nasal 1.0L Cannula 04/10 1530 98.0 79 16 122/64 95 Room Air 04/10 1413 92 150/58 Intake & Output 04/11 1600 04/11 0800 04/11 0000 Intake Total 100 240 Output Total 700 300 Balance -600 -60 Intake, Oral 100 240 Output, Urine 700 300 Patient 112 lb Weight Weight Chair scale Measurement Method Impression/Plan Impression/Plan Impression/Plan: Physical Exam: Chronically ill-appearing elderly female in no acute distress with nasal oxygen in place. Vital signs: See above. HEENT: Normocephalic, atraumatic, EOMI, sclerae dry mucous membranes. Neck: No JVD, no bruits. Lungs: Decreased breath sounds bilaterally, occasional rhonchi. Heart: S1, S2 with grade 1/6 systolic murmur. Abdomen: Soft, nontender, positive bowel sounds. 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 Her issues include * Resolved Acute hypercarbic and hypoxemic respiratory failure most likely related to fluid overload with acute diastolic heart failure * COPD with mild COPD exacerbation * No clinical evidence suggestive of significant bacterial pneumonitis even though the chest x-ray suggestive of that. She probably does have significant emphysema and with atypical pulmonary edema pattern * Aortic aneurysm which needs to be followed * Proximal atrial fibrillation with tachybradycardia syndrome on appropriate anticoagulation * Worsening overall performance status * Osteoporosis * Kyphoscoliosis with obstructive restrictive lung disease * Bilateral pleural effusion related to heart failure, improving now clinically * Improving Acute on chronic kidney disease with acute renal failure due to low flow state RECOMMENDATION Continue diuresis with IV lasix daily po ceftin finish 7 days total of abx Prednisone wean off in 4 days [id number] nebulizer therapy prn Spiriva 1 puff daily Ok to dc soon to snf or home depending on pt eval
[2017-04-11] MEDS ORDERED: SPIRIVA18 MCG INH (13:31)
[2017-04-11] MEDS ORDERED: LASIX20 M1 PO (13:46)
[2017-04-11] MEDS ORDERED: CEFUROXIME250 M1 PO (13:48)
[2017-04-11] MEDS ORDERED: PREDNISONE10 M2 PO (13:50)
--- NOTE | 2017-04-11 13:53 | Patient Discharge Instructions ---
Discharge Instructions General Discharge Information You were seen/treated for: CHF exacerbation Special Instructions: Please follow-up with your primary care physician in one week of discharge Please follow-up with your tool trouble shooter in 1 week of discharge Check INR on 04/15/2017 and keep INR between 2 and 3 Please take medications as prescribed as he make changes in your discharge medications please follow-up with your primary care physician for thyroid function test as outpatient Diet Recommended Diet: Heart Healthy Activity Additional ACTIVITY Info: as tolerated with assistance Acute Coronary Syndrome Inclusion Criteria At DC or during hospital stay patient has or had the following: ACS DIAGNOSIS No Discharge Core Measures Meds if any: Prescribed or Continued at Discharge Meds if any: NOT Prescribed or Continued at Discharge Congestive Heart Failure Inclusion Criteria At DC or during hospital stay patient has or had the following: CHF DIAGNOSIS Yes Discharge Core Measures Meds if any: Prescribed or Continued at Discharge ELZBIETA/ARB for EF <40% No Meds if any: NOT Prescribed or Continued at Discharge Cerebrovascular accident Inclusion Criteria At DC or during hospital stay patient has or had the following: CVA/TIA Diagnosis No Discharge Core Measures Meds if any: Prescribed or Continued at Discharge Meds if any: NOT Prescribed or Continued at Discharge Venous thromboembolism Inclusion Criteria VTE Diagnosis No VTE Type NONE VTE Confirmed by (Test) NONE Discharge Core Measures - Per Current guidelines, there needs to be overlap - treatment for the first 5 days of Warfarin therapy. - If discharged on Warfarin prior to 5 days of - overlap therapy, the patient will need to be - assessed for post discharge needs including - *Post discharge parental anticoagulation - *Warfarin and/or parental anticoagulation education - *Follow up date to check INR post discharge At least 5 days overlap therapy as Inpatient No Meds if any: Prescribed or Continued at Discharge Note: Overlap Therapy is Warfarin and Anticoagulant Meds if any: NOT Prescribed or Continued at Discharge
[2017-04-11 14:22] VITALS: BP 132/58
[2017-04-11 14:26] VITALS: BP 132/58
--- NOTE | 2017-04-11 14:36 | RADIOLOGY REPORT ---
EXAMINATION: XR CHEST CLINICAL INFORMATION: Shortness of breath. Presumptive diagnosis of CHF and pneumonia. COMPARISON: Several prior chest x-rays, most recent of which is dated 04/09/2017. TECHNIQUE: 2 views of the chest were obtained. FINDINGS: Right atrial and right ventricular pacer leads are again seen, unchanged in position. The cardiomediastinal silhouette is within normal limits in size. Calcification and tortuosity of the aorta is again seen. Compared to the prior exam, decrease in the diffuse perihilar opacities is seen, suggesting improving pulmonary edema. Small bilateral pleural effusions remain, slightly larger on the left side than the right, unchanged from prior study. Associated bibasilar subsegmental atelectasis is suspected. No dense consolidation is seen to suspect a pneumonia. Mild biapical scarring is seen. There is diffuse osteopenia and a convex right thoracolumbar scoliosis with multilevel mild vertebral spondylosis. IMPRESSION: 1. Findings are most consistent with improving pulmonary edema. 2. Persistent small bilateral pleural effusions with associated bibasilar subsegmental atelectasis.
== END 2017-04-11 15:13 | DRG 291 ==
LOC: ERH 17:26 → 1NO 19:39 → ERHI 19:39 → ENRESERV 21:54 → ENTRNSPT 22:22 → 1NO 22:51 → EDTRNSPTTYP 04-07 07:01 → EDTRNSPT 04-07 07:01 → CMPTRNSPT 04-07 07:02 → 1NO 04-07 10:11 → ENPENDDIS 04-11 14:03 → 1NO 04-11 15:13
PROVIDERS: Internal Medicine; Physician Assistant Medical; Student in an Organized Health Care Education/Training Program; ADMIT Student in an Organized Health Care Education/Training Program
PROC: 5A09357 Assistance with Respiratory Ventilation, Less than 24 Consecutive Hours, Continuous Positive Airway Pressure (ICD-10-PCS; principal; 2017-04-06)
DX: I13.0 Hypertensive heart and chronic kidney disease with heart failure and stage 1 through stage 4 chronic kidney disease, or unspecified chronic kidney disease (principal); J96.02 Acute respiratory failure with hypercapnia; N17.9 Acute kidney failure, unspecified; I50.33 Acute on chronic diastolic (congestive) heart failure; E87.2 Acidosis; J96.01 Acute respiratory failure with hypoxia; I27.2 Other secondary pulmonary hypertension; E86.0 Dehydration; L97.811 Non-pressure chronic ulcer of other part of right lower leg limited to breakdown of skin; J44.1 Chronic obstructive pulmonary disease with (acute) exacerbation; I48.0 Paroxysmal atrial fibrillation; E83.41 Hypermagnesemia; E87.5 Hyperkalemia; E83.39 Other disorders of phosphorus metabolism; N18.3 Chronic kidney disease, stage 3 (moderate); Z79.01 Long term (current) use of anticoagulants; E78.5 Hyperlipidemia, unspecified; Z66 Do not resuscitate; H35.30 Unspecified macular degeneration; M10.9 Gout, unspecified; M41.9 Scoliosis, unspecified; Z95.0 Presence of cardiac pacemaker; Z85.3 Personal history of malignant neoplasm of breast; Z85.51 Personal history of malignant neoplasm of bladder; Z85.118 Personal history of other malignant neoplasm of bronchus and lung; Z87.891 Personal history of nicotine dependence; I71.4 Abdominal aortic aneurysm, without rupture
CPT/HCPCS: 1NSP; 84133; 84300; 36415; 81001; 82436; 82570; 87040; 87070; 87086; 93005; 93010; 93306; 96374; 96375; 97110-GO; 97116-GO; 97161-GP; 97530-GO; 99291; J0456; J0696; J1940; J2930; J7040; J7512

== ENCOUNTER 2017-05-22 11:24 | Inpatient (IN) | payer OTHER, MEDICARE ==
[~2017-05-22] VITALS: Ht 160 cm; Wt 46.7 kg
[~2017-05-22 11:24] MED LIST changes: +CEFUROXIME250 M1 PO; +COUMADIN2.5 M1 PO; +SPIRIVA18 MCG INH; +TRAMADOL HCL50 M1 PO
--- NOTE | 2017-05-22 11:27 | ED CARDIAC/CP/PALPITATIONS ---
History of Present Illness General Chief Complaint: Chest Pain Stated Complaint: CP Source: patient, old records Exam Limitations: no limitations Allergies Coded Allergies: levofloxacin (Severe, TONGUE SWELLING 01/13/16) Penicillins (UNKNOWN 01/13/16) Reconcile Medications Albuterol Sulfate (Proair Hfa) 90 MCG HFA.AER.AD 2 PUF INH Q4-6 PRN PRN SOB ( Reported) Allopurinol 100 MG TABLET 1 TAB PO DAILY GOUT (Reported) Aspirin (Ecotrin*) 81 MG TABLET.DR 1 TAB PO DAILY HEART HEALTH (Reported) Budesonide/Formoterol Fumarate (Symbicort 160-4.5 Mcg Inhaler) 160 MCG-4.5 MCG/ ACTUATION HFA.AER.AD 2 PUF INH BID COPD (Reported) Diltiazem HCl 120 MG TABLET 1 TAB PO TID HEART (Reported) Furosemide (Lasix) 20 MG TABLET 60 MG PO BID diuretic Lovastatin 40 MG TABLET 1 TAB PO DAILY CHOLESTEROL (Reported) with food Potassium Chloride 10 MEQ TAB.ER.PRT 1 TAB PO DAILY SUPPLEMENT (Reported) Tramadol HCl 50 MG TABLET 1 TAB PO BID PRN PAIN (Reported) Warfarin Sodium (Coumadin) 2.5 MG TABLET 1 TAB PO DAILY BLOOD THINNER ( Reported) Triage Nurses Notes Reviewed? 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 Patient took 81 mg of aspirin. EMS was called 10 IV Cardizem was administered bolus with mild improvement of rapid A. fib per EMS states rate was approximately 160'S, rhythm strip per EMS also shows pacemaker spikes Patient denies any fever chills cough. (PORSCHE ROTH) Vital Signs & Intake/Output Vital Signs & Intake/Output Vital Signs Date Time Temp Pulse Resp B/P B/P Pulse O2 O2 Flow FiO2 Mean Ox Delivery Rate 05/22 1609 97.5 144 18 142/70 97 Room Air Room Air 05/22 1340 97.4 113 19 138/75 07/06 1302 135 145/73 07/06 1224 97.4 140 19 142/71 07/06 1224 130 139/71 07/06 1210 97.4 140 19 142/71 07/06 1146 97.4 140 19 142/89 98 Room Air Past History Medical History Any Pertinent Medical History? see below for history Neurological: NONE EENT: NONE Cardiovascular: AFIB, CHF, hypertension, hyperlipidemia, sick sinus syndrome s/p ppm Respiratory: COPD, pulmonary nodules lung carcinoma status post resection Gastrointestinal: NONE Hepatic: NONE Renal: NONE Musculoskeletal: NONE Psychiatric: NONE Endocrine: NONE Blood Disorders: NONE Cancer(s): bladder cancer, breast cancer, lung cancer MANAGER VALUATION/Reproductive: BLADDER TUMOR Other Medical Hx: Aortic aneurysm R SIDE BREAST MASS WITH RESCECTION History of MRSA: No History of VRE: No History of CDIFF: No Surgical History Surgical History: hysterectomy, LUNG MASS WITH LOBECTOMY R SIDE pacemaker, PACEMAKER Psychosocial History Who do you live with Patient/Self Services at Home Home Health Aide What is your primary language Lao Family History Family History, If Any: SISTER MOTHER Relation not specified for: *No pertinent family history FH: atrial fibrillation FH: hypertension Hx Contributory? No (PORSCHE ROTH) Review of Systems Review of Systems Constitutional: Reports: see HPI, malaise, weakness. EENTM: Reports: no symptoms. Respiratory: Reports: see HPI, short of breath. Cardiovascular: Reports: see HPI, chest pain. GI: Reports: see HPI, abdominal pain. Genitourinary: Reports: no symptoms. Musculoskeletal: Reports: no symptoms. Skin: Reports: no symptoms. Neurological/Psychological: Reports: no symptoms. Hematologic/Endocrine: Reports: no symptoms. Immunologic/Allergic: Reports: no symptoms. All Other Systems: Reviewed and Negative (PORSCHE ROTH) Physical Exam Physical Exam General Appearance: alert, cachetic Cardiovascular: tachycardia, irregularly irregular Comments: HEENT: Normal EENT exam, Neck: Supple, no lymphadenopathy, normal range of motion without pain or tenderness Back: Nontender, no CVA tenderness. Cardiovascular: Regular rate and rhythms no murmurs rubs or gallops, normal JVP Respiratory: Chest nontender. No respiratory distress.breath sounds clear to auscultation bilaterally Abdomen: Soft, mild distention generalized point tenderness noted. no appreciable organomegaly. Normal bowel sounds. No ascites Extremity: No edema, no calf tenderness to palpation, normal and equal pulses. Neuro: Alert oriented x3, motor sensory normal Skin: No appreciable rash on exposed skin, skin is warm and dry. Psych: Mood and affect is normal, memory and judgment is normal. Core Measures ACS in differential dx? Yes ASA ordered for poss ACS? Yes-ordered Severe Sepsis Present: No Septic Shock Present: No (DIONTE FLOWER,PORSCHE) Progress Differential Diagnosis: AMI, aortic dissection, atrial fibrillation, cholecystitis, CHF/pulm edema, costochondritis, hyperkalemia, hypovolemia, hyperthyroid, hyperventilation, intracranial hemorrhage, musculoskeletal pain, myocarditis, pancreatitis, pericarditis, pneumonia, pneumothorax, PSVT, pulmonary embolism, PUD/GERD, PVCs/PACs, respiratory failure, rib fracture, sepsis, unstable angina, V-fib/V-Tach, WPW syndrome Diagnostic Imaging: Viewed by Me: CT Scan. Radiology Impression: SEE COMMENTS Initial ED EKG: AFIB 151 BPM Comments: PATIENT: YESY DUBOIS PRESENT AGE: 86 PATIENT ACCOUNT NO: [id number] : [birth year] LOCATION: [facility] ORDERING PHYSICIAN: PORSCHE FLOWER SERVICE DATE: 05/22/172290 EXAM TYPE: CAT - CT ABD & PELVIS W/O IV CONTRAS; CT CHEST WO IV CONTRAST EXAMINATION: CT SCAN OF THE CHEST ABDOMEN AND PELVIS WITHOUT CONTRAST CLINICAL INFORMATION: Chest abdominal pain. COMPARISON: Multiple prior examinations including chest x-ray 05/18/[address] scan of the chest and abdomen April 2017. TECHNIQUE: CT scan of the abdomen and pelvis was performed without contrast. Additional sagittal and coronal two-dimensional reconstruction imaging was obtained at the acquisition workstation. DLP: 362.66 FINDINGS: CHEST: LUNGS AND PLEURAL SPACES: Stable postoperative changes in the right lung unchanged. No evidence for recurrent mass. Mild stable emphysema. Minimal pleural-based calcification along the medial aspect of the right lower lobe unchanged. The fissural nodular opacities on image 33\\E\\41 unchanged. There is a thickening of the left major fissure as seen on the axial image 37\\E\\41 series 3 unchanged. The pleural-based fissural nodule measuring approximately 3 mm is unchanged on axial image [id number]. The linear opacity in the medial aspect of the left lower lobe as seen on axial image 360\\E\\952 is unchanged, compatible scarring. CARDIOVASCULAR: Prominent calcific atherosclerotic changes unchanged, including the coronary vessels and aorta. No pericardial effusion. LYMPH NODES: Unremarkable. THORACIC INLET: Normal. ESOPHAGUS: Unremarkable. SOFT TISSUES: Unremarkable. SKELETAL: Multilevel spondylosis of the dorsal spine. ABDOMEN AND PELVIS: LIVER: Normal. PERITONEAL CAVITY: Trace free fluid compatible with minimal ascites new compared to prior. GALLBLADDER AND BILIARY TREE: There is a small calcification in the wall the gallbladder unchanged. No definite stones. There is no intrahepatic or extrahepatic biliary dilatation. PANCREAS: Small atrophic, but unchanged. SPLEEN: Normal.. ADRENAL GLANDS: Normal. URINARY TRACT (KIDNEYS, URETERS, BLADDER): 2.5 cm cyst stable in the upper pole of the right kidney.. Persistent prominent hydroureteronephrosis. There is marked thickening of the bladder wall most prominent on the left side, likely reflecting a bladder mass or having a masslike appearance. This measures up to 2.8 cm in thickness. Again noted is possible additional masslike deposits in the anterior prevesical space. These bladder findings are unchanged. PELVIC ORGANS: Uterus not identified, presumed status post hysterectomy. MESENTERY/OMENTUM: Normal. GI TRACT (STOMACH, SMALL BOWEL, LARGE BOWEL): The large bowel appears relatively decompressed. There is borderline dilated small bowel loops with multiple air-fluid levels detected. I do not see a transition point. The stomach is normal. I do not see the appendix. No localized inflammatory changes in the right lower quadrant. LYMPH NODES: Normal. VASCULAR: Severe arterial calcification noted throughout. Stable fusiform measuring up to aneurysmal dilatation of the infrarenal abdominal aorta measuring up to 4.6 cm in diameter and extending over a length of approximately 8 cm. ABDOMINAL WALL/SOFT TISSUES: Mild generalized edema in the subcutaneous soft tissues similar to prior. SKELETAL: arthrosis of the left hip and the multilevel spondylosis of the thoracolumbar spine. IMPRESSION: CHEST: No change in the chest compared with the recent CT study April 2017, stable postoperative changes and no new or recurrent mass. No mass identified in the superior segment of the right lower lobe as noted previously. Stable small noncalcified pulmonary nodules without change. ABDOMEN AND PELVIS: Stable dilatation of the left collecting system which appears secondary to what appears to be an enveloping, but a stable bladder mass most prominent on the left side. Likely reflecting neoplasm, either bladder neoplasm or metastatic disease. Mild ascites new. Borderline dilatation of the small bowel may reflect an ileus or early small bowel obstruction without transition point. This is new compared with the recent examination. Prominent calcific atherosclerotic disease with a stable abdominal aortic aneurysm. (DIONTE FLOWER,PORSCHE) Plan of Care: Orders Procedure Date/time Status PROTHROMBIN TIME 05/23 06 Active CBC WITHOUT DIFFERENTIAL 05/23 06 Active BASIC ELECTROLYTES PLUS BUN&CR 05/23 0600 Active Pathway - chart 05/22 1600 Active House Staff 05/22 1600 Active Patient Data 05/22 1600 Active Code Status 05/22 1600 Active Patient Data 05/22 1555 Active Admit to inpatient 05/22 1521 Active Add-on Test (ER Only) 05/22 1305 Active D-DIMER 05/22 1239 Complete Telemetry/Natural Sciences Department Chair 05/22 1144 Active THYROID STIMULATING HORMONE 05/22 1144 Complete TROPONIN LEVEL 05/22 1144 Complete PARTIAL THROMBOPLASTIN TIME 05/22 1144 Complete PROTHROMBIN TIME 05/22 1144 Complete FREE T4 05/22 1144 Complete COMPREHENSIVE METABOLIC PANEL 05/22 1144 Complete CBC WITHOUT DIFFERENTIAL 05/22 1144 Complete B-TYPE NATRIURETIC PEP (BNP) 05/22 1144 Complete EKG 05/22 1125 Active VTE Mechanical Prophylaxis 05/22 UNK Active Telemetry/Natural Sciences Department Chair 05/22 UNK Active Current Medications Sig/Elle Start time Last Medication Dose Stop Time Status Admin Acetaminophen 650 MG Q6P PRN 05/22 1600 UNVr (Tylenol) Acetaminophen 1,000 MG Q6P PRN 05/22 1600 UNVr (Ofirmev) Morphine Sulfate 1 MG Q6-PRN PRN 05/22 1600 UNVr (Morphine) Diltiazem HCl 125 MG Q24H 05/22 1500 UNVr 05/22 (Cardizem DRIP) 1600 Sodium Chloride 100 ML (Normal Saline 0.9%) Laboratory Tests 05/22/17 1239: PT 17.2 H, INR 1.65 H, APTT 28, D-Dimer High Sensitivty 2452 H 05/22/17 1140: Anion Gap 11, Estimated GFR 33 L, BUN/Creatinine Ratio 19.3, Glucose 125 H, Calcium 9.9, Total Bilirubin 1.1, AST 32, ALT 23, Alkaline Phosphatase 68, Troponin I 0.02, Yzp-G-Pgicxlfpmvk Pept 3480 H, Total Protein 6.8, Albumin 4.3, Globulin 2.5, Albumin/Globulin Ratio 1.7, TSH 5.000 H, Free T4 1.71, CBC w Diff NO MAN DIFF REQ, RBC 3.74 L, MCV 93.3, MCH 30.6, RDW 14.7 H, MPV 7.7, Gran % 92.1 H, Lymphocytes % 5.5 L, Monocytes % 2.1, Eosinophils % 0.2, Basophils % 0.1, Absolute Granulocytes 9.4 H, Absolute Lymphocytes 0.6 L, Absolute Monocytes 0.2, Absolute Eosinophils 0, Absolute Basophils 0, PUBS MCHC 32.8 L Upon initial examination patient was in no apparent distress oxygen saturation 99% room air. Clear lungs auscultation. Patient was offered pain medications and declined. Patient will therapeutically receive 325 mg of aspirin. Diltiazem was administered blood pressure was normotensive. On fun house attendant it is noted the patient has atrial fibrillation 150s- 130 beats per minute 05/22/2017 12:55:53 PM patient was reevaluated and still is complaining of 3/10 chest heaviness and was nitroglycerin was administered, patient's blood pressure was normotensive prior to administration. CARDIOLOGY WAS PAGED It is also noted through patient's lab work the patient has a 1.5 creatinine and GFR 33, there is differential diagnosis concern of pulmonary embolism in which a CT angiogram was ordered however this was not administered in the emergency room due to patient's kidney function. Patient will receive noncontrast CT scan of chest and abdomen. During admission patient's pulmonary embolism evaluation was not ruled out 05/22/2017 2:40:19 PM cardiology was paged Discussed patient with Dr. Dick who is aware patient's admissions for concerns of RVR atrial fibrillation, diltiazem drip was administered for persistent atrial fibrillation arounds 130 bpm. Meng Garrett MD was aware of admission (PORSCHE ROTH) Departure Departure Disposition: STILL A PATIENT Condition: Guarded Clinical Impression Primary Impression: Atrial fibrillation Secondary Impressions: Ascites, Bladder cancer, Chest pain Referrals: VAHID SILVERIO MD (PCP/Family) Departure Forms: Customer Survey General Discharge Information Admission Note Spoke With: ANNEMARIE WATERS,ROXANA Documentation of Exam: Documentation of any treatments & extenuating circumstances including Concerns Regarding Discharge (functional status, medication knowledge or non-compliance, living conditions, etc.) that warrant an admission rather than observation: [ Discussed admission with Dr. SHARPE who agrees a telemetry admission for concerns of rapid atrial fibrillation in which patient requires IV diltiazem drip, cardiology consultation, repeat labs, repeat troponin sets for continuous chest heaviness. At this time pulmonary embolism is not ruled out which patient may require a VQ scan.] (PROSCHE ROTH) PA/MANAGEMENT CONSULTING Co-Sign Statement Statement: ED Attending supervision documentation- [x] I saw and evaluated the patient. I have also reviewed all the pertinent lab results and diagnostic results. I agree with the findings and the plan of care as documented in the PA's/MANAGEMENT CONSULTING's documentation. [] I have reviewed the ED Record and agree with the PA's/MANAGEMENT CONSULTING's documentation. [] Additions or exceptions (if any) to the PAs/MANAGEMENT CONSULTING's note and plan are summarized below: [] (SONIA WATERS,MENG Cardozo) Critical Care Note Critical Care Note Critical Care Time: 30-74 min (PORSCHE ROTH)
[2017-05-22 12:06] LABS: ABSOLUTE BASOPHIL COUNT 0 /CUMM (0.0-0.2); ABSOLUTE EOSINOPHIL COUNT 0 /CUMM (0.0-0.7); ABSOLUTE GRANULOCYTE CT 9.4 /CUMM (1.4-6.5); ABSOLUTE LYMPH COUNT 0.6 /CUMM (1.2-3.4); ABSOLUTE MONOCYTE COUNT 0.2 /CUMM (0.10-0.60); BASOPHIL % 0.1 % (0.0-2.0); EOSINOPHIL % 0.2 % (0-5); HEMATOCRIT 34.9 % (37-47); MEAN CORPUSCULAR HGB 30.6 PG (27.0-31.0); MEAN CORPUSCULAR HGB CONC 32.8 G/DL (33.0-37.0); MEAN CORPUSCULAR VOLUME 93.3 FL (81.0-99.0); MEAN PLATELET VOLUME 7.7 FL (7.4-10.4); PLATELET COUNT 286 /CUMM (130-400); RBC DISTRIBUTION WIDTH 14.7 % (11.5-14.5); RED BLOOD CELL CT 3.74 /CUMM (4.20-5.40); WHITE BLOOD CELL COUNT 10.2 /CUMM (4.8-10.8)
[2017-05-22 12:37] LABS: GRANULOCYTE % 92.1 % (42.2-75.2)
[2017-05-22 13:56] LABS: PT 17.2 SEC (9.4-12.5); PTT 28 SEC (25-37)
--- NOTE | 2017-05-22 14:40 | CT SCAN REPORT ---
EXAMINATION: CT SCAN OF THE CHEST ABDOMEN AND PELVIS WITHOUT CONTRAST CLINICAL INFORMATION: Chest abdominal pain. COMPARISON: Multiple prior examinations including chest x-ray 05/18/[address] scan of the chest and abdomen April 2017. TECHNIQUE: CT scan of the abdomen and pelvis was performed without contrast. Additional sagittal and coronal two-dimensional reconstruction imaging was obtained at the acquisition workstation. DLP: 362.66 FINDINGS: CHEST: LUNGS AND PLEURAL SPACES: Stable postoperative changes in the right lung unchanged. No evidence for recurrent mass. Mild stable emphysema. Minimal pleural-based calcification along the medial aspect of the right lower lobe unchanged. The fissural nodular opacities on image 33\E\41 unchanged. There is a thickening of the left major fissure as seen on the axial image 37\E\41 series 3 unchanged. The pleural-based fissural nodule measuring approximately 3 mm is unchanged on axial image 310\[id number]. The linear opacity in the medial aspect of the left lower lobe as seen on axial image 360\[id number]\952 is unchanged, compatible scarring. CARDIOVASCULAR: Prominent calcific atherosclerotic changes unchanged, including the coronary vessels and aorta. No pericardial effusion. LYMPH NODES: Unremarkable. THORACIC INLET: Normal. ESOPHAGUS: Unremarkable. SOFT TISSUES: Unremarkable. SKELETAL: Multilevel spondylosis of the dorsal spine. ABDOMEN AND PELVIS: LIVER: Normal. PERITONEAL CAVITY: Trace free fluid compatible with minimal ascites new compared to prior. GALLBLADDER AND BILIARY TREE: There is a small calcification in the wall the gallbladder unchanged. No definite stones. There is no intrahepatic or extrahepatic biliary dilatation. PANCREAS: Small atrophic, but unchanged. SPLEEN: Normal.. ADRENAL GLANDS: Normal. URINARY TRACT (KIDNEYS, URETERS, BLADDER): 2.5 cm cyst stable in the upper pole of the right kidney.. Persistent prominent hydroureteronephrosis. There is marked thickening of the bladder wall most prominent on the left side, likely reflecting a bladder mass or having a masslike appearance. This measures up to 2.8 cm in thickness. Again noted is possible additional masslike deposits in the anterior prevesical space. These bladder findings are unchanged. PELVIC ORGANS: Uterus not identified, presumed status post hysterectomy. MESENTERY/OMENTUM: Normal. GI TRACT (STOMACH, SMALL BOWEL, LARGE BOWEL): The large bowel appears relatively decompressed. There is borderline dilated small bowel loops with multiple air-fluid levels detected. I do not see a transition point. The stomach is normal. I do not see the appendix. No localized inflammatory changes in the right lower quadrant. LYMPH NODES: Normal. VASCULAR: Severe arterial calcification noted throughout. Stable fusiform measuring up to aneurysmal dilatation of the infrarenal abdominal aorta measuring up to 4.6 cm in diameter and extending over a length of approximately 8 cm. ABDOMINAL WALL/SOFT TISSUES: Mild generalized edema in the subcutaneous soft tissues similar to prior. SKELETAL: arthrosis of the left hip and the multilevel spondylosis of the thoracolumbar spine. IMPRESSION: CHEST: No change in the chest compared with the recent CT study April 2017, stable postoperative changes and no new or recurrent mass. No mass identified in the superior segment of the right lower lobe as noted previously. Stable small noncalcified pulmonary nodules without change. ABDOMEN AND PELVIS: Stable dilatation of the left collecting system which appears secondary to what appears to be an enveloping, but a stable bladder mass most prominent on the left side. Likely reflecting neoplasm, either bladder neoplasm or metastatic disease. Mild ascites new. Borderline dilatation of the small bowel may reflect an ileus or early small bowel obstruction without transition point. This is new compared with the recent examination. Prominent calcific atherosclerotic disease with a stable abdominal aortic aneurysm.
--- NOTE | 2017-05-22 16:22 | History & Physical ---
EWA SALGADO MD 05/22/17 1603: General Information and HPI MD Statement: I have seen and personally examined YESY DUBOIS and documented this H&P. 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 She was supposed to have an appointment with recoater KURT today but states that she could not make it to the car due to the weakness and called EMS. In the ambulance she received one IV push of diltiazem for afib rates in the 160 's to only mild improvement. In the ED she received 2 more doses and was set up on a cardizem drip. She also received 3 doses of 81mg ASA. She denies taking anything prior to EMS coming, denies eating today, denies any palpatations, SOB, cough, vomitting, dizziness/lightheadedness, urinary complaints. She notes a chronic pain from her ankles downwards but doesnt note any edematous changes. Of note, the patient was diagnosed with bladder cancer 3 years [address] diagnosed [address] Christie. She was then seen here for acute hypercarbic respiratory failure in march 2017. At that time she was also on digoxin and metoprolol which were dc' d during that visit with concerns of digoxin toxicity and hypotension. After this admission she saw her doctor who noted that she had a 50lb weight loss in the past year and sent her for a CT abd/chest which showed a stable AAA and evidence of bladder cancer. She saw Dr. Tse to discuss options but due to her comborbidities and age, he didnt recommend chemo. She was last seen here on 05/18 for a similar chest pain and was seen by Dr. Dick who advised her to continue her home medication of diltiazem. Vitals on admission: Temperature 97.4, pulse: 140, respirate 18, blood pressure 142/89 saturating more than 92% on room air. Allergies/Medications Allergies: Coded Allergies: levofloxacin (Severe, TONGUE SWELLING 01/13/16) Penicillins (UNKNOWN PER PT WAS VERY BAD 05/22/17) Home Med list Albuterol Sulfate (Proair Hfa) 90 MCG HFA.AER.AD 2 PUF INH Q4-6 PRN PRN SOB ( Reported) Allopurinol 100 MG TABLET 1 TAB PO DAILY GOUT (Reported) Aspirin (Ecotrin*) 81 MG TABLET.DR 1 TAB PO DAILY HEART HEALTH (Reported) Budesonide/Formoterol Fumarate (Symbicort 160-4.5 Mcg Inhaler) 160 MCG-4.5 MCG/ ACTUATION HFA.AER.AD 2 PUF INH BID COPD (Reported) Calcium Carbonate/Vitamin D3 (Calcium 500 + D Tablet) (Unknown Strength) TABLET (Unknown Dose) PO BID SUPPLEMENT (Reported) Diltiazem HCl 120 MG TABLET 1 TAB PO TID HEART (Reported) Furosemide (Lasix) 20 MG TABLET 60 MG PO BID diuretic Lovastatin 40 MG TABLET 1 TAB PO DAILY CHOLESTEROL (Reported) with food Multivitamin (Multi-Day Vitamins) 1 EACH TABLET 1 TAB PO DAILY SUPPLEMENT ( Reported) Potassium Chloride 10 MEQ TAB.ER.PRT 2 TAB PO DAILY SUPPLEMENT (Reported) Tramadol HCl 50 MG TABLET 1 TAB PO BID PRN PAIN (Reported) Warfarin Sodium 3 MG TABLET 1 TAB PO DAILY BLOOD THINNER (Reported) Compliance With Home Meds: GOOD Past History Travel History Traveled to [place] past 21 day No Medical History Neurological: NONE EENT: NONE Cardiovascular: AFIB, CHF, hypertension, hyperlipidemia, sick sinus syndrome s/p ppm Respiratory: COPD, pulmonary nodules lung carcinoma status post resection Gastrointestinal: NONE Hepatic: NONE Renal: NONE Musculoskeletal: NONE Psychiatric: NONE Endocrine: NONE, QUESTIONABLE HYPOTHYROID HISTORY Blood Disorders: NONE Cancer(s): bladder cancer, breast cancer, lung cancer 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 Home Who Do You Live With? spouse, self Services at Home: Home Health Aide Primary Language: [place] Smoking Status: Former Smoker ETOH Use: occasional use Illicit Drug Use: denies illicit drug use Living Will? yes Power of Consumer Relations Specialist/HCP? yes Functional Ability ADLs Independent: dressing, eating, toileting, bathing. Ambulation: independent IADLs Independent: shopping, housework, finances, food prep. Review of Systems Review of Systems Constitutional: Reports: diaphoresis, weakness, unexplained weight loss. EENTM: Reports: no symptoms. Cardiovascular: Reports: chest pain. Denies: edema, orthopena, palpitations, peripheral edema, syncope. Respiratory: Denies: cough, short of breath. GI: Denies: constipation, diarrhea. Genitourinary: Reports: no symptoms. Musculoskeletal: Reports: no symptoms. Skin: Reports: no symptoms. Neurological/Psychological: Reports: no symptoms. Hematologic/Endocrine: Reports: no symptoms. Immunologic/Allergic: Reports: no symptoms. All Other Systems: Reviewed and Negative Exam & Diagnostic Data Last 24 Hrs of Vital Signs/I&O Vital Signs Date Time Temp Pulse Resp B/P B/P Pulse O2 O2 Flow FiO2 Mean Ox Delivery Rate 05/22 1943 98.3 114 20 140/60 95 05/22 1815 124 143/79 05/22 1708 97.5 142 18 146/74 97 Room Air Room Air 05/22 1609 97.5 144 18 142/70 97 Room Air Room Air 05/22 1340 97.4 113 19 138/75 07/ 1302 135 145/73 07/ 1224 97.4 140 19 142/71 07 1224 130 139/71 07/ 1210 97.4 140 19 142/71 05/22 1146 97.4 140 19 142/89 98 Room Air Intake & Output 05/22 1600 05/22 0800 07/ 0000 Intake Total 200 Output Total Balance 200 Intake, IV 200 Patient 101 lb Weight Weight Estimated Measurement Method Physical Exam General Appearance Alert, Oriented X3, Cooperative, No Acute Distress Skin No Rashes, No Breakdown, No Significant Lesion Skin Temp/Moisture Exam: Warm/Dry Sepsis Skin Exam (color): Normal for Ethnicity HEENT Atraumatic, PERRLA, EOMI, Mucous Membr. moist/pink Cardiovascular Normal S1, Normal S2, SYSTOLIC 3/6 MURMUR Lungs Clear to Auscultation, Normal Air Movement Abdomen Normal Bowel Sounds, Soft, No Tenderness, No Hepatospenomegaly, No Masses Extremities No Clubbing, No Cyanosis, No Edema, Normal Pulses Vascular Normal Pulses, Pulses Symmetrical Last 24 Hrs of Labs/Nikita: Laboratory Tests 05/22/17 1829: Troponin I 0.02 05/22/17 1239: PT 17.2 H, INR 1.65 H, APTT 28, D-Dimer High Sensitivty 2452 H 05/22/17 1140: Anion Gap 11, Estimated GFR 33 L, BUN/Creatinine Ratio 19.3, Glucose 125 H, Calcium 9.9, Total Bilirubin 1.1, AST 32, ALT 23, Alkaline Phosphatase 68, Troponin I 0.02, [id number] Pept 3480 H, Total Protein 6.8, Albumin 4.3, Globulin 2.5, Albumin/Globulin Ratio 1.7, TSH 5.000 H, Free T4 1.71, CBC w Diff NO MAN DIFF REQ, RBC 3.74 L, MCV 93.3, MCH 30.6, RDW 14.7 H, MPV 7.7, Gran % 92.1 H, Lymphocytes % 5.5 L, Monocytes % 2.1, Eosinophils % 0.2, Basophils % 0.1, Absolute Granulocytes 9.4 H, Absolute Lymphocytes 0.6 L, Absolute Monocytes 0.2, Absolute Eosinophils 0, Absolute Basophils 0, PUBS MCHC 32.8 L Diagnostic Data EKG Results RATE 151 QTC 514 AFIB Assessment/Plan Assessment: This is an 86 year old female with a PMH significant for chronic afib on coumadin and diltiazem, tachybradycardia syndrome s/p pacemaker placement, diastolic CHF, COPD not on any home oxygen, HTN, gout, 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 #afib with rvr #elevated d-dimer #nausea #history diastolic chf #pacemaker for tachybrady syndrome #diagnosed bladder cancer with recent 50lb weight loss #HLD #HTN #COPD NO HOME OXYGEN #CKD STAGE 3B PLAN #AFIB WITH RVR: Patient was at rate 150 in the ambulance and received 2 pushes of cardizem before arriving in the ED. She was placed on a drip in the ED. Continue drip and titrate to keep rates over [address] Dick Continue home cardizem Stable hemodynamically now INR 1.6 - dose coumadin 3mg and check INR tomorrow 1st troponin negative - trend + ekg x2 to rule out ACS TSH 5.0, CBC wnl #? Pulmonary Embolism: high d-dimer in setting of cancer diagnosis. Do V/Q scan, not CTA due to kidney issues (CKD 3B) #Nausea: due to long QTC of 514, do not give zofran which has potential to prolong it more. Use tygan prn #History of diastolic heart failure: Continue home dose of Lasix 60 mg twice a day. #History of tachybradycardia syndrome status post pacemaker with hypertension and hyperlipidemia: Continue home medications. Reports that she is set for a battery change soon. #Bladder cancer diagnosis: Patient is being followed by Dr. Akers's office. Conservative treatment due to her other comorbidities. #History of COPD not on home oxygen: Continue home dose of Symbicort #CKD Avoid nephrotoxic agents and watch Cr. Currently at 1.5. #DVT PROPHYLAXIS COUMADIN #DNR DNI As Ranked By This Provider Problem List: 1. Atrial fibrillation with rapid ventricular response 2. CHF (congestive heart failure) 3. Tachy-elton syndrome 4. COPD (chronic obstructive pulmonary disease) 5. Bladder cancer 6. Chronic kidney disease (CKD) Core Measures/Miscellaneous Acute Coronary Syndrome ACS Diagnosis: No Cerebrovascular Accident CVA/TIA Diagnosis: No Congestive Heart Failure CHF Diagnosis: Yes Date of most recent Echo: 03/17/17 Last Known EF %: 65 ELZBIETA/ARB for EF <40%: No No ELZBIETA/ARB d/t: Renal Failure/Azotemia VTE (View Protocol) VTE Risk Factors: Acute medical illness, Age > 40, Cancer/chemo/oth therapy, CHF or Resp failure [facility] prophylaxis d/t: No contraindications No VTE Pharm Prophylaxis d/t: No contraindications VTE Diagnosis: No VTE Type: NONE VTE Confirmed by (Test): NONE Comment: no diagnosis for VTE yet Sepsis (View Protocol) Severe Sepsis Present: No Septic Shock Septic Shock Present: No Miscellaneous Documentation Attending Case Discussed With: ROXANA SHARPE MD Primary Care Physician: VAHID SILVERIO MD Patient sees these Specialists Dr. 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 Patient was recently admitted to [facility] in March 2017, for acute hypercarbic hypoxic respiratory failure due to CHF exacerbation. During that admission her metoprolol and digoxin was discontinued with concerns of digoxin toxicity and hypotension. Patient was seen in the ER recently and on Friday with concerns of atrial fibrillation with RVR but was discharged once her heart rate came down. Yesterday she started having abdominal discomfort associated some nausea, didn't sleep well overnight, couldn't able to tolerate anything by mouth. Today she is due for her appointment with Dr. Dick but she felt very weak and lethargic her professor of nursing called EMS. Upon arrival of the EMS she was found to be in A. fib with RVR IV Cardizem 10 mg was pushed and see was immediately brought to the ER for further assessment. In the ER initial EKG revealed A. fib with RVR with a heart rate in 150s she was given IV Cardizem push once and was started on Cardizem drip afterwards. Of the note patient has been worked up at Dr. Dick's office with concerns of 50 pounds of weight loss in the last year [facility] possible underlying recurrence of bladder cancer. She was seen at Dr. Akers's office yesterday for recommended conservative treatment for now, due to her underlying comorbidities. Vitals on admission: Temperature 97.4, pulse: 140, respirate 18, blood pressure 142/89 saturating more than 92% on room air. On examination General Appearance: Thin cachectic looking no apparent distress Head: atraumatic, normal appearance Ears, Nose, Throat: normal pharynx Neck: normal inspection, supple Cardiovascular: Irregularly irregular rate and rhythm on exam Respiratory: Lungs clear to auscultation bilaterally Abdomen: normal bowel sounds, soft, non-tender Extremities: No evidence of edema in the lower extremities. Neurologic/Psychiatric: no motor/sensory deficits, awake. Pertinent labs on admission: RBC count normal at 10.2, H&H low at 11.4/34.9(baseline 9.3/32.8), slight hyponatremia 133, BUN/creatinine 29/1.5 baseline ferritin of 1.3, GFR 33, proBNP elevated at 3480, elevated TSH 5 with normal free T4 1 .7. Elevated d-dimer: 2452, INR 1.6 Initial EKG done in the ED showed A. fib with RVR heart rate 150 ,QTC prolonged Echocardiogram done in March 2017:Normal size left ventricle. Mild concentric left ventricular hypertrophy. Normal left ventricular wall motion. Normal left ventricular ejection fraction visually estimated at > 65%. CT abdomen and pelvis: Stable dilatation of the left collecting system which appears secondary to what appears to be an enveloping, but a stable bladder mass most prominent on the left side. Likely reflecting neoplasm, either bladder neoplasm or metastatic disease. Mild ascites new.Borderline dilatation of the small bowel may reflect an ileus or early small bowel obstruction without transition point. This is new compared with the recent examination. Prominent calcific atherosclerotic disease with a stable abdominal aortic aneurysm. 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 In the ED patient was found to be in A. fib with RVR, she received IV Cardizem push on her way to the hospital by EMS. Was also given IV Cardizem 10 mg in the ED and was started on on Cardizem drip. Problem list; Atrial fibrillation RVR Concern of possible pulmonary embolism(in view of elevated d-dimer) Evidence of recurrence of urinary bladder neoplasm on the CAT scan History of diastolic heart failure History of COPD not on home oxygen History of tachybradycardia syndrome status post pacemaker History of hypertension and hyperlipidemia History of right upper lobe poorly differentiated adenocarcinoma status post lobectomy History of noninvasive papillary uterine cancer status post TURBt 2013 Plan; 1.Atrial fibrillation RVR: * We'll admit the patient to telemetry floor. * No evidence of infection, TSH slightly elevated with a normal T4. We'll continue with the Cardizem drip for now and titrate the drip to keep heart rate below 110. * Cardio consult Dr. Dick has been obtained, further evaluation will discuss whether patient can be restarted on low-dose of metoprolol . * Home dose of Cardizem has been resumed. * Watch for any hemodynamic instability. * INR today is 1.6 while dose 3 mg of Coumadin check INR daily and dose Coumadin accordingly * We will do serial troponin EKG to rule out any underlying ACS. 2.Concern of possible pulmonary embolism(in view of elevated d-dimer): * Elevated d-dimer with a possible underlying bladder cancer, will do V/Q scan to rule out any underlying pulmonary embolism. 3.Evidence of recurrence of urinary bladder neoplasm on the CAT scan: * Patient has already been evaluated at Dr. Akers's office who recommended conservative treatment for now due to patient's underlying comorbidities. 4.History of diastolic heart failure: * Continue home dose of Lasix 60 mg twice a day. 5History of COPD not on home oxygen: * Continue home dose of Symbicort and other inhalers 6.History of tachybradycardia syndrome status post pacemaker with History of hypertension and hyperlipidemia: * Continue home medications. 7. History of chronic kidney disease stage IIIB * Kidney functions are currently stable * Avoid any nephrotoxic agents * Check BEP tomorrow 8. Elevated TSH , with normal T4: * Pt confirmed that she is not taking synthyroid any more . * Readdress the medication intake in am. DVT prophylaxis with Coumadin Mild to moderate pain controlled with by mouth and IV Tylenol Patient is DNR/DNI ANNEMARIE WATERS,ROXANA 05/22/17 1632: Attending MD Review Statement Attending Statement Attending MD Statement: examined this patient, discuss w/resident/PA/COFFIN MAKER, agreed w/resident/PA/COFFIN MAKER, discussed with family, reviewed EMR data (avail), discussed with nursing, discussed with case mgmt, reviewed images, amended to note Attending Assessment/Plan: 86-year-old female with past medical history significant for chronic atrial fibrillation chronic atrial fibrillation on Coumadin, tachybradycardia syndrome status post pacemaker placement, diastolic heart failure, COPD not on home oxygen, stage III chronic kidney disease , history of hypertension, 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 Akers who presented with the feeling some weakness and feeling nauseous and having dry heaving. Patient was seen 4 days ago in the emergency room with some right flank pain and at that point also had some chest pain. She describes the chest pain is under her breasts which has been going on for quite long. She describes it as as achiness which does not radiate anywhere. Patient was discharged home on Friday after her troponins were negative. Started yesterday she developed some nausea and dry heaving. No diarrhea. She felt weak and felt like her stomach was upset. Off note she had lost almost 50 pounds over the last year. That led to doing CAT scan of her abdomen and pelvis and found to have urinary bladder tumor. Currently patient heart rate is running in 120s to 130s. She was given her Cardizem and has been started on Cardizem drip. Her first troponin is negative and EKG shows rapid A. fib. She does a high d-dimer. Off note her metoprolol and his oxygen were discontinued during last admission. Vital Signs Date Time Temp Pulse Resp B/P B/P Pulse O2 O2 Flow FiO2 Mean Ox Delivery Rate 05/22 1609 97.5 144 18 142/70 97 Room Air Room Air 05/22 1340 97.4 113 19 138/75 05/22 1302 135 145/73 05/22 1224 97.4 140 19 142/71 05/22 1224 130 139/71 05/22 1210 97.4 140 19 142/71 05/22 1146 97.4 140 19 142/89 98 Room Air on exam; aox3, nad. Cachectic looking. cv; s1,s2, irregular with tachycardia. She has a pacemaker. resp; clear abd; soft, nt, bs+ ext; trace edema. Laboratory Tests 05/22 05/22 1239 1140 Chemistry Sodium (137 - 145 mmol/L) 133 L Potassium (3.5 - 5.1 mmol/L) 4.3 Chloride (98 - 107 mmol/L) 91 L Carbon Dioxide (22 - 30 mmol/L) 31 H Anion Gap (5 - 16) 11 BUN (7 - 17 mg/dL) 29 H Creatinine (0.5 - 1.0 mg/dL) 1.5 H Estimated GFR (>60 ml/min) 33 L BUN/Creatinine Ratio (7 - 25 %) 19.3 Glucose (65 - 99 mg/dL) 125 H Calcium (8.4 - 10.2 mg/dL) 9.9 Total Bilirubin (0.2 - 1.3 mg/dL) 1.1 AST (14 - 36 U/L) 32 ALT (9 - 52 U/L) 23 Alkaline Phosphatase (<127 U/L) 68 Troponin I (< 0.11 ng/ml) 0.02 [id number] Pept (<125 pg/mL) 3480 H Total Protein (6.3 - 8.2 g/dL) 6.8 Albumin (3.5 - 5.0 g/dL) 4.3 Globulin (1.9 - 4.2 gm/dL) 2.5 Albumin/Globulin Ratio (1.1 - 2.2 %) 1.7 TSH (0.270 - 4.200 uIU/mL) 5.000 H Free T4 (0.85 - 1.93 ng/dL) 1.71 Coagulation PT (9.4 - 12.5 SEC) 17.2 H INR (0.90 - 1.19) 1.65 H APTT (25 - 37 SEC) 28 D-Dimer High Sensitivty (0 - 243 ng/ml) 2452 H Hematology CBC w Diff NO MAN DIFF REQ WBC (4.8 - 10.8 /CUMM) 10.2 RBC (4.20 - 5.40 /CUMM) 3.74 L Hgb (12.0 - 16.0 G/DL) 11.4 L Hct (37 - 47 %) 34.9 L MCV (81.0 - 99.0 FL) 93.3 MCH (27.0 - 31.0 PG) 30.6 RDW (11.5 - 14.5 %) 14.7 H Plt Count (130 - 400 /CUMM) 286 MPV (7.4 - 10.4 FL) 7.7 Gran % (42.2 - 75.2 %) 92.1 H Lymphocytes % (20.5 - 51.1 %) 5.5 L Monocytes % (1.7 - 9.3 %) 2.1 Eosinophils % (0 - 5 %) 0.2 Basophils % (0.0 - 2.0 %) 0.1 Absolute Granulocytes (1.4 - 6.5 /CUMM) 9.4 H Absolute Lymphocytes (1.2 - 3.4 /CUMM) 0.6 L Absolute Monocytes (0.10 - 0.60 /CUMM) 0.2 Absolute Eosinophils (0.0 - 0.7 /CUMM) 0 Absolute Basophils (0.0 - 0.2 /CUMM) 0 PUBS MCHC (33.0 - 37.0 G/DL) 32.[address] chest/abd/pelvis: IMPRESSION: CHEST: No change in the chest compared with the recent CT study April 2017, stable postoperative changes and no new or recurrent mass. No mass identified in the superior segment of the right lower lobe as noted previously. Stable small noncalcified pulmonary nodules without change. ABDOMEN AND PELVIS: Stable dilatation of the left collecting system which appears secondary to what appears to be an enveloping, but a stable bladder mass most prominent on the left side. Likely reflecting neoplasm, either bladder neoplasm or metastatic disease. Mild ascites new. Borderline dilatation of the small bowel may reflect an ileus or early small bowel obstruction without transition point. This is new compared with the recent examination. Prominent calcific atherosclerotic disease with a stable abdominal aortic aneurysm. EKG>>>> Rapid afib. 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 Akers who will be admitted with a rapid A. fib. Patient also has some chest pain but first troponin negative. EKG is consistent with rapid A. fib. She also has a high d-dimer. Patient will be admitted to telemetry. Troponins should be trended. Patient was restarted on Cardizem drip, that would be continued. Please consult cardiology. Patient had a CT without contrast secondary to her chronic kidney disease. We should obtain a VQ scan to make sure there is no pulmonary embolism. Please discuss with cardiology about resuming her beta jennifer at a low dose if her heart rate does not get controlled just with Cardizem. Please confirm home medications and continue them. She does have slightly high TSH but T4 is normal. DVT prophylaxis: We'll dose the Coumadin at 3 mg today and recheck INR in the morning. Patient is a DNR/DNI.
[2017-05-22] MEDS ORDERED: WARFARIN SODIUM3 M1 PO (16:38)
[2017-05-22] MEDS ORDERED: MULTI-DAY VITA1 EACH PO (16:40)
[2017-05-22] MEDS ORDERED: CALCIUM 500 +1 EAC5 PO (16:40)
--- NOTE | 2017-05-22 18:56 | PN- Student ---
Subjective Subjective: History via patient and old records. Patient was alert and coorperative. Accompanied by her son Alek. CC: abdominal pain with chest pain and weakness HPI: Ms. 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 Patient states the pain started last night in her abdomen. She was wretching but did not vomit. She rated the pain 5/10 at that time. She states she thought it was a "24hr bug". Apon awakening the patient states the pain worsened and was now a band like pain under her breast area along with generalized weakness and fatigue. Her home nursing aid called EMS. EMS found patient to be in afib with RVR and gave her a bolus of Cardizem with mild improvement. Upon arriving to ED patient was given another bolus of cardizem and started in IV drip along with 325mg of aspirin. Patient denies fever or chills. Currently she is in no pain but still complains of weakness and lethargy. Patient states that she regularlly sees Dr. Dick and had an appointment with him today at noon to discuss her recent hospitalization and abdominal CT scan. Patient was seen recently admitted to [place] ED in March 2017 for acute hypercarbic hypoxic respiratory failure due to CHF exacerbation. During that time her Digoxin and metaprolol were discontinued due to concerns of hypotension and digoxin toxicity. Patient states that her afib has not been in control since. Patient was seen in [place] ED on Friday with afib with RVR and was discharged same day when rate was controlled. Patient also noted that she was being worked up by Dr. Dick after concerns of a 50lb weight loss over the last year. CT of abdomen and Pelvis showed possible bladder cancer. She was seen by Dr. Paris who recommended conservative treatment due to comorbidities at this time. PMHx 1. Chronic Atrial Fibrillation on coumadin and monitored by INR weekly 2. Tachybradycardia syndrome status post pacemaker placement 3. CHF 4. COPD - Patient was prescribed Symbicort but has recently d/c herself because she believes it is causing her hair to fall out 5. Stage III chronic kidney disease 6. HTN 7. Right upper lobe poorly differentiated adenocarcinoma status post lobectomy in 2007 8. Bladder Cancer 9. Abdominal Aortic Aneurysm Past Surgical Hx 1. Appendectomy - 2008 2. Right upper lobectomy - 2007 3. Hysterectomy - 1951 Current Medication Allopurinol 100mg 1 Tab PO daily Aspirin 81mg 1 Tab PO daily Calcium - unknown dose Diltiazem HCl 120mg 1 Tabled TID Furosemide 20mg 1 tab BID, 40 mg 1 tab BID Lovastatin 40mg 1 tab po daily Multivitamin 1 tab po daily Warfarin 3mg 1 tab po daily Allergies Penicillin, Levofloxacin Social Hx Ms. Pro recently lost her in March of severe COPD and lives at home alone. She is visted by a home nusing aid for 8 hours each day. Patient quit smoking in 2000 and before that smoked approx 2 packs/day for 56 years. Patient drinks socially and denies and recretional drug use. Family Hx Mother - afib, of stroke at age 74yrs old Father - of heart attack at age 69yrs old Brother - of heart attach at age 62yrs old Sister - of kidney failure at 76yrs old Son - HTN and Hypercholesterol Daughters - Healthy ROS Constutional: +fatigue, 50lb wt loss in past year Integument: +dry skin Head: No [place]ANO Eyes: Wears corrective lenses Reps: No shortness or breath CV: No palpitations or chest pain GI: No vomiting, no diarrhea, no constipation : No urinary changes MSK: + ankle pain due to gout Objective Objective: Vitals on ED admission T. 97.5, Pulse 142, RR 18, BP 146/74, O2 SAT 97% Physical Exam General: Ms. Pro is a thin appearing woman, dressed in a hospital gown, in no acute distress. Skin: Skin is warm and dry. Brusing on right leg HEENT: -Head Normocephalic, atraumatic -Normal pharynx Heart: Irregularly irrecular rate and rhythm Lungs: Clear to auscultation bilaterally Abdomen: Normal bowel sounds, soft, non-tender Extremities: No edema in lower extremities EKG Initial EKG showed Afib with RVR hr 151, QTc prolonged at 514. Imaging CT of chest, abdomen, and pelvis Chest: No change compared with CT done in April. Stable postop changes. No masses noted, Stable small noncalcified pulmonary nodules without change Abdomen/Pelvis: -Stable dilatation of the left collecting system secondary to what appears to be enveloping. Stable bladder mass most prominent on left side. Likely reflecting neoplasm, either bladder or metastatic disease. -Mild ascites new.Borderline dilatation of the small bowel may reflect an ileus or early small bowel obstruction without transition point. This is new compared with the recent examination. -Prominent calcific atherosclerotic disease with a stable abdominal aortic aneurysm. Labs RBC: 3.74 L HgB: 11.4 L Hct 34.9 L Gran %: 92.1 H Lymphocytes% 5.5 L PT: 17.2 H INR: 1.65 H D-Dimer 2452H NA: 133 L CL: 91 L BUN: 29 H Creatinine: 1.5 H Estimated GFR: 33 L Glucose: 125 H Pro-BNP: 3480H TSH: 5H free T4: 1.7 (normal) Results Results: Laboratory Tests 05/22/17 1829: Troponin I 0.02 05/22/17 1239: PT 17.2 H, INR 1.65 H, APTT 28, D-Dimer High Sensitivty 2452 H 05/22/17 1140: Anion Gap 11, Estimated GFR 33 L, BUN/Creatinine Ratio 19.3, Glucose 125 H, Calcium 9.9, Total Bilirubin 1.1, AST 32, ALT 23, Alkaline Phosphatase 68, Troponin I 0.02, Sgj-T-Wse[place] Pept 3480 H, Total Protein 6.8, Albumin 4.3, Globulin 2.5, Albumin/Globulin Ratio 1.7, TSH 5.000 H, Free T4 1.71, CBC w Diff NO MAN DIFF REQ, RBC 3.74 L, MCV 93.3, MCH 30.6, RDW 14.7 H, MPV 7.7, Gran % 92.1 H, Lymphocytes % 5.5 L, Monocytes % 2.1, Eosinophils % 0.2, Basophils % 0.1, Absolute Granulocytes 9.4 H, Absolute Lymphocytes 0.6 L, Absolute Monocytes 0.2, Absolute Eosinophils 0, Absolute Basophils 0, PUBS MCHC 32.8 L Assessment/Plan Assessment: Ms. 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 EKG showed afib with RVR. Labs showed elevated D-Dimer and elevated TSH with normal free T4. My differential includes Afib, aortic dissection, Pulmonary embolism, or CHF/pulmonary edema. Problem List 1. Atrial fibrillation with RVR 2. Elevated D-dimer - Possible Pulmonary embolism 3. CT scan showing evidence of recurrence of bladder neoplasm. 4. History of CHF 5. History of COPD 6. History of tachybradycardia syndrome status post pacemaker 7. History of Hypertension 8. History of stage III chronic kidney disease 9. Abdominal aortic aneurysm 10. Gout Plan: 1. Atrial fibrillation with RVR * Admit patient to telemerty floor. * Continue Cardizem drip and titrate to keep HR below 110. * Home dose Cardizem resumed. * Cardio consult with Dr. Dick requested to discuss restarting beta jennifer if rate is not controlled. * Watch for hemodynamic instability * Check INR daily and adjust Coumadin accodringly * Serial Troponins and EKG to rule out underlying ACS. 2. Elevated D-dimer - Possible Pulmonary embolism * V/Q scan to rule out PE 3. CT scan showing evidence of recurrence of bladder neoplasm. * Patient was recently evaluated by Dr. Oh's office who recommended conservative treatement due to patients comorbidities at this time. 4. History of CHF * Continue home dose of Furosemide 60mg BID. 5. History of COPD * Patient was prescribed Symbicort but has recently d/c herself because she believes it is causing her hair to fall out. * Consider alternative inhaler. 6. History of tachybradycardia syndrome status post pacemaker * Continue home medications and follow up. 7. History of Hypertension * Continue home medications. 8. History of stage III chronic kidney disease * Kidneys currently stable. * Avoid nephrotoxic agents. * Recheck BEP. 9. Abdominal aortic aneurysm * Continue to follow up with [facility] vascular surgeon. 10. Gout * Continue home meds. 11. DVT prophylaxis with coumadin Patient is DNR/DNI
[2017-05-22 19:43] VITALS: BP 140/60
[2017-05-23 07:36] VITALS: BP 110/68
[2017-05-23 08:53] LABS: ABSOLUTE BASOPHIL COUNT 0 /CUMM (0.0-0.2); ABSOLUTE EOSINOPHIL COUNT 0.1 /CUMM (0.0-0.7); ABSOLUTE LYMPH COUNT 0.7 /CUMM (1.2-3.4); ABSOLUTE MONOCYTE COUNT 0.5 /CUMM (0.10-0.60); BASOPHIL % 0.5 % (0.0-2.0); EOSINOPHIL % 0.7 % (0-5); GRANULOCYTE % 82.6 % (42.2-75.2); HEMATOCRIT 31.3 % (37-47); MEAN CORPUSCULAR HGB 31.3 PG (27.0-31.0); MEAN CORPUSCULAR HGB CONC 33.1 G/DL (33.0-37.0); MEAN CORPUSCULAR VOLUME 94.5 FL (81.0-99.0); MEAN PLATELET VOLUME 7.8 FL (7.4-10.4); PLATELET COUNT 260 /CUMM (130-400); RBC DISTRIBUTION WIDTH 15.5 % (11.5-14.5); RED BLOOD CELL CT 3.31 /CUMM (4.20-5.40); WHITE BLOOD CELL COUNT 7.2 /CUMM (4.8-10.8)
[2017-05-23 08:57] LABS: PT 18.8 SEC (9.4-12.5)
--- NOTE | 2017-05-23 10:46 | Cons- Cardiology ---
General Information and HPI Consulting Request Date of Consult: 05/23/17 Requested By: ROXANA SHARPE MD Reason for Consult: Atrial fibrillation with a rapid ventricular response. Source of Information: patient, old records Exam Limitations: poor historian History of Present Illness: Mrs. Miryam Pro is an 86-year-old white female with a history of hypertension, dyslipidemia, diabetes mellitus, chronic kidney disease, chronic anemia, gout, former long-standing tobacco use, COPD, pulmonary nodules, s/p right upper lobectomy 05/10/2008 for non-small cell carcinoma with features consistent with poorly differentiated adenocarcinoma, urothelial carcinoma s/p TURBT 08/10/2014, AAA, paroxysmal atrial fibrillation with tachycardia/bradycardia syndrome, ultimately requiring permanent pacemaker implantation (VVI), previous troponin I elevation secondary to demand ischemia, left ventricular hypertrophy and presumed diastolic dysfunction, moderate mitral regurgitation, moderate pulmonary hypertension, moderate tricuspid regurgitation and recurrent admissions for acute exacerbations of her COPD and diastolic heart failure who presented to the ED on 05/22/2017 with complaints of fatigue, weakness, decreased by mouth intake, "dry heaves", abdominal/lower chest discomfort and was found to be in atrial fibrillation with a rapid ventricular response. She has had similar and prolonged episodes of upper abdominal/lower chest discomfort in the past without any elevation in her cardiac enzymes. She had not taken her indications prior to going to the ED and reportedly received IV diltiazem 10 mg x 3 and by mouth diltiazem 120 mg 1 prior to her coming to the telemetry unit. Also of note is the fact that she had a recent CT of the abdomen/pelvis on 05/14 to follow-up on a surveillance chest CT from 05/12/2017 that revealed severe left-sided hydroureteronephrosis and a stable bladder mass, likely reflecting either a bladder neoplasm or metastatic disease. These findings were discussed with her urologist (Orestes Akers M.D.) and follow-up is ongoing. Her last echocardiogram was performed on 04/07/2017 and revealed: A normal size left ventricle with mild concentric left ventricular hypertrophy, no obvious regional wall motion abnormalities, and normal systolic function with an estimated ejection fraction of greater than 65%, normal right ventricular size and function, moderate atrial dilatation, pacemaker wire in right heart, an upper normal limits for size inferior vena cava, and a left pleural effusion. The Doppler portion of the study revealed evidence of very mild aortic stenosis, as well as, moderate mitral, moderate tricuspid, and mild pulmonic regurgitation , and moderate pulmonary hypertension. Allergies/Medications Allergies: Coded Allergies: levofloxacin (Severe, TONGUE SWELLING 01/13/16) Penicillins (UNKNOWN PER PT WAS VERY BAD 05/22/17) Home Med List: Albuterol Sulfate (Proair Hfa) 90 MCG HFA.AER.AD 2 PUF INH Q4-6 PRN PRN SOB ( Reported) Allopurinol 100 MG TABLET 1 TAB PO DAILY GOUT (Reported) Aspirin (Ecotrin*) 81 MG TABLET.DR 1 TAB PO DAILY HEART HEALTH (Reported) Budesonide/Formoterol Fumarate (Symbicort 160-4.5 Mcg Inhaler) 160 MCG-4.5 MCG/ ACTUATION HFA.AER.AD 2 PUF INH BID COPD (Reported) Calcium Carbonate/Vitamin D3 (Calcium 500 + D Tablet) (Unknown Strength) TABLET (Unknown Dose) PO BID SUPPLEMENT (Reported) Diltiazem HCl 120 MG TABLET 1 TAB PO TID HEART (Reported) Furosemide (Lasix) 20 MG TABLET 60 MG PO BID diuretic Lovastatin 40 MG TABLET 1 TAB PO DAILY CHOLESTEROL (Reported) with food Multivitamin (Multi-Day Vitamins) 1 EACH TABLET 1 TAB PO DAILY SUPPLEMENT ( Reported) Potassium Chloride 10 MEQ TAB.ER.PRT 2 TAB PO DAILY SUPPLEMENT (Reported) Tramadol HCl 50 MG TABLET 1 TAB PO BID PRN PAIN (Reported) Warfarin Sodium 3 MG TABLET 1 TAB PO DAILY BLOOD THINNER (Reported) Review of Systems Review of Systems: A 14 point system review was obtained and was noncontributory, other than as above. 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 Home Who Do You Live With? spouse, self Services at Home: Home Health Aide Primary Language: Maltese Smoking Status: Former Smoker ETOH Use: occasional use Illicit Drug Use: denies illicit drug use Living Will? yes Power of Crm Functional Analyst/HCP? yes Functional Ability ADLs Independent: dressing, eating, toileting, bathing. Ambulation: independent IADLs Independent: shopping, housework, finances, food prep. ECHO Results (as available) Date of last Echo 04/07/17 EF% 65 Exam & Diagnostic Data Vital Signs and I&O Vital Signs Date Time Temp Pulse Resp B/P B/P Pulse O2 O2 Flow FiO2 Mean Ox Delivery Rate 05/23 0949 96 110/68 / 0736 98.1 55 18 110/68 98 Room Air / 2159 104 122/68 07/ 1943 98.3 114 20 140/60 95 /06 1930 Room Air / 1815 124 143/79 07/06 1708 97.5 142 18 146/74 97 Room Air Room Air 07/06 1609 97.5 144 18 142/70 97 Room Air Room Air 07/06 1340 97.4 113 19 138/75 07/06 1302 135 145/73 07/06 1224 97.4 140 19 142/71 07/06 1224 130 139/71 07/06 1210 97.4 140 19 142/71 07/06 1146 97.4 140 19 142/89 98 Room Air Intake & Output 05/23 1600 07/ 0800 07/07 0000 /06 1600 / 0800 07/06 0000 Intake Total 160 200 200 Output Total 350 300 Balance -190 -100 200 Intake, IV 60 0 200 Intake, Oral 100 200 Number 0 0 Bowel Movements Output, Urine 350 300 Patient 110 lb 101 lb Weight Weight Reported by Patient Estimated Measurement Method Physical Exam: Chronically ill-appearing elderly female in no acute distress with nasal oxygen in place. Vital signs: See above. HEENT: Normocephalic, atraumatic, EOMI, slightly dry mucous membranes. Neck: No JVD, no bruits. Lungs: Decreased breath sounds bilaterally and crackles at the left base. Heart: S1, S2 (irregularly, irregular) grade 1/6 systolic murmur. Abdomen: Soft, nontender, positive bowel sounds. Extremities: No edema. Labs/Nikita Results: Laboratory Tests 05/23 05/23 05/22 05/22 0623 0030 1829 1239 Chemistry Sodium (137 - 145 mmol/L) 133 L Potassium (3.5 - 5.1 mmol/L) 3.8 Chloride (98 - 107 mmol/L) 92 L Carbon Dioxide (22 - 30 mmol/L) 31 H Anion Gap (5 - 16) 10 BUN (7 - 17 mg/dL) 28 H Creatinine (0.5 - 1.0 mg/dL) 1.5 H Estimated GFR (>60 ml/min) 33 L BUN/Creatinine Ratio (7 - 25 %) 18.7 Troponin I (< 0.11 ng/ml) 0.02 0.02 Coagulation PT (9.4 - 12.5 SEC) 18.8 H 17.2 H INR (0.90 - 1.19) 1.80 H 1.65 H APTT (25 - 37 SEC) 28 D-Dimer High Sensitivty (0 - 243 ng/ml) 2452 H Hematology CBC w Diff NO MAN DIFF REQ WBC (4.8 - 10.8 /CUMM) 7.2 RBC (4.20 - 5.40 /CUMM) 3.31 L Hgb (12.0 - 16.0 G/DL) 10.4 L Hct (37 - 47 %) 31.3 L MCV (81.0 - 99.0 FL) 94.5 MCH (27.0 - 31.0 PG) 31.3 H RDW (11.5 - 14.5 %) 15.5 H Plt Count (130 - 400 /CUMM) 260 MPV (7.4 - 10.4 FL) 7.8 Gran % (42.2 - 75.2 %) 82.6 H Lymphocytes % (20.5 - 51.1 %) 9.0 L Monocytes % (1.7 - 9.3 %) 7.2 Eosinophils % (0 - 5 %) 0.7 Basophils % (0.0 - 2.0 %) 0.5 Absolute Granulocytes (1.4 - 6.5 /CUMM) 6.0 Absolute Lymphocytes (1.2 - 3.4 /CUMM) 0.7 L Absolute Monocytes (0.10 - 0.60 /CUMM) 0.5 Absolute Eosinophils (0.0 - 0.7 /CUMM) 0.1 Absolute Basophils (0.0 - 0.2 /CUMM) 0 PUBS MCHC (33.0 - 37.0 G/DL) 33.1 07/06 1140 Chemistry Sodium (137 - 145 mmol/L) 133 L Potassium (3.5 - 5.1 mmol/L) 4.3 Chloride (98 - 107 mmol/L) 91 L Carbon Dioxide (22 - 30 mmol/L) 31 H Anion Gap (5 - 16) 11 BUN (7 - 17 mg/dL) 29 H Creatinine (0.5 - 1.0 mg/dL) 1.5 H Estimated GFR (>60 ml/min) 33 L BUN/Creatinine Ratio (7 - 25 %) 19.3 Glucose (65 - 99 mg/dL) 125 H Calcium (8.4 - 10.2 mg/dL) 9.9 Total Bilirubin (0.2 - 1.3 mg/dL) 1.1 AST (14 - 36 U/L) 32 ALT (9 - 52 U/L) 23 Alkaline Phosphatase (<127 U/L) 68 Troponin I (< 0.11 ng/ml) 0.02 Knm-C-Afrptccpate Pept (<125 pg/mL) 3480 H Total Protein (6.3 - 8.2 g/dL) 6.8 Albumin (3.5 - 5.0 g/dL) 4.3 Globulin (1.9 - 4.2 gm/dL) 2.5 Albumin/Globulin Ratio (1.1 - 2.2 %) 1.7 TSH (0.270 - 4.200 uIU/mL) 5.000 H Free T4 (0.85 - 1.93 ng/dL) 1.71 Hematology CBC w Diff NO MAN DIFF REQ WBC (4.8 - 10.8 /CUMM) 10.2 RBC (4.20 - 5.40 /CUMM) 3.74 L Hgb (12.0 - 16.0 G/DL) 11.4 L Hct (37 - 47 %) 34.9 L MCV (81.0 - 99.0 FL) 93.3 MCH (27.0 - 31.0 PG) 30.6 RDW (11.5 - 14.5 %) 14.7 H Plt Count (130 - 400 /CUMM) 286 MPV (7.4 - 10.4 FL) 7.7 Gran % (42.2 - 75.2 %) 92.1 H Lymphocytes % (20.5 - 51.1 %) 5.5 L Monocytes % (1.7 - 9.3 %) 2.1 Eosinophils % (0 - 5 %) 0.2 Basophils % (0.0 - 2.0 %) 0.1 Absolute Granulocytes (1.4 - 6.5 /CUMM) 9.4 H Absolute Lymphocytes (1.2 - 3.4 /CUMM) 0.6 L Absolute Monocytes (0.10 - 0.60 /CUMM) 0.2 Absolute Eosinophils (0.0 - 0.7 /CUMM) 0 Absolute Basophils (0.0 - 0.2 /CUMM) 0 PUBS MCHC (33.0 - 37.0 G/DL) 32.8 L Diagnostic Data EKG Results (05/23/2017) atrial fibrillation with a moderate ventricular response, and minor nondiagnostic ST-T wave abnormalities. Slower rate when compared to previous tracing from 05/22/2017. CXR Results CXR (05/18/2017): Mild chronic appearing changes as described. I do not appreciate any acute process when compared to the recent prior study. Specifically no focal airspace disease noted. Other Results CT chest/abdomen/pelvis (05/22/2017: Chest: No change in the chest compared with the recent CT study April 2017, stable postoperative changes and no new or recurrent mass. No mass identified in the superior segment of the right lower lobe as noted previously. Stable small noncalcified pulmonary nodules without change. Abdomen and pelvis: Stable dilatation of the left collecting system which appears secondary to what appears to be an enveloping, but a stable bladder mass most prominent on the left side. Likely reflecting neoplasm, either bladder neoplasm or metastatic disease. Mild ascites new. Borderline dilatation of the small bowel may reflect an ileus or early small bowel obstruction without transition point. This is new compared with the recent examination. Prominent calcific atherosclerotic disease with a stable abdominal aortic aneurysm. Assessment/Plan Assessment/Plan [id number] w/ a hx of HTN, HLD, DM, CKD, anemia, gout, fmr tob use, COPD, pul nodules, 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 Her upper abdominal/lower chest discomfort has improved and was likely on a musculoskeletal basis from her recurrent "dry heaves". Suspect that her rapid ventricular response on presentation was multifactorial and due to the fact that she had not taken her diltiazem the day of admission, was mildly intravascularly depleted secondary to decreased by mouth intake, is on pulmonary medications that can lead to tachycardia, was mildly anemic, etc. Fortunately, the ventricular response has come under reasonable control we can switch over to oral diltiazem with added low-dose metoprolol as needed. Recommendations: * Continue on telemetry. * Switch over from IV diltiazem to by mouth diltiazem with additional low-dose metoprolol twice daily (metoprolol 12.5 mg twice daily) as needed. * Replete potassium and maintain between 4.0-4.5 mEq per liter. * Check magnesium and maintain at or above 2.0 mEq per liter. * VQ scan being performed given elevated d-dimer, cancer history, shortness of breath, etc. * Check glycosylated hemoglobin A1c. * DVT prophylaxis being addressed by anticoagulation for her chronic atrial fibrillation, but INR mildly subtherapeutic at 1.8 today. Further recommendations will follow, Thank you. Consult Acknowledgment - Thank you for your consult request.
--- NOTE | 2017-05-23 13:36 | NUCLEAR MEDICINE REPORT ---
EXAMINATION: PULMONARY VENTILATION PERFUSION STUDY CLINICAL INFORMATION: Elevated d-dimer. Chest and abdominal pain. COMPARISON: The previous lung scan dated 03/16/2008 is available for comparison. A radiograph of the chest dated 05/18/2017 is available for comparison. The diagnostic CT scan of the chest, abdomen, and pelvis, dated 05/22/2017, is available for comparison. TECHNIQUE: Serial gamma scintillation camera images were obtained over the posterior chest during the single breath, equilibrium rebreathing and washout of 15.5 mCi Xe 133 gas. The patient then received 4.2 mCi Tc-99m MAA intravenously and a 6-view perfusion study was performed. FINDINGS: Ventilation images: On the single breath image there is very heterogeneous distribution of activity in the left lung and in the right lung apex. Equilibrium image appears more homogeneous with significant redistribution into the right lung apex in the left lung. Decreased activity in the region of the heart persists on this image. During the washout phase there is marked diffuse retention bilaterally. Perfusion images: No segmental perfusion defects are present. There is some heterogeneity in both lungs, most prominently in the right lung apex and in the left lower lobe, but the appearance of these regions is very similar to the ventilation abnormalities described above. Some prominence of the cardiac silhouette and the region of the interlobar fissure on the left is noted. Compared to the previous scan dated 03/16/2008, the ventilation and perfusion abnormalities are more severe on the current study than mild heterogeneity present on the previous study. The CT scan dated 05/22/2017 shows postoperative changes in the right lung from a previous right upper lobectomy and thickening of the interlobar fissure on the left. IMPRESSION: Very low probability of pulmonary embolism. Severe ventilation abnormalities are noted which are evidence of obstructive airway disease.
--- NOTE | 2017-05-23 14:23 | PN- Student ---
Subjective Subjective: Ms. Pro states the she is feeling better. She is able to sit up and stand and use the comode unassisted. She still feels a little bit of pain/tightness under her breast that is about 3/10. She said this is a baseline for her and she has had this pain intermittantly for the last 2-3 years. She no longer has the abdominal pain experienced yesterday. Patient denies SOB, nausea, or vomiting. Objective Objective: Vitals at 07:38 T:98.1, Pulse 55, RR 18, BP 110/68, O2 Sat 98%. Overnight Telemetry monitoring Afib with rate range 90s -100. Midnight her rate was 147. at 01:41 10 beat run of v-tach. Physical Exam CV: Irregullarly Irregular Lungs: Clear to auscultation bilateraly posteriorly ABD: Normal active bowel sounds. Non tender. Hernia noted. Extremeties: No pedal edema Labs RBC 3.31 L, Hgb 10.4 L, Hct 31.3 H, RDW 15.5 H Gran% 82.6 H,Lymphocytes% 9.0 L PT 18.8 H, INR 1.80 Sodium 133L, CL 92 L, CO2 31 H, BUN 28H, Creatinine 1.5 H, GFR 33 L Troponin 0.02 on 3 occasions. V/Q Scan Very low probability of pulmonary embolism. Severe ventilation abnormalities are noted which are evidence of obstructive airway disease. Results Results: Laboratory Tests 05/23/17 0623: Anion Gap 10, Estimated GFR 33 L, BUN/Creatinine Ratio 18.7, PT 18.8 H, INR 1.80 H, CBC w Diff NO MAN DIFF REQ, RBC 3.31 L, MCV 94.5, MCH 31.3 H, RDW 15.5 H, MPV 7.8, Gran % 82.6 H, Lymphocytes % 9.0 L, Monocytes % 7.2, Eosinophils % 0.7, Basophils % 0.5, Absolute Granulocytes 6.0, Absolute Lymphocytes 0.7 L, Absolute Monocytes 0.5, Absolute Eosinophils 0.1, Absolute Basophils 0, PUBS MCHC 33.1 05/23/17 0030: Troponin I 0.02 05/22/17 1829: Troponin I 0.02 05/22/17 1239: PT 17.2 H, INR 1.65 H, APTT 28, D-Dimer High Sensitivty 2452 H 05/22/17 1140: Anion Gap 11, Estimated GFR 33 L, BUN/Creatinine Ratio 19.3, Glucose 125 H, Calcium 9.9, Total Bilirubin 1.1, AST 32, ALT 23, Alkaline Phosphatase 68, Troponin I 0.02, Bji-Z-Uhescagwgqe Pept 3480 H, Total Protein 6.8, Albumin 4.3, Globulin 2.5, Albumin/Globulin Ratio 1.7, TSH 5.000 H, Free T4 1.71, CBC w Diff NO MAN DIFF REQ, RBC 3.74 L, MCV 93.3, MCH 30.6, RDW 14.7 H, MPV 7.7, Gran % 92.1 H, Lymphocytes % 5.5 L, Monocytes % 2.1, Eosinophils % 0.2, Basophils % 0.1, Absolute Granulocytes 9.4 H, Absolute Lymphocytes 0.6 L, Absolute Monocytes 0.2, Absolute Eosinophils 0, Absolute Basophils 0, PUBS MCHC 32.8 L Assessment/Plan Assessment: Ms. 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 Today patient says she feels better and is able to stand and use the comode. Patient says she still feels the pain under her breast area but she has felt this on and off for the last 2-3 years. She was seen today by her center customer service associate Dr. Dick. Problem List 1. Atrial fibrillation with RVR 2. Elevated D-dimer - Possible Pulmonary embolism 3. CT scan showing evidence of recurrence of bladder neoplasm. 4. History of CHF 5. History of COPD 6. History of tachybradycardia syndrome status post pacemaker 7. History of Hypertension 8. History of stage III chronic kidney disease 9. Abdominal aortic aneurysm 10. Gout Plan: Plan: 1. Atrial fibrillation with RVR * As per recommendation by center customer service associate - Continue telemetry monitoring - Change IV Cardizem to oral cardizem with addition of metoprolol (12.5mg) twice daily - Replete potassium and maintain between 4.0-4.5 mEq per liter - Check magnesium and maintain at or above 2.0 mEq per liter. - Check glycosylated hemoglobin A1c * INR 1.80. Coumadin increased to 5 mg daily 2. Elevated D-dimer * V/Q scan showed very low probability of pulmonary embolism. 3. CT scan showing evidence of recurrence of bladder neoplasm. * Patient was recently evaluated by Dr. Oh's office who recommended conservative treatement due to patients comorbidities at this time. 4. History of CHF * Continue home dose of Furosemide 60mg BID. 5. History of COPD * Patient was prescribed Symbicort but has recently d/c herself because she believes it is causing her hair to fall out. * Consider alternative inhaler. 6. History of tachybradycardia syndrome status post pacemaker * Continue home medications and follow up. 7. History of Hypertension * Continue home medications. 8. History of stage III chronic kidney disease * Kidneys currently stable. * Avoid nephrotoxic agents. * Recheck BEP. 9. Abdominal aortic aneurysm * Continue to follow up with [facility] vascular surgeon. 10. Gout * Continue home meds. 11. DVT prophylaxis with coumadin
[2017-05-23 15:01] VITALS: BP 120/70
--- NOTE | 2017-05-23 19:28 | PN- Housestaff ---
See Addendum Subjective Follow-up For: CHEST PAIN AFIB WITH RVR Complaints: no complaints Tele-Events Since Last Visit: AFIB 90-100 NO EVENTS Subjective: PATIENT IS IN [employer] SITTING UP IN BED EATING BREAKFAST. NOTICES ONLY A MILD CHEST PAIN NOW. Review of Systems Constitutional: Reports: no symptoms. EENTM: Reports: no symptoms. Cardiovascular: Reports: chest pain. Denies: edema, orthopena, palpitations, peripheral edema. Respiratory: Reports: no symptoms. Gastrointestinal: Reports: no symptoms. Genitourinary: Reports: no symptoms. Musculoskeletal: Reports: no symptoms. Skin: Reports: no symptoms. Neurological/Psychological: Reports: no symptoms. Objective Last 24 Hrs of Vital Signs/I&O Vital Signs Date Time Temp Pulse Resp B/P B/P Pulse O2 O2 Flow FiO2 Mean Ox Delivery Rate 05/23 1619 101 136/62 05/23 1618 101 05/23 1501 98.0 58 18 120/70 97 Room Air 05/23 0949 96 110/68 05/23 0736 98.1 55 18 110/68 98 Room Air 05/22 2159 104 122/68 05/22 1943 98.3 114 20 140/60 95 /06 1930 Room Air Intake & Output 05/23 1600 05/23 0800 05/23 0000 Intake Total 160 200 Output Total 350 300 Balance -190 -100 Intake, IV 60 0 Intake, Oral 100 200 Number 0 0 Bowel Movements Output, Urine 350 300 Patient 110 lb Weight Weight Reported by Patient Measurement Method Physical Exam General Appearance: Alert, Oriented X3, Cooperative, No Acute Distress Skin: No Rashes, No Breakdown, No Significant Lesion Skin Temp/Moisture Exam: Warm/Dry Sepsis Skin Exam (color): Normal for Ethnicity HEENT: Atraumatic, PERRLA, EOMI, Mucous Membr. moist/pink Neck: Supple Cardiovascular: Normal S1, Normal S2, No Murmurs, Gallops, Rubs Lungs: Clear to Auscultation, Normal Air Movement Abdomen: Normal Bowel Sounds, Soft, No Tenderness, No Hepatospenomegaly, No Masses Neurological: Normal Speech Extremities: No Clubbing, No Cyanosis, No Edema, Normal Pulses, No Tenderness/ Swelling Vascular: Pulses Symmetrical Sepsis Peripheral Pulse Location: Radial Sepsis Peripheral Pulse Exam: Normal Current Medications: Current Medications Sig/Elle Start time Last Medication Dose Route Stop Time Status Admin Acetaminophen 650 MG Q6P PRN 05/22 1600 AC PO Acetaminophen 1,000 MG Q6P PRN 05/22 1600 AC IV Albuterol Sulfate 2 PUF Q4-6 PRN PRN 05/22 1730 AC INH Allopurinol 100 MG DAILY 05/23 1000 DC PO Allopurinol 100 MG DAILY 05/22 2200 AC 05/23 PO 0949 Atorvastatin Calcium 10 MG 1700 05/23 1700 AC 05/23 PO 1617 Budesonide/ 2 PUF BID 05/22 2200 AC Formoterol Fumarate INH Diltiazem HCl 125 MG Q24H 05/24 0600 CAN Sodium Chloride 100 ML IV Diltiazem HCl 120 MG TID 05/23 1600 AC 05/23 PO 1618 Diltiazem HCl 120 MG TID 05/22 2200 DC 05/23 PO 0949 Diltiazem HCl 125 MG Q24H 05/22 1500 AC 05/23 Sodium Chloride 100 ML IV 05/24 0559 0615 Furosemide 60 MG 0730,1630 05/23 0730 AC 05/23 PO 1617 Metoprolol Tartrate 12.5 MG BID 05/23 1443 AC 05/23 PO 1619 Morphine Sulfate 1 MG Q6-PRN PRN 05/22 1600 AC IV Multivitamins 1 TAB DAILY 05/23 1000 AC 05/23 Therapeutic PO 0948 Potassium Chloride 20 MEQ DAILY 05/23 1456 AC 05/23 PO 1516 Potassium Chloride 20 MEQ DAILY 05/23 1000 DC PO Trimethobenzamide HCl 200 MG Q8P PRN 05/22 1715 AC IM Warfarin Sodium 5 MG COUMADIN 1700 ONE 05/23 1700 DC 05/23 PO 05/23 1701 1617 Last 24 Hrs of Lab/Nikita Results Last 24 Hrs of Labs/Mics: Laboratory Tests 05/23/17 0623: Anion Gap 10, Estimated GFR 33 L, BUN/Creatinine Ratio 18.7, Hemoglobin A1c Pending, PT 18.8 H, INR 1.80 H, CBC w Diff NO MAN DIFF REQ, RBC 3.31 L, MCV 94.5, MCH 31.3 H, RDW 15.5 H, MPV 7.8, Gran % 82.6 H, Lymphocytes % 9.0 L, Monocytes % 7.2, Eosinophils % 0.7, Basophils % 0.5, Absolute Granulocytes 6.0, Absolute Lymphocytes 0.7 L, Absolute Monocytes 0.5, Absolute Eosinophils 0.1, Absolute Basophils 0, PUBS MCHC 33.1 05/23/17 0030: Troponin I 0.02 Orders Radiology Findings: The CT scan dated 05/22/2017 shows postoperative changes in the right lung from a previous right upper lobectomy and thickening of the interlobar fissure on the left. vq scan IMPRESSION: Very low probability of pulmonary embolism. Severe ventilation abnormalities are noted which are evidence of obstructive airway disease. 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 #afib with rvr #elevated d-dimer #nausea #history diastolic chf #pacemaker for tachybrady syndrome #diagnosed bladder cancer with recent 50lb weight loss #HLD #HTN #COPD NO HOME OXYGEN #CKD STAGE 3B PLAN #AFIB WITH RVR: Patient was at rate 150 in the ambulance and received 2 pushes of cardizem before arriving in the ED. She was placed on a drip in the ED. As per cardiology, they suspect that her rapid ventricular response on presentation was multifactorial and due to the fact that she had not taken her diltiazem the day of admission- she was also dehydrated, is on pulmonary medications that can lead to tachycardia, was mildly anemic, etc. Ventricular response under control so can switch to oral diltiazem and 12.5 metoprolol prn INR 1.8 - dose coumadin 5mg now and check INR tomorrow troponins and ekgs negative for acs #? Pulmonary Embolism: high d-dimer in setting of cancer diagnosis. VQ SCAN NEGATIVE #Nausea: due to long QTC of 514, do not give zofran which has potential to prolong it more. Use tygan prn #History of diastolic heart failure: Continue home dose of Lasix 60 mg twice a day. maintain k between 4-4.5 and mg above 2.0 #History of tachybradycardia syndrome status post pacemaker with hypertension and hyperlipidemia: Continue home medications. Reports that she is set for a battery change soon. #Bladder cancer diagnosis: Patient is being followed by Dr. Akers's office. Conservative treatment due to her other comorbidities. #History of COPD not on home oxygen: Continue home dose of Symbicort #CKD Avoid nephrotoxic agents and watch Cr. Still currently at 1.5. #DVT PROPHYLAXIS COUMADIN #DNR DNI Problem List: 1. Chronic kidney disease (CKD) 2. Bladder cancer 3. Rapid atrial fibrillation 4. Chest pain 5. COPD (chronic obstructive pulmonary disease) Pain Ratin Pain Location: NA Pain Goal: Remain pain free Pain Plan: NA Tomorrow's Labs & Rationales: BEP DVT/Prophylaxis: pharmacological
[2017-05-23 22:21] VITALS: BP 110/62
[2017-05-24 07:48] VITALS: BP 126/60
[2017-05-24 08:39] LABS: PT 30.2 SEC (9.4-12.5)
[2017-05-24 08:43] LABS: ABSOLUTE BASOPHIL COUNT 0 /CUMM (0.0-0.2); ABSOLUTE EOSINOPHIL COUNT 0.1 /CUMM (0.0-0.7); ABSOLUTE GRANULOCYTE CT 5.7 /CUMM (1.4-6.5); ABSOLUTE LYMPH COUNT 0.8 /CUMM (1.2-3.4); ABSOLUTE MONOCYTE COUNT 0.6 /CUMM (0.10-0.60); BASOPHIL % 0.4 % (0.0-2.0); EOSINOPHIL % 1.2 % (0-5); GRANULOCYTE % 79.6 % (42.2-75.2); HEMATOCRIT 32.8 % (37-47); MEAN CORPUSCULAR HGB 31.3 PG (27.0-31.0); MEAN CORPUSCULAR HGB CONC 33.3 G/DL (33.0-37.0); MEAN CORPUSCULAR VOLUME 94.2 FL (81.0-99.0); MEAN PLATELET VOLUME 7.6 FL (7.4-10.4); PLATELET COUNT 278 /CUMM (130-400); RBC DISTRIBUTION WIDTH 15.7 % (11.5-14.5); RED BLOOD CELL CT 3.49 /CUMM (4.20-5.40); WHITE BLOOD CELL COUNT 7.2 /CUMM (4.8-10.8)
--- NOTE | 2017-05-24 11:24 | PN- Housestaff ---
OSMANI WATERS,TONIE 05/24/17 1124: Subjective Follow-up For: CHEST PAIN AFIB WITH RVR Complaints: nausea and weakness Tele-Events Since Last Visit: a fib 84-98 at 6:09 svt 10 Subjective: pt is lying in bed lethargic and noxious Review of Systems Constitutional: Reports: malaise, weakness. Cardiovascular: Reports: chest pain (4/ , stable not related to b). Gastrointestinal: Reports: diarrhea (one loose bowel mov), nausea. Objective Last 24 Hrs of Vital Signs/I&O Vital Signs Date Time Temp Pulse Resp B/P B/P Pulse O2 O2 Flow FiO2 Mean Ox Delivery Rate 05/24 1457 97.9 96 20 110/60 96 Nasal Cannula 05/24 1014 92 116/64 05/24 1012 92 116/64 05/24 0800 97 Room Air Room Air 05/24 0748 98.1 80 20 126/60 97 Room Air 05/23 2221 98.2 82 20 110/62 93 Nasal 3.0L Cannula 05/23 2140 97.0 82 16 104/52 05/23 2139 97.0 82 16 104/52 Intake & Output 05/24 1600 08 0800 05/24 0000 Intake Total 610 40 Output Total 400 300 Balance 610 -360 -300 Intake, IV 10 40 Intake, Oral 600 0 Number 1 1 Bowel Movements Output, Urine 400 300 Physical Exam General Appearance: Alert, Oriented X3, Cooperative, No Acute Distress Skin: No Rashes, No Breakdown, No Significant Lesion Skin Temp/Moisture Exam: Warm/Dry HEENT: Atraumatic, PERRLA, EOMI, Mucous Membr. 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 #afib with rvr #elevated d-dimer #nausea #history diastolic chf #pacemaker for tachybrady syndrome #diagnosed bladder cancer with recent 50lb weight loss #HLD #HTN #COPD NO HOME OXYGEN #CKD STAGE 3B PLAN #AFIB : HR today is 84-98 continue PO cardizem low dose metoprolol as per cardio consult continue to mon itor in quality assurance monitor vitals INR is 2.91 ---- continue coumadin #Nausea: due to long QTC of 514, do not give zofran which has potential to prolong it more. Use tygan prn #? Pulmonary Embolism: high d-dimer in setting of cancer diagnosis. VQ SCAN NEGATIVE #History of diastolic heart failure: Continue home dose of Lasix 60 mg twice a day. maintain k between 4-4.5 and mg above 2.0 #History of tachybradycardia syndrome status post pacemaker with hypertension and hyperlipidemia: Continue home medications. Reports that she is set for a battery change soon. #Bladder cancer diagnosis: Patient is being followed by Dr. Akers's office. Conservative treatment due to her other comorbidities. #History of COPD not on home oxygen: Continue home dose of Symbicort #CKD Avoid nephrotoxic agents and watch Cr. Still currently at 1.4 #DVT PROPHYLAXIS COUMADIN #DNR DNI Problem List: 1. Atrial fibrillation with rapid ventricular response 2. COPD exacerbation 3. Bladder cancer 4. Chest pain 5. Chronic kidney disease (CKD) Pain Ratin Pain Location: ch left sided chest pain Pain Goal: Pain 4 or less Pain Plan: morphine acetaminophen Tomorrow's Labs & Rationales: PT/INR: pt on coumadin DVT/Prophylaxis: pharmacological ROSALINDA URIBE 05/24/17 1125: Attending MD Review Statement Attending Statement Attending MD Statement: examined this patient, discuss w/resident/PA[employer], agreed w/resident/PA[employer], discussed with family, reviewed EMR data (avail), discussed with nursing, discussed with case mgmt, reviewed images, amended to note Attending Assessment/Plan: The patient was seen and discussed with house staff. Cardiology input appreciated. HR slower. Continue po Cardizem and use low dose Metoprolol as per Cardiology. Monitor BP closely for hypotension. V/Q very low probability of PE. . Continue to monitor. PT eval.
--- NOTE | 2017-05-24 14:02 | PN- Cardiology ---
Objective Vital Signs and I&Os Vital Signs Date Time Temp Pulse Resp B/P B/P Pulse O2 O2 Flow FiO2 Mean Ox Delivery Rate 05/24 1014 92 116/64 05/24 1012 92 116/64 05/24 0800 97 Room Air Room Air 05/24 0748 98.1 80 20 126/60 97 Room Air 05/23 2221 98.2 82 20 110/62 93 Nasal 3.0L Cannula 05/23 2140 97.0 82 16 104/52 05/23 2139 97.0 82 16 104/52 05/23 1619 101 136/62 05/23 1618 101 05/23 1501 98.0 58 18 120/70 97 Room Air Intake & Output 05/24 0000 05/23 1600 05/23 0800 05/23 0000 Intake Total 40 40 160 200 Output Total 400 300 400 350 300 Balance -360 -300 -360 -190 -100 Intake, IV 40 40 60 0 Intake, Oral 0 100 200 Number 1 1 0 0 Bowel Movements Output, Urine 400 300 400 350 300 Patient 110 lb Weight Weight Reported by Patient Measurement Method Current Medications: Current Medications Sig/Elle Start time Last Medication Dose Route Stop Time Status Admin Acetaminophen 650 MG Q6P PRN 05/22 1600 AC PO Acetaminophen 1,000 MG Q6P PRN 05/22 1600 AC IV Albuterol Sulfate 2 PUF Q4-6 PRN PRN 05/22 1730 AC INH Allopurinol 100 MG DAILY 05/220 AC 05/24 PO 1014 Atorvastatin Calcium 10 MG 1700 05/23 1700 AC 05/23 PO 1617 Budesonide/ 2 PUF BID 05/22 2200 AC Formoterol Fumarate INH Diltiazem HCl 125 MG Q24H 05/24 0600 CAN Sodium Chloride 100 ML IV Diltiazem HCl 120 MG TID 05/23 1600 AC 05/24 PO 1012 Diltiazem HCl 120 MG TID 05/22 2200 DC 05/23 PO 0949 Diltiazem HCl 125 MG Q24H 05/22 1500 DC 05/23 Sodium Chloride 100 ML IV 05/24 0559 0615 Furosemide 60 MG 0730,1630 05/23 0730 AC 05/24 PO 0825 Metoprolol Tartrate 12.5 MG BID 05/23 1443 AC 05/24 PO 1014 Morphine Sulfate 1 MG Q6-PRN PRN 05/22 1600 AC IV Multivitamins 1 TAB DAILY 05/23 1000 AC 05/24 Therapeutic PO 1014 Potassium Chloride 20 MEQ DAILY 05/23 1456 AC 05/24 PO 1013 Potassium Chloride 20 MEQ DAILY 05/23 1000 DC PO Trimethobenzamide HCl 200 MG Q8P PRN 05/22 1715 AC IM Warfarin Sodium 5 MG COUMADIN 1700 ONE 05/23 1700 DC 05/23 PO 05/23 1701 1617 Results Last 48 Hrs of Labs/Mics: Laboratory Tests 05/24/17 0700: Anion Gap 12, Estimated GFR 35 L, BUN/Creatinine Ratio 20.0, Magnesium 2.1, PT 30.2 H, INR 2.91 H, CBC w Diff NO MAN DIFF REQ, RBC 3.49 L, MCV 94.2, MCH 31.3 H, RDW 15.7 H, MPV 7.6, Gran % 79.6 H, Lymphocytes % 10.8 L, Monocytes % 8.0, Eosinophils % 1.2, Basophils % 0.4, Absolute Granulocytes 5.7, Absolute Lymphocytes 0.8 L, Absolute Monocytes 0.6, Absolute Eosinophils 0.1, Absolute Basophils 0, PUBS MCHC 33.3 05/23/17 0623: Anion Gap 10, Estimated GFR 33 L, BUN/Creatinine Ratio 18.7, Hemoglobin A1c Pending, PT 18.8 H, INR 1.80 H, CBC w Diff NO MAN DIFF REQ, RBC 3.31 L, MCV 94.5, MCH 31.3 H, RDW 15.5 H, MPV 7.8, Gran % 82.6 H, Lymphocytes % 9.0 L, Monocytes % 7.2, Eosinophils % 0.7, Basophils % 0.5, Absolute Granulocytes 6.0, Absolute Lymphocytes 0.7 L, Absolute Monocytes 0.5, Absolute Eosinophils 0.1, Absolute Basophils 0, PUBS MCHC 33.1 05/23/17 0030: Troponin I 0.02 05/22/17 1829: Troponin I 0.02 Assessment/Plan Assessment/Plan Assessment: 1. Atrial fibrillation with a rapid ventricular rate 2. History of diastolic heart failure 3. History of bradycardia/tachycardia syndrome with permanent pacemaker implanted 4. History of bladder cancer 5. Hypertension 6. Hyperlipidemia 7. Chronic obstructive pulmonary disease 6. Chronic renal insufficiency 7. Elevated d-dimer Recommendations: -
[2017-05-24 14:57] VITALS: BP 110/60
[2017-05-25 07:00] VITALS: BP 102/50
--- NOTE | 2017-05-25 08:53 | PN- Cardiology ---
Subjective Subjective: Clinically improved today with no abdominal pain. Overall feeling better. Objective Vital Signs and I&Os Vital Signs Date Time Temp Pulse Resp B/P B/P Pulse O2 O2 Flow FiO2 Mean Ox Delivery Rate 05/25 700 98.8 72 16 102/50 95 Room Air 05/24 2224 98.5 80 16 96 Room Air 05/24 2103 104 112/68 05/24 2024 134 112/68 05/24 1734 109 112/58 05/24 1457 97.9 96 20 110/60 96 Nasal Cannula 05/24 1014 92 116/64 05/24 1012 92 116/64 Intake & Output 05/25 0800 05/25 0000 05/24 1600 05/24 0000 Intake Total 240 450 610 40 Output Total 300 400 300 Balance 240 150 610 -360 -300 Intake, IV 10 40 Intake, Oral 240 450 600 0 Number 1 1 Bowel Movements Output, Urine 300 400 300 Physical Exam: General Appearance: Alert, Oriented X3, Cooperative, No Acute Distress Skin: No Rashes, No Breakdown, No Significant Lesion Skin Temp/Moisture Exam: Warm/Dry HEENT: Atraumatic, PERRLA, EOMI, Mucous Membr. moist/pink Neck: Supple, No JVD Cardiovascular: Normal S1, Normal S2, No Murmurs (irregular irregular) Lungs: Clear to Auscultation, Normal Air Movement Abdomen: Normal Bowel Sounds, Soft, No Tenderness Extremities: No Edema Current Medications: Current Medications Sig/Elle Start time Last Medication Dose Route Stop Time Status Admin Acetaminophen 650 MG .STK-MED ONE 05/24 2103 DC PO 05/24 2104 Acetaminophen 650 MG Q6P PRN 05/22 1600 AC 05/24 PO 210 Acetaminophen 1,000 MG Q6P PRN 05/22 1600 AC IV Albuterol Sulfate 2 PUF Q4-6 PRN PRN 05/22 1730 AC INH Allopurinol 100 MG DAILY 05/22 2200 AC 05/24 PO 101 Atorvastatin Calcium 10 MG 1700 05/23 1700 AC 05/24 PO 173 Budesonide/ 2 PUF BID 05/22 2200 AC Formoterol Fumarate INH Diltiazem HCl 120 MG TID 05/23 1600 AC 05/24 PO 202 Furosemide 60 MG 0730,1630 05/23 730 AC 05/25 PO 0805 Metoprolol Tartrate 12.5 MG BID 05/23 1443 AC 05/24 PO 2103 Morphine Sulfate 1 MG Q6-PRN PRN 05/22 1600 AC IV Multivitamins 1 TAB DAILY 05/23 1000 AC 05/24 Therapeutic PO 1014 Potassium Chloride 40 MEQ ONCE ONE 05/24 1600 DC 05/24 PO 05/24 1601 1736 Potassium Chloride 20 MEQ DAILY 05/23 1456 AC 05/24 PO 1013 Trimethobenzamide HCl 200 MG Q8P PRN 05/22 1715 AC IM Warfarin Sodium 2 MG COUMADIN 1700 ONE 05/24 1700 DC 05/24 PO 05/24 1701 1732 Results Last 48 Hrs of Labs/Mics: Laboratory Tests 05/25/17 0740: Sodium Pending, Potassium Pending, Chloride Pending, Carbon Dioxide Pending, Anion Gap Pending, BUN Pending, Creatinine Pending, BUN/Creatinine Ratio Pending , PT Pending, INR Pending 05/24/17 0700: Anion Gap 12, Estimated GFR 35 L, BUN/Creatinine Ratio 20.0, Magnesium 2.1, PT 30.2 H, INR 2.91 H, CBC w Diff NO MAN DIFF REQ, RBC 3.49 L, MCV 94.2, MCH 31.3 H, RDW 15.7 H, MPV 7.6, Gran % 79.6 H, Lymphocytes % 10.8 L, Monocytes % 8.0, Eosinophils % 1.2, Basophils % 0.4, Absolute Granulocytes 5.7, Absolute Lymphocytes 0.8 L, Absolute Monocytes 0.6, Absolute Eosinophils 0.1, Absolute Basophils 0, PUBS MCHC 33.3 Assessment/Plan Assessment/Plan Assessment: 1. Atrial fibrillation with a rapid ventricular rate 2. History of diastolic heart failure 3. History of bradycardia/tachycardia syndrome with permanent pacemaker implanted 4. History of bladder cancer 5. Hypertension 6. Hyperlipidemia 7. Chronic obstructive pulmonary disease 6. Chronic renal insufficiency 7. Elevated d-dimer Recommendations: -Improved today with reasonable rate control -OOB as tolerated -Patient is awaiting further input from Urology about bladder lesion and possible intervention. -Folowup labs in AM -COntinue current regiment for now. Continue telemetry? Yes
--- NOTE | 2017-05-25 08:58 | PN- Housestaff ---
NAOMI WATERS,EWA 05/25/17 0857: Subjective Follow-up For: CHEST PAIN AFIB WITH RVR Complaints: pain scale (0-10) Tele-Events Since Last Visit: Atrial fibrillation rates from 74-99 occasional pacer beats. Subjective: Patient was seen and examined bedside she complains of an 8 out of 10 squeezing pain from last night and nausea. She was given Tylenol. She complains of no other issues. She denies pain or nausea at the moment. Review of Systems Constitutional: Reports: no symptoms. EENTM: Reports: no symptoms. Cardiovascular: Reports: no symptoms. Respiratory: Reports: no symptoms. Gastrointestinal: Reports: diarrhea. Genitourinary: Reports: no symptoms. Musculoskeletal: Reports: no symptoms. Skin: Reports: no symptoms. Neurological/Psychological: Reports: no symptoms. Hematologic/Endocrine: Reports: no symptoms. Objective Last 24 Hrs of Vital Signs/I&O Vital Signs Date Time Temp Pulse Resp B/P B/P Pulse O2 O2 Flow FiO2 Mean Ox Delivery Rate 05/25 1649 98.3 86 18 122/62 05/25 1453 98.3 86 18 122/62 96 Room Air 05/25 1331 85 120/52 / 0957 98.8 72 16 110/42 07/09 0957 72 110/42 07/09 0700 98.8 72 16 102/50 95 Room Air 05/24 2224 98.5 80 16 96 Room Air / 2103 104 112/68 /08 2024 134 112/68 Intake & Output / 1600 /09 0800 05/25 0000 Intake Total 480 240 450 Output Total 300 Balance 480 240 150 Intake, Oral 480 240 450 Output, Urine 300 Physical Exam General Appearance: Alert, Oriented X3, Cooperative, No Acute Distress, VERY FRAIL ELDERLY WOMAN Skin: No Rashes, No Breakdown, No Significant Lesion Skin Temp/Moisture Exam: Cool/Dry Sepsis Skin Exam (color): Normal for Ethnicity HEENT: Atraumatic, PERRLA, EOMI, Mucous Membr. moist/pink Neck: Supple, No JVD Cardiovascular: Normal S1, Normal S2, No Murmurs, Gallops, Rubs Lungs: Clear to Auscultation, Normal Air Movement Abdomen: Normal Bowel Sounds, Soft, No Tenderness, No Hepatospenomegaly Neurological: Normal Speech, Strength at 5/5 X4 Ext, Normal Tone, Sensation Intact Extremities: No Edema Vascular: Normal Pulses Sepsis Peripheral Pulse Location: Radial Sepsis Peripheral Pulse Exam: Normal Current Medications: Current Medications Sig/Elle Start time Last Medication Dose Route Stop Time Status Admin Acetaminophen 650 MG .STK-MED ONE 05/24 2103 DC PO 05/24 2104 Acetaminophen 650 MG Q6P PRN 05/22 1600 AC 05/24 PO 210 Acetaminophen 1,000 MG Q6P PRN 05/22 1600 AC IV Albuterol Sulfate 2 PUF Q4-6 PRN PRN 05/22 1730 AC INH Allopurinol 100 MG DAILY 05/22 220 AC 05/25 PO 0957 Atorvastatin Calcium 10 MG 1700 05/23 1700 AC 05/25 PO 1649 Budesonide/ 2 PUF BID 05/22 220 AC Formoterol Fumarate INH Diltiazem HCl 120 MG TID 05/23 1600 AC 05/25 PO 1649 Furosemide 60 MG 0730,1630 05/23 0730 AC 05/25 PO 1649 Metoprolol Tartrate 12.5 MG BID 05/23 1443 AC 05/25 PO 0957 Morphine Sulfate 1 MG Q6-PRN PRN 05/22 1600 AC IV Multivitamins 1 TAB DAILY 05/23 1000 AC 05/25 Therapeutic PO 0957 Potassium Chloride 20 MEQ DAILY 05/23 1456 AC 05/25 PO 0957 Trimethobenzamide HCl 200 MG Q8P PRN 05/22 1715 AC IM Last 24 Hrs of Lab/Nikita Results Last 24 Hrs of Labs/Mics: Laboratory Tests 05/25/17 0740: Anion Gap 8, Estimated GFR 35 L, BUN/Creatinine Ratio 17.9, PT 43.1 *H, INR 4.16 *H Assessment/Plan Assessment: This is an 86 year old female with a PMH significant for chronic afib on coumadin and diltiazem, tachybradycardia syndrome s/p pacemaker placement, diastolic CHF, COPD not on any home oxygen, HTN, gout, 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 #afib with rvr #elevated d-dimer #nausea #history diastolic chf #pacemaker for tachybrady syndrome #diagnosed bladder cancer with recent 50lb weight loss #HLD #HTN #COPD NO HOME OXYGEN #CKD STAGE 3B PLAN #AFIB : HR today is 74-99 continue PO cardizem continue metoprolol continue to monitor in physician practice administrator vitals INR is 4.16 hold Coumadin #Nausea: due to long QTC of 514, do not give zofran which has potential to prolong it more. Use tygan prn patient was nauseous last night but denied any antiemetic #? Pulmonary Embolism: high d-dimer in setting of cancer diagnosis. VQ SCAN NEGATIVE #History of diastolic heart failure: Continue home dose of Lasix 60 mg twice a day. maintain k between 4-4.5 and mg above 2.0 today's potassium is 4.0 #History of tachybradycardia syndrome status post pacemaker with hypertension and hyperlipidemia: Continue home medications. Reports that she is set for a battery change soon. #Bladder cancer diagnosis: Patient is being followed by Dr. Akers's office. Conservative treatment due to her other comorbidities. #History of COPD not on home oxygen: Continue home dose of Symbicort #CKD Avoid nephrotoxic agents and watch Cr. Still currently at 1.4 Pain control with morphine and #DVT PROPHYLAXIS COUMADIN #DNR DNI Problem List: 1. Chest pain 2. Chronic kidney disease (CKD) 3. Bladder cancer 4. Rapid atrial fibrillation 5. COPD (chronic obstructive pulmonary disease) 6. Tachy-elton syndrome Pain Ratin Pain Location: N/A Pain Goal: Pain 4 or less Pain Plan: Morphine and Tylenol for pain Tomorrow's Labs & Rationales: BEP INR ROSALINDA URIBE 05/25/17 1023: Attending MD Review Statement Attending Statement Attending MD Statement: examined this patient, discuss w/resident/PA/ATOMIC SPECTROSCOPIST, agreed w/resident/PA/ATOMIC SPECTROSCOPIST, discussed with family, reviewed EMR data (avail), discussed with nursing, discussed with case mgmt, reviewed images, amended to note Attending Assessment/Plan: The patient was seen and discussed with house staff. Cardiology input appreciated. HR slower. Continue po Cardizem and use low dose Metoprolol as per Cardiology. Monitor BP closely for hypotension. V/Q very low probability of PE. INR is supratherapeutic INR, coumadin held, follow INR. Continue to monitor. PT eval. anticipate d/c in next 24-48 hrs.
[2017-05-25 09:06] LABS: PT 43.1 SEC (9.4-12.5)
--- NOTE | 2017-05-25 10:27 | PN- Student ---
Subjective Subjective: Ms. Pro states that today she is feeling better than yesterday but is complaining of weakness and decreased appetite. She states that yesterday she had severe nausea and 1 loose bowel movement. Patient states around 5pm last night she had sharp 8/10 abdominal pain that felt like squeezing above her umbilical region. She states this pain is different from the pain she has felt on and off under her breast. As per patient last night she took 2 tylenol and the pain and nausea has subsided. Objective Objective: Vitals T: 98.9, P:72, RR: 16, BP 102/50, O2 Sat 95% on room air Physical Exam CV: Irregullarly Irregular. Over night tele: Afib 74-99 with occasional pacer beats Lungs: Clear to ausculation bilaterally posteriorly ABD: Normal active bowel sounds, non tender. Hernia noted Extremities: No pedal edema Labs PT: 43.1, INR: 4.16 NA: 134L, Cl 93L, Co2: 33H, BUN 25H, Creatinine 1.4H, GFR: 35L Assessment/Plan Assessment: Assessment: Ms. 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 Today the patient complains of weakness but no longer has the pain and nausea from yesterday. INR was elevated at 4.6 today. Problem List 1. Atrial fibrillation with RVR 2. Elevated D-dimer - Possible Pulmonary embolism 3. CT scan showing evidence of recurrence of bladder neoplasm. 4. History of CHF 5. History of COPD 6. History of tachybradycardia syndrome status post pacemaker 7. History of Hypertension 8. History of stage III chronic kidney disease 9. Abdominal aortic aneurysm 10. Gout Plan: 1. Atrial fibrillation with RVR * Continue telemetry monitoring. * Continue oral cardizem and metoprololol 12.5mg PO BID per cardiology. * Check magnesium and maintain at or above 2.0 mEq per liter. - Last Mg 2.1 on 05/24 * Replete potassium and maintain between 4.0-4.5 mEq per liter. - Last postassium 4.0 on 05/25 * Glycosylated hemoglobin A1c pending. * INR 4.6 Hold Coumadin today. 2. Elevated D-dimer * V/Q scan showed very low probability of pulmonary embolism. 3. CT scan showing evidence of recurrence of bladder neoplasm. * Patient was recently evaluated by Dr. Oh's office who recommended conservative treatement due to patients comorbidities at this time. 4. History of CHF * Continue home dose of Furosemide 60mg BID. 5. History of COPD * Patient was prescribed Symbicort but has recently d/c herself because she believes it is causing her hair to fall out. * Consider alternative inhaler. 6. History of tachybradycardia syndrome status post pacemaker * Continue home medications and follow up. 7. History of Hypertension * Continue home medications. 8. History of stage III chronic kidney disease * Kidneys currently stable. * Avoid nephrotoxic agents. * Creatinine 1.4 9. Abdominal aortic aneurysm * Continue to follow up with [facility] vascular surgeon. 10. Gout * Continue home meds. 11. DVT prophylaxis with coumadin
[2017-05-25 13:31] VITALS: BP 120/52
[2017-05-25 14:53] VITALS: BP 122/62
[2017-05-25 21:56] VITALS: BP 112/68
[2017-05-26 07:29] VITALS: BP 118/52
--- NOTE | 2017-05-26 08:47 | PN- Housestaff ---
See Addendum Subjective Follow-up For: CHEST PAIN AFIB WITH RVR Complaints: no complaints Tele-Events Since Last Visit: Last night patient was in A. fib 76-128 some PAC beat no events Subjective: Patient was seen and examined bedside. She says she is feeling well and is anxious to leave. Review of Systems Constitutional: Reports: no symptoms. EENTM: Reports: no symptoms. Cardiovascular: Reports: no symptoms. Respiratory: Reports: no symptoms. Gastrointestinal: Reports: no symptoms. Genitourinary: Reports: no symptoms. Musculoskeletal: Reports: no symptoms. Skin: Reports: no symptoms. Neurological/Psychological: Reports: no symptoms. Hematologic/Endocrine: Reports: no symptoms. Immunologic/Allergic: Reports: no symptoms. Objective Last 24 Hrs of Vital Signs/I&O Vital Signs Date Time Temp Pulse Resp B/P B/P Pulse O2 O2 Flow FiO2 Mean Ox Delivery Rate 05/26 0932 60 118/52 05/26 0932 60 118/52 05/26 0800 Room Air 05/26 0729 98.3 60 18 118/52 94 Room Air 05/26 0000 95 Room Air / 2217 110 110/60 / 2156 98.1 64 18 112/68 95 07/09 2104 92 102/54 07/09 1649 98.3 86 18 122/62 07/09 1453 98.3 86 18 122/62 96 Room Air Intake & Output 05/26 1600 /10 0800 / 0000 Intake Total 822 200 580 Output Total 350 400 Balance 822 -150 180 Intake, Oral 822 200 580 Number 1 Bowel Movements Output, Urine 350 400 Patient 103 lb Weight Physical Exam General Appearance: Alert, Oriented X3, Cooperative, No Acute Distress Skin: No Rashes, No Breakdown, No Significant Lesion Skin Temp/Moisture Exam: Cool/Dry Sepsis Skin Exam (color): Normal for Ethnicity HEENT: Atraumatic, EOMI, Mucous Membr. moist/pink Neck: Supple Cardiovascular: Normal S1, Normal S2, No Murmurs, Gallops, Rubs Lungs: Clear to Auscultation, Normal Air Movement Abdomen: Normal Bowel Sounds, Soft, No Tenderness Neurological: Normal Speech Extremities: No Clubbing, No Cyanosis, No Edema, Normal Pulses, No Tenderness/ Swelling Vascular: Normal Pulses, Pulses Symmetrical Sepsis Peripheral Pulse Location: Radial Sepsis Peripheral Pulse Exam: Normal Current Medications: Current Medications Sig/Elle Start time Last Medication Dose Route Stop Time Status Admin Acetaminophen 650 MG Q6P PRN 05/22 1600 AC 05/24 PO 2104 Acetaminophen 1,000 MG Q6P PRN 05/22 1600 AC IV Albuterol Sulfate 2 PUF Q4-6 PRN PRN 05/22 1730 AC INH Allopurinol 100 MG DAILY 05/22 2200 AC 05/26 PO 0932 Atorvastatin Calcium 10 MG 1700 05/23 1700 AC 05/25 PO 1649 Budesonide/ 2 PUF BID 05/22 2200 AC Formoterol Fumarate INH Diltiazem HCl 120 MG TID 05/23 1600 AC 05/26 PO 0932 Furosemide 60 MG 30,1630 05/23 0730 AC 05/26 PO 0751 Metoprolol Tartrate 12.5 MG BID 05/23 1443 AC 05/26 PO 0932 Morphine Sulfate 1 MG Q6-PRN PRN 05/22 1600 AC IV Multivitamins 1 TAB DAILY 05/23 1000 AC 05/26 Therapeutic PO 0932 Phytonadione 5 MG ONCE ONE 05/26 1045 DC 05/26 SC 05/26 1046 1208 Potassium Chloride 20 MEQ DAILY 05/23 1456 AC 05/26 PO 0932 Trimethobenzamide HCl 200 MG Q8P PRN 05/22 1715 AC IM Last 24 Hrs of Lab/Nikita Results Last 24 Hrs of Labs/Mics: Laboratory Tests 05/26/17 0649: Anion Gap 9, Estimated GFR 33 L, BUN/Creatinine Ratio 18.0, PT 49.0 *H, INR 4.74 *H, CBC w Diff NO MAN DIFF REQ, RBC 3.46 L, MCV 95.2, MCH 31.3 H, RDW 15.7 H, MPV 7.9, Gran % 72.4, Lymphocytes % 15.5 L, Monocytes % 9.4 H, Eosinophils % 2.3, Basophils % 0.4, Absolute Granulocytes 4.5, Absolute Lymphocytes 1.0 L, Absolute Monocytes 0.6, Absolute Eosinophils 0.1, Absolute Basophils 0, PUBS MCHC 32.9 L Lines/Diet/Fluids Lines: peripheral lines Assessment/Plan Assessment: This is an 86 year old female with a PMH significant for chronic afib on coumadin and diltiazem, tachybradycardia syndrome s/p pacemaker placement, diastolic CHF, COPD not on any home oxygen, HTN, gout, 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 #afib with rvr #elevated d-dimer #nausea #history diastolic chf #pacemaker for tachybrady syndrome #diagnosed bladder cancer with recent 50lb weight loss #HLD #HTN #COPD NO HOME OXYGEN #CKD STAGE 3B PLAN #AFIB : HR today is 76-128 continue PO cardizem continue metoprolol continue to monitor in block setter gypsum vitals INR is 4.74 hold Coumadin #Nausea: due to long QTC of 514, do not give zofran which has potential to prolong it more. Use tygan prn patient was nauseous last night but denied any antiemetic #? Pulmonary Embolism: high d-dimer in setting of cancer diagnosis. VQ SCAN NEGATIVE #History of diastolic heart failure: Continue home dose of Lasix 60 mg twice a day. maintain k between 4-4.5 and mg above 2.0 today's potassium is 3.7 #History of tachybradycardia syndrome status post pacemaker with hypertension and hyperlipidemia: Continue home medications. Reports that she is set for a battery change soon. #Bladder cancer diagnosis: Patient is being followed by Dr. Akers's office. Conservative treatment due to her other comorbidities. #History of COPD not on home oxygen: Continue home dose of Symbicort #CKD Avoid nephrotoxic agents and watch Cr. Still currently at 1.5 #Pain control with morphine and Tylenol #Patient discharge is pending INR decrease #DVT PROPHYLAXIS COUMADIN #DNR DNI Problem List: 1. Chest pain 2. Chronic kidney disease (CKD) 3. Bladder cancer 4. Rapid atrial fibrillation 5. Bladder cancer 6. Tachy-elton syndrome Pain Ratin Pain Location: N/A Pain Goal: Remain pain free Pain Plan: Morphine for pain, Tylenol for mild pain Tomorrow's Labs & Rationales: INR in the morning.
[2017-05-26 09:34] LABS: ABSOLUTE BASOPHIL COUNT 0 /CUMM (0.0-0.2); ABSOLUTE EOSINOPHIL COUNT 0.1 /CUMM (0.0-0.7); ABSOLUTE GRANULOCYTE CT 4.5 /CUMM (1.4-6.5); ABSOLUTE MONOCYTE COUNT 0.6 /CUMM (0.10-0.60); BASOPHIL % 0.4 % (0.0-2.0); EOSINOPHIL % 2.3 % (0-5); GRANULOCYTE % 72.4 % (42.2-75.2); HEMATOCRIT 32.9 % (37-47); MEAN CORPUSCULAR HGB 31.3 PG (27.0-31.0); MEAN CORPUSCULAR HGB CONC 32.9 G/DL (33.0-37.0); MEAN CORPUSCULAR VOLUME 95.2 FL (81.0-99.0); MEAN PLATELET VOLUME 7.9 FL (7.4-10.4); PLATELET COUNT 274 /CUMM (130-400); RBC DISTRIBUTION WIDTH 15.7 % (11.5-14.5); RED BLOOD CELL CT 3.46 /CUMM (4.20-5.40); WHITE BLOOD CELL COUNT 6.2 /CUMM (4.8-10.8)
--- NOTE | 2017-05-26 12:44 | PN- Cardiology ---
Subjective Subjective: No complaints and feeling improved overall. Objective Vital Signs and I&Os Vital Signs Date Time Temp Pulse Resp B/P B/P Pulse O2 O2 Flow FiO2 Mean Ox Delivery Rate 05/26 0932 60 118/52 05/26 0932 60 118/52 05/26 0800 Room Air 05/26 0729 98.3 60 18 118/52 94 Room Air 05/26 0000 95 Room Air 05/25 2217 110 110/60 05/25 2156 98.1 64 18 112/68 95 05/25 2104 92 102/54 05/25 1649 98.3 86 18 122/62 05/25 1453 98.3 86 18 122/62 96 Room Air 05/25 1331 85 120/52 Intake & Output 05/26 0805/26 0000 05/25 1600 05/25 0805/25 0000 Intake Total 200 580 480 240 450 Output Total 350 400 300 Balance -150 180 480 240 150 Intake, Oral 200 580 480 240 450 Number 1 Bowel Movements Output, Urine 350 400 300 Physical Exam: Chronically ill-appearing elderly female in no acute distress with nasal oxygen in place. Vital signs: See above. HEENT: Normocephalic, atraumatic, EOMI, slightly dry mucous membranes. Neck: No JVD, no bruits. Lungs: Decreased breath sounds bilaterally and crackles at the left base. Heart: S1, S2 (irregularly, irregular) grade 1/6 systolic murmur. Abdomen: Soft, nontender, positive bowel sounds. Extremities: No edema. Current Medications: Current Medications Sig/Elle Start time Last Medication Dose Route Stop Time Status Admin Acetaminophen 650 MG Q6P PRN 05/22 1600 AC 05/24 PO 2104 Acetaminophen 1,000 MG Q6P PRN 05/22 1600 AC IV Albuterol Sulfate 2 PUF Q4-6 PRN PRN 05/22 1730 AC INH Allopurinol 100 MG DAILY 05/22 2200 AC 05/26 PO 0932 Atorvastatin Calcium 10 MG 1700 05/23 1700 AC 05/25 PO 1649 Budesonide/ 2 PUF BID 05/22 220 AC Formoterol Fumarate INH Diltiazem HCl 120 MG TID 05/23 1600 AC 05/26 PO 0932 Furosemide 60 MG 0730,1630 05/23 730 AC 05/26 PO 0751 Metoprolol Tartrate 12.5 MG BID 05/23 1443 AC 05/26 PO 0932 Morphine Sulfate 1 MG Q6-PRN PRN 05/22 1600 AC IV Multivitamins 1 TAB DAILY 05/23 1000 AC 05/26 Therapeutic PO 0932 Phytonadione 5 MG ONCE ONE 05/26 1045 DC 05/26 SC 05/26 1046 1208 Potassium Chloride 20 MEQ DAILY 05/23 1456 AC 05/26 PO 0932 Trimethobenzamide HCl 200 MG Q8P PRN 05/22 1715 AC IM Results Last 48 Hrs of Labs/Mics: Laboratory Tests 05/26/17 0649: Anion Gap 9, Estimated GFR 33 L, BUN/Creatinine Ratio 18.0, PT 49.0 *H, INR 4.74 *H, CBC w Diff NO MAN DIFF REQ, RBC 3.46 L, MCV 95.2, MCH 31.3 H, RDW 15.7 H, MPV 7.9, Gran % 72.4, Lymphocytes % 15.5 L, Monocytes % 9.4 H, Eosinophils % 2.3, Basophils % 0.4, Absolute Granulocytes 4.5, Absolute Lymphocytes 1.0 L, Absolute Monocytes 0.6, Absolute Eosinophils 0.1, Absolute Basophils 0, PUBS MCHC 32.9 L 05/25/17 0740: Anion Gap 8, Estimated GFR 35 L, BUN/Creatinine Ratio 17.9, PT 43.1 *H, INR 4.16 *H Assessment/Plan Assessment/Plan [id number] w/ a hx of HTN, HLD, DM, CKD, anemia, gout, fmr tob use, COPD, pul nodules, 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 Her upper abdominal/lower chest discomfort has improved and was likely on a musculoskeletal basis from her recurrent "dry heaves" with no ECG changes or troponin elevation. Suspect that her rapid ventricular response on presentation was multifactorial and due to the fact that she had not taken her diltiazem the day of admission, was mildly intravascularly depleted secondary to decreased by mouth intake, is on pulmonary medications that can lead to tachycardia, was mildly anemic, etc. Fortunately, the ventricular response has come under reasonable control on her present regimen. Recommendations: * Continue on telemetry. * Continue to hold warfarin, given supratherapeutic INR. * Continue on the rest of her cardiac medications. * DVT prophylaxis. Continue telemetry? Yes
--- NOTE | 2017-05-26 13:57 | PN- Student ---
Subjective Subjective: Today Ms. Pro said she continues to feel better. She denies any abdominal pain or chest pain at this time. She says that her appetite is better today and has no complaints or pain. 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 Occasional pacer beat. Physical Exam CV: Irrregularly irregular Lungs: Clear to auscultation bilaterally posteriorly Abdomen: Non-tender Extremeties: No edema Pertinent Labs PT: 49.0, INR 4.74 Results Results: Laboratory Tests 05/26/17 0649: Anion Gap 9, Estimated GFR 33 L, BUN/Creatinine Ratio 18.0, PT 49.0 *H, INR 4.74 *H, CBC w Diff NO MAN DIFF REQ, RBC 3.46 L, MCV 95.2, MCH 31.3 H, RDW 15.7 H, MPV 7.9, Gran % 72.4, Lymphocytes % 15.5 L, Monocytes % 9.4 H, Eosinophils % 2.3, Basophils % 0.4, Absolute Granulocytes 4.5, Absolute Lymphocytes 1.0 L, Absolute Monocytes 0.6, Absolute Eosinophils 0.1, Absolute Basophils 0, PUBS MCHC 32.9 L 05/25/17 0740: Anion Gap 8, Estimated GFR 35 L, BUN/Creatinine Ratio 17.9, PT 43.1 *H, INR 4.16 *H 05/24/17 0700: Anion Gap 12, Estimated GFR 35 L, BUN/Creatinine Ratio 20.0, Magnesium 2.1, PT 30.2 H, INR 2.91 H, CBC w Diff NO MAN DIFF REQ, RBC 3.49 L, MCV 94.2, MCH 31.3 H, RDW 15.7 H, MPV 7.6, Gran % 79.6 H, Lymphocytes % 10.8 L, Monocytes % 8.0, Eosinophils % 1.2, Basophils % 0.4, Absolute Granulocytes 5.7, Absolute Lymphocytes 0.8 L, Absolute Monocytes 0.6, Absolute Eosinophils 0.1, Absolute Basophils 0, PUBS MCHC 33.3 Assessment/Plan Assessment: Ms. 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 Today the patient has no complaints and states she is feeling better overall. INR was 4.74. Problem List 1. Atrial fibrillation with RVR 2. Elevated D-dimer - Possible Pulmonary embolism 3. CT scan showing evidence of recurrence of bladder neoplasm. 4. History of CHF 5. History of COPD 6. History of tachybradycardia syndrome status post pacemaker 7. History of Hypertension 8. History of stage III chronic kidney disease 9. Abdominal aortic aneurysm 10. Gout Plan: 1. Atrial fibrillation with RVR * Patient was seen by mobile nurse this morning - Continue telemetry monitoring. - Continue oral cardizem and metoprololol 12.5mg PO BID per cardiology. - Glycosylated hemoglobin A1c: 5.7 - INR 4.74 Hold Coumadin today, supratherapeutic INR. - Re-check INR in AM. 2. Elevated D-dimer * V/Q scan showed very low probability of pulmonary embolism. 3. CT scan showing evidence of recurrence of bladder neoplasm. * Patient was recently evaluated by Dr. Oh's office who recommended conservative treatement due to patients comorbidities at this time. 4. History of CHF * Continue home dose of Furosemide 60mg BID. 5. History of COPD * Patient was prescribed Symbicort but has recently chosen to not take because she believes it is causing her hair to fall out. * Consider alternative inhaler. 6. History of tachybradycardia syndrome status post pacemaker * Continue home medications and follow up. 7. History of Hypertension * Continue home medications. 8. History of stage III chronic kidney disease * Kidneys currently stable. * Avoid nephrotoxic agents. * Creatinine 1.5 9. Abdominal aortic aneurysm * Continue to follow up with [facility]. 10. Gout * Continue home meds. 11. DVT prophylaxis Waiting for INR to stabilize then prepare for discharge.
[2017-05-26 15:11] VITALS: BP 136/60
[2017-05-26 23:22] VITALS: BP 126/62
[2017-05-27 06:53] VITALS: BP 102/60
[2017-05-27] MEDS ORDERED: METOPROLOL SUCC25 M1 PO (07:31)
--- NOTE | 2017-05-27 07:33 | Patient Discharge Instructions ---
Discharge Instructions General Discharge Information You were seen/treated for: Atrial Fibrillation with rapid ventricular rate Special Instructions: 1. Please follow-up with her wildlife refuge manager within 1 week of discharge. 2. Please follow up with her primary care doctor within 1 week of discharge. 3. Please start taking the new medication metoprolol 12.5 twice a day as instructed. 4.We are holding coumadin today. Please get INR checked on 05/28/17 and dose coumadin accordingly. INR to be checked hence forth every mon, wed and fri. Diet Continue normal diet: No Recommended Diet: Heart Healthy Activity Full Activity/No Limits: Yes (as tolerated) Acute Coronary Syndrome Inclusion Criteria At DC or during hospital stay patient has or had the following: ACS DIAGNOSIS No Discharge Core Measures Meds if any: Prescribed or Continued at Discharge Meds if any: NOT Prescribed or Continued at Discharge Congestive Heart Failure Inclusion Criteria At DC or during hospital stay patient has or had the following: CHF DIAGNOSIS No Discharge Core Measures Meds if any: Prescribed or Continued at Discharge Meds if any: NOT Prescribed or Continued at Discharge Cerebrovascular accident Inclusion Criteria At DC or during hospital stay patient has or had the following: CVA/TIA Diagnosis No Discharge Core Measures Meds if any: Prescribed or Continued at Discharge Meds if any: NOT Prescribed or Continued at Discharge Venous thromboembolism Inclusion Criteria VTE Diagnosis No VTE Type NONE VTE Confirmed by (Test) NONE Discharge Core Measures - Per Current guidelines, there needs to be overlap - treatment for the first 5 days of Warfarin therapy. - If discharged on Warfarin prior to 5 days of - overlap therapy, the patient will need to be - assessed for post discharge needs including - *Post discharge parental anticoagulation - *Warfarin and/or parental anticoagulation education - *Follow up date to check INR post discharge At least 5 days overlap therapy as Inpatient No Meds if any: Prescribed or Continued at Discharge Note: Overlap Therapy is Warfarin and Anticoagulant Meds if any: NOT Prescribed or Continued at Discharge
--- NOTE | 2017-05-27 08:24 | PN- Housestaff ---
See Addendum Subjective Follow-up For: CHEST PAIN AFIB WITH RVR Complaints: no complaints Tele-Events Since Last Visit: Normal sinus rhythm 68-84 Subjective: Patient was seen and examined bedside. She is in good spirits and feels good, is eager to go home. She says that the problems with her INR are common and that she is used to increases up to 4 and 5. She was eating upon exam but notes that baseline she does not eat very much. No complaints. Review of Systems Constitutional: Reports: no symptoms. EENTM: Reports: no symptoms. Cardiovascular: Reports: no symptoms. Respiratory: Reports: no symptoms. Gastrointestinal: Reports: no symptoms. Genitourinary: Reports: no symptoms. Musculoskeletal: Reports: no symptoms. Skin: Reports: no symptoms. Neurological/Psychological: Reports: no symptoms. Hematologic/Endocrine: Reports: no symptoms. Immunologic/Allergic: Reports: no symptoms. Objective Last 24 Hrs of Vital Signs/I&O Vital Signs Date Time Temp Pulse Resp B/P B/P Pulse O2 O2 Flow FiO2 Mean Ox Delivery Rate 05/27 0847 97.8 137 18 122/58 05/27 0846 137 122/58 05/27 0653 97.8 60 18 102/60 96 Room Air 05/27 0000 Room Air 05/26 2322 97.9 76 18 126/62 100 Room Air 05/26 2143 96 136/68 05/26 2143 96 136/68 05/26 1636 68 136/60 05/26 1511 97.6 68 18 136/60 98 Room Air 05/26 0932 60 118/52 05/26 0932 60 118/52 Intake & Output 05/27 1600 05/27 0800 05/27 0000 Intake Total 400 662 Output Total Balance 400 662 Intake, Oral 400 662 Physical Exam General Appearance: Alert, Oriented X3, Cooperative, No Acute Distress Skin: No Rashes, No Breakdown, No Significant Lesion Skin Temp/Moisture Exam: Warm/Dry Sepsis Skin Exam (color): Normal for Ethnicity HEENT: Atraumatic, EOMI, Mucous Membr. moist/pink Cardiovascular: Regular Rate, Normal S1, Normal S2, No Murmurs, Gallops, Rubs Lungs: Clear to Auscultation, Normal Air Movement Abdomen: Normal Bowel Sounds, Soft, No Tenderness, No Hepatospenomegaly Neurological: Normal Speech, Strength at 5/5 X4 Ext, Normal Tone, Sensation Intact, Cranial Nerves 3-12 NL Extremities: No Clubbing, No Cyanosis, No Edema, Normal Pulses, No Tenderness/ Swelling Vascular: Normal Pulses, Pulses Symmetrical Sepsis Peripheral Pulse Location: Radial Sepsis Peripheral Pulse Exam: Normal Current Medications: Current Medications Sig/Elle Start time Last Medication Dose Route Stop Time Status Admin Acetaminophen 650 MG Q6P PRN 05/22 1600 AC 05/24 PO 2104 Acetaminophen 1,000 MG Q6P PRN 05/22 1600 AC IV Albuterol Sulfate 2 PUF Q4-6 PRN PRN 05/22 1730 AC INH Allopurinol 100 MG DAILY 05/22 2200 AC 05/27 PO 0847 Atorvastatin Calcium 10 MG 1700 05/23 1700 AC 05/26 PO 1636 Budesonide/ 2 PUF BID 05/22 220 AC Formoterol Fumarate INH Diltiazem HCl 120 MG TID 05/23 1600 AC 05/27 PO 0846 Furosemide 60 MG 0730,1630 05/23 0730 AC 05/27 PO 0845 Metoprolol Tartrate 12.5 MG BID 05/23 1443 AC 05/27 PO 0847 Morphine Sulfate 1 MG Q6-PRN PRN 05/22 1600 AC IV Multivitamins 1 TAB DAILY 05/23 1000 AC 05/27 Therapeutic PO 0847 Phytonadione 5 MG ONCE ONE 05/26 1045 DC 05/26 SC 05/26 1046 1208 Potassium Chloride 20 MEQ DAILY 05/23 1456 AC 05/27 PO 0847 Trimethobenzamide HCl 200 MG Q8P PRN 05/22 1715 AC IM Last 24 Hrs of Lab/Nikita Results Last 24 Hrs of Labs/Mics: Laboratory Tests 05/27/17 0649: PT 30.3 H, INR 2.92 H Lines/Diet/Fluids Lines: peripheral lines Assessment/Plan Assessment: This is an 86 year old female with a PMH significant for chronic afib on coumadin and diltiazem, tachybradycardia syndrome s/p pacemaker placement, diastolic CHF, COPD not on any home oxygen, HTN, gout, 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 #afib with rvr #elevated d-dimer #nausea #history diastolic chf #pacemaker for tachybrady syndrome #diagnosed bladder cancer with recent 50lb weight loss #HLD #HTN #COPD NO HOME OXYGEN #CKD STAGE 3B #Mild malnutrition due to low by mouth intake PLAN #AFIB : HR today is 68 to 84. continue PO cardizem continue metoprolol INR today is 2.92. Hold Coumadin for today and discharge on orders to check INR tomorrow and report results to Dr. Dick. #Nausea: Due to long QTC of 514, do not give zofran which has potential to prolong it more. Use tygan prn patient was nauseous last night but denied any antiemetic #? Pulmonary Embolism: high d-dimer in setting of cancer diagnosis. VQ SCAN NEGATIVE #History of diastolic heart failure: Continue home dose of Lasix 60 mg twice a day. maintain k between 4-4.5 and mg above 2.0 #History of tachybradycardia syndrome status post pacemaker with hypertension and hyperlipidemia: Continue home medications. Reports that she is set for a battery change soon. #Bladder cancer diagnosis: Patient is being followed by Dr. Akers's office. Conservative treatment due to her other comorbidities. #History of COPD not on home oxygen: Continue home dose of Symbicort #CKD Avoid nephrotoxic agents and watch Cr. #Mild malnutrition Patient should be encouraged to continue decreased by mouth intake and protein foods. She is encouraged to drink chocolate Ensure twice a day #Pain control with morphine and Tylenol #Patient can safely be discharged now diet INR is within acceptable limits. #DVT PROPHYLAXIS COUMADIN #DNR DNI Problem List: 1. Bladder cancer 2. Rapid atrial fibrillation 3. COPD (chronic obstructive pulmonary disease) 4. Chronic kidney disease (CKD) 5. Bladder cancer 6. Chest pain 7. Tachy-elton syndrome Pain Ratin Pain Location: NA Pain Goal: Remain pain free Pain Plan: NA Tomorrow's Labs & Rationales: NA
[2017-05-27 08:25] LABS: PT 30.3 SEC (9.4-12.5)
[2017-05-27 08:47] VITALS: BP 122/58
--- NOTE | 2017-05-27 13:52 | PN- Cardiology ---
Subjective Subjective: Continues to feel improved. Objective Vital Signs and I&Os Vital Signs Date Time Temp Pulse Resp B/P B/P Pulse O2 O2 Flow FiO2 Mean Ox Delivery Rate 05/27 0847 97.8 137 18 122/58 05/27 0846 137 122/58 05/27 0653 97.8 60 18 102/60 96 Room Air 05/27 0000 Room Air 05/26 2322 97.9 76 18 126/62 100 Room Air 05/26 2143 96 136/68 05/26 2143 96 136/68 05/26 1636 68 136/60 05/26 1511 97.6 68 18 136/60 98 Room Air Intake & Output 05/27 1600 05/27 0800 05/27 0000 05/26 1600 05/26 0800 05/26 0000 Intake Total 400 662 822 200 580 Output Total 350 400 Balance 400 662 822 -150 180 Intake, Oral 400 662 822 200 580 Number 1 Bowel Movements Output, Urine 350 400 Patient 103 lb Weight Physical Exam: Chronically ill-appearing elderly female in no acute distress with nasal oxygen in place. Vital signs: See above. HEENT: Normocephalic, atraumatic, EOMI, slightly dry mucous membranes. Neck: No JVD, no bruits. Lungs: Decreased breath sounds bilaterally and crackles at the left base. Heart: S1, S2 (irregularly, irregular) grade 1/6 systolic murmur. Abdomen: Soft, nontender, positive bowel sounds. Extremities: No edema. Current Medications: Current Medications Sig/Elle Start time Last Medication Dose Route Stop Time Status Admin Acetaminophen 650 MG Q6P PRN 05/22 1600 DCD 05/24 PO 2104 Acetaminophen 1,000 MG Q6P PRN 05/22 1600 DCD IV Albuterol Sulfate 2 PUF Q4-6 PRN PRN 05/22 1730 DCD INH Allopurinol 100 MG DAILY 05/22 2200 DCD 05/27 PO 0847 Atorvastatin Calcium 10 MG 1700 05/23 1700 DCD 05/26 PO 1636 Budesonide/ 2 PUF BID 05/22 2200 DCD Formoterol Fumarate INH Diltiazem HCl 120 MG TID 05/23 1600 DCD 05/27 PO 0846 Furosemide 60 MG 0730,1630 05/23 0730 DCD 05/27 PO 0845 Metoprolol Tartrate 12.5 MG BID 05/23 1443 DCD 05/27 PO 0847 Morphine Sulfate 1 MG Q6-PRN PRN 05/22 1600 DCD IV Multivitamins 1 TAB DAILY 05/23 1000 DCD 05/27 Therapeutic PO 0847 Potassium Chloride 20 MEQ DAILY 05/23 1456 DCD 05/27 PO 0847 Trimethobenzamide HCl 200 MG Q8P PRN 05/22 1715 DCD IM Results Last 48 Hrs of Labs/Mics: Laboratory Tests 05/27/1749: PT 30.3 H, INR 2.92 H 05/26/17 0649: Anion Gap 9, Estimated GFR 33 L, BUN/Creatinine Ratio 18.0, PT 49.0 *H, INR 4.74 *H, CBC w Diff NO MAN DIFF REQ, RBC 3.46 L, MCV 95.2, MCH 31.3 H, RDW 15.7 H, MPV 7.9, Gran % 72.4, Lymphocytes % 15.5 L, Monocytes % 9.4 H, Eosinophils % 2.3, Basophils % 0.4, Absolute Granulocytes 4.5, Absolute Lymphocytes 1.0 L, Absolute Monocytes 0.6, Absolute Eosinophils 0.1, Absolute Basophils 0, PUBS MCHC 32.9 L Assessment/Plan Assessment/Plan [id number] w/ a hx of HTN, HLD, DM, CKD, anemia, gout, fmr tob use, COPD, pul nodules, 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 Her upper abdominal/lower chest discomfort has improved and was likely on a musculoskeletal basis from her recurrent "dry heaves" with no ECG changes or troponin elevation. Suspect that her rapid ventricular response on presentation was multifactorial and due to the fact that she had not taken her diltiazem the day of admission, was mildly intravascularly depleted secondary to decreased by mouth intake, is on pulmonary medications that can lead to tachycardia, was mildly anemic, etc. Fortunately, the ventricular response has come under reasonable control on her present regimen. Recommendations: * Continue on telemetry. * Restart warfarin anticoagulation with today's therapeutic INR (2.92). * Continue on the rest of her cardiac medications. * DVT prophylaxis.
--- NOTE | 2017-05-27 15:33 | Discharge Summary ---
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 She was supposed to have an appointment with operational risk manager KURT at that time but states that she could not make it to the car due to the weakness and called EMS. In the ambulance she received one IV push of diltiazem for afib rates in the 160 's to only mild improvement. In the ED she received 2 more doses and was set up on a cardizem drip. She also received 3 doses of 81mg ASA. She denied taking anything prior to EMS coming, denies eating today, denies any palpatations, SOB, cough, vomitting, dizziness/lightheadedness, urinary complaints. She noted a chronic pain from her ankles downwards but didnt note any edematous changes. Of note, the patient was diagnosed with bladder cancer 3 years [address] Christie. She was then seen here for acute hypercarbic respiratory failure in march 2017. At that time she was also on digoxin and metoprolol which were dc' d during that visit with concerns of digoxin toxicity and hypotension. After this admission she saw her doctor who noted that she had a 50lb weight loss in the past year and sent her for a CT abd/chest which showed a stable AAA and evidence of bladder cancer. She saw Dr. Tse to discuss options but due to her comborbidities and age, he didnt recommend chemo. She was last seen here on 05/18 for a similar chest pain and was seen by Dr. Dick who advised her to continue her home medication of diltiazem. Vitals on admission: Temperature 97.4, pulse: 140, respirate 18, blood pressure 142/89 saturating more than 92% on room air. Her d-dimer was 2452, proBNP 3480, INR was 1.6, creatinine was 1.5, magnesium was 2.1 hemoglobin A1c was 5.7 her troponins were negative as were ischemic changes on EKG which ruled out ACS, her TSH was 5, her free T4 was normal, and her CBC was within normal limits. Her EKG showed a long QTc of 514. Initial EKG done in the ED showed A. fib with RVR heart rate 150. Echocardiogram done in March 2017:Normal size left ventricle. Mild concentric left ventricular hypertrophy. Normal left ventricular wall motion. Normal left ventricular ejection fraction visually estimated at > 65%. CT abdomen and pelvis: Stable dilatation of the left collecting system which appears secondary to what appears to be an enveloping, but a stable bladder mass most prominent on the left side. Likely reflecting neoplasm, either bladder neoplasm or metastatic disease. Mild ascites new.Borderline dilatation of the small bowel may reflect an ileus or early small bowel obstruction without transition point. This is new compared with the recent examination. Prominent calcific atherosclerotic disease with a stable abdominal aortic aneurysm. #Chest/abdominal pain: Her discomfort has improved and was likely musculoskeletal from her recurrent dry heaves with no ECG changes or troponin elevation. #AFIB : She was continued PO cardizem and metoprolol to good effect. Her RVR was likely due to the fact that she did not take her diltiazem the day of admission and the fact that she was mildly dehydrated secondary to decreased by mouth intake. Her Coumadin amount was increased and decreased as per her INR. Towards the end of her stay her INR increased to 4.65 and she was required to stay in the hospital another day so that we can get her INR under control. Upon discharge her INR is 2.94. She is advised to follow-up with her INR the next day and to see Dr. Dick her operational risk manager. #Nausea: Due to long QTC of 514, we did not give Zofran instead we gave Tigan. #Pulmonary Embolism: We did a VQ scan to discover if she had a pulmonary embolism as her d-dimer was high. VQ scan was negative. #History of diastolic heart failure: Her home dose of Lasix 60 mg twice a day was continued and her potassium was kept within normal limits. #Bladder cancer diagnosis: She is being followed by Dr. Akers's office. She will see him after discharge. He is suggesting conservative treatment due to her other comorbidities. #History of COPD not on home oxygen: We continued home dose of Symbicort #CKD We avoided nephrotoxic agents and watched Cr. #Mild malnutrition Patient was encouraged to continue to increase by mouth intake and protein foods. She is encouraged to drink chocolate Ensure twice a day #Pain control with morphine and Tylenol. #DVT PROPHYLAXIS COUMADIN #DNR DNI Allergies: Coded Allergies: levofloxacin (Severe, TONGUE SWELLING 01/13/16) Penicillins (UNKNOWN PER PT WAS VERY BAD 05/22/17) Disposition Summary Disposition Principal Diagnosis: A. fib with RVR Additional Diagnosis: Diastolic heart failure, COPD, CK D, mild malnutrition, bladder cancer. Discharge Disposition: home health services Discharge Instructions General Discharge Information Code Status: Do Not Resucitate/Intubat Patient's Diet: Regular Patient's Activity: As tolerated Follow-Up Instructions/Appts: Patient must have INR done tomorrow with results communicated to Dr. Dick, her operational risk manager. Medications at Discharge Discharge Medications: Continue taking these medications: Lovastatin (Lovastatin) 40 MG TABLET 1 Tablet ORAL DAILY Instructions: with food Comments: Last Taken:05/26/17 Time:4:36P.M Aspirin (Ecotrin*) 81 MG TABLET.DR 1 Tablet ORAL DAILY Comments: Last Taken:NOT GIVEN THIS ADMISSION TIME: Diltiazem HCl (Diltiazem HCl) 120 MG TABLET 1 Tablet ORAL THREE TIMES DAILY Qty = 255 Comments: Last Taken:05/27/17 Time: 8:47A.M Potassium Chloride (Potassium Chloride) 10 MEQ TAB.ER.PRT 2 Tablet ORAL DAILY Qty = 90 Comments: Last Taken:05/27/17 Time:8:47A.M Allopurinol (Allopurinol) 100 MG TABLET 1 Tablet ORAL DAILY Qty = 30 Comments: Last Taken: 05/27/17 Time: 8:47A.M Albuterol Sulfate (Proair Hfa) 90 MCG HFA.AER.AD 2 Puff Inhale through mouth EVERY 4-6 HOURS NEEDED as needed for SOB Comments: NOT GOVEN. Budesonide/Formoterol Fumarate (Symbicort 160-4.5 Mcg Inhaler) 160 MCG-4.5 MCG/ ACTUATION HFA.AER.AD 2 Puff Inhale through mouth TWICE DAILY Comments: NOT GIVEN Tramadol HCl (Tramadol HCl) 50 MG TABLET 1 Tablet ORAL TWICE DAILY as needed for PAIN Qty = 30 Comments: NOT GIVEN Furosemide (Lasix) 20 MG TABLET 60 Milligram ORAL TWICE DAILY Days = 30 Comments: Last Taken:05/27/17 Time:8:47A.M Warfarin Sodium (Warfarin Sodium) 3 MG TABLET 1 Tablet ORAL DAILY Comments: NOT GIVEN Calcium Carbonate/Vitamin D3 (Calcium 500 + D Tablet) (Unknown Strength) TABLET Unknown Dose ORAL TWICE DAILY Comments: Last Taken: NOT GIVEN THIS ADMISSION Time: Multivitamin (Multi-Day Vitamins) 1 EACH TABLET 1 Tablet ORAL DAILY Comments: Last Taken:05/27/17 Time:8:47A.M Start taking the following new medications: Metoprolol Succinate (Metoprolol Succinate) 25 MG TAB 0.5 Milligram ORAL TWICE DAILY Qty = 30 No Refills Comments: Last Taken:05/27/17 Time:8:47A.M Copies To: KURT WATERS,BEVERLEY Morton; JEAN CLAUDE WATERS,VAHID Attending MD Review Statement Documenting Attending: LUDWIN CHAND MD Other Findings: The patient was seen on the day of discharge and agree with the plan of care. During the hospital stay the patient was restarted on Metoprolol (however lower dose than prior dose) and her BP was good on this dosage. Coumadin was held x 2 days prior to discharge and the patient had been given 5 mg Vitamin K SQ on 05/26 when INR was high. Needs close follow-up as OP and may require lower dose of Coumadin for therapeutic INR (was previously using 3 mg daily). Dr. Dick to follow with INR to be drawn 05/28.
== END 2017-05-27 13:20 | disposition home health service (06) | DRG 309 ==
LOC: ERH 11:24 → 1NO 15:21 → ERHI 15:21 → ENRESERV 17:28 → ENTRNSPT 18:17 → CMPTRNSPT 18:25 → 1NO 18:42 → ENPENDDIS 05-27 11:37 → 1NO 05-27 13:20
PROVIDERS: Physician Assistant; Student in an Organized Health Care Education/Training Program; ADMIT Hospitalist
DX: I48.2 Chronic atrial fibrillation (principal); I13.0 Hypertensive heart and chronic kidney disease with heart failure and stage 1 through stage 4 chronic kidney disease, or unspecified chronic kidney disease; I27.2 Other secondary pulmonary hypertension; I50.32 Chronic diastolic (congestive) heart failure; E44.1 Mild protein-calorie malnutrition; I36.1 Nonrheumatic tricuspid (valve) insufficiency; C67.9 Malignant neoplasm of bladder, unspecified; J44.9 Chronic obstructive pulmonary disease, unspecified; N18.3 Chronic kidney disease, stage 3 (moderate); Z79.01 Long term (current) use of anticoagulants; Z95.0 Presence of cardiac pacemaker; Z68.20 Body mass index [BMI] 20.0-20.9, adult; M10.9 Gout, unspecified; Z85.118 Personal history of other malignant neoplasm of bronchus and lung; I71.4 Abdominal aortic aneurysm, without rupture; E86.0 Dehydration; E78.5 Hyperlipidemia, unspecified; E11.9 Type 2 diabetes mellitus without complications; Z87.891 Personal history of nicotine dependence; I34.0 Nonrheumatic mitral (valve) insufficiency; I37.1 Nonrheumatic pulmonary valve insufficiency; I35.0 Nonrheumatic aortic (valve) stenosis; D64.9 Anemia, unspecified; Z66 Do not resuscitate
CPT/HCPCS: 1NSP; 36415; 74176; 78582; 82436; 93005; 93010; 96374; 96376; 99291; A9540; A9558; J3250; J3490